=== PATIENT | female | born 1970 | race Caucasian/White ===

== ENCOUNTER 2016-10-26 18:06 | Emergency (ER) | payer MEDICARE, OTHER ==
[~2016-10-26] VITALS: Ht 170.2 cm; Wt 69.0 kg
[~2016-10-26 18:06] MED LIST: CARB100C PO; CEFU250T PO; CIPR-9 PO; FLUT1SPR9 EACH NARE; METR-1 PO; MIRTA15 PO
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
[2016-10-26 18:28] VITALS: PULSE 116; RESP 20
[2016-10-26] MEDS ORDERED: TETANUS/DIPHTHERIA TOXOID ADULT 0.5 ML VIAL IM ONE (18:30)
[2016-10-26] MEDS ORDERED: diphenhydrAMINE HCL 50 MG/ML VIAL IV PUSH ONE (18:45)
[2016-10-26] MEDS ORDERED: LORazepam 2 MG/ML VIAL IV PUSH ONE (18:45)
[2016-10-26 19:00] VITALS: BP 127/63; PULSE 98; RESP 21; O2SAT 97
[2016-10-26] MEDS ORDERED: diphenhydrAMINE HCL 50 MG/ML VIAL IM ONE (19:00)
[2016-10-26] MEDS ORDERED: LORazepam 2 MG/ML VIAL IM ONE (19:00)
[2016-10-26 19:21] LABS: AMPHETAMINE, URINE NEG (NEG); BARBITURATES, URINE NEG (NEG); COCAINE, URINE POS (NEG)
[2016-10-26 19:32] LABS: AUTOMATED NEUTROPHIL # 4.4 TH/MM3 (1.8-7.7); BASOPHIL % 0.5 % (0.0-2.0); EOSINOPHIL # 0.1 TH/MM3 (0-0.4); EOSINOPHIL % 0.8 % (0.0-4.0); HEMATOCRIT 46.4 % (35.0-46.0); HEMO FLAGS DIFF FINAL; LYMPH % 34.4 % (9.0-44.0); MEAN CELL VOLUME 85.7 FL (80.0-100.0); MEAN CORPUSCULAR HEMOGLOBIN 29.2 PG (27.0-34.0); MEAN CORPUSCULAR HGB CONC 34.1 % (32.0-36.0); MONO % 14.3 % (0.0-8.0); PLATELET COUNT 166 TH/MM3 (150-450); RED BLOOD COUNT 5.42 MIL/MM3 (4.00-5.30); RED CELL DISTRIBUTION WIDTH 14.9 % (11.6-17.2); WHITE BLOOD COUNT 8.9 TH/MM3 (4.0-11.0)
[2016-10-26 19:52] LABS: ANION GAP 12 MEQ/L (5-15)
[2016-10-26 19:57] LABS: ALKALINE PHOSPHATASE 146 U/L (45-117); ALT (GPT) 32 U/L (10-53); AST (GOT) 30 U/L (15-37); BICARBONATE 23.5 MEQ/L (21.0-32.0); BLOOD UREA NITROGEN 14 MG/DL (7-18); CHLORIDE 103 MEQ/L (98-107); GLOMERULAR FILTRATION RATE 41 ML/MIN (>89); SODIUM (NA) 138 MEQ/L (136-145); TOTAL BILIRUBIN ADULT 0.4 MG/DL (0.2-1.0)
[2016-10-26 19:58] LABS: ACETAMINOPHEN LESS THAN 2.0 MCG/ML (10.0-30.0); POTASSIUM 3.8 MEQ/L (3.5-5.1)
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
[2016-10-26] MEDS ORDERED: HALOPERIDOL LACTATE 5 MG/ML AMP IM ONE (20:15)
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
[2016-10-27 02:13] VITALS: BP 113/74; PULSE 103; RESP 18; O2SAT 97
[2016-10-27 06:21] VITALS: BP 113/79; PULSE 112; RESP 18; O2SAT 97
[2016-10-27 10:49] VITALS: BP 108/76; PULSE 101; RESP 20; O2SAT 98
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
[2016-10-27 11:41] VITALS: BP 108/76; PULSE 101; RESP 20; O2SAT 98
== END 2016-10-27 12:09 | disposition home or self-care (01) ==
LOC: NEPE 18:06 → NEPJ 10-27 12:09
DX: S61.411A Laceration without foreign body of right hand, initial encounter (principal); S02.2XXA Fracture of nasal bones, initial encounter for closed fracture; F14.129 Cocaine abuse with intoxication, unspecified; F10.129 Alcohol abuse with intoxication, unspecified; E11.9 Type 2 diabetes mellitus without complications; R51 Headache; I10 Essential (primary) hypertension; F19.129 Other psychoactive substance abuse with intoxication, unspecified; Z72.0 Tobacco use; Z23 Encounter for immunization
CPT/HCPCS: 12001; 70450; 70486; 73120; 80053; 80307; 84703; 85025; 90471; 90714; 96372; 99285; J1200; J1630; J2060

== ENCOUNTER 2016-11-23 00:09 | Emergency (ER) | payer MEDICARE, OTHER ==
[~2016-11-23] VITALS: Ht 175.3 cm; Wt 70.0 kg
[2016-11-23] MEDS ORDERED: SODIUM CHLORIDE 0.9% FLUSH 10 ML FLUSH IVF PRN (00:15)
[2016-11-23] MEDS ORDERED: SODIUM CHLOR 0.9% 1000 ML INJ 1,000 ML IV SCH (00:15)
[2016-11-23 00:16] VITALS: O2SAT 98
[2016-11-23 00:17] VITALS: BP 128/74; PULSE 101; RESP 18; TEMP 97.9; O2SAT 98
[2016-11-23 00:45] LABS: AUTOMATED NEUTROPHIL # 2.9 TH/MM3 (1.8-7.7); BASOPHIL % 0.4 % (0.0-2.0); EOSINOPHIL # 0.1 TH/MM3 (0-0.4); EOSINOPHIL % 1.6 % (0.0-4.0); HEMATOCRIT 37.1 % (35.0-46.0); LYMPH % 56.5 % (9.0-44.0); LYMPHOCYTE # 4.9 TH/MM3 (1.0-4.8); MEAN CELL VOLUME 85.8 FL (80.0-100.0); MEAN CORPUSCULAR HEMOGLOBIN 29.2 PG (27.0-34.0); MONO % 7.8 % (0.0-8.0); NEUT % 33.7 % (16.0-70.0); PLATELET COUNT 148 TH/MM3 (150-450); RED BLOOD COUNT 4.33 MIL/MM3 (4.00-5.30); WHITE BLOOD COUNT 8.6 TH/MM3 (4.0-11.0)
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
[2016-11-23 00:48] LABS: HEMO FLAGS AUTO DIFF
[2016-11-23 00:59] LABS: ACETAMINOPHEN LESS THAN 2.0 MCG/ML (10.0-30.0); ALKALINE PHOSPHATASE 87 U/L (45-117); ALT (GPT) 22 U/L (10-53); ANION GAP 10 MEQ/L (5-15); AST (GOT) 19 U/L (15-37); BICARBONATE 22.8 MEQ/L (21.0-32.0); BLOOD UREA NITROGEN 9 MG/DL (7-18); CHLORIDE 113 MEQ/L (98-107); GLOMERULAR FILTRATION RATE 62 ML/MIN (>89); SODIUM (NA) 146 MEQ/L (136-145); TOTAL BILIRUBIN ADULT 0.2 MG/DL (0.2-1.0)
[2016-11-23 01:03] LABS: POTASSIUM 2.8 MEQ/L (3.5-5.1)
[2016-11-23] MEDS ORDERED: POTASSIUM CHLOR 20 MEQ PREMIX 100 ML IV ONE (01:45)
[2016-11-23 02:08] LABS: PLATELET ESTIMATE SMEAR NORMAL (NORMAL); PLATELET MORPHOLOGY NORMAL (NORMAL)
[2016-11-23 03:10] LABS: SCAN/DIFF AUTO DIFF CONFIRMED
[2016-11-23] MEDS ORDERED: POTASSIUM CHLORIDE 20 MEQ CONTROLLED RELEASE TAB PO ONE (03:15)
[2016-11-23 03:30] VITALS: BP 95/55; PULSE 110; RESP 18; O2SAT 100
[2016-11-23 06:35] VITALS: BP 118/67; PULSE 93; RESP 18; O2SAT 96
[2016-11-23 07:05] VITALS: BP 116/58; PULSE 96; RESP 14; O2SAT 97
[2016-11-23 10:30] VITALS: BP 114/62; PULSE 92; RESP 16; O2SAT 96
== END 2016-11-23 12:54 | disposition home or self-care (01) ==
LOC: NEPE 00:09
DX: Z04.8 Encounter for examination and observation for other specified reasons (principal); F10.120 Alcohol abuse with intoxication, uncomplicated; T76.21XA Adult sexual abuse, suspected, initial encounter; R10.2 Pelvic and perineal pain; E11.9 Type 2 diabetes mellitus without complications; I10 Essential (primary) hypertension; Z87.39 Personal history of other diseases of the musculoskeletal system and connective tissue; Z86.69 Personal history of other diseases of the nervous system and sense organs; Z87.01 Personal history of pneumonia (recurrent); Z86.59 Personal history of other mental and behavioral disorders
CPT/HCPCS: 80053; 80185; 80307; 85025; 96360; 96361; 99284; J7030

== ENCOUNTER 2016-12-23 15:33 | Emergency (ER) | payer MEDICARE, OTHER, MEDICAID ==
[~2016-12-23] VITALS: Ht 172.7 cm; Wt 78.0 kg
[2016-12-23 15:35] VITALS: BP 141/91; PULSE 97; RESP 15; TEMP 98.4; O2SAT 99
--- NOTE | 2016-12-23 15:49 | PD ---
HPI . possible bug bite Chief Complaint: Bite or Sting Time Seen by Provider: 15:49 Travel History International Travel<30 days: No Contact w/Intl Traveler<30days: No Traveled to known affect area: No History of Present Illness HPI 46-year-old female with history of polysubstance abuse here with complaints of a possible insect bite to her left antecubital fossa. Patient tells me that she is living in a correction for women and needs to make sure that this is not something that is contagious. She denies any fever or chills. She denies any IV drug use. PFSH Past Medical History Hx Anticoagulant Therapy: No Bipolar Disorder: Yes Anxiety: Yes Depression: Yes Cancer: No Cardiovascular Problems: No Chemotherapy: No Cerebrovascular Accident: No Diabetes: Yes (TYPE 2) Diminished Hearing: No Genitourinary: No Headaches: Yes (Migraines) Hypertension: Yes Musculoskeletal: Yes Psychiatric: Yes (Diagnosed with BiPolar) Reproductive: No Respiratory: No Migraines: Yes Pneumonia: Yes Seizures: Yes ?: Not Menopausal: Yes : 3 Para: 2 Tubal Ligation: Yes Past Surgical History Section: Yes (X 1) Gynecologic Surgery: Yes Hysterectomy: Yes Social History Alcohol Use: No Tobacco Use: No (unknown) Substance Use: No (will not answer question) Allergies-Medications (Allergen,Severity, Reaction): Coded Allergies: Aspirin (Verified Allergy, Severe, Anaphylaxis, 12/23/16) Sulfa (Verified Allergy, Mild, Rash, 12/23/16) Ultram (Verified Allergy, Mild, Rash, 12/23/16) Vioxx (Verified Allergy, Mild, Rash, 12/23/16) *MDRO Multi-Drug Resistant Organism (Verified Adverse Reaction, Unknown, ) MRSA Shoulder wound 04/2016; MRSA (arm-06/22/16 & 07/23/16) Reported Meds & Prescriptions Reported Meds & Active Scripts Active Cipro (Ciprofloxacin HCl) 500 Mg Tab 500 Mg PO BID Flagyl (Metronidazole) 500 Mg Tab 500 Mg PO TID Mirtazapine 15 Mg Tab 15 Mg PO HS 15 Days Carbamazepine 100 Mg Chew 100 Mg PO Q12HR 15 Days Cefuroxime (Cefuroxime Axetil) 250 Mg Tab 250 Mg PO Q12H Stop date 08/17/16 Flonase Allergy Relief Children Nasal [place] (Fluticasone Nasal [place]) 50 Mcg/ Act [place] 2 [place] EACH NARE DAILY 50 mcg/spray Review of Systems General / Constitutional: No: Fever Eyes: No: Visual changes HENT: No: Headaches Cardiovascular: No: Chest Pain or Discomfort Respiratory: No: Shortness of Breath Gastrointestinal: No: Abdominal Pain Genitourinary: No: Dysuria Musculoskeletal: No: Pain Skin: Positive Other (possible insect bite), No Rash Neurologic: No: Weakness Psychiatric: No: Depression Endocrine: No: Polydipsia Hematologic/Lymphatic: No: Easy Bruising Physical Exam Narrative GENERAL: AAO x 3, no acute distress, Well-nourished, well-developed patient. SKIN: Warm and dry. No visible rashes or bruising. Small slightly erythematous papule to the antecubital fossa on the left side. No evidence of infection. No purulence, drainage or warmth HEAD: Normocephalic and atraumatic. EYES: No scleral icterus. No injection or drainage ENT: No nasal drainage noted. Mucous membranes pink. Airway patent. NECK: Supple, trachea midline. No JVD. CARDIOVASCULAR: Regular rate and rhythm without murmurs, gallops, or rubs. RESPIRATORY: Breath sounds equal bilaterally. No accessory muscle use. No rhonchi or rales. GASTROINTESTINAL: Visual inspection normal EXTREMITIES: No cyanosis or edema. BACK: Nontender without obvious deformity. No CVA tenderness. PSYCH: AAO x 3, normal affect. Data Data Last Documented VS Vital Signs Date Time Temp Pulse Resp B/P Pulse Ox O2 Delivery O2 Flow Rate FiO2 12/23/16 15:35 98.4 97 15 141/91 99 MDM Medical Decision Making Medical Screen Exam Complete: Yes Emergency Medical Condition: Yes Medical Record Reviewed: Yes Differential Diagnosis possible insect bite, less likely cellulitis, less likely scabies Narrative Course 46-year-old female with history of polysubstance abuse here with complaints of a possible insect bite to her left antecubital fossa. Patient tells me that she is living in a correction for women and needs to make sure that this is not something that is contagious. She denies any fever or chills. She denies any IV drug use. Patient seen and examined. She has a small solitary papule to her left antecubital fossa. It is not infected. I've explained this to her at length. We discussed the signs of infection when to return to the ED.. Patient verbalized understanding of instructions, questions were answered, and thanked me for their care. I advised them if their condition worsens, please return to the nearest emergency room for further care. Diagnosis Primary Impression: Papule of skin Additional Impression: Insect bite Qualified Code: W57.XXXA - Insect bite, initial encounter Patient Instructions: General Instructions Additional Instructions: You can use [id number] Neosporin to this area. [place] for worsening signs of infection which include fever, increased redness , increased warmth, purulent drainage, increased swelling or streaking. If any of these develop, please go to the nearest emergency room. Disposition: 01 DISCHARGE HOME Condition: Stable Perri Avendaño December 23, 2016 15:49
== END 2016-12-23 16:07 | disposition home or self-care (01) ==
LOC: NEPK 15:33
DX: R23.8 Other skin changes (principal); S50.362A Insect bite (nonvenomous) of left elbow, initial encounter; E11.9 Type 2 diabetes mellitus without complications; I10 Essential (primary) hypertension; W57.XXXA Bitten or stung by nonvenomous insect and other nonvenomous arthropods, initial encounter; Y93.9 Activity, unspecified; Y92.9 Unspecified place or not applicable; Y99.8 Other external cause status
CPT/HCPCS: 99281

== ENCOUNTER 2017-01-05 08:26 | Emergency (ER) | payer MEDICARE, OTHER ==
[~2017-01-05] VITALS: Ht 172.7 cm; Wt 78.0 kg
[2017-01-05 08:30] VITALS: BP 124/88; PULSE 107; RESP 18; TEMP 99.5; O2SAT 96
[2017-01-05] MEDS ORDERED: PROZ20CA11 PO (08:44)
[2017-01-05] MEDS ORDERED: GABA600T PO (08:44)
[2017-01-05] MEDS ORDERED: CLIN1CAP6 PO (08:44)
[2017-01-05] MEDS ORDERED: CLON1 PO (08:44)
[2017-01-05] MEDS ORDERED: SODIUM CHLOR 0.9% 1000 ML INJ 1,000 ML IV ONE (08:45)
[2017-01-05] MEDS ORDERED: KETOROLAC TROMETHAMINE 30 MG/ML (IVP) VIAL IV PUSH ONE (08:45)
[2017-01-05] MEDS ORDERED: CLINDAMYCIN INJ 600 MG in SODIUM CHLORIDE 0.9% INJ 100 ML IV ONE (08:45)
[2017-01-05] MEDS ORDERED: ONDANSETRON HCL 4 MG/2 ML VIAL IV PUSH ONE (08:45)
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
[2017-01-05 09:08] VITALS: BP 112/73; PULSE 91; RESP 18; TEMP 98.2; O2SAT 98
[2017-01-05 09:11] LABS: AUTOMATED NEUTROPHIL # 6.4 TH/MM3 (1.8-7.7); BASOPHIL # 0.1 TH/MM3 (0-0.2); BASOPHIL % 1.1 % (0.0-2.0); EOSINOPHIL # 0.1 TH/MM3 (0-0.4); EOSINOPHIL % 0.7 % (0.0-4.0); HEMATOCRIT 34.4 % (35.0-46.0); HEMO FLAGS DIFF FINAL; LYMPH % 20.3 % (9.0-44.0); MEAN CORPUSCULAR HEMOGLOBIN 29.1 PG (27.0-34.0); MEAN CORPUSCULAR HGB CONC 33.8 % (32.0-36.0); NEUT % 67.9 % (16.0-70.0); PLATELET COUNT 154 TH/MM3 (150-450); RED BLOOD COUNT 3.99 MIL/MM3 (4.00-5.30); RED CELL DISTRIBUTION WIDTH 12.3 % (11.6-17.2); WHITE BLOOD COUNT 9.6 TH/MM3 (4.0-11.0)
[2017-01-05 09:42] VITALS: BP 117/72; PULSE 95; RESP 18; O2SAT 98
[2017-01-05 09:48] LABS: AST (GOT) 26 U/L (15-37); GLOMERULAR FILTRATION RATE 68 ML/MIN (>89)
[2017-01-05 09:50] LABS: TOTAL BILIRUBIN ADULT 0.6 MG/DL (0.2-1.0)
[2017-01-05 09:51] LABS: ALKALINE PHOSPHATASE 98 U/L (45-117)
[2017-01-05 09:55] LABS: ANION GAP 8 MEQ/L (5-15); CHLORIDE 104 MEQ/L (98-107); POTASSIUM 3.3 MEQ/L (3.5-5.1); SODIUM (NA) 137 MEQ/L (136-145)
[2017-01-05 09:57] LABS: ALT (GPT) 25 U/L (10-53); BLOOD UREA NITROGEN 14 MG/DL (7-18)
[2017-01-05] MEDS ORDERED: ZOFR4TAB3 SL (10:00)
[2017-01-05] MEDS ORDERED: POTASSIUM CHLORIDE 20 MEQ CONTROLLED RELEASE TAB PO ONE (10:15)
[2017-01-05 10:22] VITALS: BP 108/68; PULSE 90; RESP 18; O2SAT 95
== END 2017-01-05 11:23 | disposition home or self-care (01) ==
LOC: PHED 08:26
DX: L02.511 Cutaneous abscess of right hand (principal); R11.2 Nausea with vomiting, unspecified; R50.9 Fever, unspecified; F31.9 Bipolar disorder, unspecified; F41.9 Anxiety disorder, unspecified; E11.9 Type 2 diabetes mellitus without complications; I10 Essential (primary) hypertension; B95.62 Methicillin resistant Staphylococcus aureus infection as the cause of diseases classified elsewhere
CPT/HCPCS: 10060; 80053; 83605; 85025; 86403; 87040; 87070; 87186; 96365; 96375; 99284; J1885; J2405; J7030

== ENCOUNTER 2017-01-05 21:50 | Inpatient (IN) | payer MEDICARE, OTHER ==
[~2017-01-05] VITALS: Ht 172.7 cm; Wt 79.0 kg
[~2017-01-05 21:50] MED LIST changes: +CLIN1CAP6 PO; +CLON1 PO; +GABA600T PO; +PROZ20CA11 PO; +ZOFR4TAB3 SL
[2017-01-05 22:05] VITALS: BP 117/69; PULSE 102; RESP 18; TEMP 101.3; O2SAT 98
[2017-01-05] MEDS ORDERED: SODIUM CHLOR 0.9% 1000 ML INJ 1,000 ML IV SCH (22:06)
[2017-01-05] MEDS ORDERED: SODIUM CHLORIDE 0.9% FLUSH 10 ML FLUSH IV FLUSH PRN (22:15)
[2017-01-05] MEDS ORDERED: ACETAMINOPHEN 325 MG TAB PO ONE (22:15)
--- NOTE | 2017-01-05 22:16 | PD ---
HPI Chief Complaint: Fever Time Seen by Provider: 22:05 Travel History International Travel<30 days: No Contact w/Intl Traveler<30days: No Traveled to known affect area: No History of Present Illness HPI 46-year-old female presents the emergency department for evaluation of generalized aches and pains and associated abscess of the right hand and cellulitis of the left thigh. Patient states she went to our sister facility [place] yesterday and had a needle drainage of her right hand which was not working. Patient states that she does have a history of IV drug abuse but gave it up in June 2016 and has not used since then. Patient states she's been running fevers at home and generally been feeling very poorly since she left the hospital. She's been taking antibiotics at home and not improving. Symptoms are gradually worsening, moderate in severity. PFSH Past Medical History Hx Anticoagulant Therapy: No Bipolar Disorder: Yes Anxiety: Yes Depression: Yes Cancer: No Cardiovascular Problems: No Chemotherapy: No Cerebrovascular Accident: No Diabetes: Yes (TYPE 2) Diminished Hearing: No Gastrointestinal Disorders: No Genitourinary: No Headaches: Yes (Migraines) Hypertension: Yes Musculoskeletal: Yes Psychiatric: Yes (Diagnosed with BiPolar) Reproductive: No Respiratory: No Migraines: Yes Pneumonia: Yes Seizures: Yes ?: Not Menopausal: Yes : 3 Para: 2 Tubal Ligation: Yes Past Surgical History Section: Yes (X 1) Gynecologic Surgery: Yes Hysterectomy: Yes Social History Alcohol Use: No Tobacco Use: No (unknown) Substance Use: No (will not answer question) Allergies-Medications (Allergen,Severity, Reaction): Coded Allergies: Aspirin (Verified Allergy, Severe, Anaphylaxis, 01/05/17) Sulfa (Verified Allergy, Mild, Rash, 01/05/17) Ultram (Verified Allergy, Mild, Rash, 01/05/17) Vioxx (Verified Allergy, Mild, Rash, 01/05/17) *MDRO Multi-Drug Resistant Organism (Verified Adverse Reaction, Unknown, ) MRSA Shoulder 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 SKIN: There is a significant cellulitis on the medial aspect of the left proximal thigh, no extension into the pubic area. Has not progressed while in the emergency department. Appears to be uncomplicated cellulitis without any evidence for necrotizing fasciitis. There is also an abscess on the dorsum of the right hand was significant cellulitis to the MCP joints as well as just crossing the wrist joint. No angina. HEAD: Normocephalic/atraumatic. EYES: Pupils equal and round. No scleral icterus. No injection or drainage. ENT: No nasal bleeding or discharge. Mucous membranes pink and moist. NECK: Trachea midline. No JVD. CARDIOVASCULAR: Regular rhythm with tachycardia.. No murmur appreciated. 2+ bilateral equal pulses in all 4 extremities. RESPIRATORY: No accessory muscle use. Clear to auscultation. Breath sounds equal bilaterally. GASTROINTESTINAL: Abdomen soft, non-tender, nondistended. Hepatic and splenic margins not palpable. MUSCULOSKELETAL: No obvious deformities. No clubbing. No cyanosis. No edema. NEUROLOGICAL: Awake and alert. No obvious cranial nerve deficits. Motor grossly within normal limits. Normal speech. PSYCHIATRIC: Appropriate mood and affect; insight and judgment normal. Data Data Last Documented VS Vital Signs Date Time Temp Pulse Resp B/P Pulse Ox O2 Delivery O2 Flow Rate FiO2 01/06/17 02:31 84 15 110/71 98 Room Air 01/06/17 01:58 99.1 Orders Complete Blood Count With Diff (01/05/17 22:06) Comprehensive Metabolic Panel (01/05/17 22:06) Lactic Acid (01/05/17 22:06) Iv Access Insert/Monitor (01/05/17 22:06) Ecg Monitoring (01/05/17 22:06) Oximetry (01/05/17 22:06) Sodium Chlor 0.9% 1000 Ml Inj (Ns 1000 M (01/05/17 22:06) Sodium Chloride 0.9% Flush (Ns Flush) (01/05/17 22:15) Acetaminophen (Tylenol) (01/05/17 22:15) Sodium Chlor 0.9% 1000 Ml Inj (Ns 1000 M (01/06/17 00:15) Blood Culture (01/06/17 00:03) Vancomycin Inj (Vancomycin Inj) (01/06/17 00:15) Ampicillin-Sulbactam Inj (Unasyn Inj) (01/06/17 02:00) Morphine Inj (Morphine Inj) (01/06/17 02:00) Ct Pelvis W Iv Contrast(Rout) (01/06/17 ) Ed Urine Pregnancytest Poc (01/06/17 02:03) Sodium Chlor 0.9% 1000 Ml Inj (Ns 1000 M (01/06/17 02:30) Wound Culture And Gram Stain (01/06/17 02:28) Iohexol 350 Inj (Omnipaque 350 Inj) (01/06/17 02:48) Potassium Chloride (Kcl) (01/06/17 04:15) Admit Order (Ed Use Only) (01/06/17 ) Labs Laboratory Tests Test 01/05/17 22:30 White Blood Count 12.4 TH/MM3 Red Blood Count 4.19 MIL/MM3 Hemoglobin 12.3 GM/DL Hematocrit 35.6 % Mean Corpuscular Volume 84.9 FL Mean Corpuscular Hemoglobin 29.4 PG Mean Corpuscular Hemoglobin 34.6 % Concent Red Cell Distribution Width 13.4 % Platelet Count 143 TH/MM3 Mean Platelet Volume 7.7 FL Neutrophils (%) (Auto) 68.6 % Lymphocytes (%) (Auto) 20.9 % Monocytes (%) (Auto) 10.1 % Eosinophils (%) (Auto) 0.2 % Basophils (%) (Auto) 0.2 % Neutrophils # (Auto) 8.5 TH/MM3 Lymphocytes # (Auto) 2.6 TH/MM3 Monocytes # (Auto) 1.3 TH/MM3 Eosinophils # (Auto) 0.0 TH/MM3 Basophils # (Auto) 0.0 TH/MM3 CBC Comment DIFF FINAL Differential Comment Lactic Acid Level 0.5 mmol/L Sodium Level 137 MEQ/L Potassium Level 3.0 MEQ/L Chloride Level 103 MEQ/L Carbon Dioxide Level 25.8 MEQ/L Anion Gap 8 MEQ/L Blood Urea Nitrogen 14 MG/DL Creatinine 1.12 MG/DL Estimat Glomerular Filtration 53 ML/MIN Rate Random Glucose 100 MG/DL Calcium Level 8.7 MG/DL Total Bilirubin 0.6 MG/DL Aspartate Amino Transf 30 U/L (AST/SGOT) Alanine Aminotransferase 28 U/L (ALT/SGPT) Alkaline Phosphatase 148 U/L Total Protein 7.0 GM/DL Albumin 3.7 GM/DL MDM Medical Decision Making Medical Screen Exam Complete: Yes Emergency Medical Condition: Yes Differential Diagnosis Sepsis, abscess, cellulitis, necrotizing fasciitis highly unlikely. Narrative Course Patient was roomed in emergency department, she is given normal saline and morphine. Lactic acid is negative negating the need for aggressive resuscitation. She did have fever in emerged Department rub blood cell count is increased from 9-12 overnight. She does meet surgical criteria. Her antibiotic coverage was broadened to include vancomycin and Unasyn. CT examination of the pelvis showed no subcutaneous air tracking and adequately excluding necrotizing fasciitis. She did have an incision and drainage of her hand which yielded significant drainage and a culture swab was sent. Discussed with the patient that given her progression I would recommend admission at this time and she is agreeable. Patient was discussed with Dr. Ram who agrees for admission. Diagnosis Primary Impression: Sepsis Qualified Code: A41.9 - Sepsis, due to unspecified organism Additional Impressions: Cellulitis of thigh Abscess of hand History of intravenous drug use in remission Admitting Information Admitting Physician Requests: Admit Condition: Rafiq Toure MD January 05, 2017 22:16
[2017-01-05 22:38] LABS: AUTOMATED NEUTROPHIL # 8.5 TH/MM3 (1.8-7.7); BASOPHIL % 0.2 % (0.0-2.0); EOSINOPHIL % 0.2 % (0.0-4.0); HEMATOCRIT 35.6 % (35.0-46.0); HEMO FLAGS DIFF FINAL; LYMPH % 20.9 % (9.0-44.0); LYMPHOCYTE # 2.6 TH/MM3 (1.0-4.8); MEAN CELL VOLUME 84.9 FL (80.0-100.0); MEAN CORPUSCULAR HEMOGLOBIN 29.4 PG (27.0-34.0); MEAN CORPUSCULAR HGB CONC 34.6 % (32.0-36.0); MONO % 10.1 % (0.0-8.0); NEUT % 68.6 % (16.0-70.0); PLATELET COUNT 143 TH/MM3 (150-450); RED BLOOD COUNT 4.19 MIL/MM3 (4.00-5.30); RED CELL DISTRIBUTION WIDTH 13.4 % (11.6-17.2); WHITE BLOOD COUNT 12.4 TH/MM3 (4.0-11.0)
[2017-01-06] VITALS (9 sets, daily range): BP systolic 107–130; BP diastolic 60–82; PULSE 71–95; RESP 15–20; TEMP 98.1–99.1; O2SAT 95–98
[2017-01-06] MEDS ORDERED: VANCOMYCIN INJ 1,000 MG in SODIUM CHLOR 0.9% 250 ML INJ 250 ML IV ONE (00:15)
[2017-01-06] MEDS ORDERED: SODIUM CHLOR 0.9% 1000 ML INJ 1,000 ML IV ONE ×2 (00:15→02:30)
[2017-01-06 01:04] LABS: ALT (GPT) 28 U/L (10-53); ANION GAP 8 MEQ/L (5-15); AST (GOT) 30 U/L (15-37); BICARBONATE 25.8 MEQ/L (21.0-32.0); BLOOD UREA NITROGEN 14 MG/DL (7-18); CHLORIDE 103 MEQ/L (98-107); GLOMERULAR FILTRATION RATE 53 ML/MIN (>89); SODIUM (NA) 137 MEQ/L (136-145)
[2017-01-06 01:06] LABS: ALKALINE PHOSPHATASE 148 U/L (45-117); TOTAL BILIRUBIN ADULT 0.6 MG/DL (0.2-1.0)
[2017-01-06] MEDS ORDERED: AMPICILLIN-SULBACTAM INJ 3 GM in SODIUM CHLORIDE 0.9% INJ 100 ML IV ONE (02:00)
[2017-01-06] MEDS ORDERED: MORPHINE SULFATE 8 MG/ML INJ IV PUSH ONE (02:00)
[2017-01-06] MEDS ORDERED: IOHEXOL 350 MG/ML 10 ML VIAL (for RAD DIAG) IV ONE (02:48)
--- NOTE | 2017-01-06 03:29 | RADRPT ---
EXAM DATE/TIME: 01/06/2017 02:48 [facility] COMPARISON: No previous studies available for comparison. INDICATIONS : Left groin swelling. Evaluate for fascitis. IV CONTRAST: 95 cc Omnipaque 350 (iohexol) IV ORAL CONTRAST: No oral contrast ingested. RADIATION DOSE: 13.57 CTDIvol (mGy) MEDICAL HISTORY : Hypertension. Diabetes mellitus type 2. Seizures. SURGICAL HISTORY : Hysterectomy. ENCOUNTER: Initial ACUITY: 1 day PAIN SCALE: 8/10 LOCATION: Left pelvis TECHNIQUE: Volumetric scanning of the pelvis was performed. Using automated exposure control and adjustment of t he mA and/or kV according to patient size, radiation dose was kept as low as reasonably achievable to obtain optimal diagnostic quality images. FINDINGS: BOWEL/MESENTERY: The visualized small and large bowel demonstrate no acute abnormality. There is no free fluid. BLADDER: There is no wall thickening or mass. RETROPERITONEUM: There is no aneurysm or lymphadenopathy. REPRODUCTIVE: Within normal limits. INGUINAL: There is no lymphadenopathy or hernia. MUSCULOSKELETAL: There is focal soft tissue swelling and edema in the upper medial left thigh. There are no gas bubble s or drainable fluid collection. CONCLUSION: Focal soft tissue swelling and edema in the left upper thigh with no gas or drainable fluid. Foreign Saab MD on January 06, 2017 at 3:26 Board Certified Radiologist. This report was verified electronically.
[2017-01-06] MEDS ORDERED: POTASSIUM CHLORIDE 20 MEQ CONTROLLED RELEASE TAB PO ONE (04:15)
[2017-01-06] MEDS ORDERED: Vancomycin Consult Pharmacy 1 EA OTHER SCH (04:15)
[2017-01-06] MEDS ORDERED: NALOXONE HCL 0.4 MG/ML AMP IV PRN (04:15)
[2017-01-06] MEDS ORDERED: ACETAMINOPHEN/HYDROcodone 325 MG/5 MG TAB PO PRN (06:15)
--- NOTE | 2017-01-06 06:25 | HHI.HP ---
HPI Service [facility] Primary Care Physician No Primary Care Physician Admission Diagnosis Sepsis, Hand abscess, Thigh cellulitis. Diagnoses: (1) Cellulitis of thigh Chief Complaint: Pain Travel History International Travel<30 Days: No Contact w/Intl Traveler <30 Da: No Traveled to Known Affected Are: No History of Present Illness Written by Lizzette Paulino, acting as scribe for Dr. Chua on 01/06/17 at 06:16. History from patient, ER physician communication, and review of medical records. Patient reports that she came to hospital because she was having severe pain in her left upper inner thigh/groin with redness, swelling and tenderness; reports Fevers, chills, nausea, vomiting x 3 episodes - no hematemesis, diarrhea x 2 days - no black or red stool. Cough at home with some "chunky sputum" yesterday ; no dysuria, no hematuria. Also reports of pain in her right hand with surrounding erythema and swelling. She actually presented to [facility] emergency room previously and had drainage of that left hand. She stated not much was resulted at that time. However tonight, in the emergency room, incision and drainage was done from her left hand infection and as per ER report drained copious amount. Further workup in ER with pelvic CT reveals Focal soft tissue swelling and edema in the left upper thigh with no gas or drainable fluid. Patient reports she has been on Clindamycin since Tuesday She reports she is a diabetic. However has not been on any insulin or oral hypoglycemics for past 8 months. She states this was because her sugars have already improved. Review of Systems Except as stated in HPI: all other systems reviewed are Neg Past Family Social History Past Medical History DM managed by diets Seizures Depression Anxiety . Past Surgical History BTL Hysterectomy . Reported Medications Reported Meds & Active Scripts Active Zofran Odt (Ondansetron Odt) 4 Mg Tab 4 Mg SL Q6HR PRN Carbamazepine 100 Mg Chew 100 Mg PO Q12HR 15 Days Reported Clindamycin (Clindamycin HCl) 300 Mg Cap 300 Mg PO Q6H Gabapentin 600 Mg Tab 600 Mg PO TID Klonopin (Clonazepam) 1 Mg Tab 1 Mg PO BID Prozac (Fluoxetine HCl) 20 Mg Cap 60 Mg PO DAILY . Allergies: Coded Allergies: Aspirin (Verified Allergy, Severe, Anaphylaxis, 01/05/17) Sulfa (Verified Allergy, Mild, Rash, 01/05/17) Ultram (Verified Allergy, Mild, Rash, 01/05/17) Vioxx (Verified Allergy, Mild, Rash, 01/05/17) *MDRO Multi-Drug Resistant Organism (Verified Adverse Reaction, Unknown, ) MRSA Shoulder wound 04/2016; MRSA (arm-06/22/16 & 07/23/16) Active Ordered Medications Current Medications Sodium Chloride (NS 1000 ml Inj) 1,000 ml @ 1,000 mls/hr Q1H IV Last administered on 01/05/17 22:34; Start 01/05/17 at 22:06; Stop 01/05/17 at 23:05 ; Status DC Sodium Chloride (NS Flush) 2 ml UNSCH PRN IV FLUSH FLUSH AFTER USING IV ACCESS ; Start 01/05/17 at 22:15; Stop 01/06/17 at 04:12; Status DC Acetaminophen 650 mg 650 mg ONCE ONCE PO Last administered on 01/05/17 22:34 ; Start 01/05/17 at 22:15; Stop 01/05/17 at 22:16; Status DC Sodium Chloride 1,000 ml @ 999 mls/hr BOLUS ONCE IV Last administered on 01/06 01:20; Start 01/06/17 at 00:15; Stop 01/06/17 at 01:15; Status DC Vancomycin HCl 1000 mg/Sodium Chloride 250 ml @ 250 mls/hr ONCE ONCE IV Last administered on 01/06/17 01:20; Start 01/06/17 at 00:15; Stop 01/06/17 at 01:14 ; Status DC Ampicillin Sodium/ Sulbactam Sodium/ Sodium Chloride (Unasyn Inj/NS Inj) 100 ml @ 200 mls/hr ONCE ONCE IV Last administered on 01/06/17 02:27; Start at 02:00; Stop 01/06/17 at 02:29; Status DC Morphine Sulfate 6 mg 6 mg ONCE ONCE IV PUSH Last administered on 01/06/17 02 :25; Start 01/06/17 at 02:00; Stop 01/06/17 at 02:01; Status DC Sodium Chloride (NS 1000 ml Inj) 1,000 ml @ 999 mls/hr BOLUS ONCE IV Last administered on 01/06/17 02:26; Start 01/06/17 at 02:30; Stop 01/06/17 at 03:30 ; Status DC Iohexol (Omnipaque 350 Inj) 95 ml STK-MED ONCE IV Last administered on 02:48; Start 01/06/17 at 02:48; Stop 01/06/17 at 02:49; Status DC Potassium Chloride (KCl) 40 meq ONCE ONCE PO Last administered on 01/06/17 05 :24; Start 01/06/17 at 04:15; Stop 01/06/17 at 04:16; Status DC Sodium Chloride (NS Flush) 2 ml UNSCH PRN IV FLUSH FLUSH AFTER USING IV ACCESS ; Start 01/06/17 at 04:15 Sodium Chloride (NS Flush) 2 ml BID IV FLUSH ; Start 01/06/17 at 09:00 Naloxone HCl 0.4 mg 0.4 mg UNSCH PRN IV SEE LABEL COMMENTS; Start 01/06/17 at 04:15 Pharmacy Profile Note 0 ml @ 0 mls/hr UNSCH OTHER ; Start 01/06/17 at 04:15 Piperacillin Sod/ Tazobactam Sod (Zosyn 4.5 Gm Premix) 100 ml @ 200 mls/hr Q6H IV ; Start 01/06/17 at 08:00 Acetaminophen/ Hydrocodone Bitart (Rice 5-325 Mg) 1 tab Q6H PRN PO pain >5; Start 01/06/17 at 06:15 . Family History Sister with bone cancer Father from heart disease . Social History Tobacco: smokes 1 pack per week Alcohol: none Illicit Drugs: states she's stopped using drugs July 20, 2016 . Physical Exam Vital Signs Vital Signs Date Time Temp Pulse Resp B/P Pulse Ox O2 Delivery O2 Flow Rate FiO2 01/06/17 05:31 95 16 110/71 96 Room Air 01/06/17 02:31 84 15 110/71 98 Room Air 01/06/17 01:58 99.1 01/05/17 22:15 98 Room Air 01/05/17 22:05 101.3 102 18 117/69 98 Physical Exam GENERAL: Awake alert and oriented. Almost moaning and crying because of pain from her left upper thigh. SKIN: Tactile fever. Does have obvious chills. HEAD: Atraumatic. Normocephalic. No temporal or scalp tenderness. EYES: No scleral icterus. No injection or drainage. ENT: Nose without bleeding, purulent drainage or septal hematoma. Airway patent. NECK: Trachea midline. No JVD. Supple, nontender, no meningeal signs. CARDIOVASCULAR: Regular rate and rhythm without murmurs, gallops, or rubs. RESPIRATORY: Clear to auscultation. Breath sounds equal bilaterally. No wheezes , rales, or rhonchi. GASTROINTESTINAL: Abdomen soft, non-tender, nondistended. No guarding. MUSCULOSKELETAL:Right upper extremity at the dorsum of the hand with already drained wound. The wound was packed. Left upper thigh with surrounding erythema, redness, swelling of the soft tissue significantly. NEUROLOGICAL: Awake and alert.Motor and sensory grossly within normal limits. Normal speech. Laboratory Laboratory Tests Test 01/05/17 22:30 White Blood Count 12.4 Red Blood Count 4.19 Hemoglobin 12.3 Hematocrit 35.6 Mean Corpuscular Volume 84.9 Mean Corpuscular Hemoglobin 29.4 Mean Corpuscular Hemoglobin 34.6 Concent Red Cell Distribution Width 13.4 Platelet Count 143 Mean Platelet Volume 7.7 Neutrophils (%) (Auto) 68.6 Lymphocytes (%) (Auto) 20.9 Monocytes (%) (Auto) 10.1 Eosinophils (%) (Auto) 0.2 Basophils (%) (Auto) 0.2 Neutrophils # (Auto) 8.5 Lymphocytes # (Auto) 2.6 Monocytes # (Auto) 1.3 Eosinophils # (Auto) 0.0 Basophils # (Auto) 0.0 CBC Comment DIFF FINAL Differential Comment Lactic Acid Level 0.5 Sodium Level 137 Potassium Level 3.0 Chloride Level 103 Carbon Dioxide Level 25.8 Anion Gap 8 Blood Urea Nitrogen 14 Creatinine 1.12 Estimat Glomerular Filtration 53 Rate Random Glucose 100 Calcium Level 8.7 Total Bilirubin 0.6 Aspartate Amino Transf 30 (AST/SGOT) Alanine Aminotransferase 28 (ALT/SGPT) Alkaline Phosphatase 148 Total Protein 7.0 Albumin 3.7 Date/Time Procedure Status Source Growth 01/06/17 02:40 Gram Stain Received Wound Hand Pending 01/06/17 02:40 Wound Culture Received Wound Hand Pending 01/06/17 00:15 Aerobic Blood Culture Received Blood Peripheral Pending 01/06/17 00:15 Anaerobic Blood Culture Received Blood Peripheral Pending Result Diagram: 01/05/17 2230 01/05/17 2230 Imaging Last Impressions Pelvis CT 01/06/17 0000 Signed Impressions: Service Date/Time: December 02:48 - CONCLUSION: Focal soft tissue swelling and edema in the left upper thigh with no gas or drainable fluid. Foreign Saab MD . Assessment and Plan Problem List: (1) Cellulitis of thigh ICD Code: L03.119 Status: Acute Assessment and Plan Impression: Cellulitis with failed outpatient therapy Hypokalemia History of MRSA Suspects current IV drug abuse although patient denies it. She stated she has quit since June 2016. Plan: Continue vancomycin per creatinine clearance and levels. Next continue Zosyn 4.5 g IV every 6 hours. We'll follow culture results. Pain control with Toradol 15 mg IV every 6 hours. Replace potassium. Resume rest of the home meds. Urine toxicology DVT prophylaxis with SCD GI prophylaxis with pantoprazole. This note was transcribed by concha [Lizzette Paulino]. I, Dr. Kelsie Chua personally performed the history, physical exam, and medical decision making; and confirmed the accuracy of the information in the transcribed note. Authenticated by Dr. Kelsie Chua on01/06/17 at 06:16. Physician Certification 2 Midnight Certification Type: Admission for Inpatient Services Order for Inpatient Services The services are ordered in accordance with Medicare regulations or non- Medicare payer requirements, as applicable. In the case of services not specified as inpatient-only, they are appropriately provided as inpatient services in accordance with the 2-midnight benchmark. Estimated LOS (days): 2 days is the estimated time the patient will need to remain in the hospital, assuming treatment plan goals are met and no additional complications. Post-Hospital Plan: Lizzette Hoffman January 06, 2017 06:24 Kelsie Chua MD January 06, 2017 08:39
[2017-01-06 07:19] LABS: AMPHETAMINE, URINE NEG (NEG); BARBITURATES, URINE NEG (NEG); COCAINE, URINE POS (NEG)
[2017-01-06] MEDS: PIPERACIL-TAZO 4.5 GM PREMIX 100 ML IV SCH ×3 (07:44→19:34)
[2017-01-06] MEDS: KETOROLAC TROMETHAMINE 30 MG/ML (IVP) VIAL IV PUSH PRN ×2 (07:44→19:38)
[2017-01-06] MEDS: FLUoxetine HCL 20 MG CAP PO SCH (09:42)
[2017-01-06] MEDS: clonazePAM 1 MG TAB PO SCH ×2 (09:42→19:35)
[2017-01-06] MEDS: GABAPENTIN 300 MG CAP PO SCH ×3 (09:42→16:23)
[2017-01-06] MEDS: SODIUM CHLORIDE 0.9% FLUSH 10 ML FLUSH IV FLUSH SCH ×2 (09:42→19:35)
[2017-01-06] MEDS: ACETAMINOPHEN/HYDROcodone 325 MG/7.5 MG TAB PO PRN ×3 (09:43→22:35)
[2017-01-06] MEDS: VANCOMYCIN INJ 1,500 MG in SODIUM CHLORID 0.9% 500 ML INJ 500 ML IV SCH ×2 (09:43→22:33)
--- NOTE | 2017-01-06 10:13 | HHI.PR ---
Addendum to Inpatient Note Additional Information Ms. Castro is a 46 year old female with a history of drug abuse and previous history of IVDU (last use Jun 2016) who presented to the ED due to left upper thigh indurated lesion with associated erythema, pain. She also has right hand swelling. She was discharged from [facility] ED day prior to this admission. At the time of this examination, patient is in a lot of pain, she had fever of 101.3 last night. She has leukocytosis. There was a plan to transfer patient to [facility]. I have talked to the nurse fixer supervisor - this patient should NOT be transferred out of the [facility] at this time. Once ID evaluation is completed, patient's clinical condition is more stable, she can potentially go to [facility] in the next 24 to 48 hours. Urgent intervention maybe needed. Also, despite patient's history of substance abuse, this patient has genuine reasons for pain. Depriving patient's like this from proper amount of pain control is not reasonable. We will continue to provide pain medications and assess daily to reduce or stop pain medications. Amanda Guzman DO January 06, 2017 10:13
[2017-01-06] MEDS: CLINDAMYCIN INJ 600 MG in SODIUM CHLORIDE 0.9% INJ 100 ML IV SCH ×2 (12:12→18:12)
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
[2017-01-07] VITALS: BP 126/78; PULSE 80; RESP 20; TEMP 97.6; O2SAT 97
[2017-01-07] MEDS: PIPERACIL-TAZO 4.5 GM PREMIX 100 ML IV SCH ×4 (01:10→19:49)
[2017-01-07] MEDS: CLINDAMYCIN INJ 600 MG in SODIUM CHLORIDE 0.9% INJ 100 ML IV SCH ×3 (03:09→19:47)
[2017-01-07] MEDS: ACETAMINOPHEN/HYDROcodone 325 MG/7.5 MG TAB PO PRN ×4 (03:14→23:29)
[2017-01-07] MEDS: SODIUM CHLORIDE 0.9% FLUSH 10 ML FLUSH IV FLUSH PRN (05:47)
[2017-01-07] MEDS: KETOROLAC TROMETHAMINE 30 MG/ML (IVP) VIAL IV PUSH PRN (05:47)
[2017-01-07 06:10] LABS: AUTOMATED NEUTROPHIL # 6.1 TH/MM3 (1.8-7.7); BASOPHIL % 0.3 % (0.0-2.0); EOSINOPHIL % 0.4 % (0.0-4.0); HEMATOCRIT 28.9 % (35.0-46.0); HEMO FLAGS DIFF FINAL; LYMPH % 20.7 % (9.0-44.0); LYMPHOCYTE # 1.9 TH/MM3 (1.0-4.8); MEAN CELL VOLUME 86.6 FL (80.0-100.0); MEAN CORPUSCULAR HEMOGLOBIN 28.9 PG (27.0-34.0); MEAN CORPUSCULAR HGB CONC 33.4 % (32.0-36.0); MONO % 11.9 % (0.0-8.0); NEUT % 66.7 % (16.0-70.0); PLATELET COUNT 101 TH/MM3 (150-450); RED BLOOD COUNT 3.34 MIL/MM3 (4.00-5.30); RED CELL DISTRIBUTION WIDTH 13.3 % (11.6-17.2); WHITE BLOOD COUNT 9.1 TH/MM3 (4.0-11.0)
[2017-01-07 06:26] LABS: BICARBONATE 27.9 MEQ/L (21.0-32.0); POTASSIUM 3.1 MEQ/L (3.5-5.1)
[2017-01-07] MEDS: FLUoxetine HCL 20 MG CAP PO SCH (07:35)
[2017-01-07] MEDS: GABAPENTIN 300 MG CAP PO SCH ×3 (07:35→17:30)
[2017-01-07] MEDS: clonazePAM 1 MG TAB PO SCH ×2 (07:35→19:50)
[2017-01-07] MEDS: SODIUM CHLORIDE 0.9% FLUSH 10 ML FLUSH IV FLUSH SCH ×2 (07:38→19:49)
[2017-01-07 08:00] VITALS: BP 108/71; PULSE 76; RESP 16; TEMP 98; O2SAT 95
[2017-01-07] MEDS: VANCOMYCIN INJ 1,500 MG in SODIUM CHLORID 0.9% 500 ML INJ 500 ML IV SCH ×2 (08:34→22:04)
[2017-01-07] MEDS: MORPHINE SULFATE 4 MG/ML INJ IV PUSH PRN ×3 (08:34→19:55)
--- NOTE | 2017-01-07 10:56 | HHI.PR ---
Subjective Remarks Follow up for right hand infection, left groin cellulitis. Patient is ambulating well, tolerating diet. She sweated a lot last night. No documented fever. Left groin induration is somewhat softer now. Right hand swelling is improved. Objective Vitals Vital Signs Date Time Temp Pulse Resp B/P Pulse Ox O2 Delivery O2 Flow Rate FiO2 01/07/17 08:00 98.0 76 16 108/71 95 01/07/17 00:00 97.6 80 20 126/78 97 01/06/17 20:07 95 01/06/17 20:00 98.2 88 20 130/82 98 01/06/17 16:00 99.0 89 18 121/79 95 01/06/17 14:26 98.1 89 20 117/71 98 01/06/17 12:44 98.8 71 20 107/60 97 Room Air 01/06/17 11:00 20 I/O 01/06/17 01/06/17 01/06/17 01/07/17 01/07/17 01/07/17 07:00 15:00 23:00 07:00 15:00 23:00 Intake Total 360 ml 440 ml Output Total 650 ml Balance 360 ml -210 ml Intake Oral 360 ml 440 ml Output Urine Total 650 ml # Bowel Movements 0 Result Diagram: 01/07/17 0501 01/07/17 0501 Imaging Last Impressions Pelvis CT 01/06/17 0000 Signed Impressions: Service Date/Time: December 02:48 - CONCLUSION: Focal soft tissue swelling and edema in the left upper thigh with no gas or drainable fluid. Foreign Saab MD Objective Remarks GENERAL: AOX3, NAD. SKIN: Warm and dry. HEAD: Normocephalic. EYES: No scleral icterus. No injection or drainage. NECK: Supple, trachea midline. No JVD or lymphadenopathy. CARDIOVASCULAR: Regular rate and rhythm without murmurs, gallops, or rubs. RESPIRATORY: Breath sounds equal bilaterally. No accessory muscle use. GASTROINTESTINAL: Abdomen soft, non-tender, nondistended. MUSCULOSKELETAL: No cyanosis, or edema. Right hand swelling improved. Left groin remains erythematous, indurated and tender on palpation. BACK: Nontender without obvious deformity. No CVA tenderness. A/P Problem List: (1) Sepsis ICD Code: A41.9 Status: Acute (2) Cellulitis of thigh ICD Code: L03.119 Status: Acute (3) Abscess of right hand ICD Code: L02.511 Status: Acute Assessment and Plan Ms. Castro is a 46 year old female with a history of substance abuse who presented to the ED on 01/05/2017 due to left groin cellulitis, indurated lesion as well as right hand erythema, swelling. Despite I&D of the right hand and evaluation at the ED day prior to this admission, patient reports no significant clinical improvement which prompted her to come the ED. CT pelvic shows focal soft tissue swelling with no gas or drainable fluid. - Left groin cellulitis - Right hand abscess s/p I&D. - Large area erythema still present, induration is improving. - Continue Vancomycin, Zosyn, Clindamycin all IV. - ID following. - Hand wound is growing MRSA. - Acetaminophen for minor pain. [place] for Pain 5-10, Morphine 4mg IV Q3hrs PRN - Hypokalemia - K+ 3.0 --> 3.1. Will replace with oral KCL. - Mild Acute kidney injury - creatinine improved -- 1.12 --> 0.74. - Anxiety/Depression - Continue Clonazepam, Fluoxetine Full code. Ambulation. Problem Qualifiers (1) Sepsis: Qualified Code: A41.9 - Sepsis, due to unspecified organism Amanda Guzman DO January 07, 2017 10:56
[2017-01-07 12:00] VITALS: BP_SYST 101; BP_SYST 121; BP_DIAS 55; BP_DIAS 82; PULSE 82; PULSE 87; RESP 16; RESP 18; TEMP 98.7; TEMP 99.4; O2SAT 95; O2SAT 97
[2017-01-07] MEDS: NICOTINE 21 MG/24 HR PATCH T-DERMAL SCH (13:48)
--- NOTE | 2017-01-07 15:36 | HHI.IDPN ---
Note Infectious Disease Note Patient complains of severe pain in the groin. Afebrile. No distress. Looks drowsy. PAST MEDICAL HISTORY 1. Diabetes mellitus. 2. Depression, anxiety. 3. Seizure disorder. 4. Hysterectomy. 5. Bilateral tubal ligation. 6. MRSA infection of the skin. 7. MRSA bacteremia per the patient's report two years ago in [place]. ALLERGIES SULFA. ASPIRIN. ULTRAM. VIOXX. MEDICATIONS 1. vancomycin 1.5 grams IV q.12 hours. 2. Clindamycin. 3. Piperacillin/tazobactam. OBJECTIVE: Vital Signs Date Time Temp Pulse Resp B/P Pulse Ox O2 Delivery O2 Flow Rate FiO2 01/07/17 12:00 99.4 87 18 101/55 97 01/07/17 12:00 98.7 82 16 121/82 95 01/07/17 08:00 98.0 76 16 108/71 95 01/07/17 00:00 97.6 80 20 126/78 97 01/06/17 20:07 95 01/06/17 20:00 98.2 88 20 130/82 98 01/06/17 16:00 99.0 89 18 121/79 95 01/06/17 01/06/17 01/07/17 15:00 23:00 07:00 Intake Total 360 ml 440 ml Output Total 650 ml Balance 360 ml -210 ml Intake Oral 360 ml 440 ml Output Urine Total 650 ml # Bowel Movements 0 Laboratory Tests Test 01/05/17 01/07/17 22:30 05:01 White Blood Count 12.4 TH/MM3 9.1 TH/MM3 Red Blood Count 4.19 MIL/MM3 3.34 MIL/MM3 Hemoglobin 12.3 GM/DL 9.7 GM/DL Hematocrit 35.6 % 28.9 % Mean Corpuscular Volume 84.9 FL 86.6 FL Mean Corpuscular Hemoglobin 29.4 PG 28.9 PG Mean Corpuscular Hemoglobin 34.6 % 33.4 % Concent Red Cell Distribution Width 13.4 % 13.3 % Platelet Count 143 TH/MM3 101 TH/MM3 Mean Platelet Volume 7.7 FL 8.1 FL Neutrophils (%) (Auto) 68.6 % 66.7 % Lymphocytes (%) (Auto) 20.9 % 20.7 % Monocytes (%) (Auto) 10.1 % 11.9 % Eosinophils (%) (Auto) 0.2 % 0.4 % Basophils (%) (Auto) 0.2 % 0.3 % Neutrophils # (Auto) 8.5 TH/MM3 6.1 TH/MM3 Lymphocytes # (Auto) 2.6 TH/MM3 1.9 TH/MM3 Monocytes # (Auto) 1.3 TH/MM3 1.1 TH/MM3 Eosinophils # (Auto) 0.0 TH/MM3 0.0 TH/MM3 Basophils # (Auto) 0.0 TH/MM3 0.0 TH/MM3 CBC Comment DIFF FINAL DIFF FINAL Differential Comment Laboratory Tests Test 01/05/17 01/07/17 22:30 05:01 Lactic Acid Level 0.5 mmol/L Sodium Level 137 MEQ/L 142 MEQ/L Potassium Level 3.0 MEQ/L 3.1 MEQ/L Chloride Level 103 MEQ/L 108 MEQ/L Carbon Dioxide Level 25.8 MEQ/L 27.9 MEQ/L Anion Gap 8 MEQ/L 6 MEQ/L Blood Urea Nitrogen 14 MG/DL 6 MG/DL Creatinine 1.12 MG/DL 0.74 MG/DL Estimat Glomerular Filtration 53 ML/MIN 85 ML/MIN Rate Random Glucose 100 MG/DL 136 MG/DL Calcium Level 8.7 MG/DL 8.1 MG/DL Total Bilirubin 0.6 MG/DL Aspartate Amino Transf 30 U/L (AST/SGOT) Alanine Aminotransferase 28 U/L (ALT/SGPT) Alkaline Phosphatase 148 U/L Total Protein 7.0 GM/DL Albumin 3.7 GM/DL Microbiology Date/Time Procedure Status Source Growth 01/06/17 00:10 Aerobic Blood Culture - Preliminary Resulted Blood Peripheral NO GROWTH IN 1 DAY 01/06/17 00:10 Anaerobic Blood Culture - Preliminary Resulted Blood Peripheral NO GROWTH IN 1 DAY 01/06/17 00:15 Aerobic Blood Culture - Preliminary Resulted Blood Peripheral NO GROWTH IN 1 DAY 01/06/17 00:15 Anaerobic Blood Culture - Preliminary Resulted Blood Peripheral NO GROWTH IN 1 DAY 01/06/17 02:40 Gram Stain - Final Resulted Wound Hand 01/06/17 02:40 Wound Culture Resulted Wound Hand Pending PHYSICAL EXAMINATION GENERAL: No acute distress. Appears drowsy. She is awake and alert and oriented. HEENT: Pupils reactive to light. No icterus. No conjunctival erythema. Oropharynx - no visible lesions. The mucosa is moist. NECK: Supple without adenopathy. No jugular venous distension. No adenopathy. LUNGS: Clear breath bilateral. HEART: Regular S1 and S2. No murmurs. No rubs. No gallops. ABDOMEN: Bowel sounds present, soft, nontender. : The left side of the groin adjacent to the vulva has erythema and swelling and there are two superficial ulcerated tiny lesions which have no drainage coming from them. Erythema persist and is more pronounced at that location and swelling still present at the left inner thigh. Tender on palpation. The left posterior buttock has no erythema and no pain on palpation. The left lateral thigh has no erythema or pain on palpation. EXTREMITIES: The right hand dorsal aspect erythema and swelling has markedly decreased. Still slight serous drainage on the dressing. The lower extremities have no clubbing or cyanosis or edema. SKIN: Multiple punctate erythematous dried lesions scattered on various areas of the tibias. No diffuse rash. NEURO: Nonfocal. PSYCHIATRIC: The patient is calm and cooperative. IMPRESSION 1. Sepsis on admission indicated by elevated white blood cell count, fever, acute kidney disease Stage III, potential source for sepsis being skin infection of the groin and right hand. 2. Cellulitis of the right hand/skin abscess of the right hand. 3. Left groin cellulitis. Severe. Looks a little worse. RECOMMENDATIONS 1. Continue vancomycin but monitor the patient's renal function. Pharmacy is dosing the vancomycin. 2. Continue clindamycin. 3. Continue piperacillin/tazobactam. 4. Monitor blood cultures. 5. Monitor wound culture. 6. Antibiotic adjustments based on culture results. Please call ID with culture results on weekend. If she has non MRSA staph she can be switched to Ancef IV. Sebastián Mosley MD January 07, 2017 15:36
[2017-01-07 16:00] VITALS: BP 130/88; PULSE 89; RESP 18; TEMP 100.1; O2SAT 95
[2017-01-07] MEDS: REMOVE OLD PATCH T-DERMAL SCH (19:52)
[2017-01-07 20:00] VITALS: BP 139/97; PULSE 95; RESP 20; TEMP 99.8; O2SAT 96
[2017-01-07 20:07] VITALS: PULSE 119
[2017-01-07] MEDS ORDERED: PHARMACY ORDERED LAB ONE (21:45)
[2017-01-08] VITALS: BP 134/85; PULSE 98; RESP 20; TEMP 98.2; O2SAT 96
[2017-01-08] MEDS: PIPERACIL-TAZO 4.5 GM PREMIX 100 ML IV SCH ×2 (01:46→07:54)
[2017-01-08] MEDS: MORPHINE SULFATE 4 MG/ML INJ IV PUSH PRN ×7 (01:52→21:54)
[2017-01-08] MEDS: SODIUM CHLORIDE 0.9% FLUSH 10 ML FLUSH IV FLUSH PRN ×2 (01:52→03:38)
[2017-01-08] MEDS: CLINDAMYCIN INJ 600 MG in SODIUM CHLORIDE 0.9% INJ 100 ML IV SCH (03:39)
[2017-01-08 04:00] VITALS: BP 110/67; PULSE 74; RESP 20; TEMP 95.5; O2SAT 94
[2017-01-08] MEDS: ACETAMINOPHEN/HYDROcodone 325 MG/7.5 MG TAB PO PRN ×4 (06:29→23:33)
[2017-01-08] MEDS: NICOTINE 21 MG/24 HR PATCH T-DERMAL SCH (07:52)
[2017-01-08] MEDS: clonazePAM 1 MG TAB PO SCH ×2 (07:53→20:26)
[2017-01-08] MEDS: GABAPENTIN 300 MG CAP PO SCH ×3 (07:53→17:41)
[2017-01-08] MEDS: FLUoxetine HCL 20 MG CAP PO SCH (07:53)
[2017-01-08] MEDS: SODIUM CHLORIDE 0.9% FLUSH 10 ML FLUSH IV FLUSH SCH ×2 (07:57→20:26)
[2017-01-08 08:00] VITALS: BP 112/70; PULSE 79; RESP 18; TEMP 98.5; O2SAT 95
[2017-01-08] MEDS ORDERED: REMOVE OLD PATCH T-DERMAL SCH (09:00)
[2017-01-08] MEDS: VANCOMYCIN INJ 1,500 MG in SODIUM CHLORID 0.9% 500 ML INJ 500 ML IV SCH ×2 (10:00→20:27)
[2017-01-08 11:53] VITALS: BP 112/78; PULSE 80; RESP 18; TEMP 97.4; O2SAT 96
[2017-01-08] MEDS: COLLAGENASE OINT 30 GM TUBE TOPICAL SCH (12:00)
--- NOTE | 2017-01-08 12:30 | HHI.IDPN ---
Subjective Subjective Remarks ID COVERAGE Notes reviewed Admitted with hand and groin infection C/S hand with MRSA BC negative Febrile initially, temps better C/O pain in her L inner thigh Antibiotics Vancomycin IV Clindamycin IV Zosyn IV Lines PIV Past Medical History 1. Diabetes mellitus. 2. Depression, anxiety. 3. Seizure disorder. 4. Hysterectomy. 5. Bilateral tubal ligation. 6. MRSA infection of the skin. 7. MRSA bacteremia per the patient's report two years ago in [place]. Allergies: Coded Allergies: Aspirin (Verified Allergy, Severe, Anaphylaxis, 01/05/17) Sulfa (Verified Allergy, Mild, Rash, 01/05/17) Ultram (Verified Allergy, Mild, Rash, 01/05/17) Vioxx (Verified Allergy, Mild, Rash, 01/05/17) *MDRO Multi-Drug Resistant Organism (Verified Adverse Reaction, Unknown, ) MRSA Shoulder wound 04/2016; MRSA (arm-06/22/16 & 07/23/16) Objective . Vital Signs Date Time Temp Pulse Resp B/P Pulse Ox O2 Delivery O2 Flow Rate FiO2 01/08/17 11:53 97.4 80 18 112/78 96 01/08/17 08:00 79 01/08/17 08:00 98.5 79 18 112/70 95 01/08/17 04:00 95.5 74 20 110/67 94 01/08/17 00:00 98.2 98 20 134/85 96 01/07/17 20:07 119 01/07/17 20:00 99.8 95 20 139/97 96 01/07/17 16:00 100.1 89 18 130/88 95 01/07/17 01/07/17 01/08/17 15:00 23:00 07:00 Intake Total 1415 ml 720 ml 1445 ml Output Total 1200 ml 650 ml Balance 1415 ml -480 ml 795 ml Intake Oral 720 ml 240 ml IV Total 1415 ml 1205 ml Output Urine Total 1200 ml 650 ml . Laboratory Tests Test 01/07/17 05:01 White Blood Count 9.1 TH/MM3 Red Blood Count 3.34 MIL/MM3 Hemoglobin 9.7 GM/DL Hematocrit 28.9 % Mean Corpuscular Volume 86.6 FL Mean Corpuscular Hemoglobin 28.9 PG Mean Corpuscular Hemoglobin 33.4 % Concent Red Cell Distribution Width 13.3 % Platelet Count 101 TH/MM3 Mean Platelet Volume 8.1 FL Neutrophils (%) (Auto) 66.7 % Lymphocytes (%) (Auto) 20.7 % Monocytes (%) (Auto) 11.9 % Eosinophils (%) (Auto) 0.4 % Basophils (%) (Auto) 0.3 % Neutrophils # (Auto) 6.1 TH/MM3 Lymphocytes # (Auto) 1.9 TH/MM3 Monocytes # (Auto) 1.1 TH/MM3 Eosinophils # (Auto) 0.0 TH/MM3 Basophils # (Auto) 0.0 TH/MM3 CBC Comment DIFF FINAL Differential Comment Laboratory Tests Test 01/07/17 05:01 Sodium Level 142 MEQ/L Potassium Level 3.1 MEQ/L Chloride Level 108 MEQ/L Carbon Dioxide Level 27.9 MEQ/L Anion Gap 6 MEQ/L Blood Urea Nitrogen 6 MG/DL Creatinine 0.74 MG/DL Estimat Glomerular Filtration 85 ML/MIN Rate Random Glucose 136 MG/DL Calcium Level 8.1 MG/DL Microbiology Date/Time Procedure Status Source Growth 01/06/17 00:10 Aerobic Blood Culture - Preliminary Resulted Blood Peripheral NO GROWTH IN 2 DAYS 01/06/17 00:10 Anaerobic Blood Culture - Preliminary Resulted Blood Peripheral NO GROWTH IN 2 DAYS 01/06/17 00:15 Aerobic Blood Culture - Preliminary Resulted Blood Peripheral NO GROWTH IN 2 DAYS 01/06/17 00:15 Anaerobic Blood Culture - Preliminary Resulted Blood Peripheral NO GROWTH IN 2 DAYS 01/06/17 02:40 Gram Stain - Final Complete Wound Hand 01/06/17 02:40 Wound Culture - Final Complete S. Aureus Mrsa Imaging Last Impressions Pelvis CT 01/06/17 0000 Signed Impressions: Service Date/Time: December 02:48 - CONCLUSION: Focal soft tissue swelling and edema in the left upper thigh with no gas or drainable fluid. Foreign Saab MD Physical Exam GENERAL: Awake and alert, in distress due to pain in her L thigh HEENT: Pupils reactive to light. No icterus. No conjunctival erythema. Oropharynx - no visible lesions. The mucosa is moist. NECK: Supple without adenopathy. No jugular venous distension. No adenopathy. LUNGS: Clear breath bilateral. HEART: Regular S1 and S2. No murmurs. No rubs. No gallops. ABDOMEN: Bowel sounds present, soft, nontender. : Minimal erythema over the mons pubis. EXTREMITIES: The right hand dorsal aspect erythema and swelling has markedly decreased. Still slight serous drainage on the dressing. Has significant erythema and induration over the L medial thigh close to perineum, with some ? beginning fluctuance, very tender, not draining currently SKIN: Multiple punctate erythematous dried lesions scattered on various areas of the tibias. No diffuse rash. NEURO: Nonfocal. PSYCHIATRIC: The patient is tearful due to the pain, but she is cooperative. LINE: PIV with no evidence of infection Assessment & Plan Remarks IMPRESSION Sepsis on admission indicated by elevated white blood cell count, fever, acute kidney disease - source in cellulitis/abscess L thigh/groin, R hand - Hand C/S MRSA Cellulitis of the right hand/skin abscess of the right hand. Left groin cellulitis. Severe. Looks a little worse. RECOMMENDATIONS Continue vancomycin but monitor the patient's renal function. - Pharmacy is dosing the vancomycin. Stop clindamycin. Stop piperacillin/tazobactam. Monitor blood cultures. Monitor temps Monitor progress D/W Maame Patiño MD January 08, 2017 12:30
[2017-01-08 16:00] VITALS: BP 112/75; PULSE 82; RESP 17; TEMP 96.8; O2SAT 95
--- NOTE | 2017-01-08 16:39 | HHI.PR ---
Subjective Remarks Follow up for left groin infection and right hand infection. Patient complains of persistent severe pain. No fever, chills. Objective Vitals Vital Signs Date Time Temp Pulse Resp B/P Pulse Ox O2 Delivery O2 Flow Rate FiO2 01/08/17 16:00 96.8 82 17 112/75 95 01/08/17 11:53 97.4 80 18 112/78 96 01/08/17 08:00 79 01/08/17 08:00 98.5 79 18 112/70 95 01/08/17 04:00 95.5 74 20 110/67 94 01/08/17 00:00 98.2 98 20 134/85 96 01/07/17 20:07 119 01/07/17 20:00 99.8 95 20 139/97 96 I/O 01/07/17 01/07/17 01/07/17 01/08/17 01/08/17 01/08/17 07:00 15:00 23:00 07:00 15:00 23:00 Intake Total 1415 ml 720 ml 1445 ml 1030 ml Output Total 1200 ml 650 ml 1000 ml Balance 1415 ml -480 ml 795 ml 30 ml Intake Oral 720 ml 240 ml 480 ml IV Total 1415 ml 1205 ml 550 ml Output Urine Total 1200 ml 650 ml 1000 ml # Bowel Movements 1 Result Diagram: 01/07/17 0501 01/07/17 0501 Objective Remarks GENERAL: AOX3, NAD. SKIN: Warm and dry. HEAD: Normocephalic. EYES: No scleral icterus. No injection or drainage. NECK: Supple, trachea midline. No JVD or lymphadenopathy. CARDIOVASCULAR: Regular rate and rhythm without murmurs, gallops, or rubs. RESPIRATORY: Breath sounds equal bilaterally. No accessory muscle use. GASTROINTESTINAL: Abdomen soft, non-tender, nondistended. MUSCULOSKELETAL: No cyanosis, or edema. Right hand swelling improved. Left groin remains erythematous, indurated and tender on palpation. BACK: Nontender without obvious deformity. No CVA tenderness. Procedures None. A/P Problem List: (1) Sepsis ICD Code: A41.9 Status: Acute (2) Cellulitis of thigh ICD Code: L03.119 Status: Acute (3) Abscess of right hand ICD Code: L02.511 Status: Acute Assessment and Plan Ms. Schaier is a 46 year old female with a history of substance abuse who presented to the ED on 01/05/2017 due to left groin cellulitis, indurated lesion as well as right hand erythema, swelling. Despite I&D of the right hand and evaluation at the ED day prior to this admission, patient reports no significant clinical improvement which prompted her to come the ED. CT pelvic shows focal soft tissue swelling with no gas or drainable fluid. - Left groin cellulitis - Right hand abscess s/p I&D. - Large area erythema still present, induration is improving. - Received Vancomycin, Zosyn, Clindamycin all IV. - ID following. - Hand wound is growing MRSA. - Given C&S of the wound, MRSA is the primary organism. ID discontinued Zosyn and clindamycin on 01/08/2017 - Continue Vancomycin - pharmacy to dose. - Acetaminophen for minor pain. [place] for Pain 5-10, Morphine 4mg IV Q3hrs PRN - Discussed with RN. We will try to topical barrier cream in the left groin area. Will order santyl. - Hypokalemia - K+ 3.0 --> 3.1. Start KCL 20mEQ BID X 5 days. - Mild Acute kidney injury - creatinine improved -- 1.12 --> 0.74. - Anxiety/Depression - Continue Clonazepam, Fluoxetine Full code. Ambulation. Problem Qualifiers (1) Sepsis: Qualified Code: A41.9 - Sepsis, due to unspecified organism Amanda Guzman DO January 08, 2017 16:39
[2017-01-08 20:00] VITALS: BP 139/89; PULSE 76; RESP 20; TEMP 96.7; O2SAT 100
[2017-01-08] MEDS: REMOVE OLD PATCH T-DERMAL SCH (20:26)
[2017-01-08] MEDS: KETOROLAC TROMETHAMINE 30 MG/ML (IVP) VIAL IV PUSH PRN (23:34)
[2017-01-09] VITALS: BP 130/76; PULSE 78; RESP 20; TEMP 97.2; O2SAT 99
[2017-01-09] MEDS: MORPHINE SULFATE 4 MG/ML INJ IV PUSH PRN ×6 (01:25→21:18)
[2017-01-09] MEDS: ACETAMINOPHEN/HYDROcodone 325 MG/7.5 MG TAB PO PRN ×3 (07:50→20:16)
[2017-01-09] MEDS: NICOTINE 21 MG/24 HR PATCH T-DERMAL SCH (07:51)
[2017-01-09] MEDS: FLUoxetine HCL 20 MG CAP PO SCH (07:51)
[2017-01-09] MEDS: POTASSIUM CHLORIDE 20 MEQ CONTROLLED RELEASE TAB PO SCH ×2 (07:52→20:16)
[2017-01-09] MEDS: clonazePAM 1 MG TAB PO SCH ×2 (07:52→20:16)
[2017-01-09] MEDS: SODIUM CHLORIDE 0.9% FLUSH 10 ML FLUSH IV FLUSH SCH ×2 (07:52→20:16)
[2017-01-09] MEDS: GABAPENTIN 300 MG CAP PO SCH ×3 (07:52→17:55)
[2017-01-09] MEDS: COLLAGENASE OINT 30 GM TUBE TOPICAL SCH (07:54)
[2017-01-09 08:00] VITALS: BP 116/69; PULSE 68; RESP 19; TEMP 97.6; O2SAT 99
[2017-01-09] MEDS: SODIUM CHLORIDE 0.9% FLUSH 10 ML FLUSH IV FLUSH PRN (08:54)
--- NOTE | 2017-01-09 11:25 | HHI.PR ---
Subjective Remarks Follow up for left groin infection and right hand infection. Patient complains of groin pain. No fever, chills. Appears comfortable as I walked in the room. Objective Vitals Vital Signs Date Time Temp Pulse Resp B/P Pulse Ox O2 Delivery O2 Flow Rate FiO2 01/09/17 08:58 18 01/09/17 08:50 18 01/09/17 08:00 97.6 68 19 116/69 99 01/09/17 00:00 97.2 78 20 130/76 99 01/08/17 20:00 96.7 76 20 139/89 100 01/08/17 16:00 96.8 82 17 112/75 95 01/08/17 11:53 97.4 80 18 112/78 96 I/O 01/08/17 01/08/17 01/08/17 01/09/17 01/09/17 01/09/17 07:00 15:00 23:00 07:00 15:00 23:00 Intake Total 1445 ml 1030 ml 720 ml 480 ml Output Total 650 ml 1000 ml 800 ml 500 ml Balance 795 ml 30 ml -80 ml -20 ml Intake Oral 240 ml 480 ml 720 ml 480 ml IV Total 1205 ml 550 ml Output Urine Total 650 ml 1000 ml 800 ml 500 ml # Bowel Movements 1 Result Diagram: 01/07/17 0501 01/07/17 0501 Imaging Last Impressions Pelvis CT 01/06/17 0000 Signed Impressions: Service Date/Time: December 02:48 - CONCLUSION: Focal soft tissue swelling and edema in the left upper thigh with no gas or drainable fluid. Foreign Saab MD Objective Remarks GENERAL: AOX3, NAD. SKIN: Warm and dry. HEAD: Normocephalic. EYES: No scleral icterus. No injection or drainage. NECK: Supple, trachea midline. No JVD or lymphadenopathy. CARDIOVASCULAR: Regular rate and rhythm without murmurs, gallops, or rubs. RESPIRATORY: Breath sounds equal bilaterally. No accessory muscle use. GASTROINTESTINAL: Abdomen soft, non-tender, nondistended. MUSCULOSKELETAL: No cyanosis, or edema. Right hand swelling improved. Left groin remains erythematous, indurated and tender on palpation. BACK: Nontender without obvious deformity. No CVA tenderness. Procedures None. A/P Problem List: (1) Sepsis ICD Code: A41.9 Status: Acute (2) Cellulitis of thigh ICD Code: L03.119 Status: Acute (3) Abscess of right hand ICD Code: L02.511 Status: Acute Assessment and Plan Ms. Castro is a 46 year old female with a history of substance abuse who presented to the ED on 01/05/2017 due to left groin cellulitis, indurated lesion as well as right hand erythema, swelling. Despite I&D of the right hand and evaluation at the ED day prior to this admission, patient reports no significant clinical improvement which prompted her to come the ED. CT pelvic shows focal soft tissue swelling with no gas or drainable fluid. - Left groin cellulitis - Right hand abscess s/p I&D. - Large area erythema still present, induration is improving. - Received Vancomycin, Zosyn, Clindamycin all IV. - ID following. - Hand wound is growing MRSA. - Given C&S of the wound, MRSA is the primary organism. ID discontinued Zosyn and clindamycin on 01/08/2017 - Discussed with ID on 01/09/2017. Will discontinue Vancomycin. Start Linezolid 600mg Q12hrs. CBC in the AM. - Acetaminophen for minor pain. [place] for Pain 5-10, Morphine 4mg IV Q3hrs PRN - Discussed with RN. Will try to provide non-adhesive barrier. - Hypokalemia - K+ 3.0 --> 3.1. Continue KCL 20mEQ BID X total 5 days. - Mild Acute kidney injury - creatinine improved -- 1.12 --> 0.74. - Anxiety/Depression - Continue Clonazepam, Fluoxetine Full code. Ambulation. Problem Qualifiers (1) Sepsis: Qualified Code: A41.9 - Sepsis, due to unspecified organism Amanda Guzman DO January 09, 2017 11:25 am
[2017-01-09] MEDS: LINEZOLID 600 MG TAB PO SCH ×2 (11:30→20:16)
[2017-01-09 12:00] VITALS: BP 113/77; PULSE 78; RESP 18; TEMP 97.8; O2SAT 99
[2017-01-09 16:00] VITALS: BP 113/76; PULSE 64; RESP 17; TEMP 97.1; O2SAT 95
[2017-01-09 20:00] VITALS: BP 123/80; PULSE 68; RESP 20; TEMP 98.4; O2SAT 94
[2017-01-09] MEDS: REMOVE OLD PATCH T-DERMAL SCH (20:17)
[2017-01-10] VITALS: BP 130/78; PULSE 70; RESP 20; TEMP 97.6; O2SAT 95
[2017-01-10] MEDS: MORPHINE SULFATE 4 MG/ML INJ IV PUSH PRN ×6 (00:27→21:35)
[2017-01-10] MEDS: ACETAMINOPHEN/HYDROcodone 325 MG/7.5 MG TAB PO PRN ×3 (05:03→17:21)
[2017-01-10 05:58] LABS: BASOPHIL % 0.8 % (0.0-2.0); EOSINOPHIL # 0.1 TH/MM3 (0-0.4); EOSINOPHIL % 1.6 % (0.0-4.0); HEMATOCRIT 33.2 % (35.0-46.0); HEMO FLAGS DIFF FINAL; LYMPH % 35.6 % (9.0-44.0); LYMPHOCYTE # 2.1 TH/MM3 (1.0-4.8); MEAN CELL VOLUME 84.8 FL (80.0-100.0); MEAN CORPUSCULAR HEMOGLOBIN 28.9 PG (27.0-34.0); MONO % 10.9 % (0.0-8.0); NEUT % 51.1 % (16.0-70.0); PLATELET COUNT 218 TH/MM3 (150-450); RED BLOOD COUNT 3.92 MIL/MM3 (4.00-5.30); WHITE BLOOD COUNT 5.8 TH/MM3 (4.0-11.0)
[2017-01-10] MEDS ORDERED: POTASSIUM CHLORIDE 10 MEQ CONTROLLED RELEASE TAB PO ONE (07:45)
--- NOTE | 2017-01-10 07:48 | HHI.PR ---
Subjective Remarks Says has some pain in her groin. Redness improving. No fever or chills. No n/v/d /c. Objective Vitals Vital Signs Date Time Temp Pulse Resp B/P Pulse Ox O2 Delivery O2 Flow Rate FiO2 01/10/17 00:00 97.6 70 20 130/78 95 01/09/17 20:00 98.4 68 20 123/80 94 01/09/17 18:01 18 01/09/17 16:00 97.1 64 17 113/76 95 01/09/17 14:47 17 01/09/17 12:00 97.8 78 18 113/77 99 01/09/17 08:00 97.6 68 19 116/69 99 I/O 01/09/17 01/09/17 01/09/17 01/10/17 01/10/17 01/10/17 07:00 15:00 23:00 07:00 15:00 23:00 Intake Total 480 ml 1200 ml 440 ml 220 ml Output Total 500 ml 900 ml 600 ml 600 ml Balance -20 ml 300 ml -160 ml -380 ml Intake Oral 480 ml 1200 ml 440 ml 220 ml Output Urine Total 500 ml 900 ml 600 ml 600 ml # Bowel Movements 1 0 0 Result Diagram: 01/10/17 0502 01/07/17 0501 Imaging Last Impressions Pelvis CT 01/06/17 0000 Signed Impressions: Service Date/Time: December 02:48 - CONCLUSION: Focal soft tissue swelling and edema in the left upper thigh with no gas or drainable fluid. Foreign Saab MD Objective Remarks GENERAL: 46 yo F, alert and oriented, well nourished, well developed patient, appears in NAD. SKIN: Warm and dry. HEAD: Normocephalic. EYES: No scleral icterus. No injection or drainage. NECK: Supple, trachea midline. No JVD or lymphadenopathy. CARDIOVASCULAR: Regular rate and rhythm without murmurs, gallops, or rubs. RESPIRATORY: Breath sounds equal bilaterally. No accessory muscle use. GASTROINTESTINAL: Abdomen soft, non-tender, nondistended. MUSCULOSKELETAL: No cyanosis, or edema. Right hand swelling improved. Left groin remains erythematous, indurated and tender on palpation. BACK: Nontender without obvious deformity. No CVA tenderness. Procedures None. A/P Problem List: (1) Sepsis ICD Code: A41.9 Status: Acute (2) Cellulitis of thigh ICD Code: L03.119 Status: Acute (3) Abscess of right hand ICD Code: L02.511 Status: Acute Assessment and Plan Ms. Castro is a 46 year old female with a history of substance abuse who presented to the ED on 01/05/2017 due to left groin cellulitis, indurated lesion as well as right hand erythema, swelling. Despite I&D of the right hand and evaluation at the ED day prior to this admission, patient reports no significant clinical improvement which prompted her to come the ED. CT pelvic shows focal soft tissue swelling with no gas or drainable fluid. - Left groin cellulitis - Right hand abscess s/p I&D. - Large area erythema still present, induration is improving. - Received Vancomycin, Zosyn, Clindamycin all IV. - ID following. - Hand wound is growing MRSA. - Given C&S of the wound, MRSA is the primary organism. ID discontinued Zosyn and clindamycin on 01/08/2017 - Discussed with ID on 01/09/2017. Will discontinue Vancomycin. Currently on Linezolid 600mg Q12hrs. Monitor CBC. Hold prozac while on zyvoxx. - Acetaminophen for minor pain. [place] for Pain 5-10, Morphine 4mg IV Q3hrs PRN - Provide non-adhesive barrier. - Hypokalemia - K+ 3.0 --> 3.1. Continue KCL 20mEQ BID X total 5 days. - Mild Acute kidney injury - creatinine improved -- 1.12 --> 0.74. - Anxiety/Depression - Continue Clonazepam, Fluoxetine Hold Full code. Ambulation. DC plan: pending improvement and clearance by consultants. Problem Qualifiers (1) Sepsis: Qualified Code: A41.9 - Sepsis, due to unspecified organism Nancy Wilson MD January 10, 2017 07:48
[2017-01-10 08:00] VITALS: BP 119/83; PULSE 60; RESP 20; TEMP 96.8; O2SAT 97
[2017-01-10] MEDS: POTASSIUM CHLORIDE 20 MEQ CONTROLLED RELEASE TAB PO SCH ×2 (08:47→20:20)
[2017-01-10] MEDS: GABAPENTIN 300 MG CAP PO SCH ×3 (08:48→17:21)
[2017-01-10] MEDS: clonazePAM 1 MG TAB PO SCH ×2 (08:48→20:20)
[2017-01-10] MEDS: FLUoxetine HCL 20 MG CAP PO SCH (08:48)
[2017-01-10] MEDS: SODIUM CHLORIDE 0.9% FLUSH 10 ML FLUSH IV FLUSH SCH ×2 (08:48→20:20)
[2017-01-10] MEDS: NICOTINE 21 MG/24 HR PATCH T-DERMAL SCH (08:49)
[2017-01-10] MEDS: COLLAGENASE OINT 30 GM TUBE TOPICAL SCH (08:51)
--- NOTE | 2017-01-10 10:51 | HHI.IDPN ---
Note Infectious Disease Note Notes reviewed. Patient complains of very severe pain in the groin. Complains that pain is worse when skin rubs together. Afebrile. No distress. Seen and examined with RN. Blanc. hand wound culture has MRSA. PAST MEDICAL HISTORY 1. Diabetes mellitus. 2. Depression, anxiety. 3. Seizure disorder. 4. Hysterectomy. 5. Bilateral tubal ligation. 6. MRSA infection of the skin. 7. MRSA bacteremia per the patient's report two years ago in [place]. ALLERGIES SULFA. ASPIRIN. ULTRAM. VIOXX. ANTIBIOTICS. Zyvox PO OBJECTIVE: Vital Signs Date Time Temp Pulse Resp B/P Pulse Ox O2 Delivery O2 Flow Rate FiO2 01/10/17 08:00 96.8 60 20 119/83 97 01/10/17 00:00 97.6 70 20 130/78 95 01/09/17 20:00 98.4 68 20 123/80 94 01/09/17 18:01 18 01/09/17 16:00 97.1 64 17 113/76 95 01/09/17 14:47 17 01/09/17 12:00 97.8 78 18 113/77 99 01/09/17 01/09/17 01/10/17 15:00 23:00 07:00 Intake Total 1200 ml 440 ml 220 ml Output Total 900 ml 600 ml 600 ml Balance 300 ml -160 ml -380 ml Intake Oral 1200 ml 440 ml 220 ml Output Urine Total 900 ml 600 ml 600 ml # Bowel Movements 1 0 0 Laboratory Tests Test 01/10/17 05:02 White Blood Count 5.8 TH/MM3 Red Blood Count 3.92 MIL/MM3 Hemoglobin 11.3 GM/DL Hematocrit 33.2 % Mean Corpuscular Volume 84.8 FL Mean Corpuscular Hemoglobin 28.9 PG Mean Corpuscular Hemoglobin 34.0 % Concent Red Cell Distribution Width 13.0 % Platelet Count 218 TH/MM3 Mean Platelet Volume 7.4 FL Neutrophils (%) (Auto) 51.1 % Lymphocytes (%) (Auto) 35.6 % Monocytes (%) (Auto) 10.9 % Eosinophils (%) (Auto) 1.6 % Basophils (%) (Auto) 0.8 % Neutrophils # (Auto) 3.0 TH/MM3 Lymphocytes # (Auto) 2.1 TH/MM3 Monocytes # (Auto) 0.6 TH/MM3 Eosinophils # (Auto) 0.1 TH/MM3 Basophils # (Auto) 0.0 TH/MM3 CBC Comment DIFF FINAL Differential Comment PHYSICAL EXAMINATION GENERAL: No acute distress. Appears drowsy. HEENT: No icterus. No conjunctival erythema. LUNGS: Clear. HEART: Regular S1 and S2. No murmurs. No rubs. No gallops. : The left side of the groin adjacent to the vulva has erythema and swelling but less induration. Raw appearing skin surface at area adjacent to the vulva. Left inner thigh swelling is decreased. Tender on palpation. The left posterior buttock has no erythema. EXTREMITIES: The right hand dorsal aspect erythema and swelling almost resolved. The lower extremities have no clubbing or cyanosis or edema. SKIN: Multiple punctate erythematous dried lesions scattered on various areas of the tibias. No diffuse rash. PSYCHIATRIC: Calm. IMPRESSION 1. Sepsis on admission indicated by elevated white blood cell count, fever, acute kidney disease Stage III, potential source for sepsis being skin infection of the groin and right hand. 2. Cellulitis of the right hand/skin abscess of the right hand. 3. Left groin cellulitis. Severe. Looks a little improved. RECOMMENDATIONS 1. Continue Zyvox. 2. Bactroban ointment to groin wound. 3. Monitor platelet count and clinically. Sebastián Mosley MD January 10, 2017 10:51
[2017-01-10] MEDS: MUPIROCIN 2% OINT 22 GM TUBE TOPICAL SCH ×2 (11:17→20:21)
[2017-01-10] MEDS: LINEZOLID 600 MG TAB PO SCH ×2 (11:18→20:21)
[2017-01-10 12:00] VITALS: BP 127/90; PULSE 60; RESP 18; TEMP 96.8; O2SAT 99
[2017-01-10 16:00] VITALS: BP 108/70; PULSE 62; RESP 17; TEMP 97.4; O2SAT 97
[2017-01-10 20:00] VITALS: BP 128/76; PULSE 72; RESP 18; TEMP 98; O2SAT 96
[2017-01-10] MEDS: REMOVE OLD PATCH T-DERMAL SCH (20:21)
[2017-01-11] VITALS: BP 132/84; PULSE 80; RESP 20; TEMP 97.2; O2SAT 98
[2017-01-11] MEDS: ACETAMINOPHEN/HYDROcodone 325 MG/7.5 MG TAB PO PRN ×4 (00:39→21:10)
[2017-01-11 06:55] LABS: AUTOMATED NEUTROPHIL # 2.3 TH/MM3 (1.8-7.7); BASOPHIL % 0.8 % (0.0-2.0); EOSINOPHIL # 0.1 TH/MM3 (0-0.4); EOSINOPHIL % 1.5 % (0.0-4.0); HEMATOCRIT 36.1 % (35.0-46.0); HEMO FLAGS DIFF FINAL; LYMPH % 49.2 % (9.0-44.0); LYMPHOCYTE # 2.8 TH/MM3 (1.0-4.8); MEAN CORPUSCULAR HEMOGLOBIN 28.8 PG (27.0-34.0); MEAN CORPUSCULAR HGB CONC 33.5 % (32.0-36.0); MONO % 8.6 % (0.0-8.0); NEUT % 39.9 % (16.0-70.0); PLATELET COUNT 240 TH/MM3 (150-450); RED BLOOD COUNT 4.19 MIL/MM3 (4.00-5.30); RED CELL DISTRIBUTION WIDTH 13.4 % (11.6-17.2); WHITE BLOOD COUNT 5.7 TH/MM3 (4.0-11.0)
[2017-01-11 07:23] LABS: BICARBONATE 32.9 MEQ/L (21.0-32.0); POTASSIUM 4.3 MEQ/L (3.5-5.1)
[2017-01-11 08:00] VITALS: BP 92/55; PULSE 47; RESP 19; TEMP 95.5; O2SAT 95
--- NOTE | 2017-01-11 08:05 | HHI.PR ---
Subjective Remarks Complaints of sore throat. No feevrs . C/o chills overnight. No n/v/d/c. Redness in the groin improved some, induration the same. Says she has pain, however fairly controlled by meds. Objective Vitals Vital Signs Date Time Temp Pulse Resp B/P Pulse Ox O2 Delivery O2 Flow Rate FiO2 01/11/17 00:00 97.2 80 20 132/84 98 01/10/17 20:00 98.0 72 18 128/76 96 01/10/17 16:00 97.4 62 17 108/70 97 01/10/17 12:00 96.8 60 18 127/90 99 I/O 01/10/17 01/10/17 01/10/17 01/11/17 01/11/17 01/11/17 07:00 15:00 23:00 07:00 15:00 23:00 Intake Total 220 ml 700 ml 480 ml 480 ml Output Total 600 ml 700 ml 600 ml Balance -380 ml 700 ml -220 ml -120 ml Intake Oral 220 ml 700 ml 480 ml 480 ml Output Urine Total 600 ml 700 ml 600 ml # Voids 5 # Bowel Movements 0 1 0 0 Result Diagram: 01/11/17 0610 01/11/17 0610 Imaging Last Impressions Pelvis CT 01/06/17 0000 Signed Impressions: Service Date/Time: December 02:48 - CONCLUSION: Focal soft tissue swelling and edema in the left upper thigh with no gas or drainable fluid. Foreign Saab MD Objective Remarks GENERAL: 46 yo F, alert and oriented, well nourished, well developed patient, appears in NAD. SKIN: Warm and dry. HEAD: Normocephalic. EYES: No scleral icterus. No injection or drainage. NECK: Supple, trachea midline. No JVD or lymphadenopathy. CARDIOVASCULAR: Regular rate and rhythm without murmurs, gallops, or rubs. RESPIRATORY: Breath sounds equal bilaterally. No accessory muscle use. GASTROINTESTINAL: Abdomen soft, non-tender, nondistended. MUSCULOSKELETAL: No cyanosis, or edema. Right hand swelling improved. Left groin remains erythematous, indurated and tender on palpation. BACK: Nontender without obvious deformity. No CVA tenderness. Procedures None. A/P Problem List: (1) Sepsis ICD Code: A41.9 Status: Acute (2) Cellulitis of thigh ICD Code: L03.119 Status: Acute (3) Abscess of right hand ICD Code: L02.511 Status: Acute Assessment and Plan Ms. Castro is a 46 year old female with a history of substance abuse who presented to the ED on 01/05/2017 due to left groin cellulitis, indurated lesion as well as right hand erythema, swelling. Despite I&D of the right hand and evaluation at the ED day prior to this admission, patient reports no significant clinical improvement which prompted her to come the ED. CT pelvic shows focal soft tissue swelling with no gas or drainable fluid. - Left groin cellulitis - Right hand abscess s/p I&D. - Large area erythema still present, induration is improving. - Received Vancomycin, Zosyn, Clindamycin all IV. - ID following. - Hand wound is growing MRSA. - Given C&S of the wound, MRSA is the primary organism. ID discontinued Zosyn and clindamycin on 01/08/2017 - Discussed with ID on 01/09/2017. Will discontinue Vancomycin. Currently on Linezolid 600mg Q12hrs. Monitor CBC. Hold prozac while on zyvoxx. - Acetaminophen for minor pain. [place] for Pain 5-10, Morphine 4mg IV Q3hrs PRN - Provide non-adhesive barrier. - Sore throat . Magic wash. - Hypokalemia - K+ 3.0 --> 3.1. Continue KCL 20mEQ BID X total 5 days. - Mild Acute kidney injury - creatinine improved -- 1.12 --> 0.74. - Anxiety/Depression - Continue Clonazepam, Fluoxetine Hold Full code. Ambulation. DC plan: pending improvement and clearance by consultants. On linezolid PO at this time, monitor cbc Problem Qualifiers (1) Sepsis: Qualified Code: A41.9 - Sepsis, due to unspecified organism Nancy Wilson MD January 11, 2017 08:04
[2017-01-11] MEDS: GABAPENTIN 300 MG CAP PO SCH ×3 (08:24→17:27)
[2017-01-11] MEDS: NICOTINE 21 MG/24 HR PATCH T-DERMAL SCH (08:24)
[2017-01-11] MEDS: clonazePAM 1 MG TAB PO SCH ×2 (08:24→21:09)
[2017-01-11] MEDS: POTASSIUM CHLORIDE 20 MEQ CONTROLLED RELEASE TAB PO SCH ×2 (08:25→21:09)
[2017-01-11] MEDS: MUPIROCIN 2% OINT 22 GM TUBE TOPICAL SCH ×2 (08:25→21:00)
[2017-01-11] MEDS: SODIUM CHLORIDE 0.9% FLUSH 10 ML FLUSH IV FLUSH SCH ×2 (08:26→21:09)
[2017-01-11] MEDS: LINEZOLID 600 MG TAB PO SCH ×2 (10:26→23:01)
[2017-01-11] MEDS: MORPHINE SULFATE 4 MG/ML INJ IV PUSH PRN ×5 (10:26→23:02)
[2017-01-11] MEDS: NYSTAT/DIPHENHY/LIDO MOUTHWASH (Adult) 120ML SWISH-SWAL SCH ×4 (10:26→21:00)
[2017-01-11 12:00] VITALS: BP 107/61; PULSE 58; RESP 17; TEMP 97; O2SAT 95
[2017-01-11 16:00] VITALS: BP 110/61; PULSE 63; RESP 19; TEMP 96.7; O2SAT 95
--- NOTE | 2017-01-11 17:18 | HHI.IDPN ---
Note Infectious Disease Note Patient complains of very severe pain in the groin. Difficulty sitting on commode. More pain at the left vulva and swelling at the mons pubis. Pain is worse when skin rubs together. Afebrile. No distress. R. hand wound culture has MRSA. PAST MEDICAL HISTORY 1. Diabetes mellitus. 2. Depression, anxiety. 3. Seizure disorder. 4. Hysterectomy. 5. Bilateral tubal ligation. 6. MRSA infection of the skin. 7. MRSA bacteremia per the patient's report two years ago in [place]. ALLERGIES SULFA. ASPIRIN. ULTRAM. VIOXX. ANTIBIOTICS. Zyvox PO OBJECTIVE: Vital Signs Date Time Temp Pulse Resp B/P Pulse Ox O2 Delivery O2 Flow Rate FiO2 01/11/17 16:00 96.7 63 19 110/61 95 01/11/17 15:18 17 01/11/17 13:23 18 01/11/17 12:00 97.0 58 17 107/61 95 01/11/17 08:00 95.5 47 19 92/55 95 01/11/17 00:00 97.2 80 20 132/84 98 01/10/17 20:00 98.0 72 18 128/76 96 01/10/17 01/10/17 01/11/17 14:59 22:59 06:59 Intake Total 700 ml 480 ml 480 ml Output Total 700 ml 600 ml Balance 700 ml -220 ml -120 ml Intake Oral 700 ml 480 ml 480 ml Output Urine Total 700 ml 600 ml # Voids 5 # Bowel Movements 1 0 0 Laboratory Tests Test 01/10/17 01/11/17 05:02 06:10 White Blood Count 5.8 TH/MM3 5.7 TH/MM3 Red Blood Count 3.92 MIL/MM3 4.19 MIL/MM3 Hemoglobin 11.3 GM/DL 12.1 GM/DL Hematocrit 33.2 % 36.1 % Mean Corpuscular Volume 84.8 FL 86.0 FL Mean Corpuscular Hemoglobin 28.9 PG 28.8 PG Mean Corpuscular Hemoglobin 34.0 % 33.5 % Concent Red Cell Distribution Width 13.0 % 13.4 % Platelet Count 218 TH/MM3 240 TH/MM3 Mean Platelet Volume 7.4 FL 7.0 FL Neutrophils (%) (Auto) 51.1 % 39.9 % Lymphocytes (%) (Auto) 35.6 % 49.2 % Monocytes (%) (Auto) 10.9 % 8.6 % Eosinophils (%) (Auto) 1.6 % 1.5 % Basophils (%) (Auto) 0.8 % 0.8 % Neutrophils # (Auto) 3.0 TH/MM3 2.3 TH/MM3 Lymphocytes # (Auto) 2.1 TH/MM3 2.8 TH/MM3 Monocytes # (Auto) 0.6 TH/MM3 0.5 TH/MM3 Eosinophils # (Auto) 0.1 TH/MM3 0.1 TH/MM3 Basophils # (Auto) 0.0 TH/MM3 0.0 TH/MM3 CBC Comment DIFF FINAL DIFF FINAL Differential Comment Laboratory Tests Test 01/11/17 06:10 Sodium Level 142 MEQ/L Potassium Level 4.3 MEQ/L Chloride Level 102 MEQ/L Carbon Dioxide Level 32.9 MEQ/L Anion Gap 7 MEQ/L Blood Urea Nitrogen 10 MG/DL Creatinine 0.91 MG/DL Estimat Glomerular Filtration 67 ML/MIN Rate Random Glucose 91 MG/DL Calcium Level 9.0 MG/DL PHYSICAL EXAMINATION GENERAL: No acute distress. HEENT: No icterus. No conjunctival erythema. LUNGS: Clear BS. HEART: Regular S1 and S2. No murmurs. No rubs. No gallops. : The left side of the groin adjacent to the vulva has erythema and swelling but less induration. Raw appearing skin surface at area adjacent to the vulva. The left vulva appears more swollen. New area of induration at the mons pubis. Still very tender on palpation. EXTREMITIES: The right hand dorsal aspect erythema and swelling almost resolved. The lower extremities have no clubbing or cyanosis or edema. SKIN: Multiple punctate erythematous dried lesions scattered on various areas of the tibias. No diffuse rash. PSYCHIATRIC: Calm and cooperative. IMPRESSION 1. Sepsis on admission indicated by elevated white blood cell count, fever, acute kidney disease Stage III, potential source for sepsis being skin infection of the groin and right hand. 2. Cellulitis of the right hand/skin abscess of the right hand. Improved. 3. Left groin cellulitis. Severe. slow to improve. RECOMMENDATIONS 1. Continue Zyvox. Monitor platelet count 2. Bactroban ointment to groin wound. 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 ? abscess at the mons. ? need for I&D. 4. Monitor clinically. Dontfraid,Sebastián F MD January 11, 2017 17:18
[2017-01-11 20:00] VITALS: BP 129/76; PULSE 59; RESP 20; TEMP 96; O2SAT 98
[2017-01-11] MEDS: REMOVE OLD PATCH T-DERMAL SCH (21:00)
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
[2017-01-12] VITALS: BP 124/68; PULSE 60; RESP 20; TEMP 96.4; O2SAT 98
[2017-01-12] MEDS: MORPHINE SULFATE 4 MG/ML INJ IV PUSH PRN ×6 (02:05→20:29)
[2017-01-12] MEDS: clonazePAM 1 MG TAB PO SCH ×2 (07:10→20:15)
[2017-01-12] MEDS: POTASSIUM CHLORIDE 20 MEQ CONTROLLED RELEASE TAB PO SCH ×2 (07:10→20:14)
[2017-01-12] MEDS: ACETAMINOPHEN/HYDROcodone 325 MG/7.5 MG TAB PO PRN ×3 (07:10→19:15)
[2017-01-12] MEDS: GABAPENTIN 300 MG CAP PO SCH ×3 (07:11→17:37)
[2017-01-12] MEDS: NICOTINE 21 MG/24 HR PATCH T-DERMAL SCH (07:13)
[2017-01-12] MEDS: MUPIROCIN 2% OINT 22 GM TUBE TOPICAL SCH ×2 (07:13→20:18)
[2017-01-12] MEDS: SODIUM CHLORIDE 0.9% FLUSH 10 ML FLUSH IV FLUSH SCH ×2 (07:15→20:15)
[2017-01-12 08:00] VITALS: BP 89/57; PULSE 60; RESP 16; TEMP 95.4; O2SAT 94
--- NOTE | 2017-01-12 08:19 | HHI.PR ---
Subjective Remarks In the bed, says she has pain in her groin, fairly controlled by meds. No fever or chills. No n/v/d/c.Erythema erythema improving, however more swelling on left labia noted, per rope cutter recommends gen surg for I&D. Objective Vitals Vital Signs Date Time Temp Pulse Resp B/P Pulse Ox O2 Delivery O2 Flow Rate FiO2 01/12/17 02:10 18 01/12/17 00:00 96.4 60 20 124/68 98 01/11/17 22:10 18 01/11/17 20:00 96.0 59 20 129/76 98 01/11/17 16:00 96.7 63 19 110/61 95 01/11/17 12:00 97.0 58 17 107/61 95 I/O 01/11/17 01/11/17 01/11/17 01/12/17 01/12/17 01/12/17 07:00 15:00 23:00 07:00 15:00 23:00 Intake Total 480 ml 700 ml 720 ml 720 ml Output Total 600 ml Balance -120 ml 700 ml 720 ml 720 ml Intake Oral 480 ml 700 ml 720 ml 720 ml Output Urine Total 600 ml # Voids 5 2 3 # Bowel Movements 0 1 Result Diagram: 01/11/17 0610 01/11/17 0610 Imaging Last Impressions Pelvis CT 01/06/17 0000 Signed Impressions: Service Date/Time: December 02:48 - CONCLUSION: Focal soft tissue swelling and edema in the left upper thigh with no gas or drainable fluid. Foreign Saab MD Objective Remarks GENERAL: 46 yo F, alert and oriented, well nourished, well developed patient, appears in NAD. SKIN: Warm and dry. HEAD: Normocephalic. EYES: No scleral icterus. No injection or drainage. NECK: Supple, trachea midline. No JVD or lymphadenopathy. CARDIOVASCULAR: Regular rate and rhythm without murmurs, gallops, or rubs. RESPIRATORY: Breath sounds equal bilaterally. No accessory muscle use. GASTROINTESTINAL: Abdomen soft, non-tender, nondistended. MUSCULOSKELETAL: No cyanosis, or edema. Right hand swelling improved. Left groin erythematous, indurated and tender on palpation, extending to left buttock and left major labia. BACK: Nontender without obvious deformity. No CVA tenderness. Procedures None. A/P Problem List: (1) Sepsis ICD Code: A41.9 Status: Acute (2) Cellulitis of thigh ICD Code: L03.119 Status: Acute (3) Abscess of right hand ICD Code: L02.511 Status: Acute Assessment and Plan Ms. Castro is a 46 year old female with a history of substance abuse who presented to the ED on 01/05/2017 due to left groin cellulitis, indurated lesion as well as right hand erythema, swelling. Despite I&D of the right hand and evaluation at the ED day prior to this admission, patient reports no significant clinical improvement which prompted her to come the ED. CT pelvic shows focal soft tissue swelling with no gas or drainable fluid. - Left groin cellulitis extending to the left major labia and buttocks. - Right hand abscess s/p I&D. - Large area erythema still present, induration is improving. - Received Vancomycin, Zosyn, Clindamycin all IV. - ID following. - Hand wound is growing MRSA. - Given C&S of the wound, MRSA is the primary organism. ID discontinued Zosyn and clindamycin on 01/08/2017 - Discussed with ID on 01/09/2017. Will discontinue Vancomycin. Currently on Linezolid 600mg Q12hrs. Monitor CBC. Hold prozac while on zyvoxx. - Acetaminophen for minor pain. [place] for Pain 5-10, Morphine 4mg IV Q3hrs PRN - Provide non-adhesive barrier. -consult rope cutter, recommends gen/surg for eval. . Consult gen surg for evaluation. - Sore throat . Magic wash. Resolved. - Hypokalemia - K+ 3.0 --> 3.1. Continue KCL 20mEQ BID X total 5 days. - Mild Acute kidney injury - creatinine improved -- 1.12 --> 0.74. - Anxiety/Depression - Continue Clonazepam, Fluoxetine Hold Full code. Ambulation. DC plan: pending improvement and clearance by consultants. On linezolid PO at this time, monitor cbc. Consult rope cutter recommends gen surg eval. Gen surg to evaluate Problem Qualifiers (1) Sepsis: Qualified Code: A41.9 - Sepsis, due to unspecified organism Nancy Wilson MD January 12, 2017 08:19
[2017-01-12] MEDS: NYSTAT/DIPHENHY/LIDO MOUTHWASH (Adult) 120ML SWISH-SWAL SCH ×4 (09:00→20:27)
[2017-01-12] MEDS: LINEZOLID 600 MG TAB PO SCH (10:54)
[2017-01-12 12:00] VITALS: BP 97/51; PULSE 62; RESP 16; TEMP 96.3; O2SAT 95
--- NOTE | 2017-01-12 13:36 | HHI.IDPN ---
Note Infectious Disease Note Patient continues to complain of very severe pain in the groin. Pain at the left vulva and swelling at the mons pubis. Pain is worse when skin rubs together. Afebrile. No distress. GAS ENGINEER consult noted. R. hand wound culture has MRSA. PAST MEDICAL HISTORY 1. Diabetes mellitus. 2. Depression, anxiety. 3. Seizure disorder. 4. Hysterectomy. 5. Bilateral tubal ligation. 6. MRSA infection of the skin. 7. MRSA bacteremia per the patient's report two years ago in [place]. ALLERGIES SULFA. ASPIRIN. ULTRAM. VIOXX. ANTIBIOTICS. Zyvox PO OBJECTIVE: Vital Signs Date Time Temp Pulse Resp B/P Pulse Ox O2 Delivery O2 Flow Rate FiO2 01/12/17 13:27 17 01/12/17 12:00 96.3 62 16 97/51 95 01/12/17 11:35 18 01/12/17 08:00 95.4 60 16 89/57 94 01/12/17 00:00 96.4 60 20 124/68 98 01/11/17 20:00 96.0 59 20 129/76 98 01/11/17 16:00 96.7 63 19 110/61 95 01/11/17 01/11/17 01/12/17 15:00 23:00 07:00 Intake Total 700 ml 720 ml 720 ml Balance 700 ml 720 ml 720 ml Intake Oral 700 ml 720 ml 720 ml # Voids 5 2 3 # Bowel Movements 1 Laboratory Tests Test 01/11/17 06:10 White Blood Count 5.7 TH/MM3 Red Blood Count 4.19 MIL/MM3 Hemoglobin 12.1 GM/DL Hematocrit 36.1 % Mean Corpuscular Volume 86.0 FL Mean Corpuscular Hemoglobin 28.8 PG Mean Corpuscular Hemoglobin 33.5 % Concent Red Cell Distribution Width 13.4 % Platelet Count 240 TH/MM3 Mean Platelet Volume 7.0 FL Neutrophils (%) (Auto) 39.9 % Lymphocytes (%) (Auto) 49.2 % Monocytes (%) (Auto) 8.6 % Eosinophils (%) (Auto) 1.5 % Basophils (%) (Auto) 0.8 % Neutrophils # (Auto) 2.3 TH/MM3 Lymphocytes # (Auto) 2.8 TH/MM3 Monocytes # (Auto) 0.5 TH/MM3 Eosinophils # (Auto) 0.1 TH/MM3 Basophils # (Auto) 0.0 TH/MM3 CBC Comment DIFF FINAL Differential Comment Laboratory Tests Test 01/11/17 06:10 Sodium Level 142 MEQ/L Potassium Level 4.3 MEQ/L Chloride Level 102 MEQ/L Carbon Dioxide Level 32.9 MEQ/L Anion Gap 7 MEQ/L Blood Urea Nitrogen 10 MG/DL Creatinine 0.91 MG/DL Estimat Glomerular Filtration 67 ML/MIN Rate Random Glucose 91 MG/DL Calcium Level 9.0 MG/DL IMAGING: Pelvis CT 01/06/17 0000 Signed Impressions: Service Date/Time: December 02:48 - CONCLUSION: Focal soft tissue swelling and edema in the left upper thigh with no gas or drainable fluid. Foreign Saab MD PHYSICAL EXAMINATION GENERAL: No acute distress. HEENT: No icterus. No conjunctival erythema. LUNGS: Clear BS. HEART: Regular S1 and S2. No murmurs. No rubs. No gallops. : The left side of the groin adjacent to the vulva has erythema and swelling. Left vulva appears more swollen. New area of induration at the mons pubis. Exquisitely tender on palpation. EXTREMITIES: The right hand dorsal aspect erythema and swelling almost resolved. The lower extremities have no clubbing or cyanosis or edema. SKIN: Multiple punctate erythematous dried lesions scattered on various areas of the tibias. No diffuse rash. PSYCHIATRIC: Calm and cooperative. IMPRESSION 1. Sepsis on admission indicated by elevated white blood cell count, fever, acute kidney disease Stage III, potential source for sepsis being skin infection of the groin and right hand. 2. Cellulitis of the right hand/skin abscess of the right hand. Improved. 3. Left groin cellulitis. Severe. slow to improve. Does not appear to be responding to Zyvox. Probable abscess needing drainage. general surgery consulted. RECOMMENDATIONS 1. Stop Zyvox. Lack of response. 2. Start Daptomycin IV. Patient failed to respond to vancomycin 3. Surgery to decide on drainage. 4. Monitor clinical status. Sebastián Mosley MD January 12, 2017 13:36
[2017-01-12] MEDS: DAPTOmycin INJ 500 MG in SODIUM CHLORIDE 0.9% INJ 100 ML IV SCH (14:35)
--- NOTE | 2017-01-12 15:34 | PD.CAR.PN ---
CVT Progress Note Subjective/Hospital Course: Patient with cellulitis of the left thigh is likely MRSA Right now cellulitis and phlegmon is starting to call last and patient does have a fluctuant area in the middle of it Will take to the operating room tomorrow for I&D of a left thigh abscess Full consult dictated Thanks J Objective: Vital Signs Date Time Temp Pulse Resp B/P Pulse Ox O2 Delivery O2 Flow Rate FiO2 01/12/17 14:40 18 01/12/17 13:27 17 01/12/17 12:00 96.3 62 16 97/51 95 01/12/17 08:00 95.4 60 16 89/57 94 01/12/17 00:00 96.4 60 20 124/68 98 01/11/17 20:00 96.0 59 20 129/76 98 01/11/17 16:00 96.7 63 19 110/61 95 Result Diagram: 01/11/17 0610 01/11/17 0610 Rhoda John MD January 12, 2017 3:34 pm
[2017-01-12 16:00] VITALS: BP 100/56; PULSE 67; RESP 16; TEMP 97.3; O2SAT 95
--- NOTE | 2017-01-12 16:23 | MB ---
cc: RHODA SON MD DATE OF CONSULTATION 01/12/[address] Son. REASON FOR CONSULTATION Left thigh cellulitis and abscess. HISTORY OF THE PRESENT ILLNESS This 46-year-old female presented to the emergency room with a pain in her left upper thigh, left groin. There is a cellulitis swelling and tenderness. The patient has fever, chills, nausea, vomiting and diarrhea. The patient also has some erythema of the right hand on arrival. The patient apparently had drainage of the left hip. The patient was worked up, was admitted, placed on antibiotics. Cultures are consistent with MRSA in the wound of the hand and now the question arises what to do with a cellulitis of the left thigh. PAST MEDICAL HISTORY Is that of: 1. Diabetes mellitus. 2. Seizures. 3. Anxiety and depression. 4. Bipolar disorder. PAST SURGICAL HISTORY Is that of: 1. Hysterectomy. 2. Some sort of a neck surgery. 3. Back surgery. 4. Drainage of the hand. 5. Bilateral tubal ligation. SOCIAL HISTORY The patient smoked a pack a day and does not drink. She was positive for cocaine when she came in. PHYSICAL EXAMINATION GENERAL: Reveals 46-year-old female in no acute distress. HEENT: Normocephalic. No trauma to the head. Pupils equally reactive. Extraocular muscles intact. NECK: Supple. Bilateral carotid pulses. No bruits. Chest: Clear. Bilateral breath sounds. HEART: Regular rhythm. ABDOMEN: Soft. Active bowel sounds. EXTREMITIES: Good proximal distal pulses. No signs of vascular deficit. Left thigh indeed has a cellulitic area encompassing the medial aspect of the thigh going all the way to the labial crease and left labia is also slightly swollen. There is some redness and some beginning of the fluctuation in the middle of this cellulitic area. IMPRESSION AND RECOMMENDATIONS I asked the patient when this started. She answered the day after she shaved herself and she had a problem with that before, so there is no question in my mind the patient basically is shaving herself and has MRSA on the skin and has an infection. The cellulitis initially starts with diffuse disease and then it will tightened down with antibiotics and sometimes become fluctuant and need drainage. Right now this is starting to get fluctuant in the middle, and there is no question the patient will need the drainage. The patient will be scheduled for tomorrow for the OR for I&D of the left thigh abscess. Thank you much for the referral. Rhoda NULL /3:13 PM /3:51 PM
[2017-01-12 20:00] VITALS: BP 101/60; PULSE 70; RESP 16; TEMP 97.2; O2SAT 98
[2017-01-12] MEDS: REMOVE OLD PATCH T-DERMAL SCH (20:17)
[2017-01-13] VITALS: BP 107/64; PULSE 64; RESP 18; TEMP 97.9; O2SAT 96
[2017-01-13] MEDS: MORPHINE SULFATE 4 MG/ML INJ IV PUSH PRN ×6 (00:58→23:38)
[2017-01-13] MEDS ORDERED: LACTATED RINGER'S 1000 ML IV PRN (01:00)
[2017-01-13] MEDS ORDERED: SODIUM CHLORID 0.9% 500 ML IV PRN (01:00)
[2017-01-13] MEDS ORDERED: INSULIN HUMAN REGULAR 1,000 UNITS/10 ML VIAL SQ PRN (01:00)
[2017-01-13] MEDS ORDERED: METOPROLOL TARTRATE 25 MG TAB PO PRN (01:00)
[2017-01-13] MEDS ORDERED: CHLORHEXIDINE GLUCONATE 2 % 1 PACK (2 CLOTHS) TOPICAL PRN (01:00)
[2017-01-13] MEDS ORDERED: POVIDONE IODINE 5% (ANTISEPSIS KIT) 4 APPLICATIONS EACH NARE PRN (01:00)
[2017-01-13] MEDS: ACETAMINOPHEN/HYDROcodone 325 MG/7.5 MG TAB PO PRN ×3 (05:23→18:31)
[2017-01-13 08:00] VITALS: BP 119/67; PULSE 58; RESP 16; TEMP 98.8; O2SAT 91
--- NOTE | 2017-01-13 08:28 | HHI.PR ---
Subjective Remarks This is a pleasant 46 year old female with a history of substance abuse who presented to the ED on 01/05/2017 due to left groin cellulitis, indurated lesion as well as right hand erythema, swelling. Despite I&D of the right hand and evaluation at the ED day prior to this admission, patient reports no significant clinical improvement which prompted her to come the ED. CT pelvic shows focal soft tissue swelling with no gas or drainable fluid. as per Interventionist for I and D by General Surgery, seen in her bedroom status post I and D, has Left thigh dressed, complaint of pain continue Pain medicines, seen in the presence of Relative and Female Nurse Miss Herbert at all times in the room while I was here. Objective Vital Signs Date Time Temp Pulse Resp B/P Pulse Ox O2 Delivery O2 Flow Rate FiO2 01/13/17 08:00 98.8 58 16 119/67 91 01/13/17 00:00 97.9 64 18 107/64 96 01/12/17 20:00 97.2 70 16 101/60 98 01/12/17 17:40 18 01/12/17 16:00 97.3 67 16 100/56 95 01/12/17 13:27 17 01/12/17 12:00 96.3 62 16 97/51 95 I/O 01/12/17 01/12/17 01/12/17 01/13/17 01/13/17 01/13/17 07:00 15:00 23:00 07:00 15:00 23:00 Intake Total 720 ml 360 ml Balance 720 ml 360 ml Intake Oral 720 ml 360 ml # Voids 3 2 2 # Bowel Movements 0 0 Result Diagram: 01/11/17 0610 01/11/17 0610 Imaging Last Impressions Pelvis CT 01/06/17 0000 Signed Impressions: Service Date/Time: December 02:48 - CONCLUSION: Focal soft tissue swelling and edema in the left upper thigh with no gas or drainable fluid. Foreign Saab MD Procedures Left Thigh I and D. Other Results Laboratory Tests Test 01/11/17 06:10 White Blood Count 5.7 TH/MM3 Red Blood Count 4.19 MIL/MM3 Hemoglobin 12.1 GM/DL Hematocrit 36.1 % Mean Corpuscular Volume 86.0 FL Mean Corpuscular Hemoglobin 28.8 PG Mean Corpuscular Hemoglobin 33.5 % Concent Red Cell Distribution Width 13.4 % Platelet Count 240 TH/MM3 Mean Platelet Volume 7.0 FL Neutrophils (%) (Auto) 39.9 % Lymphocytes (%) (Auto) 49.2 % Monocytes (%) (Auto) 8.6 % Eosinophils (%) (Auto) 1.5 % Basophils (%) (Auto) 0.8 % Neutrophils # (Auto) 2.3 TH/MM3 Lymphocytes # (Auto) 2.8 TH/MM3 Monocytes # (Auto) 0.5 TH/MM3 Eosinophils # (Auto) 0.1 TH/MM3 Basophils # (Auto) 0.0 TH/MM3 CBC Comment DIFF FINAL Differential Comment Sodium Level 142 MEQ/L Potassium Level 4.3 MEQ/L Chloride Level 102 MEQ/L Carbon Dioxide Level 32.9 MEQ/L Anion Gap 7 MEQ/L Blood Urea Nitrogen 10 MG/DL Creatinine 0.91 MG/DL Estimat Glomerular Filtration 67 ML/MIN Rate Random Glucose 91 MG/DL Calcium Level 9.0 MG/DL Objective Remarks GENERAL: Well developed patient, appears in NAD. SKIN: Warm and dry. HEAD: Normocephalic. EYES: No scleral icterus. No injection or drainage. NECK: Supple, trachea midline. No JVD or lymphadenopathy. CARDIOVASCULAR: Regular rate and rhythm without murmurs, gallops, or rubs. RESPIRATORY: Breath sounds equal bilaterally. No accessory muscle use. GASTROINTESTINAL: Abdomen soft, non-tender, nondistended. MUSCULOSKELETAL: No cyanosis, or edema. Right hand swelling improved. Left thigh dressed. BACK: Nontender without obvious deformity. No CVA tenderness. Medications and IVs Current Medications Medications (Trade) Dose Ordered Sig/Selina Route Start Time Stop Time Status Last Admin (NS Flush) 2 ml UNSCH PRN IV FLUSH 01/06/17 04:15 01/09/17 08:54 (NS Flush) 2 ml BID IV FLUSH 01/06/17 09:00 01/12/17 20:15 (Narcan Inj) 0.4 mg UNSCH PRN IV 01/06/17 04:15 (TEGretol CHEW) 100 mg Q12HR PO 01/06/17 09:00 01/12/17 20:14 (KlonoPIN) 1 mg BID PO 01/06/17 09:00 01/12/17 20:15 (PROzac) 60 mg DAILY PO 01/06/17 09:00 Hold 01/10/17 08:48 (Neurontin) 600 mg TID PO 01/06/17 09:00 01/12/17 17:37 ([place] 7.5-325 Mg) 1 tab Q6H PRN PO 01/06/17 09:15 01/13/17 05:23 (Tylenol) 500 mg Q4H PRN PO 01/06/17 09:15 (Morphine Inj) 4 mg Q3H PRN IV PUSH 01/06/17 09:15 01/13/17 00:58 (Habitrol 21 Mg Patch.24 Hr) 1 patch DAILY T-DERMAL 01/07/17 13:15 01/12/17 07:13 Miscellaneous Information 1 HS T-DERMAL 01/07/17 21:00 01/12/17 20:17 (KCl) 20 meq Q12HR PO 01/09/17 09:00 01/14/17 08:59 01/12/17 20:14 (Bactroban 2% Oint) 1 applic Q12HR TOPICAL 01/10/17 11:00 01/12/17 20:18 Multi-Ingredient Mouthwash/Gargle 5 ml 5 ml QID SWISH-SWAL 01/11/17 09:00 01/12/17 20:27 Daptomycin 500 mg/ Sodium Chloride 100 ml @ 200 mls/hr Q24H IV 01/12/17 14:00 01/12/17 14:35 Lactated Ringer's 1,000 ml @ 30 mls/hr Q24H PRN IV 01/13/17 01:00 01/16/17 00:59 (NS 500 ml Inj) 500 ml @ 30 mls/hr [id number] PRN IV 01/13/17 01:00 01/16/17 00:59 A/P Assessment and Plan - Left thigh phlegmon and abscess 7 cm diameter status post I and D. - Right hand abscess s/p I&D. - Large area erythema still present, induration is improving. - Received Vancomycin, Zosyn, Clindamycin all IV. - ID following. - Hand wound is growing MRSA. - Given C&S of the wound, MRSA is the primary organism. ID discontinued Zosyn and clindamycin on 01/08/2017 - Discontinued Vancomycin and Linezolid actually on Daptomycin. - Hypokalemia - K+ 3.0 --> 3.1. Continue KCL 20mEQ BID X total 5 days. - Mild Acute kidney injury - Improved. - Anxiety/Depression - Continue Clonazepam, Fluoxetine Hold Full code. Ambulation. Discharge Planning Once cleared by specialists. Jacek Arroyo MD January 13, 2017 08:28 this time, monitor cbc. Consult rv servicer recommends gen surg eval. Gen surg to evaluate Jacek Arroyo MD January 13, 2017 08:28
[2017-01-13] MEDS: clonazePAM 1 MG TAB PO SCH ×3 (08:58→20:07)
[2017-01-13] MEDS: SODIUM CHLORIDE 0.9% FLUSH 10 ML FLUSH IV FLUSH SCH ×2 (08:58→20:08)
[2017-01-13] MEDS: POTASSIUM CHLORIDE 20 MEQ CONTROLLED RELEASE TAB PO SCH ×3 (08:58→20:07)
[2017-01-13] MEDS: NYSTAT/DIPHENHY/LIDO MOUTHWASH (Adult) 120ML SWISH-SWAL SCH ×4 (08:59→20:08)
[2017-01-13] MEDS: MUPIROCIN 2% OINT 22 GM TUBE TOPICAL SCH ×2 (08:59→20:09)
[2017-01-13] MEDS: GABAPENTIN 300 MG CAP PO SCH ×4 (08:59→16:53)
[2017-01-13] MEDS ORDERED: MIDAZOLAM HCL 2 MG/2 ML VIAL ONE ×2 (09:00→10:18)
[2017-01-13] MEDS: NICOTINE 21 MG/24 HR PATCH T-DERMAL SCH (10:29)
[2017-01-13] MEDS ORDERED: DO NOT ADM ANY ANTICOAGULANT DRUGS PRN (11:15)
[2017-01-13 12:00] VITALS: BP 108/67; PULSE 59; RESP 16; TEMP 97.7; O2SAT 95
[2017-01-13] MEDS ORDERED: ONDANSETRON HCL 4 MG/2 ML VIAL IV PUSH ONE (12:00)
[2017-01-13] MEDS ORDERED: PROPOFOL 200 MG/20 ML AMP IV ONE (12:00)
--- NOTE | 2017-01-13 13:44 | PD.CAR.PN ---
CVT Progress Note Subjective/Hospital Course: Patient with cellulitis of the left thigh is likely MRSA Right now cellulitis and phlegmon is starting to call last and patient does have a fluctuant area in the middle of it Will take to the operating room tomorrow for I&D of a left thigh abscess Full consult dictated Thanks Floresita 01/13/17 Patient underwent today successful drainage of left thigh abscess with about 20 cc of purulent material obtained and cultured Wound is packed I'll remove the packing tomorrow and after that patient can be discharged from my point Objective: Vital Signs Date Time Temp Pulse Resp B/P Pulse Ox O2 Delivery O2 Flow Rate FiO2 01/13/17 12:00 97.7 59 16 108/67 95 01/13/17 10:12 97.9 64 16 108/69 96 Nasal Cannula 2 01/13/17 10:00 62 22 92/52 95 Nasal Cannula 2 01/13/17 09:56 97.9 62 22 93/53 95 Nasal Cannula 2 01/13/17 08:00 98.8 58 16 119/67 91 01/13/17 00:00 97.9 64 18 107/64 96 01/12/17 20:00 97.2 70 16 101/60 98 01/12/17 17:40 18 01/12/17 16:00 97.3 67 16 100/56 95 Result Diagram: 01/11/17 0610 01/11/17 0610 Rhoda John MD January 13, 2017 13:43
[2017-01-13] MEDS: DAPTOmycin INJ 500 MG in SODIUM CHLORIDE 0.9% INJ 100 ML IV SCH (15:35)
[2017-01-13 16:00] VITALS: BP 102/65; PULSE 82; RESP 16; TEMP 96.8; O2SAT 95
[2017-01-13 20:00] VITALS: BP 104/70; PULSE 86; RESP 16; TEMP 97.1; O2SAT 97
[2017-01-13] MEDS: REMOVE OLD PATCH T-DERMAL SCH (20:08)
--- NOTE | 2017-01-13 22:51 | MP ---
cc: VISHAL SON MD DATE OF SURGERY 01/13/17 PREOPERATIVE DIAGNOSIS Cellulitis phlegmon and abscess of the left thigh measuring about 7 cm in diameter. POSTOPERATIVE DIAGNOSIS Cellulitis phlegmon and abscess of the left thigh measuring about 7 cm in diameter. PROCEDURE I&D of left thigh abscess. SURGEON Rosio Son MD ANESTHESIA General. ESTIMATED BLOOD LOSS 10 mL. PROCEDURE IN DETAIL The patient prepped and draped usual fashion. Incision made in the left thigh abscess. about 20 mL of purulent material drained which is cultured. Material is sort of waterish, not very thick. With finger exploration, the are broken up and then cavity is irrigated with copious amounts of saline and packed with Iodoform packing. Dressing applied. The patient tolerated the procedure well. Vishal PANG/ /2:36 PM /10:35 PM
[2017-01-14] VITALS: BP 113/63; PULSE 101; RESP 16; TEMP 97; O2SAT 97
[2017-01-14] MEDS: ACETAMINOPHEN/HYDROcodone 325 MG/7.5 MG TAB PO PRN ×3 (01:47→21:06)
[2017-01-14] MEDS: MORPHINE SULFATE 4 MG/ML INJ IV PUSH PRN ×6 (04:14→22:26)
[2017-01-14 08:00] VITALS: BP 120/60; PULSE 113; RESP 16; TEMP 96.1; O2SAT 97
[2017-01-14] MEDS: FLUoxetine HCL 20 MG CAP PO SCH (08:19)
[2017-01-14] MEDS: GABAPENTIN 300 MG CAP PO SCH ×3 (08:19→18:20)
[2017-01-14] MEDS: NYSTAT/DIPHENHY/LIDO MOUTHWASH (Adult) 120ML SWISH-SWAL SCH ×4 (08:19→21:11)
[2017-01-14] MEDS: clonazePAM 1 MG TAB PO SCH ×2 (08:20→21:06)
[2017-01-14] MEDS: NICOTINE 21 MG/24 HR PATCH T-DERMAL SCH (08:22)
--- NOTE | 2017-01-14 08:28 | HHI.PR ---
Subjective Remarks This is a pleasant 46 year old female with a history of substance abuse who presented to the ED on 01/05/2017 due to left groin cellulitis, indurated lesion as well as right hand erythema, swelling. Despite I&D of the right hand and evaluation at the ED day prior to this admission, patient reports no significant clinical improvement which prompted her to come the ED. CT pelvic shows focal soft tissue swelling with no gas or drainable fluid. as per Life Insurance Sales Agent for I and D by General Surgery, seen in her bedroom status post I and D 01/13/1701/14: Seen in her bedroom in the presence of nurse Miss Herbert no new issues, she will have Wound care later today by General Surgeon, continue Daptomycin, wound culture positive for MRSA, No nausea, vomit or diarrhea. Objective Vital Signs Date Time Temp Pulse Resp B/P Pulse Ox O2 Delivery O2 Flow Rate FiO2 01/14/17 00:00 97.0 101 16 113/63 97 01/13/17 20:00 97.1 86 16 104/70 97 01/13/17 16:00 96.8 82 16 102/65 95 01/13/17 12:00 97.7 59 16 108/67 95 01/13/17 10:12 97.9 64 16 108/69 96 Nasal Cannula 2 01/13/17 10:00 62 22 92/52 95 Nasal Cannula 2 01/13/17 09:56 97.9 62 22 93/53 95 Nasal Cannula 2 I/O 01/13/17 01/13/17 01/13/17 01/14/17 01/14/17 01/14/17 07:00 15:00 23:00 07:00 15:00 23:00 Intake Total 740 ml 680 ml 620 ml Output Total 500 ml Balance 240 ml 680 ml 620 ml Intake Oral 240 ml 680 ml 620 ml Other 500 ml Output Urine Total 500 ml # Voids 2 3 3 # Bowel Movements 0 1 1 0 Result Diagram: 01/11/17 0610 01/11/17 0610 Imaging Last Impressions Pelvis CT 01/06/17 0000 Signed Impressions: Service Date/Time: December 02:48 - CONCLUSION: Focal soft tissue swelling and edema in the left upper thigh with no gas or drainable fluid. Foreign Saab MD Procedures Left Thigh I and D. Other Results Laboratory Tests Test 01/11/17 06:10 White Blood Count 5.7 TH/MM3 Red Blood Count 4.19 MIL/MM3 Hemoglobin 12.1 GM/DL Hematocrit 36.1 % Mean Corpuscular Volume 86.0 FL Mean Corpuscular Hemoglobin 28.8 PG Mean Corpuscular Hemoglobin 33.5 % Concent Red Cell Distribution Width 13.4 % Platelet Count 240 TH/MM3 Mean Platelet Volume 7.0 FL Neutrophils (%) (Auto) 39.9 % Lymphocytes (%) (Auto) 49.2 % Monocytes (%) (Auto) 8.6 % Eosinophils (%) (Auto) 1.5 % Basophils (%) (Auto) 0.8 % Neutrophils # (Auto) 2.3 TH/MM3 Lymphocytes # (Auto) 2.8 TH/MM3 Monocytes # (Auto) 0.5 TH/MM3 Eosinophils # (Auto) 0.1 TH/MM3 Basophils # (Auto) 0.0 TH/MM3 CBC Comment DIFF FINAL Differential Comment Sodium Level 142 MEQ/L Potassium Level 4.3 MEQ/L Chloride Level 102 MEQ/L Carbon Dioxide Level 32.9 MEQ/L Anion Gap 7 MEQ/L Blood Urea Nitrogen 10 MG/DL Creatinine 0.91 MG/DL Estimat Glomerular Filtration 67 ML/MIN Rate Random Glucose 91 MG/DL Calcium Level 9.0 MG/DL Objective Remarks GENERAL: Well developed patient, appears in NAD. SKIN: Warm and dry. HEAD: Normocephalic. EYES: No scleral icterus. No injection or drainage. NECK: Supple, trachea midline. No JVD or lymphadenopathy. CARDIOVASCULAR: Regular rate and rhythm without murmurs, gallops, or rubs. RESPIRATORY: Breath sounds equal bilaterally. No accessory muscle use. GASTROINTESTINAL: Abdomen soft, non-tender, nondistended. MUSCULOSKELETAL: No cyanosis, or edema. Right hand swelling improved. Left thigh dressed. BACK: Nontender without obvious deformity. No CVA tenderness. Medications and IVs Current Medications Medications (Trade) Dose Ordered Sig/Selina Route Start Time Stop Time Status Last Admin (NS Flush) 2 ml UNSCH PRN IV FLUSH 01/06/17 04:15 01/09/17 08:54 (NS Flush) 2 ml BID IV FLUSH 01/06/17 09:00 01/13/17 20:08 (Narcan Inj) 0.4 mg UNSCH PRN IV 01/06/17 04:15 (TEGretol CHEW) 100 mg Q12HR PO 01/06/17 09:00 01/13/17 20:08 (KlonoPIN) 1 mg BID PO 01/06/17 09:00 01/13/17 20:07 (PROzac) 60 mg DAILY PO 01/06/17 09:00 01/10/17 08:48 (Neurontin) 600 mg TID PO 01/06/17 09:00 01/13/17 16:53 ([place] 7.5-325 Mg) 1 tab Q6H PRN PO 01/06/17 09:15 01/14/17 01:47 (Tylenol) 500 mg Q4H PRN PO 01/06/17 09:15 (Morphine Inj) 4 mg Q3H PRN IV PUSH 01/06/17 09:15 01/14/17 04:14 (Habitrol 21 Mg Patch.24 Hr) 1 patch DAILY T-DERMAL 01/07/17 13:15 01/13/17 10:29 Miscellaneous Information 1 HS T-DERMAL 01/07/17 21:00 01/13/17 20:08 (KCl) 20 meq Q12HR PO 01/09/17 09:00 01/14/17 08:59 01/13/17 20:07 (Bactroban 2% Oint) 1 applic Q12HR TOPICAL 01/10/17 11:00 01/13/17 20:09 Multi-Ingredient Mouthwash/Gargle 5 ml 5 ml QID SWISH-SWAL 01/11/17 09:00 01/13/17 20:08 Daptomycin 500 mg/ Sodium Chloride 100 ml @ 200 mls/hr Q24H IV 01/12/17 14:00 01/13/17 15:35 Lactated Ringer's 1,000 ml @ 30 mls/hr Q24H PRN IV 01/13/17 01:00 01/16/17 00:59 (NS 500 ml Inj) 500 ml @ 30 mls/hr [id number] PRN IV 01/13/17 01:00 01/16/17 00:59 Miscellaneous Information ALL NURSING DEPARTME... UNSCH PRN .XX 01/13/17 11:15 01/14/17 11:14 A/P Assessment and Plan - Left thigh phlegmon and abscess 7 cm diameter status post I and D. - Right hand abscess s/p I&D. - Large area erythema still present, induration is improving. - Received Vancomycin, Zosyn, Clindamycin all IV. - ID following. - Hand wound is growing MRSA. - Given C&S of the wound, MRSA is the primary organism. ID discontinued Zosyn and clindamycin on 01/08/2017 - Discontinued Vancomycin and Linezolid actually on Daptomycin. - Mild Acute kidney injury - Improved. - Anxiety/Depression - Continue Clonazepam, Fluoxetine -Substance abuse, positive for Cocaine. strongly recommended to stop abusing Narcotics. Hold Full code. Ambulation. Encourage ambulation. Discharge Planning Once cleared by specialists. Jacek Arroyo MD January 14, 2017 08:28
[2017-01-14] MEDS: SODIUM CHLORIDE 0.9% FLUSH 10 ML FLUSH IV FLUSH SCH ×2 (09:34→21:08)
[2017-01-14] MEDS: MUPIROCIN 2% OINT 22 GM TUBE TOPICAL SCH ×2 (09:34→21:11)
[2017-01-14 12:00] VITALS: BP 113/69; PULSE 80; RESP 16; TEMP 97.9; O2SAT 99
[2017-01-14] MEDS: DAPTOmycin INJ 500 MG in SODIUM CHLORIDE 0.9% INJ 100 ML IV SCH (13:42)
--- NOTE | 2017-01-14 14:09 | PD.CAR.PN ---
CVT Progress Note Subjective/Hospital Course: Patient with cellulitis of the left thigh is likely MRSA Right now cellulitis and phlegmon is starting to call last and patient does have a fluctuant area in the middle of it Will take to the operating room tomorrow for I&D of a left thigh abscess Full consult dictated Thanks Floresita 01/13/17 Patient underwent today successful drainage of left thigh abscess with about 20 cc of purulent material obtained and cultured Wound is packed I'll remove the packing tomorrow and after that patient can be discharged from my point 01/14/17 Patient doing very well Remove packing today irrigated with saline daily dress dry Nothing to add to care. The small drainage incision will heal up on its own Objective: Vital Signs Date Time Temp Pulse Resp B/P Pulse Ox O2 Delivery O2 Flow Rate FiO2 01/14/17 12:00 97.9 80 16 113/69 99 01/14/17 08:00 96.1 113 16 120/60 97 01/14/17 00:00 97.0 101 16 113/63 97 01/13/17 20:00 97.1 86 16 104/70 97 01/13/17 16:00 96.8 82 16 102/65 95 Result Diagram: 01/11/17 0610 01/11/17 0610 Rhoda John MD January 14, 2017 14:09
--- NOTE | 2017-01-14 14:14 | HHI.IDPN ---
Note Infectious Disease Note Patient is post left thigh debridement. Complains of very severe pain in the groin. Complains that pain is worse when skin rubs together. Afebrile. Wound dressing in place has bloody drainage. RN notes that patient has been touching the area with her ungloved hands and had urine spill unto wound. PAST MEDICAL HISTORY 1. Diabetes mellitus. 2. Depression, anxiety. 3. Seizure disorder. 4. Hysterectomy. 5. Bilateral tubal ligation. 6. MRSA infection of the skin. 7. MRSA bacteremia per the patient's report two years ago in [place]. ALLERGIES SULFA. ASPIRIN. ULTRAM. VIOXX. ANTIBIOTICS. Daptomycin day2 Current Medications Medications (Trade) Dose Ordered Sig/Selina Route PRN Reason Start Time Stop Time Status Last Admin Dose Admin Sodium Chloride (NS Flush) 2 ml UNSCH PRN IV FLUSH FLUSH AFTER USING IV ACCESS 01/06/17 04:15 01/09/17 08:54 Sodium Chloride (NS Flush) 2 ml BID IV FLUSH 01/06/17 09:00 01/14/17 09:34 Naloxone HCl (Narcan Inj) 0.4 mg UNSCH PRN IV SEE LABEL COMMENTS 01/06/17 04:15 Carbamazepine (TEGretol CHEW) 100 mg Q12HR PO 01/06/17 09:00 01/14/17 08:20 Clonazepam (KlonoPIN) 1 mg BID PO 01/06/17 09:00 01/14/17 08:20 Fluoxetine HCl (PROzac) 60 mg DAILY PO 01/06/17 09:00 01/14/17 08:19 Gabapentin (Neurontin) 600 mg TID PO 01/06/17 09:00 01/14/17 13:42 Acetaminophen/ Hydrocodone Bitart ([place] 7.5-325 Mg) 1 tab Q6H PRN PO PAIN 5-10 IF TAKING P.O. 01/06/17 09:15 01/14/17 13:42 Acetaminophen (Tylenol) 500 mg Q4H PRN PO HEADACHE, FEVER, PAIN 1-4 01/06/17 09:15 Morphine Sulfate (Morphine Inj) 4 mg Q3H PRN IV PUSH BREAKTHROUGH PAIN 01/06/17 09:15 01/14/17 11:52 Nicotine (Habitrol 21 Mg Patch.24 Hr) 1 patch DAILY T-DERMAL 01/07/17 13:15 01/14/17 08:22 Miscellaneous Information 1 HS T-DERMAL 01/07/17 21:00 01/13/17 20:08 Mupirocin (Bactroban 2% Oint) 1 applic Q12HR TOPICAL 01/10/17 11:00 01/14/17 09:34 Multi-Ingredient Mouthwash/Gargle 5 ml 5 ml QID SWISH-SWAL 01/11/17 09:00 01/14/17 13:43 Daptomycin 500 mg/ Sodium Chloride 100 ml @ 200 mls/hr Q24H IV 01/12/17 14:00 01/14/17 13:42 Lactated Ringer's 1,000 ml @ 30 mls/hr Q24H PRN IV SEE LABEL COMMENTS 01/13/17 01:00 01/16/17 00:59 Sodium Chloride (NS 500 ml Inj) 500 ml @ 30 mls/hr [id number] PRN IV SEE LABEL COMMENTS 01/13/17 01:00 01/16/17 00:59 OBJECTIVE: Vital Signs Date Time Temp Pulse Resp B/P Pulse Ox O2 Delivery O2 Flow Rate FiO2 01/14/17 12:00 97.9 80 16 113/69 99 01/14/17 08:00 96.1 113 16 120/60 97 01/14/17 00:00 97.0 101 16 113/63 97 01/13/17 20:00 97.1 86 16 104/70 97 01/13/17 16:00 96.8 82 16 102/65 95 01/13/17 01/13/17 01/14/17 15:00 23:00 07:00 Intake Total 740 ml 680 ml 620 ml Output Total 500 ml Balance 240 ml 680 ml 620 ml Intake Oral 240 ml 680 ml 620 ml Other 500 ml Output Urine Total 500 ml # Voids 3 3 # Bowel Movements 1 1 0 Microbiology Date/Time Procedure Status Source Growth 01/13/17 09:46 Gram Stain - Final Resulted Abscess Thigh 01/13/17 09:46 Wound Culture - Preliminary Resulted Abscess Thigh NO GROWTH IN 24 HOURS. IMAGING: Pelvis CT 01/06/17 0000 Signed Impressions: Service Date/Time: December 02:48 - CONCLUSION: Focal soft tissue swelling and edema in the left upper thigh with no gas or drainable fluid. Foreign Saab MD PHYSICAL EXAMINATION GENERAL: No acute distress. Appears drowsy. HEENT: No icterus. No conjunctival erythema. LUNGS: Clear. HEART: Regular S1 and S2. No murmurs. No rubs. No gallops. : The left side of the groin adjacent to the vulva has erythema and swelling but less induration. Left inner thigh swelling is decreased. Wound post has bloody drainage. (+) erythema. EXTREMITIES: The right hand dorsal aspect erythema and swelling almost resolved. The lower extremities have no clubbing or cyanosis or edema. SKIN: Multiple punctate erythematous dried lesions scattered on various areas of the tibias. No diffuse rash. PSYCHIATRIC: Calm. IMPRESSION 1. Sepsis on admission indicated by elevated white blood cell count, fever, acute kidney disease Stage III, potential source for sepsis being skin infection of the groin and right hand. 2. Cellulitis of the right hand/skin abscess of the right hand. 3. Left groin cellulitis. Slow to improve. Now that the area has been excised, should she more rapid improvement. RECOMMENDATIONS 1. Continue Daptomycin. 2. Monitor clinical improvement. 3. If improving may be able to switch to PO antibiotic. Doxycycline. Follow cultures 72 hours. Sebastián Mosley MD January 14, 2017 14:14
[2017-01-14 16:00] VITALS: BP 135/81; PULSE 128; RESP 18; TEMP 97.6; O2SAT 98
[2017-01-14 20:00] VITALS: BP 127/89; PULSE 112; RESP 20; TEMP 98.6; O2SAT 95
[2017-01-14] MEDS: REMOVE OLD PATCH T-DERMAL SCH (21:00)
[2017-01-15] VITALS: BP 131/71; PULSE 99; RESP 20; TEMP 98.2; O2SAT 97
[2017-01-15] MEDS: MORPHINE SULFATE 4 MG/ML INJ IV PUSH PRN ×7 (01:38→22:22)
[2017-01-15] MEDS: ACETAMINOPHEN/HYDROcodone 325 MG/7.5 MG TAB PO PRN ×4 (03:39→23:45)
[2017-01-15 08:00] VITALS: BP 95/61; PULSE 72; RESP 17; TEMP 97.9; O2SAT 96
[2017-01-15] MEDS: FLUoxetine HCL 20 MG CAP PO SCH (08:49)
[2017-01-15] MEDS: GABAPENTIN 300 MG CAP PO SCH ×3 (08:49→17:40)
[2017-01-15] MEDS: clonazePAM 1 MG TAB PO SCH ×2 (08:49→22:15)
--- NOTE | 2017-01-15 08:49 | HHI.PR ---
Subjective Remarks This is a pleasant 46 year old female with a history of substance abuse who presented to the ED on 01/05/2017 due to left groin cellulitis, indurated lesion as well as right hand erythema, swelling. Despite I&D of the right hand and evaluation at the ED day prior to this admission, patient reports no significant clinical improvement which prompted her to come the ED. CT pelvic shows focal soft tissue swelling with no gas or drainable fluid. as per English Composition Teacher for I and D by General Surgery, seen in her bedroom status post I and D 01/13/1701/14: Seen in her bedroom in the presence of nurse Miss Herbert no new issues, she will have Wound care later today by General Surgeon, continue Daptomycin, wound culture positive for MRSA. 01/15: Patient stable in her bedroom, sleeping, encourage activity, had her last BM yesterday, no nausea, vomit or diarrhea, okay to discharge as per loan operations specialist, awaiting final by ID specialist, probably will go on by mouth antibiotics, recommended to follow cultures for 72 hours yesterday. Objective Vital Signs Date Time Temp Pulse Resp B/P Pulse Ox O2 Delivery O2 Flow Rate FiO2 01/15/17 08:00 97.9 72 17 95/61 96 01/15/17 00:00 98.2 99 20 131/71 97 01/14/17 20:00 98.6 112 20 127/89 95 01/14/17 16:00 97.6 128 18 135/81 98 01/14/17 12:00 97.9 80 16 113/69 99 I/O 01/14/17 01/14/17 01/14/17 01/15/17 01/15/17 01/15/17 07:00 15:00 23:00 07:00 15:00 23:00 Intake Total 620 ml 340 ml 720 ml 240 ml Balance 620 ml 340 ml 720 ml 240 ml Intake Oral 620 ml 340 ml 720 ml 240 ml # Voids 3 3 1 2 # Bowel Movements 0 1 1 Result Diagram: 01/11/17 0610 01/11/17 0610 Imaging Last Impressions Pelvis CT 01/06/17 0000 Signed Impressions: Service Date/Time: December 02:48 - CONCLUSION: Focal soft tissue swelling and edema in the left upper thigh with no gas or drainable fluid. Foreign Saab MD Procedures Left Thigh I and D. Other Results Laboratory Tests Test 01/11/17 06:10 White Blood Count 5.7 TH/MM3 Red Blood Count 4.19 MIL/MM3 Hemoglobin 12.1 GM/DL Hematocrit 36.1 % Mean Corpuscular Volume 86.0 FL Mean Corpuscular Hemoglobin 28.8 PG Mean Corpuscular Hemoglobin 33.5 % Concent Red Cell Distribution Width 13.4 % Platelet Count 240 TH/MM3 Mean Platelet Volume 7.0 FL Neutrophils (%) (Auto) 39.9 % Lymphocytes (%) (Auto) 49.2 % Monocytes (%) (Auto) 8.6 % Eosinophils (%) (Auto) 1.5 % Basophils (%) (Auto) 0.8 % Neutrophils # (Auto) 2.3 TH/MM3 Lymphocytes # (Auto) 2.8 TH/MM3 Monocytes # (Auto) 0.5 TH/MM3 Eosinophils # (Auto) 0.1 TH/MM3 Basophils # (Auto) 0.0 TH/MM3 CBC Comment DIFF FINAL Differential Comment Sodium Level 142 MEQ/L Potassium Level 4.3 MEQ/L Chloride Level 102 MEQ/L Carbon Dioxide Level 32.9 MEQ/L Anion Gap 7 MEQ/L Blood Urea Nitrogen 10 MG/DL Creatinine 0.91 MG/DL Estimat Glomerular Filtration 67 ML/MIN Rate Random Glucose 91 MG/DL Calcium Level 9.0 MG/DL Objective Remarks GENERAL: Well developed patient, appears in NAD. SKIN: Warm and dry. HEAD: Normocephalic. EYES: No scleral icterus. No injection or drainage. NECK: Supple, trachea midline. No JVD or lymphadenopathy. CARDIOVASCULAR: Regular rate and rhythm without murmurs, gallops, or rubs. RESPIRATORY: Breath sounds equal bilaterally. No accessory muscle use. GASTROINTESTINAL: Abdomen soft, non-tender, nondistended. MUSCULOSKELETAL: No cyanosis, or edema. Right hand swelling improved. Left thigh dressed. BACK: Nontender without obvious deformity. No CVA tenderness. Medications and IVs Current Medications Medications (Trade) Dose Ordered Sig/Selina Route Start Time Stop Time Status Last Admin (NS Flush) 2 ml UNSCH PRN IV FLUSH 01/06/17 04:15 01/09/17 08:54 (NS Flush) 2 ml BID IV FLUSH 01/06/17 09:00 01/14/17 21:08 (Narcan Inj) 0.4 mg UNSCH PRN IV 01/06/17 04:15 (TEGretol CHEW) 100 mg Q12HR PO 01/06/17 09:00 01/14/17 21:06 (KlonoPIN) 1 mg BID PO 01/06/17 09:00 01/14/17 21:06 (PROzac) 60 mg DAILY PO 01/06/17 09:00 01/14/17 08:19 (Neurontin) 600 mg TID PO 01/06/17 09:00 01/14/17 18:20 ([place] 7.5-325 Mg) 1 tab Q6H PRN PO 01/06/17 09:15 01/15/17 03:39 (Tylenol) 500 mg Q4H PRN PO 01/06/17 09:15 (Morphine Inj) 4 mg Q3H PRN IV PUSH 01/06/17 09:15 01/15/17 01:38 (Habitrol 21 Mg Patch.24 Hr) 1 patch DAILY T-DERMAL 01/07/17 13:15 01/14/17 08:22 Miscellaneous Information 1 HS T-DERMAL 01/07/17 21:00 01/14/17 21:00 (Bactroban 2% Oint) 1 applic Q12HR TOPICAL 01/10/17 11:00 01/14/17 21:11 Multi-Ingredient Mouthwash/Gargle 5 ml 5 ml QID SWISH-SWAL 01/11/17 09:00 01/14/17 21:11 Daptomycin 500 mg/ Sodium Chloride 100 ml @ 200 mls/hr Q24H IV 01/12/17 14:00 01/14/17 13:42 Lactated Ringer's 1,000 ml @ 30 mls/hr Q24H PRN IV 01/13/17 01:00 01/16/17 00:59 (NS 500 ml Inj) 500 ml @ 30 mls/hr [id number] PRN IV 01/13/17 01:00 01/16/17 00:59 A/P Assessment and Plan - Left thigh phlegmon and abscess 7 cm diameter status post I and D. - Right hand abscess s/p I&D. - Large area erythema still present, induration is improving. - Received Vancomycin, Zosyn, Clindamycin all IV. - ID following. Hand wound growing MRSA, Discontinued Zosyn and Clindamycin and Vancomycin 01/08/17 started on Daptomycin. may go on by mouth antibiotics to follow culture for 72 hours recommended yesterday by ID specialist. okay to discharge from loan operations specialist. - Anxiety/Depression - Continue Clonazepam, Fluoxetine -Substance abuse, positive for Cocaine. strongly recommended to stop abusing Narcotics. Full code. Ambulation. Discharge Planning Expected Tuesday. 01/17/17 Jacek Arroyo MD January 15, 2017 08:49 Jacek Arroyo MD January 15, 2017 08:49
[2017-01-15] MEDS: SODIUM CHLORIDE 0.9% FLUSH 10 ML FLUSH IV FLUSH SCH ×2 (08:50→21:00)
[2017-01-15] MEDS: NYSTAT/DIPHENHY/LIDO MOUTHWASH (Adult) 120ML SWISH-SWAL SCH ×4 (08:50→22:15)
[2017-01-15] MEDS: NICOTINE 21 MG/24 HR PATCH T-DERMAL SCH (08:50)
[2017-01-15] MEDS: MUPIROCIN 2% OINT 22 GM TUBE TOPICAL SCH ×2 (08:53→21:00)
--- NOTE | 2017-01-15 11:27 | PD.CAR.PN ---
CVT Progress Note Subjective/Hospital Course: Patient with cellulitis of the left thigh is likely MRSA Right now cellulitis and phlegmon is starting to call last and patient does have a fluctuant area in the middle of it Will take to the operating room tomorrow for I&D of a left thigh abscess Full consult dictated Thanks Floresita 01/13/17 Patient underwent today successful drainage of left thigh abscess with about 20 cc of purulent material obtained and cultured Wound is packed I'll remove the packing tomorrow and after that patient can be discharged from my point 01/14/17 Patient doing very well Remove packing today irrigated with saline daily dress dry Nothing to add to care. The small drainage incision will heal up on its own 01/15/17 Minimal drainage from the I&D site Cellulitis slowly resolving Nothing to add to care May wash and shower get wet Will sign off Objective: Vital Signs Date Time Temp Pulse Resp B/P Pulse Ox O2 Delivery O2 Flow Rate FiO2 01/15/17 08:00 97.9 72 17 95/61 96 01/15/17 00:00 98.2 99 20 131/71 97 01/14/17 20:00 98.6 112 20 127/89 95 01/14/17 16:00 97.6 128 18 135/81 98 01/14/17 12:00 97.9 80 16 113/69 99 Result Diagram: 01/11/17 0610 01/11/17 0610 Rhoda John MD January 15, 2017 11:27
[2017-01-15 12:00] VITALS: BP 102/65; PULSE 86; RESP 17; TEMP 98.4; O2SAT 98
[2017-01-15] MEDS: DAPTOmycin INJ 500 MG in SODIUM CHLORIDE 0.9% INJ 100 ML IV SCH (14:08)
[2017-01-15 16:00] VITALS: BP 101/63; PULSE 77; RESP 17; TEMP 96.9; O2SAT 97
[2017-01-15 20:00] VITALS: BP 117/73; PULSE 80; RESP 18; TEMP 96.9; O2SAT 98
[2017-01-15] MEDS: REMOVE OLD PATCH T-DERMAL SCH (21:00)
[2017-01-16 00:27] VITALS: BP 124/81; PULSE 80; RESP 18; TEMP 96.7; O2SAT 98
[2017-01-16] MEDS: MORPHINE SULFATE 4 MG/ML INJ IV PUSH PRN ×6 (01:38→21:15)
[2017-01-16 02:28] LABS: AMPHETAMINE, URINE NEG (NEG); BARBITURATES, URINE NEG (NEG); COCAINE, URINE NEG (NEG)
[2017-01-16] MEDS: clonazePAM 1 MG TAB PO SCH ×2 (07:50→20:02)
[2017-01-16] MEDS: GABAPENTIN 300 MG CAP PO SCH ×3 (07:51→16:27)
[2017-01-16] MEDS: FLUoxetine HCL 20 MG CAP PO SCH (07:51)
[2017-01-16] MEDS: NICOTINE 21 MG/24 HR PATCH T-DERMAL SCH (07:51)
[2017-01-16] MEDS: SODIUM CHLORIDE 0.9% FLUSH 10 ML FLUSH IV FLUSH SCH ×2 (07:52→20:15)
[2017-01-16] MEDS: ACETAMINOPHEN/HYDROcodone 325 MG/7.5 MG TAB PO PRN ×3 (07:52→20:03)
[2017-01-16] MEDS: NYSTAT/DIPHENHY/LIDO MOUTHWASH (Adult) 120ML SWISH-SWAL SCH ×4 (07:52→20:15)
[2017-01-16] MEDS: MUPIROCIN 2% OINT 22 GM TUBE TOPICAL SCH ×2 (07:53→20:15)
[2017-01-16 08:00] VITALS: BP 120/76; PULSE 64; RESP 17; TEMP 98.4; O2SAT 98
--- NOTE | 2017-01-16 10:07 | HHI.PR ---
Subjective Remarks This is a pleasant 46 year old female with a history of substance abuse who presented to the ED on 01/05/2017 due to left groin cellulitis, indurated lesion as well as right hand erythema, swelling. Despite I&D of the right hand and evaluation at the ED day prior to this admission, patient reports no significant clinical improvement which prompted her to come the ED. CT pelvic shows focal soft tissue swelling with no gas or drainable fluid. as per Heavy Truck Mechanic for I and D by General Surgery, seen in her bedroom status post I and D 01/13/1701/14: Seen in her bedroom in the presence of nurse Miss Herbert no new issues, she will have Wound care later today by General Surgeon, continue Daptomycin, wound culture positive for MRSA. 01/15: Patient stable in her bedroom, sleeping, encourage activity, had her last BM yesterday, okay to discharge as per carburetor specialist, as per ID specialist recommended to follow cultures for 72 hours yesterday. 01/16: Stable in her bedroom asking for pain medicine, she has a small surgical wound one inch draining minimal purulent tissue, and serum, awaiting for final recommendations by ID specialist assume by tomorrow will have the final reading on Wound culture to discharge her home on by mouth antibiotics. no nausea, vomit or diarrhea. Objective Vital Signs Date Time Temp Pulse Resp B/P Pulse Ox O2 Delivery O2 Flow Rate FiO2 01/16/17 08:00 98.4 64 17 120/76 98 01/16/17 00:27 96.7 80 18 124/81 98 01/15/17 20:00 96.9 80 18 117/73 98 01/15/17 16:00 96.9 77 17 101/63 97 01/15/17 12:00 98.4 86 17 102/65 98 I/O 01/15/17 01/15/17 01/15/17 01/16/17 01/16/17 01/16/17 07:00 15:00 23:00 07:00 15:00 23:00 Intake Total 240 ml 480 ml 480 ml 560 ml Output Total 600 ml 800 ml Balance 240 ml 480 ml -120 ml -240 ml Intake Oral 240 ml 480 ml 480 ml 560 ml IV Total 0 ml Output Urine Total 600 ml 800 ml # Voids 2 1 # Bowel Movements 1 Imaging Last Impressions Pelvis CT 01/06/17 0000 Signed Impressions: Service Date/Time: December 02:48 - CONCLUSION: Focal soft tissue swelling and edema in the left upper thigh with no gas or drainable fluid. Foreign Saab MD Procedures Left Thigh I and D. Other Results Laboratory Tests Test 01/16/17 01:45 Urine Opiates Screen POS Urine Barbiturates Screen NEG Urine Amphetamines Screen NEG Urine Benzodiazepines Screen NEG Urine Cocaine Screen NEG Urine Cannabinoids Screen NEG Objective Remarks GENERAL: Well developed patient, appears in NAD. SKIN: Warm and dry. HEAD: Normocephalic. EYES: No scleral icterus. No injection or drainage. NECK: Supple, trachea midline. No JVD or lymphadenopathy. CARDIOVASCULAR: Regular rate and rhythm without murmurs, gallops, or rubs. RESPIRATORY: Breath sounds equal bilaterally. No accessory muscle use. GASTROINTESTINAL: Abdomen soft, non-tender, nondistended. MUSCULOSKELETAL: No cyanosis, or edema. Right hand swelling improved. Left thigh dressed. BACK: Nontender without obvious deformity. No CVA tenderness. Medications and IVs Current Medications Medications (Trade) Dose Ordered Sig/Selina Route Start Time Stop Time Status Last Admin (NS Flush) 2 ml UNSCH PRN IV FLUSH 01/06/17 04:15 01/09/17 08:54 (NS Flush) 2 ml BID IV FLUSH 01/06/17 09:00 01/16/17 07:52 (Narcan Inj) 0.4 mg UNSCH PRN IV 01/06/17 04:15 (TEGretol CHEW) 100 mg Q12HR PO 01/06/17 09:00 01/16/17 07:51 (KlonoPIN) 1 mg BID PO 01/06/17 09:00 01/16/17 07:50 (PROzac) 60 mg DAILY PO 01/06/17 09:00 01/16/17 07:51 (Neurontin) 600 mg TID PO 01/06/17 09:00 01/16/17 07:51 ([place] 7.5-325 Mg) 1 tab Q6H PRN PO 01/06/17 09:15 01/16/17 07:52 (Tylenol) 500 mg Q4H PRN PO 01/06/17 09:15 (Morphine Inj) 4 mg Q3H PRN IV PUSH 01/06/17 09:15 01/16/17 04:34 (Habitrol 21 Mg Patch.24 Hr) 1 patch DAILY T-DERMAL 01/07/17 13:15 01/16/17 07:51 Miscellaneous Information 1 HS T-DERMAL 01/07/17 21:00 01/15/17 21:00 (Bactroban 2% Oint) 1 applic Q12HR TOPICAL 01/10/17 11:00 01/16/17 07:53 Multi-Ingredient Mouthwash/Gargle 5 ml 5 ml QID SWISH-SWAL 01/11/17 09:00 01/16/17 07:52 (Cubicin Inj/NS Inj) 100 ml @ 200 mls/hr Q24H IV 01/12/17 14:00 01/15/17 14:08 A/P Assessment and Plan - Left thigh phlegmon and abscess 7 cm diameter status post I and D. - Right hand abscess s/p I&D. - Large area erythema still present, induration is improving. - Received Vancomycin, Zosyn, Clindamycin all IV. - ID following. Hand wound growing MRSA, Discontinued Zosyn and Clindamycin and Vancomycin 01/08/17 started on Daptomycin. may go on by mouth antibiotics to follow culture for 72 hours recommended today second day 48 hours, will complete by tomorrow. as per Surgical team okay to discharge. - Anxiety/Depression - Continue Clonazepam, Fluoxetine -Substance abuse, positive for Cocaine. strongly recommended to stop abusing Narcotics. Full code. Ambulation. Discharge Planning Expected Tuesday. 01/17/17 Jacek Arroyo MD January 16, 2017 10:07
[2017-01-16 12:00] VITALS: BP 123/70; PULSE 68; RESP 17; TEMP 97.8; O2SAT 99
[2017-01-16] MEDS: DAPTOmycin INJ 500 MG in SODIUM CHLORIDE 0.9% INJ 100 ML IV SCH (12:55)
[2017-01-16 16:00] VITALS: BP 128/80; PULSE 72; RESP 18; TEMP 97.9; O2SAT 99
[2017-01-16 20:00] VITALS: BP 150/91; PULSE 87; RESP 18; TEMP 96.9; O2SAT 98
[2017-01-16] MEDS: REMOVE OLD PATCH T-DERMAL SCH (21:00)
[2017-01-17] VITALS: BP 147/95; PULSE 93; RESP 18; TEMP 98.4; O2SAT 99
[2017-01-17] MEDS: MORPHINE SULFATE 4 MG/ML INJ IV PUSH PRN ×3 (00:22→07:19)
[2017-01-17] MEDS: ACETAMINOPHEN/HYDROcodone 325 MG/7.5 MG TAB PO PRN ×5 (02:46→22:10)
[2017-01-17 08:00] VITALS: BP 153/97; PULSE 85; RESP 18; TEMP 97.9; O2SAT 98
--- NOTE | 2017-01-17 08:26 | HHI.PR ---
Subjective Remarks This is a pleasant 46 year old female with a history of substance abuse who presented to the ED on 01/05/2017 due to left groin cellulitis, indurated lesion as well as right hand erythema, swelling. Despite I&D of the right hand and evaluation at the ED day prior to this admission, patient reports no significant clinical improvement which prompted her to come the ED. CT pelvic shows focal soft tissue swelling with no gas or drainable fluid. as per Director Marketing Communications for I and D by General Surgery, seen in her bedroom status post I and D 01/13/1701/14: Seen in her bedroom in the presence of nurse Miss Herbert no new issues, she will have Wound care later today by General Surgeon, continue Daptomycin, wound culture positive for MRSA. 01/15: Patient stable in her bedroom, sleeping, encourage activity, had her last BM yesterday, okay to discharge as per operations specialist, as per ID specialist recommended to follow cultures for 72 hours yesterday. 01/16: Stable in her bedroom asking for pain medicine, she has a small surgical wound one inch draining minimal purulent tissue, and serum, awaiting for final recommendations by ID specialist assume by tomorrow will have the final reading on Wound culture to discharge her home on by mouth antibiotics. no nausea, vomit or diarrhea. 01/17: Seen in her room in the presence of her Relative and at all times present female nurse Romario Stanley, no nausea, vomit or diarrhea, she asked the nurse to leave the room but was notified that I have to be with a nurse at all times while examining or explaining plan of care to the patient. complaint of oral pain. no lesions found she already has Magic Mouth Wash Objective Vital Signs Date Time Temp Pulse Resp B/P Pulse Ox O2 Delivery O2 Flow Rate FiO2 01/17/17 04:27 18 01/17/17 03:50 18 01/17/17 00:00 98.4 93 18 147/95 99 01/16/17 20:00 96.9 87 18 150/91 98 01/16/17 16:00 97.9 72 18 128/80 99 01/16/17 12:00 97.8 68 17 123/70 99 I/O 01/16/17 01/16/17 01/16/17 01/17/17 01/17/17 01/17/17 07:00 15:00 23:00 07:00 15:00 23:00 Intake Total 560 ml 820 ml 480 ml 480 ml Output Total 800 ml 400 ml Balance -240 ml 420 ml 480 ml 480 ml Intake Oral 560 ml 720 ml 480 ml 480 ml IV Total 100 ml 0 ml 0 ml Output Urine Total 800 ml 400 ml # Voids 3 3 # Bowel Movements 0 1 Imaging Last Impressions Pelvis CT 01/06/17 0000 Signed Impressions: Service Date/Time: December 02:48 - CONCLUSION: Focal soft tissue swelling and edema in the left upper thigh with no gas or drainable fluid. Foreign Saab MD Procedures Left Thigh I and D. Other Results Laboratory Tests Test 01/16/17 01:45 Urine Opiates Screen POS Urine Barbiturates Screen NEG Urine Amphetamines Screen NEG Urine Benzodiazepines Screen NEG Urine Cocaine Screen NEG Urine Cannabinoids Screen NEG Objective Remarks GENERAL: Well developed patient, appears in NAD. SKIN: Warm and dry. HEAD: Normocephalic. EYES: No scleral icterus. No injection or drainage. NECK: Supple, trachea midline. No JVD or lymphadenopathy. CARDIOVASCULAR: Regular rate and rhythm without murmurs, gallops, or rubs. RESPIRATORY: Breath sounds equal bilaterally. No accessory muscle use. GASTROINTESTINAL: Abdomen soft, non-tender, nondistended. MUSCULOSKELETAL: No cyanosis, or edema. Left internal area of the thigh dressed. BACK: Nontender without obvious deformity. No CVA tenderness. Medications and IVs Current Medications Medications (Trade) Dose Ordered Sig/Selina Route Start Time Stop Time Status Last Admin (NS Flush) 2 ml UNSCH PRN IV FLUSH 01/06/17 04:15 01/09/17 08:54 (NS Flush) 2 ml BID IV FLUSH 01/06/17 09:00 01/16/17 20:15 (Narcan Inj) 0.4 mg UNSCH PRN IV 01/06/17 04:15 (TEGretol CHEW) 100 mg Q12HR PO 01/06/17 09:00 01/16/17 20:02 (KlonoPIN) 1 mg BID PO 01/06/17 09:00 01/16/17 20:02 (PROzac) 60 mg DAILY PO 01/06/17 09:00 01/16/17 07:51 (Neurontin) 600 mg TID PO 01/06/17 09:00 01/16/17 16:27 ([place] 7.5-325 Mg) 1 tab Q6H PRN PO 01/06/17 09:15 01/17/17 02:46 (Tylenol) 500 mg Q4H PRN PO 01/06/17 09:15 (Morphine Inj) 4 mg Q3H PRN IV PUSH 01/06/17 09:15 01/17/17 07:19 (Habitrol 21 Mg Patch.24 Hr) 1 patch DAILY T-DERMAL 01/07/17 13:15 01/16/17 07:51 Miscellaneous Information 1 HS T-DERMAL 01/07/17 21:00 01/16/17 21:00 (Bactroban 2% Oint) 1 applic Q12HR TOPICAL 01/10/17 11:00 01/16/17 20:15 Multi-Ingredient Mouthwash/Gargle 5 ml 5 ml QID SWISH-SWAL 01/11/17 09:00 01/16/17 12:54 (Cubicin Inj/NS Inj) 100 ml @ 200 mls/hr Q24H IV 01/12/17 14:00 01/16/17 12:55 A/P Assessment and Plan - Left thigh phlegmon and abscess 7 cm diameter status post I and D. - Right hand abscess s/p I&D. Improved. - ID following. Hand wound growing MRSA, Discontinued Zosyn and Clindamycin and Vancomycin 01/08/17 started on Daptomycin. may go on by mouth antibiotics to follow culture for 72 hours recommended by ID to discharge after 78 hours of following Cultures as per patient either way she has no where to go today but yes tomorrow. will switch pain medicine to by mouth and awaiting final by ID specialist for discharge. - Anxiety/Depression - Continue Clonazepam, Fluoxetine -Substance abuse, positive for Cocaine. strongly recommended to stop abusing Narcotics. Full code. Ambulation. Discharge Planning Expected for tomorrow 01/18/17 Jacek Arroyo MD January 17, 2017 08:26
[2017-01-17] MEDS: FLUoxetine HCL 20 MG CAP PO SCH (08:41)
[2017-01-17] MEDS: clonazePAM 1 MG TAB PO SCH (08:41)
[2017-01-17] MEDS: GABAPENTIN 300 MG CAP PO SCH ×3 (08:42→18:07)
[2017-01-17] MEDS: MUPIROCIN 2% OINT 22 GM TUBE TOPICAL SCH ×2 (08:42→21:00)
[2017-01-17] MEDS: NICOTINE 21 MG/24 HR PATCH T-DERMAL SCH (08:42)
[2017-01-17] MEDS: SODIUM CHLORIDE 0.9% FLUSH 10 ML FLUSH IV FLUSH SCH ×2 (08:45→21:00)
[2017-01-17] MEDS: NYSTAT/DIPHENHY/LIDO MOUTHWASH (Adult) 120ML SWISH-SWAL SCH ×4 (09:22→21:01)
[2017-01-17 12:00] VITALS: BP 116/69; PULSE 89; RESP 18; TEMP 98.8; O2SAT 97
--- NOTE | 2017-01-17 12:18 | HHI.IDPN ---
Note Infectious Disease Note Patient is still Complaining of pain in the left groin. wanting pain medication. Afebrile. little serous drainage at left thigh incision. Examined with nurse. PAST MEDICAL HISTORY 1. Diabetes mellitus. 2. Depression, anxiety. 3. Seizure disorder. 4. Hysterectomy. 5. Bilateral tubal ligation. 6. MRSA infection of the skin. 7. MRSA bacteremia per the patient's report two years ago in [place]. ALLERGIES SULFA. ASPIRIN. ULTRAM. VIOXX. ANTIBIOTICS. Daptomycin day4 OBJECTIVE: Vital Signs Date Time Temp Pulse Resp B/P Pulse Ox O2 Delivery O2 Flow Rate FiO2 01/17/17 12:00 98.8 89 18 116/69 97 01/17/17 08:00 97.9 85 18 153/97 98 01/17/17 04:27 18 01/17/17 03:50 18 01/17/17 00:00 98.4 93 18 147/95 99 01/16/17 20:00 96.9 87 18 150/91 98 01/16/17 16:00 97.9 72 18 128/80 99 01/16/17 01/16/17 01/17/17 15:00 23:00 07:00 Intake Total 820 ml 480 ml 480 ml Output Total 400 ml Balance 420 ml 480 ml 480 ml Intake Oral 720 ml 480 ml 480 ml IV Total 100 ml 0 ml 0 ml Output Urine Total 400 ml # Voids 3 3 # Bowel Movements 0 1 IMAGING: Pelvis CT 01/06/17 0000 Signed Impressions: Service Date/Time: December 02:48 - CONCLUSION: Focal soft tissue swelling and edema in the left upper thigh with no gas or drainable fluid. Foreign Saab MD PHYSICAL EXAMINATION GENERAL: No acute distress. Appears drowsy. HEENT: No icterus. No conjunctival erythema. LUNGS: Clear. HEART: Regular S1 and S2. No murmurs. No rubs. No gallops. : The left side of the groin adjacent to the vulva erythema and swelling has resolved. Left inner thigh swelling is resolved. Incision is clean and has little serous drainage on the dressing. EXTREMITIES: The right hand dorsal aspect erythema and swelling completely resolved. SKIN: Multiple punctate erythematous dried lesions scattered on various areas of the tibias. No diffuse rash. PSYCHIATRIC: Calm. Tearful. IMPRESSION 1. Sepsis on admission indicated by elevated white blood cell count, fever, acute kidney disease Stage III, potential source for sepsis being skin infection of the groin and right hand. 2. Cellulitis of the right hand/skin abscess of the right hand. Resolved. 3. Left groin cellulitis. Improved. RECOMMENDATIONS 1. Stop Daptomycin. 2. Change to Doxycycline. 3. Can discharge on PO Doxycycline x 10 days. I will sign off now. Sebastián Mosley MD January 17, 2017 12:18
[2017-01-17] MEDS: DOXYCYCLINE HYCLATE 100 MG TAB PO SCH ×2 (14:08→21:00)
[2017-01-17] MEDS ORDERED: DOXY100T PO (14:43)
[2017-01-17] MEDS ORDERED: HYDR-3580 PO (14:43)
[2017-01-17 16:00] VITALS: BP 145/78; PULSE 84; RESP 17; TEMP 97; O2SAT 97
[2017-01-17 20:00] VITALS: BP 113/74; PULSE 88; RESP 22; TEMP 96.9; O2SAT 96
[2017-01-17] MEDS: REMOVE OLD PATCH T-DERMAL SCH (21:00)
[2017-01-17] MEDS: clonazePAM 1 MG TAB PO PRN (21:05)
[2017-01-17] MEDS: ACETAMINOPHEN 500 MG CPLT PO PRN (21:05)
[2017-01-17] MEDS ORDERED: TEMAZEPAM 7.5 MG CAP PO ONE (22:45)
[2017-01-18] VITALS: BP 118/74; PULSE 82; RESP 22; TEMP 96.8; O2SAT 99
[2017-01-18 08:00] VITALS: BP 95/59; PULSE 62; RESP 16; TEMP 95.4; O2SAT 100
[2017-01-18] MEDS: GABAPENTIN 300 MG CAP PO SCH ×3 (09:21→18:00)
[2017-01-18] MEDS: NICOTINE 21 MG/24 HR PATCH T-DERMAL SCH (09:21)
[2017-01-18] MEDS: DOXYCYCLINE HYCLATE 100 MG TAB PO SCH ×2 (09:21→22:09)
[2017-01-18] MEDS: SODIUM CHLORIDE 0.9% FLUSH 10 ML FLUSH IV FLUSH SCH ×2 (09:22→22:10)
[2017-01-18] MEDS: NYSTAT/DIPHENHY/LIDO MOUTHWASH (Adult) 120ML SWISH-SWAL SCH ×4 (09:22→22:10)
[2017-01-18] MEDS: FLUoxetine HCL 20 MG CAP PO SCH (09:22)
[2017-01-18] MEDS: MUPIROCIN 2% OINT 22 GM TUBE TOPICAL SCH ×2 (09:23→21:00)
[2017-01-18] MEDS: ACETAMINOPHEN/HYDROcodone 325 MG/7.5 MG TAB PO PRN ×3 (09:24→18:33)
[2017-01-18] MEDS: clonazePAM 1 MG TAB PO PRN ×2 (10:32→22:08)
[2017-01-18 12:00] VITALS: BP 108/69; PULSE 96; RESP 16; TEMP 95.7; O2SAT 97
[2017-01-18 16:00] VITALS: BP 116/78; PULSE 85; RESP 17; TEMP 96.9; O2SAT 96
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
--- NOTE | 2017-01-18 17:14 | HHI.DS ---
Discharge Summary Admission Date January 06, 2017 at 04:07 Discharge Date: January 19, 2017 Admitting Diagnosis Sepsis, Hand abscess, Thigh cellulitis. (1) Sepsis ICD Code: A41.9 Diagnosis: Principal (2) Cellulitis of thigh ICD Code: L03.119 Diagnosis: Principal (3) Abscess of right hand ICD Code: L02.511 Diagnosis: Principal Procedures None. Brief History - From Admission History from patient, ER physician communication, and review of medical records. Patient reports that she came to hospital because she was having severe pain in her left upper inner thigh/groin with redness, swelling and tenderness; reports Fevers, chills, nausea, vomiting x 3 episodes - no hematemesis, diarrhea x 2 days - no black or red stool. Cough at home with some "chunky sputum" yesterday ; no dysuria, no hematuria. Also reports of pain in her right hand with surrounding erythema and swelling. She actually presented to [facility] emergency room previously and had drainage of that left hand. She stated not much was resulted at that time. However tonight, in the emergency room, incision and drainage was done from her left hand infection and as per ER report drained copious amount. Further workup in ER with pelvic CT reveals Focal soft tissue swelling and edema in the left upper thigh with no gas or drainable fluid. Patient reports she has been on Clindamycin since Tuesday She reports she is a diabetic. However has not been on any insulin or oral hypoglycemics for past 8 months. She states this was because her sugars have already improved. Significant Findings Laboratory Tests Test 01/16/17 01:45 Urine Opiates Screen POS (NEG) Imaging Last Impressions Pelvis CT 01/06/17 0000 Signed Impressions: Service Date/Time: December 02:48 - CONCLUSION: Focal soft tissue swelling and edema in the left upper thigh with no gas or drainable fluid. Foreign Saab MD PE at Discharge GENERAL: Well developed patient, appears in NAD. SKIN: Warm and dry. HEAD: Normocephalic. EYES: No scleral icterus. No injection or drainage. NECK: Supple, trachea midline. No JVD or lymphadenopathy. CARDIOVASCULAR: Regular rate and rhythm without murmurs, gallops, or rubs. RESPIRATORY: Breath sounds equal bilaterally. No accessory muscle use. GASTROINTESTINAL: Abdomen soft, non-tender, nondistended. MUSCULOSKELETAL: No cyanosis, or edema. Left wound of the thigh dressed, c/d/ i. BACK: Nontender without obvious deformity. No CVA tenderness. Pt update on day of discharge In bed, doesn't appear in distress. No fever or chills. Wound is healing well. No chest pain or sob. Hospital Course - Left thigh phlegmon and abscess 7 cm diameter status post I and D. - Right hand abscess s/p I&D. Improved. - ID following. Hand wound growing MRSA, Discontinued Zosyn and Clindamycin and Vancomycin 01/08/17 started on Daptomycin. may go on by mouth antibiotics to follow culture for 72 hours recommended by ID to discharge after 78 hours of following Cultures as per patient either way she has no where to go today but yes tomorrow. will switch pain medicine to by mouth and awaiting final by ID specialist for discharge. - Anxiety/Depression - Continue Clonazepam, Fluoxetine -Substance abuse, positive for Cocaine. strongly recommended to stop abusing Narcotics. Full code. Ambulation. Discharge Planning Plan to DC today 01/18/17, however the patient appealed for DC Per ID specialist Dr Richy Mosley : the patient can be discharged on Doxycycline 100 mg BID for 10 days, and follow with PCP, nurse explained to the patient how to continue taking care of her small surgical wound 1 inch of longitude. Pt Condition on Discharge: Stable Discharge Disposition: Discharge Home Discharge Time: > 30 minutes Discharge Instructions DIET: Follow Instructions for: As Tolerated, No Restrictions Activities you can perform: Regular-No Restrictions Follow up Referrals: PCP Follow-up - 2-[address] HILTON COKER New Medications: Doxycycline Hyclate (Doxycycline Hyclate) 100 Mg Cap 100 MG PO BID Infection #17 Ref 0 CAP Hydrocodone-Acetaminophen (Hydrocodone-Acetaminophen) 7.5-325 mg Tab 2 TAB PO Q6H PRN PAIN 5-10 IF TAKING P.O. #15 TAB Continued Medications: Carbamazepine (Carbamazepine) 100 Mg Chew 100 MG PO Q12HR Health Days 15 Ref 1 EA Clonazepam (Klonopin) 1 Mg Tab 1 MG PO BID #60 Ref 0 TAB Fluoxetine (Prozac) 20 Mg Cap 60 MG PO DAILY #30 Ref 0 CAP Gabapentin (Gabapentin) 600 Mg Tab 600 MG PO TID #90 Ref 0 TAB Discontinued Medications: Clindamycin (Clindamycin) 300 Mg Cap 300 MG PO Q6H Infection Ref 0 CAP Ondansetron Odt (Zofran Odt) 4 Mg Tab 4 MG SL Q6HR PRN Nausea/Vomiting #7 Ref 0 TAB Nancy Wilson MD January 18, 2017 17:14
[2017-01-18 20:00] VITALS: BP 106/61; PULSE 94; RESP 20; TEMP 97.3; O2SAT 98
[2017-01-18] MEDS: REMOVE OLD PATCH T-DERMAL SCH (21:00)
[2017-01-19] VITALS: BP 119/75; PULSE 74; RESP 20; TEMP 97.4; O2SAT 95
[2017-01-19] MEDS: ACETAMINOPHEN/HYDROcodone 325 MG/7.5 MG TAB PO PRN ×4 (00:36→21:45)
[2017-01-19 08:00] VITALS: BP 94/57; PULSE 58; RESP 16; TEMP 97.7; O2SAT 97
[2017-01-19] MEDS: DOXYCYCLINE HYCLATE 100 MG TAB PO SCH ×2 (08:57→21:44)
[2017-01-19] MEDS: SODIUM CHLORIDE 0.9% FLUSH 10 ML FLUSH IV FLUSH SCH ×2 (08:58→21:43)
[2017-01-19] MEDS: GABAPENTIN 300 MG CAP PO SCH ×3 (08:58→18:00)
[2017-01-19] MEDS: FLUoxetine HCL 20 MG CAP PO SCH (08:58)
[2017-01-19] MEDS: NICOTINE 21 MG/24 HR PATCH T-DERMAL SCH (08:59)
[2017-01-19] MEDS: NYSTAT/DIPHENHY/LIDO MOUTHWASH (Adult) 120ML SWISH-SWAL SCH ×4 (08:59→21:48)
[2017-01-19] MEDS: MUPIROCIN 2% OINT 22 GM TUBE TOPICAL SCH ×2 (09:00→21:51)
[2017-01-19] MEDS: clonazePAM 1 MG TAB PO PRN ×2 (09:09→21:44)
--- NOTE | 2017-01-19 11:27 | HHI.PR ---
Subjective Remarks When I entered the rom the patient was sleeping soundly. Patient waking up sys she has pain all over. No n/v/d/c. Denies any sob. Appealed for DC again today. Objective Vitals Vital Signs Date Time Temp Pulse Resp B/P Pulse Ox O2 Delivery O2 Flow Rate FiO2 01/19/17 08:00 97.7 58 16 94/57 97 01/19/17 02:08 16 01/19/17 00:00 97.4 74 20 119/75 95 01/18/17 20:00 97.3 94 20 106/61 98 01/18/17 16:00 96.9 85 17 116/78 96 01/18/17 12:00 95.7 96 16 108/69 97 I/O 01/18/17 01/18/17 01/18/17 01/19/17 01/19/17 01/19/17 07:00 15:00 23:00 07:00 15:00 23:00 Intake Total 480 ml 240 ml 360 ml 360 ml Balance 480 ml 240 ml 360 ml 360 ml Intake Oral 480 ml 240 ml 360 ml 360 ml IV Total 0 ml 0 ml 0 ml # Voids 4 0 0 # Bowel Movements 1 0 0 Imaging Last Impressions Pelvis CT 01/06/17 0000 Signed Impressions: Service Date/Time: December 02:48 - CONCLUSION: Focal soft tissue swelling and edema in the left upper thigh with no gas or drainable fluid. Foreign Saab MD Objective Remarks GENERAL: Well developed patient, appears in NAD. SKIN: Warm and dry. HEAD: Normocephalic. EYES: No scleral icterus. No injection or drainage. NECK: Supple, trachea midline. No JVD or lymphadenopathy. CARDIOVASCULAR: Regular rate and rhythm without murmurs, gallops, or rubs. RESPIRATORY: Breath sounds equal bilaterally. No accessory muscle use. GASTROINTESTINAL: Abdomen soft, non-tender, nondistended. MUSCULOSKELETAL: No cyanosis, or edema. Left internal area of the thigh dressed. BACK: Nontender without obvious deformity. No CVA tenderness. Procedures None. A/P Problem List: (1) Sepsis ICD Code: A41.9 Status: Acute (2) Cellulitis of thigh ICD Code: L03.119 Status: Acute (3) Abscess of right hand ICD Code: L02.511 Status: Acute Assessment and Plan - Left thigh phlegmon and abscess 7 cm diameter status post I and D. - Right hand abscess s/p I&D. Improved. - ID following. Hand wound growing MRSA, Discontinued Zosyn and Clindamycin and Vancomycin 01/08/17 started on Daptomycin. may go on by mouth antibiotics to follow culture for 72 hours recommended by ID to discharge after 78 hours of following Cultures as per patient either way she has no where to go today but yes tomorrow. will switch pain medicine to by mouth and awaiting final by ID specialist for discharge. - Anxiety/Depression - Continue Clonazepam, Fluoxetine -Substance abuse, positive for Cocaine. strongly recommended to stop abusing Narcotics. Full code. Ambulation. Discharge Planning Plan to DC today 01/18/17, however the patient appealed for DC. Patient is treated for MRSA with antibiotic and [facility] Per ID specialist Dr Richy Mosley : the patient can be discharged on Doxycycline 100 mg BID (10 days total) and follow with PCP, nurse explained to the patient how to continue taking care of her small surgical wound 1 inch of longitude. Problem Qualifiers (1) Sepsis: Qualified Code: A41.9 - Sepsis, due to unspecified organism Nancy Wilson MD January 19, 2017 11:27
[2017-01-19] MEDS ORDERED: HYDR-3580 PO (11:28)
[2017-01-19] MEDS ORDERED: DOXY100C PO (11:39)
[2017-01-19 12:00] VITALS: BP 87/51; PULSE 62; RESP 16; TEMP 97.8; O2SAT 97
[2017-01-19] MEDS: ACETAMINOPHEN 500 MG CPLT PO PRN (13:32)
[2017-01-19 20:00] VITALS: BP 110/75; PULSE 72; RESP 18; TEMP 97.9; O2SAT 99
[2017-01-19] MEDS: REMOVE OLD PATCH T-DERMAL SCH (21:00)
[2017-01-20] VITALS: BP 119/75; PULSE 69; RESP 18; TEMP 96.9; O2SAT 99
[2017-01-20] MEDS: ACETAMINOPHEN/HYDROcodone 325 MG/7.5 MG TAB PO PRN ×2 (03:57→09:58)
[2017-01-20 08:00] VITALS: BP 99/60; PULSE 70; RESP 18; TEMP 97; O2SAT 96
[2017-01-20] MEDS: NYSTAT/DIPHENHY/LIDO MOUTHWASH (Adult) 120ML SWISH-SWAL SCH (09:00)
[2017-01-20] MEDS: GABAPENTIN 300 MG CAP PO SCH (09:57)
[2017-01-20] MEDS: DOXYCYCLINE HYCLATE 100 MG TAB PO SCH (09:57)
[2017-01-20] MEDS: NICOTINE 21 MG/24 HR PATCH T-DERMAL SCH (09:57)
[2017-01-20] MEDS: SODIUM CHLORIDE 0.9% FLUSH 10 ML FLUSH IV FLUSH SCH (09:57)
[2017-01-20] MEDS: FLUoxetine HCL 20 MG CAP PO SCH (09:57)
[2017-01-20] MEDS: MUPIROCIN 2% OINT 22 GM TUBE TOPICAL SCH (09:58)
[2017-01-20] MEDS: clonazePAM 1 MG TAB PO PRN (10:05)
== END 2017-01-20 11:56 | disposition home or self-care (01) | DRG 854 ==
LOC: NEPC 21:50 → NEDA 01-06 04:07 → NEDH 01-06 10:33 → N07A 01-06 14:09
PROVIDERS: ADMIT Hospitalist; ATTEND Hospitalist
PROC: 0H9FXZZ Drainage of Right Hand Skin, External Approach (ICD-10-PCS; 2017-01-05)
PROC: 0J9M0ZZ Drainage of Left Upper Leg Subcutaneous Tissue and Fascia, Open Approach (ICD-10-PCS; principal; 2017-01-13 09:22)
DX: A41.02 Sepsis due to Methicillin resistant Staphylococcus aureus (principal); N17.9 Acute kidney failure, unspecified; L02.416 Cutaneous abscess of left lower limb; E11.9 Type 2 diabetes mellitus without complications; I10 Essential (primary) hypertension; L03.314 Cellulitis of groin; L02.511 Cutaneous abscess of right hand; L03.116 Cellulitis of left lower limb; L03.113 Cellulitis of right upper limb; E87.6 Hypokalemia; G40.909 Epilepsy, unspecified, not intractable, without status epilepticus; J02.9 Acute pharyngitis, unspecified; F14.10 Cocaine abuse, uncomplicated; F17.210 Nicotine dependence, cigarettes, uncomplicated; F31.9 Bipolar disorder, unspecified; F41.9 Anxiety disorder, unspecified; R11.2 Nausea with vomiting, unspecified; Z80.0 Family history of malignant neoplasm of digestive organs; Z83.3 Family history of diabetes mellitus; Z86.14 Personal history of Methicillin resistant Staphylococcus aureus infection; Z88.2 Allergy status to sulfonamides; Z88.5 Allergy status to narcotic agent; Z88.6 Allergy status to analgesic agent; Z91.410 Personal history of adult physical and sexual abuse
CPT/HCPCS: 10060; 72193; 76937; 80048; 80053; 80202; 80307; 83605; 84703; 85025; 86403; 87040; 87070; 87186; 87205; 96361; 96365; 96367; 96375; J0295; J0878; J1885; J2250; J2270; J2405; J2543; J3010; J3370; J7030; J7040; J7050; Q9967

== ENCOUNTER 2017-01-28 09:38 | Emergency (ER) | payer OTHER ==
[~2017-01-28] VITALS: Ht 172.7 cm; Wt 80.0 kg
[~2017-01-28 09:38] MED LIST changes: -CEFU250T PO; -CIPR-9 PO; -CLIN1CAP6 PO; +DOXY100C PO; -FLUT1SPR9 EACH NARE; +HYDR-3580 PO; -METR-1 PO; -MIRTA15 PO; -ZOFR4TAB3 SL
[2017-01-28 09:39] VITALS: BP 119/77; PULSE 78; RESP 20; TEMP 97.5; O2SAT 98
--- NOTE | 2017-01-28 10:16 | PD ---
HPI Chief Complaint: Medical Clearance Time Seen by Provider: 10:14 Travel History International Travel<30 days: No Contact w/Intl Traveler<30days: No Traveled to known affect area: No History of Present Illness HPI 46-year-old female presents to emergency department requesting a work release note to return back to work tomorrow. She is patient of Dr. Ree alvarado and they have not returned calls and has not been able to be seen to get work release. She was discharged from the hospital on the first for chest pain and incision and drainage of an abscess, per the patient. Her work is requiring a work note to return back to work. She has no emergent medical complaints at this time. PFSH Past Medical History Hx Anticoagulant Therapy: No Bipolar Disorder: Yes Anxiety: Yes Depression: Yes Cancer: No Cardiovascular Problems: Yes Chemotherapy: No Cerebrovascular Accident: No Diabetes: Yes Diminished Hearing: No Endocrine: Yes Gastrointestinal Disorders: No Genitourinary: No Headaches: Yes (Migraines) Hypertension: Yes Immune Disorder: No Musculoskeletal: Yes Neurologic: Yes Psychiatric: Yes Reproductive: No Respiratory: Yes (PNEUMONIA) Migraines: Yes Pneumonia: Yes Seizures: Yes Menopausal: Yes : 3 Para: 2 Tubal Ligation: Yes Past Surgical History Section: Yes (X 1) Gynecologic Surgery: Yes (HYSTERECTOMY, TUBAL LIGATION) Hysterectomy: Yes Social History Alcohol Use: No Tobacco Use: Yes Substance Use: Yes Allergies-Medications (Allergen,Severity, Reaction): Coded Allergies: Aspirin (Verified Allergy, Severe, Anaphylaxis, 01/28/17) Sulfa (Verified Allergy, Mild, Rash, 01/28/17) Ultram (Verified Allergy, Mild, Rash, 01/28/17) Vioxx (Verified Allergy, Mild, Rash, 01/28/17) *MDRO Multi-Drug Resistant Organism (Verified Adverse Reaction, Unknown, ) MRSA Shoulder wound 04/2016; MRSA (arm-06/22/16 & 07/23/16) MRSA (hand)-01/05/17 Reported Meds & Prescriptions Reported Meds & Active Scripts Active Doxycycline Hyclate 100 Mg Cap 100 Mg PO BID Hydrocodone-Acetaminophen 7.5-325 mg Tab 2 Tab PO Q6H PRN Carbamazepine 100 Mg Chew 100 Mg PO Q12HR 15 Days Reported Gabapentin 600 Mg Tab 600 Mg PO TID Klonopin (Clonazepam) 1 Mg Tab 1 Mg PO BID Prozac (Fluoxetine HCl) 20 Mg Cap 60 Mg PO DAILY Review of Systems Except as stated in HPI: all other systems reviewed are Neg Physical Exam Narrative GENERAL: Well-nourished, well-developed female patient, in no acute distress; afebrile, nontoxic-appearing SKIN: Warm and dry. HEAD: Atraumatic. Normocephalic. EYES: Pupils equal and round. No scleral icterus. No injection or drainage. ENT: Mucosa pink and moist. Airway patent. NECK: Trachea midline. CARDIOVASCULAR: Regular rate. RESPIRATORY: No accessory muscle use. GASTROINTESTINAL: Rounded. MUSCULOSKELETAL: No obvious deformities. No clubbing. No cyanosis. No edema. NEUROLOGICAL: Awake and alert. Oriented 3. No obvious cranial nerve deficits. Motor grossly within normal limits. Normal speech. PSYCHIATRIC: Appropriate mood and affect; insight and judgment normal. Data Data Last Documented VS Vital Signs Date Time Temp Pulse Resp B/P Pulse Ox O2 Delivery O2 Flow Rate FiO2 01/28/17 09:39 97.5 78 20 119/77 98 Room Air MDM Medical Decision Making Medical Screen Exam Complete: Yes Emergency Medical Condition: Yes Medical Record Reviewed: Yes Differential Diagnosis Medical clearance, malingering, normal examination Narrative Course 46-year-old female requesting work release note. No emergent medical complaints at this time. Work release provided. Patient verbalizes understanding and agreement with treatment plan. Patient is medically cleared and stable for discharge. Discussed reasons to return to the emergency department. Instructed patient to follow up with primary care provider. Patient agrees with treatment plan. The patients vital signs are stable and the patient is stable for outpatient follow-up and treatment. Patient discharged home, stable and in no acute distress. Diagnosis Primary Impression: Normal physical exam Referrals: [facility] Primary Care Physician Patient Instructions: General Instructions Departure Forms: Tests/Procedures, Work Release Enter return to work date: Jan 29, 2017 Additional Instructions: Follow-up with primary care provider Return to the emergency department immediately for worsening of symptoms Med/Other Pt SpecificInfo: No Change to Meds, No Meds Exist/No RX given Disposition: 01 DISCHARGE HOME Condition: Stable Shelly Real Jan 28, 2017 10:16
== END 2017-01-28 10:56 | disposition home or self-care (01) ==
LOC: NEPK 09:38
DX: Z03.89 Encounter for observation for other suspected diseases and conditions ruled out (principal)
CPT/HCPCS: 99281

== ENCOUNTER 2017-03-30 03:19 | Inpatient (IN) | payer OTHER, MEDICARE ==
[2017-03-30] VITALS (10 sets, daily range): BP systolic 86–140; BP diastolic 54–84; PULSE 65–130; RESP 14–18; TEMP 98.1–100.7; O2SAT 96–100
[~2017-03-30] VITALS: Ht 172.7 cm; Wt 77.9 kg
--- NOTE | 2017-03-30 03:37 | PD ---
HPI Chief Complaint: Pain: Acute or Chronic Time Seen by Provider: 03:32 Travel History International Travel<30 days: No Contact w/Intl Traveler<30days: No Traveled to known affect area: No History of Present Illness HPI 47-year-old female with history of polysubstance abuse, brought in by ambulance after being picked up at [facility] complaining of bilateral arm pain. The patient reports that she has been partying for the last several days since her birthday on [birth year], using crack and cocaine. Patient admits to smoking crack and injecting cocaine into her arms. She has had abscesses and cellulitis to her forearms in the past, and is concerned that she may have an infection on her arms. She tells me that she has had a hard time recently with several deaths in her family and that she has been depressed. She denies suicidal ideation. No fevers. No chest pain or dyspnea. PFSH Past Medical History Hx Anticoagulant Therapy: No Bipolar Disorder: Yes Anxiety: Yes Depression: Yes Cancer: No Cardiovascular Problems: Yes Chemotherapy: No Cerebrovascular Accident: No Diabetes: Yes Patient Takes Glucophage: No Diminished Hearing: No Endocrine: Yes Gastrointestinal Disorders: No Genitourinary: No Headaches: Yes (Migraines) Hypertension: Yes Immune Disorder: No Implanted Vascular Access Dvce: No Musculoskeletal: Yes Neurologic: Yes Psychiatric: Yes Reproductive: No Respiratory: Yes (PNEUMONIA) Migraines: Yes Pneumonia: Yes Seizures: Yes ?: Not LMP: 20 YEARS AGO Menopausal: Yes : 3 Para: 2 Tubal Ligation: Yes Past Surgical History Section: Yes (X 1) Gynecologic Surgery: Yes (HYSTERECTOMY, TUBAL LIGATION) Hysterectomy: Yes Other Surgery: Yes Social History Alcohol Use: No Tobacco Use: Yes (PACK A DAY ) Substance Use: Yes Allergies-Medications (Allergen,Severity, Reaction): Coded Allergies: Aspirin (Verified Allergy, Severe, Anaphylaxis, 03/30/17) Sulfa (Verified Allergy, Mild, Rash, 03/30/17) Ultram (Verified Allergy, Mild, Rash, 03/30/17) Vioxx (Verified Allergy, Mild, Rash, 03/30/17) *MDRO Multi-Drug Resistant Organism (Verified Adverse Reaction, Unknown, ) MRSA Shoulder wound 04/2016; MRSA (arm-06/22/16 & 07/23/16) MRSA (hand)-01/05/17 Reported Meds & Prescriptions Reported Meds & Active Scripts Active Reported Gabapentin 600 Mg Tab 600 Mg PO TID Klonopin (Clonazepam) 1 Mg Tab 1 Mg PO BID Prozac (Fluoxetine HCl) 20 Mg Cap 60 Mg PO DAILY Review of Systems Except as stated in HPI: all other systems reviewed are Neg Physical Exam Narrative GENERAL: Well-developed, well-nourished, awake, alert, disheveled, no apparent distress. SKIN: Focused skin assessment warm/dry. Bilateral forearms with track saxena with few areas of induration and overlying erythema, no fluctuance. There are no splinter hemorrhages, Janeway lesions, or Osler nodes. HEAD: Atraumatic. Normocephalic. EYES: Pupils equal and round. No scleral icterus. No injection or drainage. ENT: No nasal bleeding or discharge. Mucous membranes pink and moist. NECK: Trachea midline. No JVD. CARDIOVASCULAR: Regular rate and rhythm. No murmur appreciated. RESPIRATORY: No accessory muscle use. Clear to auscultation. Breath sounds equal bilaterally. GASTROINTESTINAL: Abdomen soft, non-tender, nondistended. MUSCULOSKELETAL: No obvious deformities. No clubbing. No cyanosis. No edema. Skin exam as above. All compartments in bilateral upper and lower extremities are supple. NEUROLOGICAL: Awake and alert. No obvious cranial nerve deficits. Motor grossly within normal limits. Normal speech. PSYCHIATRIC: Appropriate mood and affect; insight and judgment normal. Data Data Last Documented VS Vital Signs Date Time Temp Pulse Resp B/P Pulse Ox O2 Delivery O2 Flow Rate FiO2 03/30/17 03:20 130 16 140/84 96 Orders Complete Blood Count With Diff (03/30/17 03:33) Comprehensive Metabolic Panel (03/30/17 03:33) Iv Access Insert/Monitor (03/30/17 03:33) Ecg Monitoring (03/30/17 03:33) Oximetry (03/30/17 03:33) Sodium Chloride 0.9% Flush (Ns Flush) (03/30/17 03:45) Electrocardiogram (03/30/17 03:33) Creatine Kinase (Cpk) (03/30/17 03:33) Sodium Chlor 0.9% 1000 Ml Inj (Ns 1000 M (03/30/17 03:45) Sodium Chlor 0.9% 1000 Ml Inj (Ns 1000 M (03/30/17 03:45) Lorazepam Inj (Ativan Inj) (03/30/17 03:45) Drug Screen, Random Urine (03/30/17 03:37) Blood Culture (03/30/17 03:38) Ckmb (Isoenzyme) Profile (03/30/17 03:46) Troponin I (03/30/17 03:46) Potassium Chloride (Kcl) (03/30/17 04:30) Alcohol (Ethanol) (03/30/17 03:35) Sodium Chlor 0.9% 1000 Ml Inj (Ns 1000 M (03/30/17 05:00) Ketorolac Inj (Toradol Inj) (03/30/17 05:00) Ondansetron Inj (Zofran Inj) (03/30/17 05:00) Metoclopramide Inj (Reglan Inj) (03/30/17 05:00) Vancomycin Inj (Vancomycin Inj) (03/30/17 05:15) Labs Laboratory Tests Test 03/30/17 03:35 White Blood Count 12.3 TH/MM3 Red Blood Count 4.24 MIL/MM3 Hemoglobin 12.3 GM/DL Hematocrit 36.1 % Mean Corpuscular Volume 85.1 FL Mean Corpuscular Hemoglobin 29.0 PG Mean Corpuscular Hemoglobin 34.0 % Concent Red Cell Distribution Width 14.7 % Platelet Count 156 TH/MM3 Mean Platelet Volume 8.2 FL Neutrophils (%) (Auto) 92.7 % Lymphocytes (%) (Auto) 5.2 % Monocytes (%) (Auto) 1.8 % Eosinophils (%) (Auto) 0.2 % Basophils (%) (Auto) 0.1 % Neutrophils # (Auto) 11.4 TH/MM3 Lymphocytes # (Auto) 0.6 TH/MM3 Monocytes # (Auto) 0.2 TH/MM3 Eosinophils # (Auto) 0.0 TH/MM3 Basophils # (Auto) 0.0 TH/MM3 CBC Comment DIFF FINAL Differential Comment Sodium Level 139 MEQ/L Potassium Level 2.7 MEQ/L Chloride Level 105 MEQ/L Carbon Dioxide Level 21.4 MEQ/L Anion Gap 13 MEQ/L Blood Urea Nitrogen 16 MG/DL Creatinine 1.44 MG/DL Estimat Glomerular Filtration 39 ML/MIN Rate Random Glucose 161 MG/DL Calcium Level 9.1 MG/DL Total Bilirubin 0.4 MG/DL Aspartate Amino Transf 13 U/L (AST/SGOT) Alanine Aminotransferase 17 U/L (ALT/SGPT) Alkaline Phosphatase 103 U/L Total Creatine Kinase 34 U/L Troponin I LESS THAN 0.02 NG/ML Total Protein 7.5 GM/DL Albumin 3.6 GM/DL Ethyl Alcohol Level LESS THAN 3 MG/DL MDM Medical Decision Making Medical Screen Exam Complete: Yes Emergency Medical Condition: Yes Differential Diagnosis Sympathomimetic toxicity, polysubstance abuse, hyperthermia, rhabdomyolysis, cellulitis, abscess, bacteremia, endocarditis, Narrative Course Initial vital signs show heart rate 130, blood pressure 140/84, pulse ox 96% on room air, oral temp of 100.7F. CBC shows WBC 12.3 with 93% neutrophils. CMP is remarkable for potassium 2.7 which was replaced orally, creatinine 1.44, GFR 39, otherwise unremarkable. Cardiac enzymes are negative. Alcohol level is negative. Patient was given 2 L normal saline IV, IV Ativan for suspected sympathomimetic toxicity/cocaine toxicity. On reassessment her heart rate has improved, however distal 110 bpm. Patient has track saxena to bilateral upper extremities as well as areas of cellulitis and induration to her upper extremity. None of these areas appear to be abscesses that required drainage. All compartments in bilateral upper extremity is are supple. Patient was given a dose of IV vancomycin. Although there is no audible heart murmur on exam, there are no splinter hemorrhages/Osler nodes/genitalia lesions on exam, the patient may be bacteremic with endocarditis causing her fever, tachycardia, leukocytosis/ sepsis. For this the patient will be admitted for further evaluation. Case discussed with hospitalist Dr. Chua who will admit the patient to her service. Diagnosis Primary Impression: SIRS (systemic inflammatory response syndrome) Additional Impressions: Cellulitis Qualified Code: L03.119 - Cellulitis of upper extremity, unspecified laterality Hypokalemia Polysubstance abuse Admitting Information Admitting Physician Requests: Admit Wero Cano MD Mar 30, 2017 03:37
[2017-03-30] MEDS ORDERED: SODIUM CHLOR 0.9% 1000 ML INJ 1,000 ML IV ONE ×3 (03:45→05:00)
[2017-03-30] MEDS ORDERED: LORazepam 2 MG/ML VIAL IV PUSH ONE (03:45)
[2017-03-30] MEDS ORDERED: SODIUM CHLORIDE 0.9% FLUSH 10 ML FLUSH IV FLUSH PRN ×2 (03:45→05:30)
[2017-03-30 04:12] LABS: AUTOMATED NEUTROPHIL # 11.4 TH/MM3 (1.8-7.7); BASOPHIL % 0.1 % (0.0-2.0); EOSINOPHIL % 0.2 % (0.0-4.0); HEMATOCRIT 36.1 % (35.0-46.0); HEMO FLAGS DIFF FINAL; LYMPH % 5.2 % (9.0-44.0); LYMPHOCYTE # 0.6 TH/MM3 (1.0-4.8); MEAN CELL VOLUME 85.1 FL (80.0-100.0); MONO % 1.8 % (0.0-8.0); NEUT % 92.7 % (16.0-70.0); PLATELET COUNT 156 TH/MM3 (150-450); RED BLOOD COUNT 4.24 MIL/MM3 (4.00-5.30); RED CELL DISTRIBUTION WIDTH 14.7 % (11.6-17.2); WHITE BLOOD COUNT 12.3 TH/MM3 (4.0-11.0)
[2017-03-30 04:16] LABS: ALKALINE PHOSPHATASE 103 U/L (45-117); ALT (GPT) 17 U/L (10-53); ANION GAP 13 MEQ/L (5-15); AST (GOT) 13 U/L (15-37); BICARBONATE 21.4 MEQ/L (21.0-32.0); BLOOD UREA NITROGEN 16 MG/DL (7-18); CHLORIDE 105 MEQ/L (98-107); GLOMERULAR FILTRATION RATE 39 ML/MIN (>89); SODIUM (NA) 139 MEQ/L (136-145); TOTAL BILIRUBIN ADULT 0.4 MG/DL (0.2-1.0)
[2017-03-30 04:17] LABS: CREATINE KINASE 36 U/L (26-192)
[2017-03-30 04:24] LABS: POTASSIUM 2.7 MEQ/L (3.5-5.1)
[2017-03-30] MEDS ORDERED: POTASSIUM CHLORIDE 20 MEQ CONTROLLED RELEASE TAB PO ONE (04:30)
[2017-03-30 04:55] LABS: CREATINE KINASE 34 U/L (26-192)
[2017-03-30] MEDS ORDERED: KETOROLAC TROMETHAMINE 30 MG/ML (IVP) VIAL IV PUSH ONE (05:00)
[2017-03-30] MEDS ORDERED: METOCLOPRAMIDE HCL 10 MG/2 ML VIAL IV PUSH ONE (05:00)
[2017-03-30] MEDS ORDERED: ONDANSETRON HCL 4 MG/2 ML VIAL IV PUSH ONE (05:00)
[2017-03-30] MEDS ORDERED: VANCOMYCIN INJ 1,000 MG in SODIUM CHLOR 0.9% 250 ML INJ 250 ML IV ONE (05:15)
[2017-03-30] MEDS ORDERED: Vancomycin Consult Pharmacy 1 EA OTHER SCH (05:30)
[2017-03-30] MEDS ORDERED: NALOXONE HCL 0.4 MG/ML AMP IV PRN (05:30)
[2017-03-30] MEDS: PIPERACIL-TAZO 4.5 GM PREMIX 100 ML IV SCH ×2 (06:38→14:02)
[2017-03-30] MEDS: POTASSIUM CHLOR 20 MEQ PREMIX 100 ML IV SCH ×2 (07:00→08:56)
[2017-03-30] MEDS ORDERED: SODIUM CHLOR 0.9% 1000 ML INJ 1,000 ML IV SCH (07:45)
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
--- NOTE | 2017-03-30 08:14 | EKG ---
Date Performed: 03/30/2017 Time Performed: 06:31:33 PTAGE: 47 years EKG: Sinus rhythm NONSPECIFIC T-WAVE ABNORMALITY BORDERLINE ECG NO PREVIOUS TRACING DOCTOR: Yuriy Dawson Interpretating Date/Time 03/30/2017 08:12:52
[2017-03-30] MEDS: SODIUM CHLORIDE 0.9% FLUSH 10 ML FLUSH IV FLUSH SCH ×2 (08:56→20:57)
[2017-03-30] MEDS: NS + KCL 20 MEQ INJ 1,000 ML IV SCH ×2 (08:56→23:49)
--- NOTE | 2017-03-30 09:53 | RADRPT ---
EXAM DATE/TIME: 03/30/2017 09:02 [facility] COMPARISON: No previous studies available for comparison. INDICATIONS : Left arm abscess. Door fell on left arm four days ago. MEDICAL HISTORY : Migraines. HTN. Pneumonia. Diabetes. Bipolar disorder. Depression. Anxiety. Substance use. MRSA. SURGICAL HISTORY : Hysterectomy. Tubal ligation. section. Left ankle. Right knee. Neck and back. ENCOUNTER: Initial ACUITY: 4-6 days PAIN SCORE: 9/10 LOCATION: Left arm. AREA EVALUATED: Upper and lower left arm. FINDINGS: There is heterogeneous swelling in the left upper arm which is presumably combination of hematoma and edema. A slightly greater than 1 cm discrete hypoechoic focus may be some internal liquefaction or p ossibly a lymph node. There is nothing drainable identified. CONCLUSION: Heterogeneous swelling and probable hematoma. Nothing to drain Derek Rice MD on March 30, 2017 at 9:49 Board Certified Radiologist. This report was verified electronically.
[2017-03-30 14:11] LABS: AMPHETAMINE, URINE POS (NEG); BARBITURATES, URINE NEG (NEG); COCAINE, URINE POS (NEG)
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
[2017-03-30] MEDS ORDERED: oxyCODONE/ACETAMINOPHEN 5 MG/325 MG TAB PO PRN (16:30)
[2017-03-30] MEDS ORDERED: POTASSIUM CHLOR 10 MEQ PREMIX 100 ML IV ONE (18:15)
[2017-03-30] MEDS: FLUoxetine HCL 20 MG CAP PO SCH (18:29)
[2017-03-30] MEDS: POTASSIUM CHLORIDE 20 MEQ CONTROLLED RELEASE TAB PO SCH (22:26)
[2017-03-30] MEDS: CIPROFLOXACIN 750 MG TAB PO SCH (22:26)
[2017-03-30] MEDS: KETOROLAC TROMETHAMINE 10 MG TAB PO PRN (22:26)
[2017-03-30] MEDS: clonazePAM 0.5 MG TAB PO PRN (23:01)
[2017-03-31 00:13] VITALS: BP 120/67; PULSE 68; RESP 16; TEMP 97.4; O2SAT 98
[2017-03-31 00:53] VITALS: PULSE 69
[2017-03-31] MEDS ORDERED: VANCOMYCIN INJ 1,250 MG in SODIUM CHLOR 0.9% 250 ML INJ 250 ML IV SCH (05:00)
[2017-03-31] MEDS: KETOROLAC TROMETHAMINE 10 MG TAB PO PRN ×3 (06:27→18:09)
[2017-03-31 07:35] VITALS: PULSE 62
--- NOTE | 2017-03-31 09:09 | HHI.PR ---
Subjective Remarks patient complains of pain no chest pain or shortness of breath Objective Vitals Vital Signs Date Time Temp Pulse Resp B/P Pulse Ox O2 Delivery O2 Flow Rate FiO2 03/31/17 07:35 62 03/31/17 00:53 69 03/31/17 00:13 97.4 68 16 120/67 98 03/30/17 20:00 98.1 79 18 119/64 99 03/30/17 17:45 98.1 65 17 97/55 99 03/30/17 14:22 76 16 114/75 100 Room Air 03/30/17 11:49 66 16 94/56 100 Room Air 03/30/17 10:02 70 16 94/59 97 Room Air I/O 03/30/17 03/30/17 03/30/17 03/31/17 03/31/17 03/31/17 07:00 15:00 23:00 07:00 15:00 23:00 Intake Total 1105 ml Balance 1105 ml Intake IV Total 1105 ml # Voids 1 # Bowel Movements 0 Result Diagram: 03/30/17 0335 03/30/17 0335 Imaging Last Impressions Upper Extremity Ultrasound 03/30/17817 Signed Impressions: Service Date/Time: Thursday, March 30, 2017 09:02 - CONCLUSION: Heterogeneous swelling and probable hematoma. Nothing to drain Derek Rice MD Objective Remarks awake and alert, no acute distress anicteric no nuchal rigidity lungs clear regular rhythm no axillary lymphadenopathy abdomen soft, nontender extremities- Left biceps, wrist and thumb erythema,- almost resolved, better range of motion, good peripheral pulses Left AC area induration slightly tender, no overlying erythema LE no edema A/P Assessment and Plan 47-year-old female presenting with erythema cellulitis possible abscess of the left arm/wrist Sepsis secondary to recurrent cellulitis left upper extremity- left lateral wrist cellulitis Left AC area hematoma- IS negative for abscess continue on IV Vancomycin and Ciprofloxacin appreciate ID consult- if blood cultures negative for 48 hours - Discharge on Cipro and Doxycycline -by history per patient- in the past patient had 2 separate courses of Bactrim for 10 days- with clinical improvement but recurred Toradol prn for pain Severe hypokalemia. Replace with IV and by mouth potassium recheck pending today History of depression Continue on Klonopin and Prozac Chronic pain continue on Neurontin 600 mg 3 times a day Substance abuse. cocaine +. counselled Encourage patient to up and ambulate. d/w results of Ultrasound and blood works Akosua Pinto MD Mar 31, 2017 09:09
[2017-03-31] MEDS: NS + KCL 20 MEQ INJ 1,000 ML IV SCH ×2 (09:31→17:53)
[2017-03-31] MEDS: FLUoxetine HCL 20 MG CAP PO SCH (09:32)
[2017-03-31] MEDS: CIPROFLOXACIN 750 MG TAB PO SCH ×2 (09:33→22:31)
[2017-03-31] MEDS: POTASSIUM CHLORIDE 20 MEQ CONTROLLED RELEASE TAB PO SCH ×2 (09:33→22:31)
[2017-03-31] MEDS: SODIUM CHLORIDE 0.9% FLUSH 10 ML FLUSH IV FLUSH SCH ×2 (09:33→22:31)
[2017-03-31] MEDS: clonazePAM 0.5 MG TAB PO PRN ×2 (10:38→17:50)
[2017-03-31] MEDS: GABAPENTIN 300 MG CAP PO SCH ×2 (12:31→17:51)
[2017-03-31 12:45] VITALS: BP_SYST 144; BP_SYST 168; BP_DIAS 75; BP_DIAS 77; PULSE 103; PULSE 80; RESP 18; RESP 20; TEMP 97.9; TEMP 98.2; O2SAT 95; O2SAT 99
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
[2017-03-31 13:20] LABS: AUTOMATED NEUTROPHIL # 4.5 TH/MM3 (1.8-7.7); BASOPHIL % 0.6 % (0.0-2.0); EOSINOPHIL # 0.1 TH/MM3 (0-0.4); EOSINOPHIL % 1.6 % (0.0-4.0); HEMATOCRIT 32.2 % (35.0-46.0); HEMO FLAGS DIFF FINAL; LYMPH % 26.5 % (9.0-44.0); LYMPHOCYTE # 1.9 TH/MM3 (1.0-4.8); MEAN CELL VOLUME 84.8 FL (80.0-100.0); MEAN CORPUSCULAR HEMOGLOBIN 29.4 PG (27.0-34.0); MEAN CORPUSCULAR HGB CONC 34.7 % (32.0-36.0); MONO % 8.8 % (0.0-8.0); NEUT % 62.5 % (16.0-70.0); PLATELET COUNT 123 TH/MM3 (150-450); RED CELL DISTRIBUTION WIDTH 14.9 % (11.6-17.2); WHITE BLOOD COUNT 7.2 TH/MM3 (4.0-11.0)
[2017-03-31 13:35] LABS: BICARBONATE 21.4 MEQ/L (21.0-32.0); POTASSIUM 4.5 MEQ/L (3.5-5.1)
--- NOTE | 2017-03-31 14:17 | RADRPT ---
EXAM DATE/TIME: 03/31/2017 13:38 [facility] COMPARISON: No previous studies available for comparison. INDICATIONS : Left arm swelling. MEDICAL HISTORY : Migraines. Hypertension. Pneumonia. Bipolar. Depression. Substance abuse. SURGICAL HISTORY : Hysterectomy. Tubal ligation. Left ankle surgery. Right knee surgery. Neck and back surgery. ENCOUNTER: Initial ACUITY: 1 day PAIN SCORE: 8/10 LOCATION: Left arm. FINDINGS: There is spontaneous flow documented in the brachial, basilic, axillary, and subclavian veins. The ce phalic vein is nonvisualized. The vessels are compressible and augmentation response is documented. No filling defects are seen. The flow is phasic with respiration. Direction of flow in the jugular vein is caudal. Focused ultrasound over the palpable area in the antecubital fossa demonstrates a sma ll hypoechoic area measuring 9 mm. Etiology unknown. CONCLUSION: 1. No evidence of DVT. 2. Palpable area demonstrates a 9 mm hypoechoic density of unknown etiology. Ashwin Conner MD on March 31, 2017 at 14:14 Board Certified Radiologist. This report was verified electronically.
[2017-03-31] MEDS: VANCOMYCIN 1,000 MG/NS 250 ML IV SCH ×2 (18:02)
[2017-03-31 21:00] VITALS: BP 116/71; PULSE 65; RESP 16; TEMP 97.4; O2SAT 98
[2017-04-01] VITALS (8 sets, daily range): BP systolic 93–146; BP diastolic 52–82; PULSE 50–70; RESP 16–18; TEMP 97.1–98.2; O2SAT 95–97
[2017-04-01] MEDS: NS + KCL 20 MEQ INJ 1,000 ML IV SCH ×3 (00:30→16:30)
[2017-04-01] MEDS: KETOROLAC TROMETHAMINE 60 MG/2 ML (IM) VIAL IM PRN ×2 (01:53→22:12)
[2017-04-01] MEDS: VANCOMYCIN 1,000 MG/NS 250 ML IV SCH ×4 (04:39→18:13)
--- NOTE | 2017-04-01 08:50 | HHI.PR ---
Subjective Remarks T down- no fever but states chilly sensation no diarrhea complains of pain left AC area Objective Vitals Vital Signs Date Time Temp Pulse Resp B/P Pulse Ox O2 Delivery O2 Flow Rate FiO2 04/01/17 04:29 97.8 68 16 93/52 97 04/01/17 01:42 53 04/01/17 01:35 97.4 54 16 146/74 97 03/31/17 21:00 97.4 65 16 116/71 98 03/31/17 12:45 97.9 103 20 168/77 95 I/O 03/31/17 03/31/17 03/31/17 04/01/17 04/01/17 04/01/17 07:00 15:00 23:00 07:00 15:00 23:00 Intake Total 1105 ml 683 ml 633 ml Balance 1105 ml 683 ml 633 ml Intake IV Total 1105 ml 683 ml 633 ml # Voids 1 # Bowel Movements 0 Result Diagram: 03/31/17 1238 03/31/17 1238 Imaging Last Impressions Upper Extremity Ultrasound 03/31/17 0000 Signed Impressions: Service Date/Time: March 13:38 - CONCLUSION: 1. No evidence of DVT. 2. Palpable area demonstrates a 9 mm hypoechoic density of unknown etiology. Ashwin Conner MD Objective Remarks awake and alert, no acute distress anicteric no nuchal rigidity lungs clear no axillary lymphadenopathy extremities- Left biceps, wrist and thumb erythema,- improved better range of motion, good peripheral pulses Left AC area still with slight induration slightly tender, no erythema, good pulses, good ROM LE no edema A/P Assessment and Plan 47-year-old female presenting with erythema cellulitis possible abscess of the left arm/wrist MRSA Sepsis secondary to recurrent cellulitis left upper extremity- left lateral wrist cellulitis Left AC area hematoma- IS negative for abscess continue on IV Vancomycin and po Ciprofloxacin appreciate ID consult- repeat blood cultures Toradol prn for pain Severe hypokalemia. Replace with IV and by mouth potassium recheck pending today History of depression Continue on Klonopin and Prozac Chronic pain continue on Neurontin 600 mg 3 times a day Substance abuse. cocaine +. counselled Encourage patient to up and ambulate.- " I am" 03/31- d/w results of Ultrasound and blood works Aksoua Pinto MD Apr 01, 2017 08:50 Akosua Pinto MD Apr 01, 2017 08:50
[2017-04-01] MEDS: CIPROFLOXACIN 750 MG TAB PO SCH (08:54)
[2017-04-01] MEDS: POTASSIUM CHLORIDE 20 MEQ CONTROLLED RELEASE TAB PO SCH ×2 (08:54→21:02)
[2017-04-01] MEDS: GABAPENTIN 300 MG CAP PO SCH ×3 (08:55→18:12)
[2017-04-01] MEDS: SODIUM CHLORIDE 0.9% FLUSH 10 ML FLUSH IV FLUSH SCH ×2 (08:56→21:03)
[2017-04-01] MEDS: FLUoxetine HCL 20 MG CAP PO SCH (08:56)
[2017-04-01] MEDS: clonazePAM 0.5 MG TAB PO PRN ×2 (08:57→21:02)
[2017-04-01] MEDS: KETOROLAC TROMETHAMINE 10 MG TAB PO PRN ×2 (09:05→15:48)
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
[2017-04-01 22:29] LABS: BLOOD, URINE NEG (NEG); COMMENT (UR) CULT NOT INDICATED; CULTURE IF INDICATED CULT NOT INDICATED; GLUCOSE,URINE NEG (NEG); KETONE, URINE NEG (NEG); NITRITE,URINE NEG (NEG); PH, URINE 5.5 (5.0-8.5); SQUAMOUS EPITHELIAL CELL URINE 8 /hpf (0-5); URINE COLOR LIGHT-YELLOW (YELLW/STRAW)
[2017-04-02] VITALS (7 sets, daily range): BP systolic 104–138; BP diastolic 61–84; PULSE 63–92; RESP 17–18; TEMP 97.2–98.5; O2SAT 95–100
[2017-04-02] MEDS: NS + KCL 20 MEQ INJ 1,000 ML IV SCH ×3 (00:30→17:37)
[2017-04-02] MEDS ORDERED: PHARMACY ORDERED LAB ONE (04:45)
[2017-04-02] MEDS: VANCOMYCIN 1,000 MG/NS 250 ML IV SCH ×4 (04:55→17:35)
[2017-04-02] MEDS: KETOROLAC TROMETHAMINE 60 MG/2 ML (IM) VIAL IM PRN ×3 (06:40→18:30)
[2017-04-02] MEDS: FLUoxetine HCL 20 MG CAP PO SCH (08:51)
[2017-04-02] MEDS: SODIUM CHLORIDE 0.9% FLUSH 10 ML FLUSH IV FLUSH SCH ×2 (08:52→21:40)
[2017-04-02] MEDS: POTASSIUM CHLORIDE 20 MEQ CONTROLLED RELEASE TAB PO SCH ×2 (08:52→20:42)
[2017-04-02] MEDS: GABAPENTIN 300 MG CAP PO SCH ×3 (08:52→17:35)
[2017-04-02] MEDS: clonazePAM 0.5 MG TAB PO PRN ×2 (08:53→21:40)
--- NOTE | 2017-04-02 11:20 | HHI.PR ---
Subjective Remarks afebrile, no chills with pain complains- left AC to brachial aspect of upper arm, no overlying erythema, tender to touch casually noted her to be flexing her arms and placed her elbows/arm on the table and hand to her chin with no difficulty but when examined tends- will wince Objective Vitals Vital Signs Date Time Temp Pulse Resp B/P Pulse Ox O2 Delivery O2 Flow Rate FiO2 04/02/17 10:08 65 04/02/17 04:00 97.2 63 18 121/61 95 04/02/17 00:00 98.5 81 18 130/84 98 04/01/17 23:41 50 04/01/17 20:00 97.1 70 18 122/69 97 04/01/17 16:00 97.5 60 18 133/75 95 04/01/17 12:00 98.2 65 18 122/82 96 I/O 04/01/17 04/01/17 04/01/17 04/02/17 04/02/17 04/02/17 07:00 15:00 23:00 07:00 15:00 23:00 Intake Total 633 ml 960 ml 1500 ml Balance 633 ml 960 ml 1500 ml Intake Oral 960 ml IV Total 633 ml 1500 ml # Voids 5 # Bowel Movements 4 Result Diagram: 03/31/17 1238 04/02/17 0737 Imaging Last Impressions Upper Extremity Ultrasound 03/31/17 0000 Signed Impressions: Service Date/Time: March 13:38 - CONCLUSION: 1. No evidence of DVT. 2. Palpable area demonstrates a 9 mm hypoechoic density of unknown etiology. 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 warm compress to area Severe hypokalemia.-corrected po KCL bid BELKIS resolved with IVF. History of depression Continue on Klonopin and Prozac Chronic pain continue on Neurontin 600 mg 3 times a day. Toradol prn for pain Substance abuse. cocaine +. counselled. No narcotics Encourage patient to up and ambulate.- " I am"- compliant Akosua Pinto MD Apr 02, 2017 11:20
[2017-04-02] MEDS: REMOVE OLD PATCH T-DERMAL SCH (16:45)
[2017-04-02] MEDS: NICOTINE 7 MG/24 HR PATCH T-DERMAL SCH (17:35)
[2017-04-03] MEDS: KETOROLAC TROMETHAMINE 10 MG TAB PO PRN ×4 (02:12→23:27)
[2017-04-03] MEDS: VANCOMYCIN 1,000 MG/NS 250 ML IV SCH ×4 (05:34→18:05)
[2017-04-03 06:00] VITALS: BP 120/70; PULSE 70; RESP 17; TEMP 98; O2SAT 98
[2017-04-03] MEDS: NS + KCL 20 MEQ INJ 1,000 ML IV SCH (06:22)
[2017-04-03 08:00] VITALS: BP 113/64; PULSE 70; RESP 17; TEMP 97.6; O2SAT 97
[2017-04-03] MEDS: FLUoxetine HCL 20 MG CAP PO SCH (08:40)
[2017-04-03] MEDS: GABAPENTIN 300 MG CAP PO SCH ×3 (08:41→18:05)
[2017-04-03] MEDS: REMOVE OLD PATCH T-DERMAL SCH (08:41)
[2017-04-03] MEDS: POTASSIUM CHLORIDE 20 MEQ CONTROLLED RELEASE TAB PO SCH (08:41)
[2017-04-03] MEDS: NICOTINE 7 MG/24 HR PATCH T-DERMAL SCH (08:41)
[2017-04-03] MEDS: SODIUM CHLORIDE 0.9% FLUSH 10 ML FLUSH IV FLUSH SCH ×2 (08:42→21:00)
--- NOTE | 2017-04-03 10:48 | ECHRPT ---
Indication: Endocarditis CONCLUSIONS The aortic valve is not well visualized. There is trace tricuspid valve regurgitation. The estimated pulmonary arterial pressure is 30 mmHg. The pulmonary valve is not well visualized. There is no pericardial effusion. BP: 168 / 77 HR: 103 Rhythm: Sinus MEASUREMENTS (Male / Female) Normal Values Technical Quality:Fair 2D ECHO LV Diastolic Diameter PLAX 4.9 cm 4.2 - 5.9 / 3.9 - 5.3 cm LV Systolic Diameter PLAX 3.6 cm IVS Diastolic Thickness 1.0 cm 0.6 - 1.0 / 0.6 - 0.9 cm LVPW Diastolic Thickness 1.0 cm 0.6 - 1.0 / 0.6 - 0.9 cm LV Relative Wall Thickness 0.4 LVOT Diameter 2.0 cm M-MODE Aortic Root Diameter MM 3.6 cm LA Systolic Diameter MM 2.7 cm LA Ao Ratio MM 0.8 AV Cusp Separation MM 2.2 cm DOPPLER AV Peak Velocity 121.0 cm/s AV Peak Gradient 5.9 mmHg LVOT Peak Velocity 68.1 cm/s LVOT Peak Gradient 1.9 mmHg AV Area Cont Eq pk 1.8 cm MR Peak Velocity 221.0 cm/s MR Peak Gradient 19.5 mmHg Mitral E Point Velocity 118.0 cm/s Mitral A Point Velocity 69.1 cm/s Mitral E to A Ratio 1.7 LV E' Lateral Velocity 9.8 cm/s Mitral E to LV E' Lateral Ratio 12.0 LV E' Septal Velocity 9.0 cm/s Mitral E to LV E' Septal Ratio 13.1 TR Peak Velocity 250.0 cm/s TR Peak Gradient 25.0 mmHg PV Peak Velocity 93.7 cm/s PV Peak Gradient 3.5 mmHg FINDINGS LEFT VENTRICLE Normal left ventricular size and wall thickness. The left ventricular systolic function is normal wi th an estimated ejection fraction in the range of 60-65%. Left ventricular diastolic function parameters a re normal. RIGHT VENTRICLE Normal right ventricular size and systolic function. LEFT ATRIUM The left atrial size is normal. RIGHT ATRIUM The right atrial size is normal. ATRIAL SEPTUM Normal atrial septal thickness without atrial level shunting by limited color doppler interrogation. AORTA The aortic root and proximal ascending aorta are normal in size on limited imaging. MITRAL VALVE Structurally normal mitral valve. No mitral valve stenosis or regurgitation. AORTIC VALVE The aortic valve is not well visualized. [place] aortic valve. No aortic valve stenosis or regurgitation. TRICUSPID VALVE There is trace tricuspid valve regurgitation. The estimated pulmonary arterial pressure is 30 mmHg. PULMONARY VALVE The pulmonary valve is not well visualized. VESSELS The inferior vena cava is normal in size. PERICARDIUM There is no pericardial effusion. Thor Manrique MD (Electronically Signed) Final Date:03 April 2017 10:47
--- NOTE | 2017-04-03 10:50 | HHI.PR ---
Subjective Remarks very comfortable po 100% states having loose stools- I aske her- - she is lactose intolerant and per nurse ordering for ice cream every hour complains of pain left AC and left wrist with "can't move" observation- moving her arm freely around/bending elbows with no discomfort Objective Vitals Vital Signs Date Time Temp Pulse Resp B/P Pulse Ox O2 Delivery O2 Flow Rate FiO2 04/03/17 08:00 97.6 70 17 113/64 97 04/03/17 06:00 98.0 70 17 120/70 98 04/02/17 20:00 97.4 75 17 138/83 99 04/02/17 19:00 73 04/02/17 16:00 97.9 68 17 112/64 95 04/02/17 12:00 97.9 67 17 118/70 97 I/O 04/02/17 04/02/17 04/02/17 04/03/17 04/03/17 04/03/17 06:59 14:59 22:59 06:59 14:59 22:59 Intake Total 1500 ml 1440 ml 1000 ml 2726 ml Balance 1500 ml 1440 ml 1000 ml 2726 ml Intake Oral 1440 ml 1000 ml 2100 ml IV Total 1500 ml 626 ml # Voids 6 3 5 # Bowel Movements 3 1 0 Result Diagram: 03/31/17 1238 04/02/17 0737 Imaging Last Impressions Upper Extremity Ultrasound 03/31/17 0000 Signed Impressions: Service Date/Time: March 13:38 - CONCLUSION: 1. No evidence of DVT. 2. Palpable area demonstrates a 9 mm hypoechoic density of unknown etiology. Ashwin Conner MD Objective Remarks awake and alert, no acute distress anicteric no nuchal rigidity lungs clear no axillary lymphadenopathy extremities- Left biceps, wrist and thumb erythema,- improved better range of motion, good peripheral pulses Left AC area still with induration/ a separate area circumscribed induration - tender, no erythema, good pulses, good ROM left wrist- collection- softer LE no edema A/P Assessment and Plan 47-year-old female presenting with erythema cellulitis possible abscess of the left arm/wrist MRSA Sepsis secondary to recurrent cellulitis left upper extremity- left lateral wrist fluid collection- possible abscess Left AC area hematoma- US negative for abscess continue on IV Vancomycin alone appreciate ID consult- repeat blood cultures- so far repeat negative Toradol prn for pain. warm compress to area consider Hand surgery consult for I and D of left wrist- possible abscess Echo unremarkable Severe hypokalemia.-corrected po KCL daily BELKIS- resolved. 100% po History of depression Continue on Klonopin and Prozac Chronic pain continue on Neurontin 600 mg 3 times a day. Toradol prn for pain Substance abuse. cocaine +. counselled. d/w her again - no narcotics reaquested for Ensure Encourage patient to up and ambulate.- " I am"- compliant Akosua Pinto MD Apr 03, 2017 10:49
[2017-04-03] MEDS: clonazePAM 0.5 MG TAB PO PRN ×2 (11:34→23:25)
[2017-04-03 12:00] VITALS: BP 112/58; PULSE 72; RESP 17; TEMP 97.5; O2SAT 96
[2017-04-03 16:00] VITALS: BP 105/64; PULSE 62; RESP 17; TEMP 98.1; O2SAT 97
[2017-04-04] VITALS (7 sets, daily range): BP systolic 101–125; BP diastolic 64–75; PULSE 55–85; RESP 16–18; TEMP 97.7–98.8; O2SAT 95–99
[2017-04-04] MEDS: KETOROLAC TROMETHAMINE 10 MG TAB PO PRN ×2 (06:29→16:54)
[2017-04-04] MEDS: VANCOMYCIN 1,000 MG/NS 250 ML IV SCH ×2 (06:29)
--- NOTE | 2017-04-04 08:26 | HHI.PR ---
Subjective Remarks no fever or chills persistent pain on Left AC area and medial aspect of arms just below AC left wrist no pain- area of fluctuance much smaller, no erythema no diarrhea Objective Vitals Vital Signs Date Time Temp Pulse Resp B/P Pulse Ox O2 Delivery O2 Flow Rate FiO2 04/04/17 02:30 73 04/04/17 01:00 98.0 66 16 118/65 97 04/03/17 16:00 98.1 62 17 105/64 97 04/03/17 12:00 97.5 72 17 112/58 96 I/O 04/03/17 04/03/17 04/03/17 04/04/17 04/04/17 04/04/17 07:00 15:00 23:00 07:00 15:00 23:00 Intake Total 2726 ml 1680 ml 1000 ml 750 ml Balance 2726 ml 1680 ml 1000 ml 750 ml Intake Oral 2100 ml 1680 ml 1000 ml 500 ml IV Total 626 ml 250 ml # Voids 5 11 3 2 # Bowel Movements 0 4 0 0 Result Diagram: 03/31/17 1238 04/02/17 0737 Imaging Last Impressions Upper Extremity Ultrasound 03/31/17 0000 Signed Impressions: Service Date/Time: March 13:38 - CONCLUSION: 1. No evidence of DVT. 2. Palpable area demonstrates a 9 mm hypoechoic density of unknown etiology. Ashwin Conner MD Objective Remarks awake and alert, no acute distress anicteric no nuchal rigidity lungs clear no axillary lymphadenopathy extremities- left wrist- area of fluctuance, smaller, no erythema- improved better range of motion, good peripheral pulses Left AC area still with induration-a separate area- of induration/mass - tender to touch LE no edema A/P Assessment and Plan 47-year-old female presenting with erythema cellulitis possible abscess of the left arm/wrist MRSA Sepsis secondary to recurrent cellulitis left upper extremity- with possible hematoma left lateral wrist fluid collection- possible abscess- improved clinically US negative for abscess continue on IV Vancomycin appreciate ID consult- repeat blood cultures- so far repeat negative Toradol prn for pain. warm compress to area- reordered Echo unremarkable- possible DELORES Severe hypokalemia.-corrected po KCL daily BELKIS- resolved. 100% po History of depression Continue on Klonopin and Prozac Chronic pain continue on Neurontin 600 mg 3 times a day. Toradol prn for pain Substance abuse. cocaine +. counselled. d/w her again - no narcotics Ensure tid with meals Up and ambulating Akosua Pinto MD Apr 04, 2017 08:25
[2017-04-04] MEDS: REMOVE OLD PATCH T-DERMAL SCH (09:00)
[2017-04-04] MEDS: FLUoxetine HCL 20 MG CAP PO SCH (09:27)
[2017-04-04] MEDS: GABAPENTIN 300 MG CAP PO SCH ×3 (09:28→16:55)
[2017-04-04] MEDS: POTASSIUM CHLORIDE 20 MEQ CONTROLLED RELEASE TAB PO SCH (09:28)
[2017-04-04] MEDS: NICOTINE 7 MG/24 HR PATCH T-DERMAL SCH (09:29)
[2017-04-04] MEDS: SODIUM CHLORIDE 0.9% FLUSH 10 ML FLUSH IV FLUSH SCH ×2 (09:31→21:00)
[2017-04-04] MEDS: clonazePAM 0.5 MG TAB PO PRN (11:32)
[2017-04-05] VITALS (7 sets, daily range): BP systolic 96–102; BP diastolic 51–60; PULSE 68–77; RESP 16–18; TEMP 97–98.9; O2SAT 95–97
[2017-04-05] MEDS: clonazePAM 0.5 MG TAB PO PRN ×2 (02:26→17:38)
--- NOTE | 2017-04-05 08:11 | HHI.PR ---
Subjective Remarks requesting for double portions + BM- formed per patient complains of pain left arm Objective Vitals Vital Signs Date Time Temp Pulse Resp B/P Pulse Ox O2 Delivery O2 Flow Rate FiO2 04/05/17 04:20 97.0 75 18 102/60 96 04/05/17 02:52 70 04/04/17 20:00 97.7 73 16 125/75 99 04/04/17 16:00 98.3 76 18 111/74 98 04/04/17 12:30 62 04/04/17 12:00 98.8 85 18 101/64 95 I/O 04/04/17 04/04/17 04/04/17 04/05/17 04/05/17 04/05/17 07:00 15:00 23:00 07:00 15:00 23:00 Intake Total 750 ml 720 ml 2500 ml 3000 ml Balance 750 ml 720 ml 2500 ml 3000 ml Intake Oral 500 ml 720 ml 2500 ml 3000 ml IV Total 250 ml # Voids 2 4 2 5 # Bowel Movements 0 0 4 Result Diagram: 04/04/17 0917 Imaging Last Impressions Upper Extremity Ultrasound 03/31/17 0000 Signed Impressions: Service Date/Time: March 13:38 - CONCLUSION: 1. No evidence of DVT. 2. Palpable area demonstrates a 9 mm hypoechoic density of unknown etiology. Ashwin Conner MD Objective Remarks awake and alert, no acute distress anicteric no nuchal rigidity lungs clear no axillary lymphadenopathy extremities- Left biceps,erythema improved, better range of motion, good peripheral pulses Left AC area still with induration/ a separate area circumscribed induration - tender, no erythema, good pulses, good ROM left wrist- anterior aspect- with quarter size fluctuance-soft, no erythema lateral aspect of wrist/bony prominence- softer, no erythema some bluish discoloration to above areas LE no edema A/P Assessment and Plan 47-year-old female presenting with erythema cellulitis possible abscess of the left arm/wrist MRSA Sepsis secondary to recurrent cellulitis left upper extremity- with possible hematoma- now patient states a door fell on her arm left lateral wrist fluid collection- possible abscess vs hematoma- with persistent induration ff clinically- if persists- get repeat imaging study. initial US negative for abscess- suggestive of possible hematoma continue on IV Vancomycin appreciate ID consult- repeat blood cultures from 03/31 and 04/02 -negative so far Toradol prn for pain. warm compress to area- reordered and reinforced with staff nurse Echo unremarkable- possible DELORES Severe hypokalemia.-corrected po KCL daily. BMP today BELKIS- resolved. 100% po- creatinine slightly up 14n on Vancomycin recheck this am. and restart IVF if trends up History of depression Continue on Klonopin and Prozac Chronic pain continue on Neurontin 600 mg 3 times a day. Tyelonol prn for pain Substance abuse. cocaine +. counselled. d/w her again - no narcotics Ensure tid with meals- double portions Up and ambulating Akosua Pinto MD Apr 05, 2017 08:11
[2017-04-05] MEDS: REMOVE OLD PATCH T-DERMAL SCH (09:00)
[2017-04-05] MEDS: FLUoxetine HCL 20 MG CAP PO SCH (09:07)
[2017-04-05] MEDS: POTASSIUM CHLORIDE 20 MEQ CONTROLLED RELEASE TAB PO SCH (09:07)
[2017-04-05] MEDS: SODIUM CHLORIDE 0.9% FLUSH 10 ML FLUSH IV FLUSH SCH ×2 (09:08→22:46)
[2017-04-05] MEDS: NICOTINE 7 MG/24 HR PATCH T-DERMAL SCH (09:08)
[2017-04-05] MEDS: GABAPENTIN 300 MG CAP PO SCH ×3 (09:08→17:36)
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
[2017-04-05] MEDS: VANCOMYCIN 1,000 MG/NS 250 ML IV SCH ×2 (12:33)
[2017-04-05] MEDS ORDERED: GADODIAMIDE PF 287 MG/ML 5 ML VIAL (for RAD MRI) IV ONE (20:00)
--- NOTE | 2017-04-05 20:35 | RADRPT ---
EXAM DATE/TIME: 04/05/2017 19:44 [facility] COMPARISON: US ARM LEFT VENOUS DOPPLER, March 31, 2017, 13:38. INDICATIONS : Pain. CONTRAST: 15 cc Omniscan (gadodiamide) IV MEDICAL HISTORY : Hypertension. SURGICAL HISTORY : section. Tonsillectomy. Ankle, wrist, knee, neck, back. ENCOUNTER: Subsequent ACUITY: 1 week PAIN SCORE: 8/10 LOCATION: Left arm TECHNIQUE: Multiplanar multisequence MRI examination of the humerus was performed with and without contrast. FINDINGS: At the level of the elbow and proximal forearm is in a rim-enhancing intramuscular fluid collection i n the anterior common flexor muscle belly, primarily involves pronator teres. The collection measures approximately 10 x 19 mm in greatest transaxial dimension and 32 mm and proximal to distal length. T he borders of the antecubital fossa and the distal biceps tendon. There is mild edema and reactive ap pearing enhancement/induration around the neurovascular bundle in the lower portions of the antecubit al fossa. No soft tissue abnormality seen above the elbow. The humerus is normal. CONCLUSION: Rim-enhancing fluid collection typical of intramuscular abscess anteromedially of the upper forearm, mostly involving the proximal pronator teres muscle belly. There is some induration without abscess i n the adjacent antecubital fossa and along the medial margin of the distal biceps tendon. Derek Sweeney MD on April 05, 2017 at 20:29 Board Certified Radiologist. This report was verified electronically.
[2017-04-05 23:26] LABS: BICARBONATE 32.4 MEQ/L (21.0-32.0); POTASSIUM 4.9 MEQ/L (3.5-5.1)
[2017-04-06] VITALS: BP 112/74; PULSE 82; RESP 16; TEMP 98.4; O2SAT 97
[2017-04-06] MEDS: VANCOMYCIN 1,000 MG/NS 250 ML IV SCH ×4 (00:26→11:28)
[2017-04-06] MEDS: ACETAMINOPHEN 325 MG TAB PO PRN ×2 (00:39→07:02)
[2017-04-06 04:30] VITALS: BP 103/69; PULSE 69; RESP 16; TEMP 98; O2SAT 97
[2017-04-06] MEDS: clonazePAM 0.5 MG TAB PO PRN (07:02)
[2017-04-06 08:16] VITALS: BP 96/58; PULSE 63; RESP 18; TEMP 97.4; O2SAT 97
--- NOTE | 2017-04-06 08:35 | HHI.PR ---
Subjective Remarks complains of pain no diarrhea or constipation, nausea or vomiting Objective Vitals Vital Signs Date Time Temp Pulse Resp B/P Pulse Ox O2 Delivery O2 Flow Rate FiO2 04/06/17 08:16 97.4 63 18 96/58 97 04/06/17 04:30 98.0 69 16 103/69 97 04/06/17 00:00 98.4 82 16 112/74 97 04/05/17 20:00 98.6 77 16 96/51 97 04/05/17 15:57 98.9 75 18 98/51 95 04/05/17 12:34 97.9 74 18 101/58 97 04/05/17 10:26 72 I/O 04/05/17 04/05/17 04/05/17 04/06/17 04/06/17 04/06/17 07:00 15:00 23:00 07:00 15:00 23:00 Intake Total 3000 ml 360 ml 250 ml 480 ml Balance 3000 ml 360 ml 250 ml 480 ml Intake Oral 3000 ml 360 ml 480 ml IV Total 250 ml # Voids 5 3 6 # Bowel Movements 4 1 1 Result Diagram: 04/05/17 1045 Imaging Last Impressions Upper Extremity MRI 04/05/17 0000 Signed Impressions: Service Date/Time: Wednesday, April 05, 2017 19:44 - CONCLUSION: Rim- enhancing fluid collection typical of intramuscular abscess anteromedially of the upper forearm, mostly involving the proximal pronator teres muscle belly. There is some induration without abscess in the adjacent antecubital fossa and along the medial margin of the distal biceps tendon. Derek Sweeney MD Upper Extremity Ultrasound 03/31/17 0000 Signed Impressions: Service Date/Time: March 13:38 - CONCLUSION: 1. No evidence of DVT. 2. Palpable area demonstrates a 9 mm hypoechoic density of unknown etiology. Ashwin Conner MD Objective Remarks awake and alert, no acute distress anicteric lungs clear no axillary lymphadenopathy extremities- Left biceps,erythema improved, Left AC area still with induration/ a separate area circumscribed mass- softer on exam today - tender, no erythema, good pulses, tender left wrist- -just above the ulnar prominence - with quarter size fluctuance- soft, no erythema, smaller in size lateral aspect just above of wrist bony prominence- softer, no erythema LE no edema A/P Assessment and Plan 47-year-old female presenting with erythema cellulitis possible abscess of the left arm/wrist MRSA Sepsis secondary cellulitis/abscess- left forearm/AC area and area just above ulnar prominence- - + 03/30 blood cultures- MRSA repeat MRI 04/05- shows abscess now involving muscle ID ff. repeat blood cultures from 03/31 and 04/02 -negative so far. d/w ID - may need - I and D. if agrees - surgical consult Tylenol prn for pain . warm compress to areas- reordered and reinforced with staff nurse. Echo unremarkable- possible DELORES Severe hypokalemia.-corrected po KCL daily. BMP today BELKIS-recurred. on admission 100% po- creatinine tended up again ff renal functions- on Vancomycin restart IVF - NS 100 cc/hr. FF BMP Chronic pain continue on Neurontin 600 mg 3 times a day. Tyelonol prn for pain. drug seeking behavior- cocaine + d/w staff- patient is independently moving and appears comfortable when distracted - Substance abuse. cocaine +. counselled. d/w her again - no narcotics very motivated with lifestyle changes History of depression Continue on Klonopin and Prozac Ensure tid with meals- double portions- good po Up and ambulating Akosua Pinto MD Apr 06, 2017 08:35
[2017-04-06] MEDS ORDERED: SODIUM CHLOR 0.9% 1000 ML INJ 1,000 ML IV SCH (09:00)
[2017-04-06 09:15] LABS: ALT (GPT) 21 U/L (10-53)
[2017-04-06 09:18] LABS: ALKALINE PHOSPHATASE 95 U/L (45-117); ANION GAP 6 MEQ/L (5-15); AST (GOT) 23 U/L (15-37); BICARBONATE 28.4 MEQ/L (21.0-32.0); BLOOD UREA NITROGEN 17 MG/DL (7-18); CHLORIDE 99 MEQ/L (98-107); GLOMERULAR FILTRATION RATE 42 ML/MIN (>89); POTASSIUM 4.7 MEQ/L (3.5-5.1); SODIUM (NA) 133 MEQ/L (136-145); TOTAL BILIRUBIN ADULT 0.4 MG/DL (0.2-1.0)
[2017-04-06] MEDS: POTASSIUM CHLORIDE 20 MEQ CONTROLLED RELEASE TAB PO SCH (10:17)
[2017-04-06] MEDS: FLUoxetine HCL 20 MG CAP PO SCH (10:17)
[2017-04-06] MEDS: GABAPENTIN 300 MG CAP PO SCH ×2 (10:17→13:30)
[2017-04-06] MEDS: NICOTINE 7 MG/24 HR PATCH T-DERMAL SCH (10:18)
[2017-04-06] MEDS: SODIUM CHLORIDE 0.9% FLUSH 10 ML FLUSH IV FLUSH SCH (10:18)
[2017-04-06] MEDS: REMOVE OLD PATCH T-DERMAL SCH (10:18)
[2017-04-06 11:22] LABS: BLOOD, URINE NEG (NEG); GLUCOSE,URINE NEG (NEG); KETONE, URINE NEG (NEG); NITRITE,URINE NEG (NEG); PH, URINE 6.5 (5.0-8.5); SQUAMOUS EPITHELIAL CELL URINE 1 /hpf (0-5); URINE COLOR YELLOW (YELLW/STRAW)
[2017-04-06 12:14] VITALS: BP 110/58; PULSE 71; RESP 18; TEMP 97.2; O2SAT 98
[2017-04-06 12:40] VITALS: PULSE 74
--- NOTE | 2017-04-06 14:02 | PD.AMA ---
Against Medical Advice Note Discharge Disposition: Against Medical Advice Pt Condition on Discharge: Fair AMA Statement Informed by staff nurse that patient left AMA Patient Audrey Castro has decided to leave the hospital against medical advice. This patient has the capacity to refuse care and understands the risks of leaving, including permanent disability and/or , and has had an opportunity to ask questions about her condition. The patient has been informed that she may return for care at any time, and follow up has been arranged/advised. Akosua Pinto MD Apr 06, 2017 14:02
[2017-04-07] MEDS ORDERED: PHARMACY ORDERED LAB ONE (11:45)
== END 2017-04-06 14:00 | disposition left against medical advice (07) | DRG 872 ==
LOC: NEPC 03:19 → NEDA 05:37 → N05A 16:18
PROVIDERS: ADMIT Internal Medicine; ATTEND Internal Medicine
DX: A41.02 Sepsis due to Methicillin resistant Staphylococcus aureus (principal); N17.9 Acute kidney failure, unspecified; F32.9 Major depressive disorder, single episode, unspecified; L03.113 Cellulitis of right upper limb; E11.9 Type 2 diabetes mellitus without complications; F11.10 Opioid abuse, uncomplicated; L03.114 Cellulitis of left upper limb; F14.10 Cocaine abuse, uncomplicated; F17.210 Nicotine dependence, cigarettes, uncomplicated; E87.6 Hypokalemia; F41.9 Anxiety disorder, unspecified; G89.29 Other chronic pain; S50.12XA Contusion of left forearm, initial encounter; X58.XXXA Exposure to other specified factors, initial encounter
CPT/HCPCS: 73220; 76882; 76937; 80048; 80053; 80202; 80307; 81001; 82550; 82565; 84484; 85025; 86403; 87040; 87186; 87205; 93005; 93306; 93971; 96361; 96374; 96375; A9579; J1885; J2060; J2405; J2543; J2765; J3370; J3480; J7030; J7050

== ENCOUNTER 2017-05-14 11:59 | Inpatient (IN) | payer OTHER, MEDICARE ==
[~2017-05-14] VITALS: Ht 172.7 cm; Wt 68.6 kg
[~2017-05-14 11:59] MED LIST changes: -CARB100C PO; -DOXY100C PO; -HYDR-3580 PO
[2017-05-14 12:01] VITALS: BP 127/68; PULSE 62; RESP 20; TEMP 98.3; O2SAT 96
--- NOTE | 2017-05-14 12:10 | PD ---
Physical Exam Date Seen by Provider: May 14, 2017 Time Seen by Provider: 12:06 Narrative 47-year-old female presents the emergency department, dropped off by her sister, with reports of suicidal ideation. Patient recently split up with her about a week ago, and has not had any of her psychotropic meds for approximately that time period. Patient states the last 3 days is gotten progressively more depressed and sad. Patient reports a plan to use a knife to harm herself. She denies any medical problems currently other than recent diagnosis of bronchitis for which she is taking doxycycline. She denies . Patient denies alcohol or drug use. Psychiatric labs ordered. Vital signs are stable. Patient is awaiting bed placement. Data Data Last Documented VS Vital Signs Date Time Temp Pulse Resp B/P (MAP) Pulse Ox O2 Delivery O2 Flow Rate FiO2 05/14/17 12:01 98.3 62 20 127/68 (87) 96 Room Air Orders Orders Complete Blood Count With Diff (05/14/17 12:10) Comprehensive Metabolic Panel (05/14/17 12:10) Ed Urine Pregnancytest Poc (05/14/17 12:10) Psych Screen (05/14/17 12:10) Drug Screen, Random Urine (05/14/17 12:10) Alcohol (Ethanol) (05/14/17 12:10) MDM Medical Record Reviewed: Yes Supervised Visit with LITA: Yes Condition: Stable Wm Johnson May 14, 2017 12:10
--- NOTE | 2017-05-14 12:18 | PD ---
HPI Chief Complaint: Psychiatric Symptoms Time Seen by Provider: 12:17 Travel History International Travel<30 days: No Contact w/Intl Traveler<30days: No Traveled to known affect area: No History of Present Illness HPI 47 YO F with PMH of depression, bipolar presents to the ED for voluntary psychiatric evaluation. The patient states that she just split up with her this week and has been getting increasingly sad and depressed. She states that she is going to "cut herself". She states that she is out of her psychiatric medications for approximately 3 days. Currently being treated for bronchitis. She has no other medical complaints. She is unsure what medications that she takes. She endorses previous history of psychiatric hospitalization as well as multiple suicide attempts. She denies illicit drug or alcohol use. She denies risk of , endorses partial hysterectomy. PFSH Past Medical History Hx Anticoagulant Therapy: No Bipolar Disorder: Yes Anxiety: Yes Depression: Yes Cancer: No Cardiovascular Problems: Yes Chemotherapy: No Cerebrovascular Accident: No Diabetes: Yes Diminished Hearing: No Endocrine: Yes Gastrointestinal Disorders: No Genitourinary: No Headaches: Yes (Migraines) Hypertension: Yes Immune Disorder: No Implanted Vascular Access Dvce: No Musculoskeletal: Yes Neurologic: Yes Psychiatric: Yes Reproductive: No Respiratory: Yes (PNEUMONIA) Migraines: Yes Pneumonia: Yes Seizures: Yes Menopausal: Yes : 3 Para: 2 Tubal Ligation: Yes Past Surgical History Section: Yes (X 1) Gynecologic Surgery: Yes (HYSTERECTOMY, TUBAL LIGATION) Hysterectomy: Yes Other Surgery: Yes Social History Alcohol Use: No Tobacco Use: Yes (PACK A DAY ) Substance Use: Yes Allergies-Medications (Allergen,Severity, Reaction): Coded Allergies: aspirin (Unverified Allergy, Severe, Anaphylaxis, 05/14/17) Sulfa (Sulfonamide Antibiotics) (Unverified Allergy, Mild, Rash, 05/14/17) rofecoxib (Unverified Allergy, Mild, Rash, 05/14/17) tramadol (Unverified Allergy, Mild, Rash, 05/14/17) *MDRO Multi-Drug Resistant Organism (Verified Adverse Reaction, Unknown, ) MRSA (blood)-03/30/17 MRSA Shoulder wound 04/2016; MRSA (arm-06/22/16 & 07/23/16) MRSA (hand)-01/05/17 Reported Meds & Prescriptions Reported Meds & Active Scripts Active Reported Gabapentin 600 Mg Tab 600 Mg PO TID Klonopin (Clonazepam) 1 Mg Tab 1 Mg PO BID Prozac (Fluoxetine HCl) 20 Mg Cap 60 Mg PO DAILY Review of Systems Except as stated in HPI: all other systems reviewed are Neg Physical Exam Narrative GENERAL: Well-nourished, well-developed white female in no acute distress. PSYCHIATRIC: No delusional thought processes. No hallucinations. SKIN: Focused skin assessment warm/dry. 1 cm superficial wound on the left forearm, no signs of infection. HEAD: Normocephalic. EYES: No scleral icterus. No injection or drainage. NECK: Supple, trachea midline. No JVD or lymphadenopathy. CARDIOVASCULAR: Regular rate and rhythm without murmurs, gallops, or rubs. RESPIRATORY: Breath sounds clear and equal bilaterally. No accessory muscle use. GASTROINTESTINAL: Abdomen soft, non-tender, nondistended. Active bowel sounds. MUSCULOSKELETAL: No cyanosis, or edema. Patient moves easily from standing to sitting. She ambulates normally. BACK: Nontender without obvious deformity. No CVA tenderness. Data Data Last Documented VS Vital Signs Date Time Temp Pulse Resp B/P (MAP) Pulse Ox O2 Delivery O2 Flow Rate FiO2 05/14/17 12:01 98.3 62 20 127/68 (87) 96 Room Air Orders Orders Complete Blood Count With Diff (05/14/17 12:10) Comprehensive Metabolic Panel (05/14/17 12:10) Ed Urine Pregnancytest Poc (05/14/17 12:10) Psych Screen (05/14/17 12:10) Drug Screen, Random Urine (05/14/17 12:10) Alcohol (Ethanol) (05/14/17 12:10) Potassium Chloride (Kcl) (05/14/17 14:00) Labs Laboratory Tests Test 05/14/17 12:45 White Blood Count 5.5 TH/MM3 Red Blood Count 4.21 MIL/MM3 Hemoglobin 11.6 GM/DL Hematocrit 35.5 % Mean Corpuscular Volume 84.4 FL Mean Corpuscular Hemoglobin 27.6 PG Mean Corpuscular Hemoglobin Concent 32.7 % Red Cell Distribution Width 14.0 % Platelet Count 169 TH/MM3 Mean Platelet Volume 8.6 FL Neutrophils (%) (Auto) 40.5 % Lymphocytes (%) (Auto) 46.6 % Monocytes (%) (Auto) 10.6 % Eosinophils (%) (Auto) 1.2 % Basophils (%) (Auto) 1.1 % Neutrophils # (Auto) 2.2 TH/MM3 Lymphocytes # (Auto) 2.6 TH/MM3 Monocytes # (Auto) 0.6 TH/MM3 Eosinophils # (Auto) 0.1 TH/MM3 Basophils # (Auto) 0.1 TH/MM3 CBC Comment DIFF FINAL Differential Comment Blood Urea Nitrogen 14 MG/DL Creatinine 0.85 MG/DL Random Glucose 82 MG/DL Total Protein 7.0 GM/DL Albumin 3.4 GM/DL Calcium Level 9.3 MG/DL Alkaline Phosphatase 104 U/L Aspartate Amino Transf (AST/SGOT) 26 U/L Alanine Aminotransferase (ALT/SGPT) 23 U/L Total Bilirubin 0.4 MG/DL Sodium Level 140 MEQ/L Potassium Level 3.4 MEQ/L Chloride Level 107 MEQ/L Carbon Dioxide Level 27.8 MEQ/L Anion Gap 5 MEQ/L Estimat Glomerular Filtration Rate 72 ML/MIN Urine Opiates Screen NEG Urine Barbiturates Screen NEG Urine Amphetamines Screen NEG Urine Benzodiazepines Screen NEG Urine Cocaine Screen POS Urine Cannabinoids Screen NEG Ethyl Alcohol Level LESS THAN 3 MG/DL MDM Medical Decision Making Medical Screen Exam Complete: Yes Emergency Medical Condition: Yes Differential Diagnosis Adjustment disorder versus anxiety versus bipolar versus depression versus dementia versus electrolyte disorder versus malingering versus mood disorder versus ODD versus psychosis versus PTSD versus schizophrenia versus schizoaffective disorder versus substance-induced mood disorder versus other Narrative Course 47 YO F with PMH of depression, bipolar presents to the ED for voluntary psychiatric evaluation. The patient states that she just split up with her this week and has been getting increasingly sad and depressed. She states that she is going to "cut herself". She states that she is out of her psychiatric medications for approximately 3 days. Currently being treated for bronchitis. She has no other medical complaints. She endorses previous history of psychiatric hospitalization as well as multiple suicide attempts. She denies illicit drug or alcohol use. Vitals reviewed. Physical exam is reassuring. CBC is unremarkable. CMP with potassium of 3.4. Tox screen positive for cocaine. Patient was administered 40 mEq of potassium by mouth. She is medically cleared for psychiatric evaluation. Diagnosis Primary Impression: Hypokalemia Additional Impression: Suicidal ideation Condition: Stable Tatum Tran May 14, 2017 12:18
[2017-05-14 13:17] LABS: AUTOMATED NEUTROPHIL # 2.2 TH/MM3 (1.8-7.7); BASOPHIL # 0.1 TH/MM3 (0-0.2); BASOPHIL % 1.1 % (0.0-2.0); EOSINOPHIL # 0.1 TH/MM3 (0-0.4); EOSINOPHIL % 1.2 % (0.0-4.0); HEMATOCRIT 35.5 % (35.0-46.0); HEMO FLAGS DIFF FINAL; LYMPH % 46.6 % (9.0-44.0); LYMPHOCYTE # 2.6 TH/MM3 (1.0-4.8); MEAN CELL VOLUME 84.4 FL (80.0-100.0); MEAN CORPUSCULAR HEMOGLOBIN 27.6 PG (27.0-34.0); MEAN CORPUSCULAR HGB CONC 32.7 % (32.0-36.0); MONO % 10.6 % (0.0-8.0); NEUT % 40.5 % (16.0-70.0); PLATELET COUNT 169 TH/MM3 (150-450); RED BLOOD COUNT 4.21 MIL/MM3 (4.00-5.30); WHITE BLOOD COUNT 5.5 TH/MM3 (4.0-11.0)
[2017-05-14 13:33] LABS: ANION GAP 5 MEQ/L (5-15); AST (GOT) 26 U/L (15-37); BICARBONATE 27.8 MEQ/L (21.0-32.0); BLOOD UREA NITROGEN 14 MG/DL (7-18); CHLORIDE 107 MEQ/L (98-107); GLOMERULAR FILTRATION RATE 72 ML/MIN (>89); POTASSIUM 3.4 MEQ/L (3.5-5.1); SODIUM (NA) 140 MEQ/L (136-145)
[2017-05-14 13:35] LABS: ALT (GPT) 23 U/L (10-53)
[2017-05-14 13:36] LABS: ALKALINE PHOSPHATASE 104 U/L (45-117); TOTAL BILIRUBIN ADULT 0.4 MG/DL (0.2-1.0)
[2017-05-14 13:56] LABS: ALCOHOL LESS THAN 3 MG/DL (0-5)
[2017-05-14] MEDS ORDERED: POTASSIUM CHLORIDE 20 MEQ CONTROLLED RELEASE TAB PO ONE (14:00)
[2017-05-14 16:00] VITALS: BP 115/69; PULSE 57; RESP 18; TEMP 98.2; O2SAT 98
[2017-05-14] MEDS ORDERED: DOXY100C PO (16:15)
[2017-05-14 22:06] VITALS: BP_SYST 128; BP_SYST 96; BP_DIAS 58; BP_DIAS 69; PULSE 55; PULSE 60; RESP 18
[2017-05-15 06:30] VITALS: BP 117/69; PULSE 58; RESP 17
[2017-05-15 10:47] VITALS: BP 118/62; PULSE 51; RESP 18
[2017-05-15 17:25] VITALS: BP 106/62; PULSE 51; RESP 18
--- NOTE | 2017-05-15 20:00 | PD ---
History of Present Illness Chief Complaint: Psychiatric Symptoms Time Seen by Provider: 19:30 Travel History International Travel<30 Days: No Contact w/Intl Traveler<30days: No Known affected area: No Legal Status Legal Status: Voluntary History of Present Illness: 47-year-old female that recently broke up with her and is now depressed and suicidal. Patient has been off her medications, which include Prozac, Dilantin, BuSpar and Klonopin. She wants to wait and see if she can be admitted to the psychiatric service, even though she understands there is a backup. She feels if she were released at this time she would harm herself. She is requesting to go back on her Dilantin and she was given a loading dose of 300 mg at bedtime. PFSH Past Medical History Hx Anticoagulant Therapy: No Bipolar Disorder: Yes Anxiety: Yes Depression: Yes Cancer: No Cardiovascular Problems: Yes Chemotherapy: No Cerebrovascular Accident: No Diabetes: Yes Patient Takes Glucophage: No Diminished Hearing: No Endocrine: Yes Gastrointestinal Disorders: No Genitourinary: No Headaches: Yes (Migraines) Hypertension: Yes Immune Disorder: No Implanted Vascular Access Dvce: No Musculoskeletal: Yes Neurologic: Yes Psychiatric: Yes Reproductive: No Respiratory: Yes (PNEUMONIA) Migraines: Yes Pneumonia: Yes Seizures: Yes ?: Not Menopausal: Yes : 3 Para: 2 Tubal Ligation: Yes Past Surgical History Section: Yes (X 1) Gynecologic Surgery: Yes (HYSTERECTOMY, TUBAL LIGATION) Hysterectomy: Yes Other Surgery: Yes Psychiatric History Psychiatric History Hx Psychiatric Treatment: Patient reports being at [facility] August 02 for 7 days for detox. Patient also states she was hospitalized at [facility] 3 previous times. [facility] [place] Jul 2016. Currently not in psychiatric tretament History of Inpatient Treatment: Yes Social History Hx Alcohol Use: No Hx Tobacco Use: Yes (PACK A DAY ) Hx Substance Use: Yes Substance Use Type: Alcohol, Marijuana, Benzos (Valium,Xanax), Cocaine Hx of Substance Use Treatment: Yes Allergies-Medications (Allergen,Severity, Reaction): Coded Allergies: aspirin (Unverified Allergy, Severe, Anaphylaxis, 05/14/17) Sulfa (Sulfonamide Antibiotics) (Unverified Allergy, Mild, Rash, 05/14/17) rofecoxib (Unverified Allergy, Mild, Rash, 05/14/17) tramadol (Unverified Allergy, Mild, Rash, 05/14/17) *MDRO Multi-Drug Resistant Organism (Verified Adverse Reaction, Unknown, ) MRSA (blood)-03/30/17 MRSA Shoulder wound 04/2016; MRSA (arm-06/22/16 & 07/23/16) MRSA (hand)-01/05/17 Reported Meds & Prescriptions Reported Meds & Active Scripts Active Reported Doxycycline Hyclate 100 Mg Cap 100 Mg PO BID MDM Medical Decision Making Medical Record Reviewed: Yes Assessment/Plan Patient interviewed at bedside, medical record reviewed and case discussed with nurse. Patient felt to be ongoing danger to herself and for this reason will be admitted to the psychiatric unit for evaluation and treatment. Orders Orders Diet Regular Basic (05/15/17 Breakfast) Diet Regular Basic (05/15/17 Lunch) Diet Regular Basic (05/15/17 Dinner) Phenytoin (Dilantin) (05/15/17 21:00) Results Vital Signs Date Time Temp Pulse Resp B/P (MAP) Pulse Ox O2 Delivery O2 Flow Rate FiO2 05/15/17 17:25 51 18 106/62 (77) 05/15/17 10:47 51 18 118/62 (80) 05/15/17 06:30 58 17 117/69 (85) 05/14/17 22:06 55 18 96/58 (71) Diagnosis Primary Impression: Adjustment disorder with depressed mood Prescriptions Quetiapine (Quetiapine) 25 Mg Tab 50 MG PO HS for health for 30 Days, #30 TAB Prov: Jonathan Nelson MD 05/19/17 Buspirone (Buspirone) 10 Mg Tab 20 MG PO TID for health, #90 TAB Prov: Jonathan Nelson MD 05/19/17 Phenytoin Extended (Dilantin) 100 Mg Cap 100 MG PO TID for health, #60 CAP Prov: Jonathan Nelson MD 05/19/17 Fluoxetine (Fluoxetine) 20 Mg Capsule 20 MG PO DAILY for health, #30 CAP 0 Refills Prov: Jonathan Nelson MD 05/19/17 Condition: Stable Caleb Momin MD May 15, 2017 20:00
[2017-05-15] MEDS ORDERED: PHENYTOIN SODIUM 100 MG CAP PO SCH (21:00)
[2017-05-15 23:23] VITALS: BP 109/71; PULSE 51; RESP 18
[2017-05-16 06:13] VITALS: BP 106/61; PULSE 56; RESP 18
[2017-05-16 11:05] VITALS: BP 120/67; PULSE 58; RESP 16; O2SAT 100
[2017-05-16 15:14] VITALS: BP 130/82; PULSE 60; RESP 16; O2SAT 100
[2017-05-16] MEDS: PHENYTOIN SODIUM 100 MG CAP PO SCH (18:06)
[2017-05-16 18:33] VITALS: BP 88/53; PULSE 61; RESP 16; O2SAT 100
[2017-05-16] MEDS ORDERED: ACETAMINOPHEN 325 MG TAB PO PRN (19:30)
[2017-05-16] MEDS ORDERED: MAGNESIUM HYDROXIDE SUSP 30 ML CUP PO PRN (19:30)
[2017-05-16] MEDS ORDERED: ALUMINUM/MAGNESIUM/SIMETH 30 ML CUP PO PRN (19:30)
[2017-05-16 20:02] VITALS: BP 116/73; PULSE 66; RESP 16; TEMP 97.7; O2SAT 100
[2017-05-16] MEDS: busPIRone HCL 5 MG TAB PO SCH (20:46)
[2017-05-16] MEDS: REMOVE OLD NICOTINE PATCH T-DERMAL SCH (20:46)
[2017-05-17 06:21] VITALS: BP 107/60; PULSE 47; RESP 18; TEMP 97.7; O2SAT 96
[2017-05-17 08:44] LABS: HDL CHOLESTEROL 35.6 MG/DL (40.0-60.0); LDL CHOLESTEROL 112 MG/DL (0-99)
[2017-05-17] MEDS: PHENYTOIN SODIUM 100 MG CAP PO SCH ×3 (09:48→18:28)
[2017-05-17] MEDS: REMOVE OLD NICOTINE PATCH T-DERMAL SCH (09:48)
[2017-05-17] MEDS: NICOTINE 21 MG/24 HR PATCH T-DERMAL SCH (09:48)
[2017-05-17 11:16] LABS: HEMOGLOBIN A1b 1.6 %; HEMOGLOBIN Ao 85.3 %; HEMOGLOBIN P3 3.7 %
[2017-05-17] MEDS: busPIRone HCL 5 MG TAB PO SCH (12:19)
[2017-05-17] MEDS: FLUoxetine HCL 20 MG CAP PO SCH (12:20)
--- NOTE | 2017-05-17 12:58 | EKG ---
Date Performed: 05/17/2017 Time Performed: 10:32:13 PTAGE: 47 years EKG: SINUS BRADYCARDIA BORDERLINE ECG PREVIOUS TRACING : 03/30/2017 06.31 Slight nonspecific T-wave abnormality, but no change from t he prior tracing. DOCTOR: Alexander Tripathi Interpretating Date/Time 05/17/2017 13:51:00
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
[2017-05-17] MEDS ORDERED: hydrOXYzine HCL 50 MG TAB PO PRN (14:00)
[2017-05-17 17:11] VITALS: BP 117/56; PULSE 50; RESP 16; TEMP 98.2; O2SAT 99
[2017-05-17] MEDS: busPIRone HCL 10 MG TAB PO SCH (18:28)
[2017-05-18 06:10] VITALS: BP 126/75; PULSE 60; RESP 16; TEMP 97.6; O2SAT 98
[2017-05-18] MEDS: FLUoxetine HCL 20 MG CAP PO SCH (09:05)
[2017-05-18] MEDS: PHENYTOIN SODIUM 100 MG CAP PO SCH ×3 (09:06→18:36)
[2017-05-18] MEDS: busPIRone HCL 10 MG TAB PO SCH ×3 (09:06→18:37)
[2017-05-18] MEDS: NICOTINE 21 MG/24 HR PATCH T-DERMAL SCH (09:07)
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
[2017-05-18 18:00] VITALS: BP 108/59; PULSE 63; RESP 18; TEMP 98.1
[2017-05-18] MEDS: REMOVE OLD NICOTINE PATCH T-DERMAL SCH (20:32)
[2017-05-18] MEDS: QUEtiapine FUMARATE 25 MG TAB PO SCH (20:32)
[2017-05-19] MEDS: FLUoxetine HCL 20 MG CAP PO SCH (09:00)
[2017-05-19] MEDS: PHENYTOIN SODIUM 100 MG CAP PO SCH ×3 (09:00→18:08)
[2017-05-19] MEDS: NICOTINE 21 MG/24 HR PATCH T-DERMAL SCH (09:04)
[2017-05-19] MEDS: busPIRone HCL 10 MG TAB PO SCH ×3 (09:26→18:08)
[2017-05-19] MEDS ORDERED: FLUO20CA12 PO (15:38)
[2017-05-19] MEDS ORDERED: BUSP10TA PO (15:38)
[2017-05-19] MEDS ORDERED: QUET1TAB7 PO (15:38)
[2017-05-19] MEDS ORDERED: DILA100C PO (15:38)
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
[2017-05-19] MEDS: REMOVE OLD NICOTINE PATCH T-DERMAL SCH (21:00)
[2017-05-19] MEDS: QUEtiapine FUMARATE 25 MG TAB PO SCH (21:00)
[2017-05-20 06:07] VITALS: BP 104/64; PULSE 70; RESP 16; TEMP 97; O2SAT 98
[2017-05-20] MEDS: PHENYTOIN SODIUM 100 MG CAP PO SCH (08:20)
[2017-05-20] MEDS: NICOTINE 21 MG/24 HR PATCH T-DERMAL SCH (08:21)
[2017-05-20] MEDS: FLUoxetine HCL 20 MG CAP PO SCH (08:21)
[2017-05-20] MEDS: busPIRone HCL 10 MG TAB PO SCH (08:21)
--- NOTE | 2017-05-20 11:33 | HHI.PYPN ---
Subjective Remarks Patient was seen today for psychiatric reevaluation, patient is ready to be discharged, she denies depressive symptoms, she denies anxiety, she denies anhedonia, hopelessness, helplessness, she denies suicidal and homicidal ideation, she denies visual and auditory hallucinations. Patient is oriented 3 , attention deficit, no gross cognitive impairment present. Patient says that she is committed to continue her psychiatric care as an outpatient. She is compliant with medications, no significant side effects. Review of Systems Other No somatic complaints Objective Alert: Yes [place]: Person, Place, Date, Situation Mood: Calm Affect: Appropriate Memory Intact: Immediate, Recent, Remote Hallucinations: Other (no hallucinations) Delusions: No Delusion Type: Other (no elicited) Suicidal: Ideation (no SI) Homicidal: Ideation (no HI) Insight/Judgment Improved Vitals/IOs Vital Signs Date Time Temp Pulse Resp B/P (MAP) Pulse Ox O2 Delivery O2 Flow Rate FiO2 05/20/17 06:07 97.0 70 16 104/64 (77) 98 05/16/17 18:33 Room Air Assessment & Plan Problem List: (1) Bipolar disorder, now depressed ICD Codes: F31.30 - Bipolar disorder, current episode depressed, mild or moderate severity, unspecified Status: Acute Assessment & Plan Estimated LOS: days Justification for Cont. Inpt. Patient does not need to continue psychiatric hospitalization. Patient will be discharged. She will continue psychiatric care as an outpatient. Prescriptions will be provided. Patient was extensively educated about the importance of avoiding illicit drugs. Jonathan Nelson MD May 20, 2017 11:33
== END 2017-05-20 09:34 | disposition home or self-care (01) | DRG 885 ==
LOC: NEPC 11:59 → NEDA 05-16 16:58 → H260 05-16 18:29
PROVIDERS: ADMIT Psychiatry & Neurology Psychiatry; ATTEND Psychiatry & Neurology Psychiatry
DX: F31.30 Bipolar disorder, current episode depressed, mild or moderate severity, unspecified (principal); R45.851 Suicidal ideations; E11.9 Type 2 diabetes mellitus without complications; F60.3 Borderline personality disorder; F43.10 Post-traumatic stress disorder, unspecified; Z62.810 Personal history of physical and sexual abuse in childhood; F17.210 Nicotine dependence, cigarettes, uncomplicated; E87.6 Hypokalemia; F43.21 Adjustment disorder with depressed mood; F19.90 Other psychoactive substance use, unspecified, uncomplicated; I10 Essential (primary) hypertension; J40 Bronchitis, not specified as acute or chronic; Z81.8 Family history of other mental and behavioral disorders; Z91.5 Personal history of self-harm
CPT/HCPCS: 80053; 80061; 80307; 83036; 84703; 85025; 93005

== ENCOUNTER 2017-11-27 20:45 | Emergency (ER) | payer MEDICARE, OTHER ==
[~2017-11-27] VITALS: Ht 172.7 cm; Wt 77.0 kg
[~2017-11-27 20:45] MED LIST changes: +BUSP10TA PO; -CLON1 PO; +DILA100C PO; +DOXY100C PO; +FLUO20CA12 PO; -GABA600T PO; -PROZ20CA11 PO; +QUET1TAB7 PO
[2017-11-27 21:02] VITALS: BP 128/64; PULSE 85; RESP 18; TEMP 98.5; O2SAT 99
[2017-11-27] MEDS ORDERED: DOXY100C PO (21:56)
[2017-11-27] MEDS ORDERED: CLEO300C2 PO (21:56)
[2017-11-27] MEDS ORDERED: DOXYCYCLINE HYCLATE 100 MG CAP PO ONE (22:00)
[2017-11-27] MEDS ORDERED: CLINDAMYCIN 150 MG CAP PO ONE (22:00)
--- NOTE | 2017-11-27 22:03 | PD ---
HPI Chief Complaint: Skin Problem Time Seen by Provider: 21:24 Travel History International Travel<30 days: No Contact w/Intl Traveler<30days: No Traveled to known affect area: No History of Present Illness HPI 47-year-old white female presents emergency department with complaints of a abscess to her left forearm from IV drug abuse. She states this is been present now for the past week. She went to [facility] 2 days ago but she refused to have an incision and drainage performed that she left without getting treatment. She states that it opened and started draining yesterday. It has become increasingly red, swollen and painful. She denies any fever chills. She does report a red streak in her arm. Up-to-date with immunizations. PFSH Past Medical History Hx Anticoagulant Therapy: No Bipolar Disorder: Yes Anxiety: Yes Depression: Yes Cancer: No Cardiovascular Problems: Yes Chemotherapy: No Cerebrovascular Accident: No Diabetes: Yes Patient Takes Glucophage: No Diminished Hearing: No Endocrine: Yes Gastrointestinal Disorders: No Genitourinary: No Headaches: Yes (Migraines) Hypertension: Yes Immune Disorder: No Implanted Vascular Access Dvce: No Musculoskeletal: Yes Neurologic: Yes Psychiatric: Yes Reproductive: No Respiratory: Yes (PNEUMONIA) Immunizations Current: Yes Migraines: Yes Pneumonia: Yes Seizures: Yes ?: Not Menopausal: Yes : 3 Para: 2 Tubal Ligation: Yes Past Surgical History Section: Yes (X 1) Gynecologic Surgery: Yes (HYSTERECTOMY, TUBAL LIGATION) Hysterectomy: Yes Other Surgery: Yes Social History Alcohol Use: No Tobacco Use: Yes (<PACK A DAY ) Substance Use: Yes (IV DRUG USE) Allergies-Medications (Allergen,Severity, Reaction): Coded Allergies: aspirin (Unverified Allergy, Severe, Anaphylaxis, 11/27/17) Sulfa (Sulfonamide Antibiotics) (Unverified Allergy, Mild, Rash, 11/27/17) rofecoxib (Unverified Allergy, Mild, Rash, 11/27/17) tramadol (Unverified Allergy, Mild, Rash, 11/27/17) *MDRO Multi-Drug Resistant Organism (Verified Adverse Reaction, Unknown, ) MRSA (blood)-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 MRSA Shoulder wound 04/2016; MRSA (arm-06/22/16 & 07/23/16) MRSA (hand)-01/05/17 Reported Meds & Prescriptions Reported Meds & Active Scripts Active Cleocin (Clindamycin HCl) 300 Mg Cap 300 Mg PO Q6H 7 Days Doxycycline Hyclate 100 Mg Cap 100 Mg PO BID Quetiapine (Quetiapine Fumarate) 25 Mg Tab 50 Mg PO HS 30 Days Buspirone (Buspirone HCl) 10 Mg Tab 20 Mg PO TID Dilantin (Phenytoin Extended) 100 Mg Cap 100 Mg PO TID Fluoxetine (Fluoxetine HCl) 20 Mg Capsule 20 Mg PO DAILY Reported Doxycycline Hyclate 100 Mg Cap 100 Mg PO BID Review of Systems Except as stated in HPI: all other systems reviewed are Neg Physical Exam Narrative GENERAL: This is a well-nourished, well-developed patient, in no apparent distress. SKIN: Patient has a large fluctuant abscess to the left mid volar forearm. There is surrounding erythema, tenderness and mild warmth. This measures approximately 4 x 6 cm. I do not see any obvious lymphangitic streaking. HEAD: Atraumatic. Normocephalic. EYES: PERRL, EOMI, no discharge or injection. No scleral icterus. EARS: Clear NOSE: Nasal turbinates appear normal. THROAT: Mucosa pink and moist. Airway patent. NECK: Trachea midline. supple, moves head freely. LUNGS: Clear to auscultation. CV: Regular in rhythm. ABDOMEN: Soft nontender. EXT: No clubbing cyanosis. There is a abscess to the left mid volar forearm with mild edema. Data Data Last Documented VS Vital Signs Date Time Temp Pulse Resp B/P (MAP) Pulse Ox O2 Delivery O2 Flow Rate FiO2 11/27/17 21:02 98.5 85 18 128/64 (85) 99 Orders Orders Doxycycline (Vibramycin) (11/27/17 22:00) Clindamycin (Cleocin) (11/27/17 22:00) Ed Discharge Order (11/27/17 21:54) MDM Medical Decision Making Medical Screen Exam Complete: Yes Emergency Medical Condition: Yes Medical Record Reviewed: Yes Differential Diagnosis MDM: High Differential diagnoses: Abscess, folliculitis, cellulitis, lymphangitis, abrasion, contact dermatitis Narrative Course An incision and drainage has been performed. Patient is given doxycycline 100 mg and clindamycin 300 mg p.o. This is left forearm abscess, IV drug abuse Procedures Procedure Narrative I&D abscess: After the risks and benefits were discussed the following procedure was performed. The skin is prepped and draped in the usual sterile fashion using Betadine. The abscess is anesthetized with 1% lidocaine. After adequate anesthesia, an 11 blade scalpel is used to make a 1.5 centimeter central incision. Perulant material is expressed. Quarter-inch Brook drain placed within the wound. A clean dressing is applied. The patient tolerated the procedure well. There was no complications. Follow-up instructions were given to the patient. Diagnosis Primary Impression: Abscess of left forearm Additional Impression: IV drug abuse Patient Instructions: General Instructions Departure Forms: Tests/Procedures, Work Release Special Instructions: No work 1-2 days. Additional Instructions: Rest. Elevation. keep clean and dry. Keep your dressing on and in place for next 2 days. Then removed the dressing and perform local wound care with soap, water, Neosporin. The packing will fall out with them dressing change. Doxycycline and clindamycin. Follow-up with a primary care doctor in 3-5 days Return to the ER for any problems. Med/Other Pt SpecificInfo: Prescription(s) given, Wound Care Scripts Clindamycin (Cleocin) 300 Mg Cap 300 MG PO Q6H for Infection for 7 Days, #28 CAP 0 Refills Prov: Brandon Smith MD 11/27/17 Doxycycline Hyclate (Doxycycline Hyclate) 100 Mg Cap 100 MG PO BID for Infection, #20 CAP 0 Refills Prov: Brandon Smith MD 11/27/17 Disposition: 01 DISCHARGE HOME Condition: Stable [place] Nov 27, 2017 22:03
== END 2017-11-27 22:34 | disposition home or self-care (01) ==
LOC: NEPD 20:45
DX: L02.414 Cutaneous abscess of left upper limb (principal); F19.10 Other psychoactive substance abuse, uncomplicated; F17.200 Nicotine dependence, unspecified, uncomplicated; F31.9 Bipolar disorder, unspecified
CPT/HCPCS: 10061

== ENCOUNTER 2018-06-28 00:29 | Inpatient (IN) ==
[2018-06-28] MEDS ORDERED: Sod Chloride 0.9% Inj 1,000 ML IV.SIG ONE (01:17)
[2018-06-28 01:37] LABS: Baso % (Auto) 0.4 % (0.0-2.0); Eos % (Auto) 0.5 % (0.0-4.0); Hematocrit 32.1 % (35.0-46.0); Hemoglobin 11.1 gm/dL (11.6-15.3); Lymph # (Auto) 2.1 th/mm3 (1.0-4.8); Lymph % (Auto) 22.7 % (9.0-44.0); Mean Corpuscular HGB Conc 34.7 % (32.0-36.0); Mean Corpuscular Hemoglobin 28.1 pg (27.0-34.0); Mean Corpuscular Volume 81.1 fL (80.0-100.0); Mean Platelet Volume 7.3 fL (7.0-11.0); Mono # (Auto) 1.1 th/mm3 (0.0-0.9); Mono % (Auto) 12.2 % (0.0-8.0); Neut # (Auto) 5.9 th/mm3 (1.8-7.7); Neut % (Auto) 64.2 % (16.0-70.0); Platelet Count 168 th/mm3 (150-450); Red Blood Count 3.96 mil/mm3 (4.00-5.30); Red Cell Distribution Width 14.8 % (11.6-17.2); White Blood Count 9.2 th/mm3 (4.0-11.0)
[2018-06-28 01:51] LABS: Anion Gap 8 meq/L (5-15); Aspartate Aminotransferase 11 U/L (15-37); Blood Urea Nitrogen 10 mg/dL (7-18); Calcium 8.8 mg/dL (8.5-10.1); Carbon Dioxide 28.1 meq/L (21.0-32.0); Chloride 103 meq/L (98-107); Glucose,Random 166 mg/dL (74-106); Lipase 42 U/L (73-393); Magnesium 1.6 mg/dL (1.5-2.5); Potassium 3.4 meq/L (3.5-5.1); Sodium 139 meq/L (136-145)
--- NOTE | 2018-06-28 01:55 | XR ---
EXAM DATE: 06/28/2018 1:37 AM EST AGE/SEX: 48 years / Female INDICATIONS: Fever. Patient states she was diagnosed with a spinal infection at [facility] May 15, 2018. Pain in right arm and Lumbar spine. CLINICAL DATA: This is the patient's initial encounter. Patient reports that signs and symptoms have been present for 1 day and indicates a pain score of Nonresponsive. MEDICAL/SURGICAL HISTORY: Hypertension. . Tonsillectomy. Ankle, wrist, knee, neck, back. COMPARISON: [facility] [place], CHEST SINGLE AP, 05/02/2016. . FINDINGS: A single AP view of the chest demonstrates the lungs to be symmetrically aerated without evidence of mass, infiltrate or effusion. The cardiomediastinal contours are unremarkable. Osseous structures a re intact. CONCLUSION: Negative examination. Electronically signed by: Derek Rice MD 06/28/2018 1:54 AM EST
[2018-06-28 01:56] LABS: Alanine Aminotransferase 10 U/L (10-53); Alkaline Phosphatase 99 U/L (45-117); Glomerular Filtration Rate Greater Than 89 mL/min (>89); Total Protein 7.8 g/dL (6.4-8.2)
[2018-06-28 01:57] LABS: INR 1.1 Ratio; Prothrombin Time 10.7 sec (9.8-11.6)
[2018-06-28 02:10] LABS: Creatine Kinase 25 U/L (26-192)
--- NOTE | 2018-06-28 02:31 | ED ---
HPI General Chief complaint: Skin/Abscess/Foreign Body Stated complaint: PT states back infection Time Seen by Provider: 06/28/18 01:01 Source: patient History of Present Illness HPI narrative: The patient is a 48 year old female who presents to the [facility] emergency department with a history of reportedly being admitted to the hospital on May [address] [facility] for an infection in her back. She reports that she ended up being transferred to [facility] to be evaluated by a neurosurgeon. She reports that on May 18 she underwent surgery. Since surgery she reports having numbness to the left foot with a left foot drop which she was in PT and OT 4. She denies having any new numbness or tingling to her extremities, or weakness of her extremities. She does report having back pain. She reports that since the surgery she has been in the hospital on IV antibiotic. The patient reports that her PICC line infiltrated on Tuesday of this past week and was not removed until Tuesday. She reports that she had a significant amount of pain and swelling to the area associated with redness. She did talk to her soft crab shedder and her soft crab shedder recommended that she go to the [facility]. Under his advice, she left that facility AGAINST MEDICAL ADVICE. She reports that she did go home and smoked some cocaine, however she denies using any IV drugs. She reports that she has not used any IV drugs since May 30, 2017. The patient reports that she has had problems with multiple skin infections and abscesses in the past, however she denies having any history of MRSA, endocarditis, hepatitis, or HIV. The patient reports that she has not had any recent fevers. She reports that she did have nausea and vomiting after smoking cocaine earlier this evening. She denies having any diarrhea. On review of systems otherwise, she denies having any cough, congestion, neck pain, chest pain, shortness of breath, abdominal pain, diarrhea, or urinary symptoms. Related Data Home Medications Medication Instructions Recorded Confirmed clonazepam [Klonopin] 1 mg PO TID 06/28/18 06/28/18 fluoxetine [Prozac] 60 mg PO DAILY 06/28/18 06/28/18 Allergies Allergy/AdvReac Type Severity Reaction Status Date / Time aspirin Allergy Severe Anaphylaxis Unverified 11/27/17 21:04 rofecoxib Allergy Mild Rash Unverified 04/08/18 21:04 Sulfa (Sulfonamide Allergy Mild Rash Unverified 11/27/17 21:04 Antibiotics) tramadol Allergy Mild Rash Unverified 11/27/17 21:04 *MDRO Multi-Drug Resistant AdvReac Unknown Uncoded 11/27/17 21:04 Organism Review of Systems ROS: all other systems reviewed are negative [facility] Medical History Medical History Cocaine use (Acute) Patient denies medical problems (Acute) Spinal abscess (Acute) Surgical History Surgical History History of back surgery (Acute) Family History Family History Father Heart disease Mother Healthy adult Social History Social History Substance History: Active Abuse Second Hand Smoke Exposure: Yes Smoking Status: Current every day smoker Tobacco Type: Cigarettes Packs Per Day: 0.5 Cigarettes Per Day: 10.0 How Often Do You Have a Drink Containing Alcohol: Never Recent Travel in [facility] within the Last 8 Weeks: No Recent Out of Country Travel within the Last 8 Weeks: No Immunization History Tetanus Immunization: <5 Years Exam Const General: cooperative, no acute distress and well developed Nutritional Appearance: well nourished Orientation: alert, awake and oriented x3 HENMT Head: normocephalic and atraumatic Nose: no nasal discharge and no epistaxis Mouth: moist mucous membranes Throat: posterior oropharynx normal and uvula midline Eyes Sclera: normal sclerae Pupils: PERRL Neck Neck: no meningeal signs, trachea midline and no JVD Resp Effort & Inspection: no use of accessory muscles Auscultation: clear to auscultation bilaterally Cardio Rate: tachycardic (Sinus tachycardia in the 1 teens, no pulse deficits to the extremities on simultaneous auscultation and palpation of her radial artery) Rhythm: regular rhythm Heart Sounds: no gallops, no murmurs and no rubs GI Inspection: non-distended Palpation: soft, no hepatosplenomegaly, no guarding, not rigid and nontender Auscultation: normal bowel sounds Back/Spine/Pelvis Back: no CVA tenderness Cervical Spine: No cervical spinal tenderness Thoracic/Lumbar Spine: No thoracic spinal tenderness and No lumbar spinal tenderness Skin General: dry skin (warm) Neuro General: alert, awake, oriented x3 and CN's II-XI intact bilaterally Speech: speech normal Motor: strength 5/5 throughout and no movement abnormalities noted Sensory Exam: no sensory deficits noted and other Extrem General: normal to inspection, no clubbing, no cyanosis and no edema Psych Mood: congruent mood Affect: normal affect Judgment: judgment good Course Consultations Consultation #1: The patient's case including history, pertinent physical examination findings, and laboratory studies were discussed with Dr. Sherman, the neurosugeon. It was agreed that the patient would be admitted to the hospitalist service. Consultation #2: The patient's case including history, pertinent physical examination findings, and laboratory studies were discussed with Dr. Estes. It was agreed that the patient would be admitted to the hospitalist service. Initial Documented Vital Signs Temperature 99.1 F 06/28/18 00:34 Pulse Rate 129 H 06/28/18 00:34 Respiratory Rate 16 06/28/18 00:34 Blood Pressure 134/85 06/28/18 00:34 Pulse Oximetry 98 06/28/18 00:34 Last Documented Vital Signs Temperature 99.1 F 06/28/18 00:34 Pulse Rate 129 H 06/28/18 00:34 Respiratory Rate 16 06/28/18 00:34 Blood Pressure 134/85 06/28/18 00:34 Pulse Oximetry 98 06/28/18 00:34 Medical Decision Making MDM Narrative Medical decision making narrative: During the course of the patient's emergency department visit, the patient's history, examination, and differential diagnosis were reviewed with the patient. The patient was placed on a taper/finisher with oximetry and frequent blood pressure monitoring. The patient had IV access obtained and blood work sent for analysis. A diagnostic evaluation was started regarding the patient's right arm swelling and pain. Records from [facility] will be obtained. The patient was initially provided normal saline 1 L IV fluid bolus, Zosyn 3.375 g IV, vancomycin 1 g IV. The patient's diagnostic studies are remarkable for a white count of 9.2, hemoglobin 11.1, platelets 168 with monocytes 12.2, PT PTT within normal limits , chemistry will for glucose of 166, lactic acid is within normal limits at 0.6 , AST 11, CPK 25, troponin I less than 0.02. Lipase is 42. Sedimentation rate is elevated at 58. Chest x-ray showed no acute abnormality. Right upper extremity ultrasound reveals evidence of a DVT. The patient was started on heparin as a bolus and a drip. CT scan of the lumbar spine revealed discitis and osteomyelitis of the lumbosacral junction. The patient's records from [facility] were obtained. The patient had discitis and osteomyelitis at the lumbosacral junction previously. A call was placed out to the neurosurgeon on-call regarding this patient's case. I did speak to Dr. Sherman regarding this. He recommended that an MRI of the lumbar spine with and without contrast be done later this morning. He requested that the patient be made n.p.o. He requested that the patient have an infectious disease consultation. He will see the patient in consultation. The patient's results were discussed with the patient, including the plan of care. I explained that further testing and/ or monitoring is indicated based on the patient's history, examination, and/ or laboratory findings. Therefore, I recommended admission for additional evaluation. The patient expressed understanding and was agreeable with this plan. The patient was admitted to the hospital in guarded condition and sent to a bed under the care of the [facility] service. Medical Screen Exam Complete: Yes Emergency Medical Condition: Yes Differential Diagnosis Differential Diagnosis: Osteomyelitis, versus discitis, versus right upper extremity DVT, versus cellulitis Medical Records Medical records reviewed: Yes I reviewed the patient's medical records. Lab Data Lab results reviewed: Yes I reviewed the patient's lab results. Result diagrams: 06/28/18 01:25 06/28/18 01:25 Lab Results 06/28/18 06/28/18 06/28/18 Range/Units 01:25 01:25 01:25 WBC 9.2 (4.0-11.0) th/mm3 RBC 3.96 L (4.00-5.30) mil/mm3 Hgb 11.1 L (11.6-15.3) gm/dL Hct 32.1 L (35.0-46.0) % MCV 81.1 (80.0-100.0) fL MCH 28.1 (27.0-34.0) pg MCHC 34.7 (32.0-36.0) % RDW 14.8 (11.6-17.2) % Plt Count 168 (150-450) th/mm3 MPV 7.3 (7.0-11.0) fL Neut % (Auto) 64.2 (16.0-70.0) % Lymph % (Auto) 22.7 (9.0-44.0) % [place] % (Auto) 12.2 H (0.0-8.0) % Eos % (Auto) 0.5 (0.0-4.0) % Baso % (Auto) 0.4 (0.0-2.0) % Neut # (Auto) 5.9 (1.8-7.7) th/mm3 Lymph # (Auto) 2.1 (1.0-4.8) th/mm3 [place] # (Auto) 1.1 H (0.0-0.9) th/mm3 Eos # (Auto) 0.0 (0.0-0.4) th/mm3 Baso # (Auto) 0.0 (0.0-0.2) th/mm3 WBC Differential . Differential Comment Auto diff final ESR (0-20) mm/hr PT 10.7 (9.8-11.6) sec INR 1.1 Ratio APTT 28.0 (23.4-31.7) sec Sodium 139 (136-145) meq/L Potassium 3.4 L (3.5-5.1) meq/L Chloride 103 (98-107) meq/L Carbon Dioxide 28.1 (21.0-32.0) meq/L Anion Gap 8 (5-15) meq/L BUN 10 (7-18) mg/dL Creatinine 0.70 (0.50-1.00) mg/dL Estimated GFR Greater than 89 (>89) mL/min Random Glucose 166 H (74-106) mg/dL Lactic Acid (0.4-2.0) mmol/L Calcium 8.8 (8.5-10.1) mg/dL Magnesium 1.6 (1.5-2.5) mg/dL Total Bilirubin 0.4 (0.2-1.0) mg/dL AST 11 L (15-37) U/L ALT 10 (10-53) U/L Alkaline Phosphatase 99 (45-117) U/L Total Creatine Kinase 25 L (26-192) U/L Troponin I Less than 0.02 L (0.02-0.05) ng/mL Total Protein 7.8 (6.4-8.2) g/dL Albumin 3.0 L (3.4-5.0) g/dL Lipase 42 L (73-393) U/L 06/28/18 06/28/18 Range/Units 01:25 01:25 WBC (4.0-11.0) th/mm3 RBC (4.00-5.30) mil/mm3 Hgb (11.6-15.3) gm/dL Hct (35.0-46.0) % MCV (80.0-100.0) fL MCH (27.0-34.0) pg MCHC (32.0-36.0) % RDW (11.6-17.2) % Plt Count (150-450) th/mm3 MPV (7.0-11.0) fL Neut % (Auto) (16.0-70.0) % Lymph % (Auto) (9.0-44.0) % [place] % (Auto) (0.0-8.0) % Eos % (Auto) (0.0-4.0) % Baso % (Auto) (0.0-2.0) % Neut # (Auto) (1.8-7.7) th/mm3 Lymph # (Auto) (1.0-4.8) th/mm3 [place] # (Auto) (0.0-0.9) th/mm3 Eos # (Auto) (0.0-0.4) th/mm3 Baso # (Auto) (0.0-0.2) th/mm3 WBC Differential Differential Comment ESR 58 H (0-20) mm/hr PT (9.8-11.6) sec INR Ratio APTT (23.4-31.7) sec Sodium (136-145) meq/L Potassium (3.5-5.1) meq/L Chloride (98-107) meq/L Carbon Dioxide (21.0-32.0) meq/L Anion Gap (5-15) meq/L BUN (7-18) mg/dL Creatinine (0.50-1.00) mg/dL Estimated GFR (>89) mL/min Random Glucose (74-106) mg/dL Lactic Acid 0.6 (0.4-2.0) mmol/L Calcium (8.5-10.1) mg/dL Magnesium (1.5-2.5) mg/dL Total Bilirubin (0.2-1.0) mg/dL AST (15-37) U/L ALT (10-53) U/L Alkaline Phosphatase (45-117) U/L Total Creatine Kinase (26-192) U/L Troponin I (0.02-0.05) ng/mL Total Protein (6.4-8.2) g/dL Albumin (3.4-5.0) g/dL Lipase (73-393) U/L Imaging Data Radiologist's impression: Chest X-Ray 06/28/18 01:17 CONCLUSION: Negative examination. Venous Doppler Study 06/28/18 02:04 CONCLUSION: Superficial and deep venous thrombosis involving the right arm Lumbar Spine CT 06/28/18 02:31 CONCLUSION: Discitis and osteomyelitis at the lumbosacral junction. ECG Data Attestation: I personally reviewed and interpreted this ECG as follows: Interpretation: The patient had an EKG done on arrival. The patient's EKG shows a sinus tachycardia with a short IL interval, heart rate of 120, QRS duration 90 ms, QTC 410 ms. Moderate T wave abnormalities are noted, flipped T' s in V1, V2, V3. Discharge Plan Physicians Team ED Provider: Linda Tripathi Primary Care Provider: Primary Care Brianda Moctezuma Attending Provider: Fabien King Other Providers: Maame Whitten ; Luis Sherman Rxs /Orders / Referrals /Forms Prescriptions: No Action clonazepam [Klonopin] 1 mg Tablet 1 mg PO TID RF: 0 fluoxetine [Prozac] 20 mg Capsule 60 mg PO DAILY RF: 0 Status ED Status: Admitted Patient
[2018-06-28] MEDS ORDERED: Vancomycin Inj 1,000 MG in Sodium Chlor 0.9% Inj 250 ML IV.SIG ONE (02:32)
[2018-06-28] MEDS ORDERED: Piperacil/Tazo 3.375 GM Premix 50 ML IV.SIG ONE (02:32)
--- NOTE | 2018-06-28 04:26 | US ---
EXAM DATE: 06/28/2018 4:04 AM EST AGE/SEX: 48 years / Female INDICATIONS: Right arm pain and redness after PICC line infiltration. CLINICAL DATA: This is the patient's initial encounter. Patient reports that signs and symptoms have been present for 1 day and indicates a pain score of 7/10. MEDICAL/SURGICAL HISTORY: Hypertension. Migraines. Pneumonia. Bipolar. Substance abuse. Spi nal abscess. Hysterectomy. Tubal ligation. Back surgery. Right knee surgery. Left ankle surgery. Neck surgery. COMPARISON: No prior exams available for comparison. FINDINGS: The basilic vein is thrombosed. The brachial vein is paired and there is occlusive thrombu s present in portions of one of the 2 channels. The axillary vein subclavian vein and jugular vein ar e patent. Other: None. CONCLUSION: Superficial and deep venous thrombosis involving the right arm Electronically signed by: Derek Rice MD 06/28/2018 4:25 AM EST
[2018-06-28] MEDS ORDERED: Heparin 10,000 UNITS/10 ML Vial (for IV use) IV.PUSH STA (04:33)
--- NOTE | 2018-06-28 04:33 | CT ---
EXAM DATE: 06/28/2018 3:38 AM EST AGE/SEX: 48 years / Female INDICATIONS: Lower back pain, evaluate for osteomyelitis. CLINICAL DATA: This is the patient's initial encounter. Patient reports that signs and symptoms have been present for 1 week and indicates a pain score of 10/10. MEDICAL/SURGICAL HISTORY: . Drug abuse. None. RADIATION DOSE: 31.24 CTDI (mGy) COMPARISON: No prior exams available for comparison. TECHNIQUE: Contiguous axial images were acquired with a multirow detector CT scanner without contras t. Multiplanar reconstructions in the sagittal and coronal plane were also performed. Using automate d exposure control and adjustment of the mA and/or kV according to patient size, radiation dose was k ept as low as reasonably achievable to obtain optimal diagnostic quality images. DICOM format image data is available electronically for review and comparison. FINDINGS: Lumbar spine alignment is satisfactory. There is permeative destructive change involving the endplate s at the lumbosacral junction and there is prominent paraspinal soft tissue density surrounding the d isc space. The appearance is consistent with discitis and osteomyelitis. Abnormal appearance of the p osterior facets may be arthritic or may relate to septic arthritis involving these joints. The disc spaces are otherwise unremarkable. No other areas of suspicious bony deformity. CONCLUSION: Discitis and osteomyelitis at the lumbosacral junction. Electronically signed by: Derek Rice MD 06/28/2018 4:32 AM EST
[2018-06-28] MEDS ORDERED: Vancomycin Consult Pharmacy OTHER PRN (04:48)
[2018-06-28] MEDS ORDERED: Bisacodyl 10 MG Supp RECTAL PRN (04:50)
[2018-06-28] MEDS: Heparin Drip 25,000 UNIT/250 ML BAG IV.CONT PRN (05:01)
[2018-06-28] MEDS ORDERED: Sodium Chloride 0.9% 2 ML Flush PRN IV.FLUSH (05:01)
[2018-06-28] MEDS ORDERED: Potassium Chlor 20 mEq Premix 20 MEQ/100 ML PIGGYBACK IV.SIG ONE (05:34)
--- NOTE | 2018-06-28 05:49 | P.HPIM ---
History of Present Illness Primary Care Physician: No Primary Care Physician History of Present Illness: 48-year-old female with a history of IV drug abuse, multiple abscesses, as well as progression of a lumbar spine abscess/phlegmon compressing left S1 nerve root initially seen at [facility] in early May, having undergone CT- guided drainage (we do not have culture results), subsequently transferred to [facility] on 06/01 where she was reportedly seen by neurosurgery and treated with IV antibiotics. Patient experienced swelling of right upper extremity at site of PICC line, and PICC line was removed 2 days ago. [facility], went home, smoked some crack cocaine and has presented to [facility]. She reports continued severe pain in the low back, as well as right arm. She reports chronic left lower extremity weakness over the past month secondary to spinal abscess/phlegmonshe says this is not worsened recently. She reports continued fevers. Denies any chest pain, shortness of breath. Denies nausea or vomiting. Denies dysuria.. Inpatient Certification: I certify that the inpatient services were ordered in accordance with Medicare regulations governing the order. This includes certification that hospital inpatient services are reasonable and necessary and in the case of services not specified as inpatient-only under 42 CFR 419.22(n), that they are appropriately provided as inpatient services in accordance to with the 2-midnight benchmark under 43 CFR 412.3(e) Review of Systems All other systems reviewed negative except as stated in [facility] History History Provided By: Patient - Medical History Medical History: Medical History (Last Updated 06/28/18 @ 02:30 by Linda Tripathi MD) Cocaine use Patient denies medical problems Spinal abscess - Surgical History Surgical History: Surgical History (Last Reviewed 06/28/18 @ 02:29 by Linda Tripathi MD) History of back surgery - Family History Family History: Family History (Last Updated 06/28/18 @ 05:46 by Richard Estes MD) Father Heart disease Mother Healthy adult - Social History I have reviewed the patient's Social History: Yes - Tobacco History Second Hand Smoke Exposure: Yes Tobacco Use In Past 30 Days: Yes Smoking Status: Current every day smoker Tobacco Type: Cigarettes Packs Per Day: 0.5 Cigarettes Per Day: 10.0 - Alcohol History How Often Do You Have a Drink Containing Alcohol: Never - Substance Use History Substance History: Active Abuse - Travel History Recent Travel in the [place] Within the Last 8 Weeks: No Recent Travel Out of the Country Within the Last 8 Weeks: No - Immunization History Tetanus Immunization: <5 Years Medications and Allergies Active Medications: Active Medications Al Hydroxide/Mg Hydroxide (Milk Of Magnesia Liq) 30 ml PO Q12H PRN PRN Reason: Mild Constipation Bisacodyl (Dulcolax Supp) 10 mg RECTAL DAILY PRN PRN Reason: SEVERE CONSITIPATION Heparin Sodium/Dextrose (Heparin/D5w 25,000 U/250 Ml) 25,000 unit in 250 mls @ 0 mls/hr IV.CONT TITRATE PRN; Protocol PRN Reason: Per Protocol Last Admin: 06/28/18 05:01 Dose: 1,100 units/hr, 11 mls/hr Piperacillin/Tazobactam/Dextrose (Zosyn 4.5 Gm Premix) 4.5 gm in 100 mls @ 200 mls/hr IV.SIG Q6H SELINA Sodium Chloride (Ns Inj) 1,000 mls @ 100 mls/hr IV.CONT .Q10H SELINA Lactulose (Lactulose Liq) 30 ml PO DAILY PRN PRN Reason: SEVERE CONSITIPATION Pharmacy Profile Note (Vancomycin Consult Pharmacy) 1 each OTHER UNSCH PRN PRN Reason: Pharmacy to dose Sennosides (Senokot) 17.2 mg PO Q12H PRN PRN Reason: Moderate Constipation Sodium Chloride (Ns Flush) 2 ml IV.FLUSH BID SELINA Sodium Chloride (Ns Flush) 2 ml IV.FLUSH PRN PRN PRN Reason: FLUSH AFTER USING IV ACCESS Allergies Allergy/AdvReac Type Severity Reaction Status Date / Time aspirin Allergy Severe Anaphylaxis Unverified 11/27/17 21:04 rofecoxib Allergy Mild Rash Unverified 11/27/17 21:04 Sulfa (Sulfonamide Allergy Mild Rash Unverified 11/27/17 21:04 Antibiotics) tramadol Allergy Mild Rash Unverified 11/27/17 21:04 *MDRO Multi-Drug Resistant AdvReac Unknown Uncoded 11/27/17 21:04 Organism Home Medications Medication Instructions Recorded Confirmed Type clonazepam [Klonopin] 1 mg PO TID 06/28/18 06/28/18 History fluoxetine [Prozac] 60 mg PO DAILY 06/28/18 06/28/18 History Exam Vital signs: Vital Signs 06/28/18 00:34 Temperature 99.1 F Pulse Rate 129 H Respiratory Rate 16 Blood Pressure 134/85 Pulse Oximetry 98 Intake & Output 06/27/18 06/27/18 06/28/18 06:59 18:59 06:59 Intake Total 1000 / 1000 Balance 1000 / 1000 Weight 63.503 kg Intake: IV 1000 / 1000 NS Inj 1,000 ML @ Wide Open IV. 1000 / 1000 SIG BOLUS ONE Rx#:[id number] Narrative: GENERAL: Patient lying in bed. Appears comfortable. Alert and oriented x3. SKIN: Warm and dry. HEAD: Atraumatic. Normocephalic. EYES: Pupils equal and round. No scleral icterus. No injection or drainage. ENT: No nasal bleeding or discharge. Mucous membranes pink and moist. NECK: Trachea midline. No JVD. CARDIOVASCULAR: Regular rate and rhythm. RESPIRATORY: No accessory muscle use. Clear to auscultation. Breath sounds equal bilaterally. GASTROINTESTINAL: Abdomen soft, non-tender, nondistended. Hepatic and splenic margins not palpable. MUSCULOSKELETAL: Extremities without clubbing, cyanosis, or edema. No obvious deformities. Erythema, swelling with no broken skin of the left medial arm from mid forearm to mid upper arm. Posterior back with no scars noted. Low back tattoo however. NEUROLOGICAL: Awake and alert. No obvious cranial nerve deficits. Motor grossly within normal limits. Patient is protecting right arm for movement, and movement is limited by pain. Patient has 4 out of 5 left lower extremity strength, 5 out of 5 right lower extremity strength. PSYCHIATRIC: Appropriate mood and affect; insight and judgment normal. Results - Labs CBC & Chem 7: 06/28/18 01:25 06/28/18 01:25 Labs: Short CBC 06/28/18 Range/Units 01:25 WBC 9.2 (4.0-11.0) th/mm3 Hgb 11.1 L (11.6-15.3) gm/dL Hct 32.1 L (35.0-46.0) % Plt Count 168 (150-450) th/mm3 BMP 06/28/18 01:25 Sodium 139 Potassium 3.4 L Chloride 103 Carbon Dioxide 28.1 BUN 10 Creatinine 0.70 Calcium 8.8 Cardiac Enzymes 06/28/18 Range/Units 01:25 Total Creatine Kinase 25 L (26-192) U/L Troponin I Less than 0.02 L (0.02-0.05) ng/mL Liver Function 06/28/18 Range/Units 01:25 Total Bilirubin 0.4 (0.2-1.0) mg/dL AST 11 L (15-37) U/L ALT 10 (10-53) U/L Alkaline Phosphatase 99 (45-117) U/L Albumin 3.0 L (3.4-5.0) g/dL - Imaging Impressions Chest X-Ray 06/28/18 01:17 CONCLUSION: Negative examination. Venous Doppler Study 06/28/18 02:04 CONCLUSION: Superficial and deep venous thrombosis involving the right arm Lumbar Spine CT 06/28/18 02:31 CONCLUSION: Discitis and osteomyelitis at the lumbosacral junction. Caprini VTE Risk Assessment Caprini VTE Risk Assessment: Moderate/High Risk (score >= 2) Caprini Risk Assessment Model: Point Value = 1 Point Value = 2 Point Value = 3 Point Value = 5 Age 41-60 Minor surgery BMI > 25 kg/m2 Swollen legs Varicose veins or History of unexplained or recurrent spontaneous Oral contraceptives or hormone replacement Sepsis (< 1 month) Serious lung disease, including pneumonia (< 1 month) Abnormal pulmonary function Acute myocardial infarction Congestive heart failure (< 1 month) History of inflammatory bowel disease Medical patient at bed rest Age 61-74 Arthroscopic surgery Major open surgery (> 45 min) Laparoscopic surgery (> 45 min) Malignancy Confined to bed (> 72 hours) Immobilizing plaster cast Central venous access Age >= 75 History of VTE Family history of VTE Factor V Leiden Prothrombin [id number] Lupus anticoagulant Anticardiolipin antibodies Elevated serum homocysteine Heparin-induced thrombocytopenia Other congenital or acquired thrombophilia Stroke (< 1 month) Elective arthroplasty Hip, pelvis, or leg fracture Acute spinal cord injury (< 1 month) Prophylaxis Regimen: Total Risk Factor Score Risk Level Prophylaxis Regimen 0-1 Low Early ambulation 2 Moderate Order ONE of the following: *Sequential Compression Device (SCD) *Heparin 5000 units SQ BID 3-4 Higher Order ONE of the following medications: *Heparin 5000 units SQ TID *Enoxaparin/Lovenox 40 mg SQ daily (WT < 150 kg, CrCl > 30 mL/min) *Enoxaparin/Lovenox 30 mg SQ daily (WT < 150 kg, CrCl > 10-29 mL/min) *Enoxaparin/Lovenox 30 mg SQ BID (WT < 150 kg, CrCl > 30 mL/min) AND/OR *Sequential Compression Device (SCD) 5 or more Highest Order ONE of the following medications: *Heparin 5000 units SQ TID (Preferred with Epidurals) *Enoxaparin/Lovenox 40 mg SQ daily (WT < 150 kg, CrCl > 30 mL/min) *Enoxaparin/Lovenox 30 mg SQ daily (WT < 150 kg, CrCl > 10-29 mL/min) *Enoxaparin/Lovenox 30 mg SQ BID (WT < 150 kg, CrCl > 30 mL/min) AND *Sequential Compression Device (SCD) Assessment and Plan - Plan //Acute lumbosacral discitis/osteomyelitis -Suspected secondary to IV drug use. as seen on CT lumbar spine. -Status post workup and treatment at [facility]. Requesting further records and imaging -Left lower extremity weakness which patient says is unchanged since last month. -ESR elevated in the 50s. Blood cultures ordered in the ER. -Broad-spectrum antibiotics. The ER has discussed with neurosurgery who wants patient n.p.o. MRI ordered. ID consulted. //Right upper extremity DVT. As seen on ultrasound. Likely secondary to recent PICC line which was removed 2 days prior to admission at [facility]. Patient denies any chest pain. Tachycardia on admission has resolved , now in the 80s. Will start on heparin drip. //Tachycardia on admission. Has improved. Currently 88. Likely secondary to crack cocaine use /Left lower extremity weakness. This is old since last month as per patient. Will order PT evaluation. //Cocaine abuse. Patient needs to be counseled on cessation. //Hypokalemia. 3.4. Mild replace and monitor. Discussed Condition With: Patient, nurse, ED physician.
[2018-06-28] MEDS: Sod Chloride 0.9% Inj 1,000 ML IV.CONT SCH ×2 (08:19→20:07)
[2018-06-28] MEDS ORDERED: Piperacil/Tazo 4.5 GM Premix 4.5 GM/100 ML BAG IV.SIG SCH (09:00)
--- NOTE | 2018-06-28 10:18 | P.CONNS ---
History of Present Illness Service: Medicine Primary Care Provider: No Primary Care Physician Chief Complaint: Osteodiscitis History of Present Illness: 48yoF who has been admitted and treated at [facility] for presumed osteo/discitis at L5/S1 s/p CT guided biopsy and treatment with IV antibiotics. Discharged herself two days ago, smoked cocaine at home, and returned with a DVT in her arm. By report, Neurosurgery was following outside and we are consulted for comanagement here. She has by report a left foot drop which is stable and longstanding. CT Lumbar performed today, but MRI Lumbar refused by patient due to back pain. [facility] - History History Provided By: Patient - Medical History Medical History: Medical History (Last Reviewed 06/28/18 @ 09:01 by Colt Lucas) Cocaine use Patient denies medical problems Spinal abscess - Surgical History Surgical History: Surgical History (Last Reviewed 06/28/18 @ 09:01 by Colt Lucas) History of back surgery - Family History Family History: Family History (Last Updated 06/28/18 @ 05:46 by Richard Estes MD) Father Heart disease Mother Healthy adult - Tobacco History Second Hand Smoke Exposure: Yes Tobacco Use In Past 30 Days: Yes Smoking Status: Current every day smoker Tobacco Type: Cigarettes Packs Per Day: 0.5 Cigarettes Per Day: 10.0 - Alcohol History How Often Do You Have a Drink Containing Alcohol: Never - Substance Use History Substance History: Active Abuse - Travel History Recent Travel in the [place] Within the Last 8 Weeks: No Recent Travel Out of the Country Within the Last 8 Weeks: No - Immunization History Tetanus Immunization: <5 Years Medications and Allergies Active Medications: Active Medications Al Hydroxide/Mg Hydroxide (Milk Of Jer Liluisa) 30 ml PO Q12H PRN PRN Reason: Mild Constipation Bisacodyl (Dulcolax Supp) 10 mg RECTAL DAILY PRN PRN Reason: SEVERE CONSITIPATION Heparin Sodium/Dextrose (Heparin/D5w 25,000 U/250 Ml) 25,000 unit in 250 mls @ 0 mls/hr IV.CONT TITRATE PRN; Protocol PRN Reason: Per Protocol Last Admin: 06/28/18 05:01 Dose: 1,100 units/hr, 11 mls/hr Piperacillin/Tazobactam/Dextrose (Zosyn 4.5 Gm Premix) 4.5 gm in 100 mls @ 200 mls/hr IV.SIG Q6H SELINA Sodium Chloride (Ns Inj) 1,000 mls @ 100 mls/hr IV.CONT .Q10H SELINA Last Admin: 06/28/18 08:19 Dose: 100 mls/hr Vancomycin HCl 1,250 mg/ (Sodium Chloride) 262.5 mls @ 250 mls/hr IV.SIG Q12H SELINA Lactulose (Lactulose Liq) 30 ml PO DAILY PRN PRN Reason: SEVERE CONSITIPATION Miscellaneous Information ([facility] Ordered Lab Info) 0 each OTHER ONCE ONE Stop: 06/30/18 04:46 Pharmacy Profile Note (Vancomycin Consult Pharmacy) 1 each OTHER UNSCH PRN PRN Reason: Pharmacy to dose Sennosides (Senokot) 17.2 mg PO Q12H PRN PRN Reason: Moderate Constipation Sodium Chloride (Ns Flush) 2 ml IV.FLUSH BID SELINA Sodium Chloride (Ns Flush) 2 ml IV.FLUSH PRN PRN PRN Reason: FLUSH AFTER USING IV ACCESS Allergies Allergy/AdvReac Type Severity Reaction Status Date / Time aspirin Allergy Severe Anaphylaxis Verified 06/28/18 07:43 rofecoxib Allergy Mild Rash Verified 06/28/18 07:43 Sulfa (Sulfonamide Allergy Mild Rash Verified 06/28/18 07:43 Antibiotics) tramadol Allergy Mild Rash Verified 06/28/18 07:43 mrsa AdvReac Irritation Uncoded 06/28/18 07:44 Home Medications Medication Instructions Recorded Confirmed Type clonazepam [Klonopin] 1 mg PO TID 06/28/18 06/28/18 History fluoxetine [Prozac] 60 mg PO DAILY 06/28/18 06/28/18 History Exam Vital signs: Vital Signs 06/28/18 00:34 06/28/18 10:04 Temperature 99.1 F 98.8 F Pulse Rate 129 H 116 H Respiratory Rate 16 20 Blood Pressure 134/85 130/74 Pulse Oximetry 98 Intake & Output 06/27/18 06/28/18 06/28/18 18:59 06:59 18:59 Intake Total 1050 / 1050 250 / 250 Balance 1050 / 1050 250 / 250 Weight 63.503 kg Intake: IV 1050 / 1050 250 / 250 Zosyn 3.375 GM Premix 50 ML @ 50 / 50 100 mls/hr IV.SIG ONCE ONE Rx#: [id number] NS Inj 1,000 ML @ Wide Open IV. 1000 / 1000 SIG BOLUS ONE Rx#:[id number] Narrative: A&O x3 CN II-XII intact Motor 5/5 UE LE: right 5/5; left df 3/5, pf 3/5, EHL 4/5; knee extension 5; hip extension/ flexion 5/5 sensation patchy decreased left sole of foot but she states this is baseline she is not very cooperative with exam Results - Laboratory Findings CBC and BMP: 06/28/18 01:25 06/28/18 01:25 Abnormal lab findings: Abnormal Labs 06/28/18 06/28/18 06/28/18 01:25 01:25 01:25 RBC 3.96 L Hgb 11.1 L Hct 32.1 L Harding % (Auto) 12.2 H [place] # (Auto) 1.1 H ESR 58 H Potassium 3.4 L Random Glucose 166 H AST 11 L Total Creatine Kinase 25 L Troponin I Less than 0.02 L Albumin 3.0 L Lipase 42 L Assessment and Plan - Plan 48yoF with history of IVDA and osteomyelitis/discitis at L5/S1, treated at [facility] x >1-2 months, self-discharged and readmitted here with DVT in the arm. Plan: MRI L-spine with contrast when available Her neurologic deficits seem stable compared to her history and by her report ( left foot drop) Agree with Admission to Medicine, Consult with ID, blood cultures, ESR/CRP, follow outside cultures vs. repeat needle biopsy. Anticoagulation for DVT. She may eat as it appears she refused the MRI this morning. Will review when becomes available.
[2018-06-28 11:31] LABS: Activated Partial Thrombo Time 28.8 sec (23.4-31.7); INR 1.1 Ratio; Prothrombin Time 10.7 sec (9.8-11.6)
--- NOTE | 2018-06-28 11:50 | P.PNIM ---
Subjective Interval history: in no acute distress. complaining of pain to the right arm and the back. no fever. d/w the RN. Physical Exam Vital signs: Vital Signs 06/28/18 00:34 06/28/18 10:04 Temperature 99.1 F 98.8 F Pulse Rate 129 H 116 H Respiratory Rate 16 20 Blood Pressure 134/85 130/74 Pulse Oximetry 98 Intake & Output 06/27/18 06/28/18 06/28/18 18:59 06:59 18:59 Intake Total 1050 / 1050 250 / 250 Balance 1050 / 1050 250 / 250 Weight 63.503 kg Intake: IV 1050 / 1050 250 / 250 Zosyn 3.375 GM Premix 50 ML @ 50 / 50 100 mls/hr IV.SIG ONCE ONE Rx#: [id number] NS Inj 1,000 ML @ Wide Open IV. 1000 / 1000 SIG BOLUS ONE Rx#:[id number] - Constitutional no acute distress - Routine Respiratory Exam Present: CTA bilaterally - Routine Cardiovascular Exam Present: RRR - Routine Abdominal Exam Present: soft - Routine Extremities Exam Comments: swelling/ erythema of the right arm. - Routine Neurological Exam Present: alert, oriented X3 Results - Labs CBC & Chem 7: 06/28/18 01:25 06/28/18 01:25 Laboratory Results - last 24 hr 06/28/18 06/28/18 06/28/18 01:25 01:25 01:25 WBC 9.2 RBC 3.96 L Hgb 11.1 L Hct 32.1 L MCV 81.1 MCH 28.1 MCHC 34.7 RDW 14.8 Plt Count 168 MPV 7.3 Neut % (Auto) 64.2 Lymph % (Auto) 22.7 [place] % (Auto) 12.2 H Eos % (Auto) 0.5 Baso % (Auto) 0.4 Neut # (Auto) 5.9 Lymph # (Auto) 2.1 [place] # (Auto) 1.1 H Eos # (Auto) 0.0 Baso # (Auto) 0.0 WBC Differential . Differential Comment Auto diff final ESR PT 10.7 INR 1.1 APTT 28.0 Sodium 139 Potassium 3.4 L Chloride 103 Carbon Dioxide 28.1 Anion Gap 8 BUN 10 Creatinine 0.70 Estimated GFR Greater than 89 Random Glucose 166 H Lactic Acid Calcium 8.8 Magnesium 1.6 Total Bilirubin 0.4 AST 11 L ALT 10 Alkaline Phosphatase 99 Total Creatine Kinase 25 L Troponin I Less than 0.02 L Total Protein 7.8 Albumin 3.0 L Lipase 42 L 06/28/18 06/28/18 06/28/18 01:25 01:25 10:35 WBC RBC Hgb Hct MCV MCH MCHC RDW Plt Count MPV Neut % (Auto) Lymph % (Auto) [place] % (Auto) Eos % (Auto) Baso % (Auto) Neut # (Auto) Lymph # (Auto) [place] # (Auto) Eos # (Auto) Baso # (Auto) WBC Differential Differential Comment ESR 58 H PT 10.7 INR 1.1 APTT 28.8 Sodium Potassium Chloride Carbon Dioxide Anion Gap BUN Creatinine Estimated GFR Random Glucose Lactic Acid 0.6 Calcium Magnesium Total Bilirubin AST ALT Alkaline Phosphatase Total Creatine Kinase Troponin I Total Protein Albumin Lipase - Imaging Impressions Chest X-Ray 06/28/18 01:17 CONCLUSION: Negative examination. Venous Doppler Study 06/28/18 02:04 CONCLUSION: Superficial and deep venous thrombosis involving the right arm Lumbar Spine CT 06/28/18 02:31 CONCLUSION: Discitis and osteomyelitis at the lumbosacral junction. Assessment and Plan - Plan Acute lumbosacral discitis/osteomyelitis -Suspected secondary to IV drug use. as seen on CT lumbar spine. -Status post workup and treatment at [facility]. Requesting further records and imaging -Left lower extremity weakness which patient says is unchanged since last month. -ESR elevated in the 50s. Blood cultures ordered in the ER. -Broad-spectrum antibiotics. -neurosurgery consult appreciated; MRI lumbar spine pending. Right upper extremity DVT. As seen on ultrasound. Likely secondary to recent PICC line which was removed 2 days prior to admission at [facility]. Patient denies any chest pain. Tachycardia on admission has resolved, now in the 80s. - continue with Heparin drip for now. Tachycardia on admission. Has improved. Currently 88. Likely secondary to crack cocaine use Hypokalemia. replaced.
[2018-06-28] MEDS: Sodium Chloride 0.9% 2 ML Flush BID IV.FLUSH SCH ×2 (12:09→22:03)
[2018-06-28 12:12] LABS: Bilirubin,Urine Negative (Negative); Clarity,Urine Clear (Clear); Color,Urine Yellow (Yellw/Straw); Glucose,Urine (UA) Negative (Negative); Leukocyte Esterase,Urine Negative (Negative); Nitrite,Urine Negative (Negative); Specific Gravity,Urine 1.019 (1.002-1.035); Squamous Epithelial Cell,Urine 1 /hpf (0-5)
[2018-06-28 12:15] LABS: Amphetamine Screen,Urine Neg (Neg); Barbiturate Screen,Urine Neg (Neg); Cannabinoid Screen,Urine Neg (Neg); Cocaine Screen,Urine Pos (Neg)
[2018-06-28 12:19] LABS: Opiate Screen,Urine Pos (Neg)
--- NOTE | 2018-06-28 13:08 | P.CONID ---
History of Present Illness Service: Infectious disease Consult date: 06/28/18 Requesting Physician: Linda Tripathi Reason for Consult: Evaluate patient with discitis, osteomyelitis lumbosacral junction Primary Care Provider: No Primary Care Physician Chief Complaint: Osteodiscitis History of Present Illness: Patient seen and examined. Records reviewed. I was able to get some information from Dr. Rodriguez (ID) who saw her at [facility]. Patient is a 48-year-old female, with history of IV drug use, presented initially to [facility] back in April. At that time she was found to have infection in her lumbar spine, and she had aspiration of the fluid in her back and reportedly grew Serratia. She was on Rocephin and Cipro, and repeat scans during that hospitalization showed progression of her infection, so she was transferred to [facility] for neurosurgical evaluation. Patient had repeat sampling of the fluid in her back and I do not have the results of those tests. She apparently had a midline put in her right upper extremity, and plans were being discussed regarding discharge for her to go to a half-way. Patient stated that since the midline was placed she has had problem with swelling pain and some redness in her right upper arm. The line was eventually removed on June 25, and patient signed out AGAINST MEDICAL ADVICE. She went home, and apparently smoked some crack cocaine, and presented back here at [facility] for further evaluation and treatment. Patient was found to have a superficial and deep vein thrombosis in her right upper extremity. She has not had any fevers here. Her WBC is normal. Repeat blood cultures here are pending so far. Patient had lumbar CT which did show evidence of discitis and osteomyelitis of the lumbosacral junction. Neurosurgery was consulted, and an MRI was ordered, but the patient refused to have the MRI because of the back pain. Her urine drug screen is positive for opiates and cocaine. Infectious disease consultation has been requested to assist with evaluation and treatment. Review of Systems Constitutional: Reports fever(s), Reports night sweats, Denies chills Eyes: Denies discharge, Denies dry eyes Ears, Nose, Mouth, and Throat: Denies difficulty swallowing, Denies dizziness, Denies ear pain, Denies facial pain, Denies nasal discharge, Denies sore throat Cardiovascular: Denies chest pain, Denies lightheadedness, Denies shortness of breath Respiratory: Denies chest congestion, Denies cough, Denies shortness of breath Gastrointestinal: Denies abdominal pain, Denies loose stools, Denies nausea, Denies pain with swallowing, Denies vomiting Genitourinary: Denies difficulty urinating, Denies painful urination Musculoskeletal: Reports back pain, Denies joint pain, Denies joint swelling Skin/Breast: Denies rash, Denies sores, Denies wounds Neurologic: Denies headache(s) PMFSH - History History Provided By: Patient - Medical History Medical History: Medical History (Last Reviewed 06/28/18 @ 13:04 by Maame Whitten MD) Cocaine use Patient denies medical problems Spinal abscess - Surgical History Surgical History: Surgical History (Last Reviewed 06/28/18 @ 13:04 by Maame Whitten MD) History of back surgery - Family History Family History: Family History (Last Updated 06/28/18 @ 05:46 by Richard Estes MD) Father Heart disease Mother Healthy adult - Tobacco History Second Hand Smoke Exposure: Yes Tobacco Use In Past 30 Days: Yes Smoking Status: Current every day smoker Tobacco Type: Cigarettes Packs Per Day: 0.5 Cigarettes Per Day: 10.0 - Alcohol History How Often Do You Have a Drink Containing Alcohol: Never - Substance Use History Substance History: Active Abuse - Travel History Recent Travel in the [place] Within the Last 8 Weeks: No Recent Travel Out of the Country Within the Last 8 Weeks: No - Immunization History Tetanus Immunization: <5 Years Medications and Allergies Active Medications: Active Medications Hydrocodone Bitart/Acetaminophen ([place] 5/325) 1 tab PO Q4H PRN PRN Reason: pain 3-7 Hydrocodone Bitart/Acetaminophen ([place] 5/325) 2 tab PO Q4H PRN PRN Reason: pain 8-10 Last Admin: 06/28/18 12:17 Dose: 2 tab Al Hydroxide/Mg Hydroxide (Milk Of Magnesia Liq) 30 ml PO Q12H PRN PRN Reason: Mild Constipation Bisacodyl (Dulcolax Supp) 10 mg RECTAL DAILY PRN PRN Reason: SEVERE CONSITIPATION Heparin Sodium/Dextrose (Heparin/D5w 25,000 U/250 Ml) 25,000 unit in 250 mls @ 0 mls/hr IV.CONT TITRATE PRN; Protocol PRN Reason: Per Protocol Last Admin: 06/28/18 05:01 Dose: 1,100 units/hr, 11 mls/hr Sodium Chloride (Ns Inj) 1,000 mls @ 100 mls/hr IV.CONT .Q10H SELINA Last Admin: 06/28/18 08:19 Dose: 100 mls/hr Vancomycin HCl 1,250 mg/ (Sodium Chloride) 262.5 mls @ 250 mls/hr IV.SIG Q12H SELINA Ceftriaxone Sodium 2,000 mg/ (Sodium Chloride) 100 mls @ 200 mls/hr IV.SIG Q24H SELINA Lactulose (Lactulose Liq) 30 ml PO DAILY PRN PRN Reason: SEVERE CONSITIPATION Miscellaneous Information ([facility] Ordered Lab Info) 0 each OTHER ONCE ONE Stop: 06/30/18 04:46 Pharmacy Profile Note (Vancomycin Consult Pharmacy) 1 each OTHER UNSCH PRN PRN Reason: Pharmacy to dose Sennosides (Senokot) 17.2 mg PO Q12H PRN PRN Reason: Moderate Constipation Sodium Chloride (Ns Flush) 2 ml IV.FLUSH BID [facility] Last Admin: 06/28/18 12:09 Dose: 2 ml Sodium Chloride (Ns Flush) 2 ml IV.FLUSH PRN PRN PRN Reason: FLUSH AFTER USING IV ACCESS Allergies Allergy/AdvReac Type Severity Reaction Status Date / Time aspirin Allergy Severe Anaphylaxis Verified 06/28/18 07:43 rofecoxib Allergy Mild Rash Verified 06/28/18 07:43 Sulfa (Sulfonamide Allergy Mild Rash Verified 06/28/18 07:43 Antibiotics) tramadol Allergy Mild Rash Verified 06/28/18 07:43 mrsa AdvReac Irritation Uncoded 06/28/18 07:44 Home Medications Medication Instructions Recorded Confirmed Type clonazepam [Klonopin] 1 mg PO TID 06/28/18 06/28/18 History fluoxetine [Prozac] 60 mg PO DAILY 06/28/18 06/28/18 History Exam Vital signs: Vital Signs 06/28/18 00:34 06/28/18 10:04 Temperature 99.1 F 98.8 F Pulse Rate 129 H 116 H Respiratory Rate 16 20 Blood Pressure 134/85 130/74 Pulse Oximetry 98 Intake & Output 06/27/18 06/28/18 06/28/18 18:59 06:59 18:59 Intake Total 1050 / 1050 450 / 450 Balance 1050 / 1050 450 / 450 Weight 63.503 kg Intake: IV 1050 / 1050 450 / 450 Zosyn 3.375 GM Premix 50 ML @ 50 / 50 100 mls/hr IV.SIG ONCE ONE Rx#: [id number] Zosyn 4.5 GM Premix 4.5 gm In 100 / 100 100 ml @ 200 mls/hr IV.SIG Q6H SELINA Rx#:[id number] NS Inj 1,000 ML @ Wide Open IV. 1000 / 1000 SIG BOLUS ONE Rx#:[id number] Narrative: Physical patient GENERAL: Patient is a well-nourished, well-developed female, awake and alert , not in respiratory distress. She does not look toxic appearing. SKIN: Cool and dry. No generalized rash, no ecchymoses and no evidence of embolic lesions. Has track saxena in both UE. HEAD: Atraumatic. Normocephalic. No temporal wasting, or tenderness. EYES: [place] conjunctiva. No petechia or hemorrhage. Pupils equal, round and reactive to light. Extraocular movements full and intact. No scleral icterus. No injection or drainage. EARS, NOSE AND THROAT: Nose without bleeding or purulent nasal discharge. No sinus tenderness. Mucous membranes pink and moist. No oral lesions noted. No exudate. No oral thrush. NECK: Trachea midline. Supple and not tender, no meningeal signs CARDIOVASCULAR: Regular rate and rhythm. No murmurs, rubs or gallops heard RESPIRATORY: Clear to auscultation. Breath sounds equal bilaterally. No rales , wheezing or rhonchi ABDOMEN: Soft, non-tender, nondistended. Bowel sounds present and normoactive. No guarding. No rebound. No organomegaly. Has scar from abdominoplasty EXTREMITIES: No clubbing, cyanosis, or edema. No joint effusion, has good ROM. No calf tenderness. Well perfused and warm. BACK: No swelling or redness noted NEUROLOGICAL: Awake and alert. Cranial nerves grossly intact. Motor grossly within normal limits. PSYCHIATRIC: Normal affect, calm and cooperative. LINE: No evidence of infection Results - Labs CBC & Chem 7: 06/28/18 01:25 06/28/18 01:25 Labs: Laboratory Results - last 24 hr 06/28/18 06/28/18 06/28/18 01:25 01:25 01:25 WBC 9.2 RBC 3.96 L Hgb 11.1 L Hct 32.1 L MCV 81.1 MCH 28.1 MCHC 34.7 RDW 14.8 Plt Count 168 MPV 7.3 Neut % (Auto) 64.2 Lymph % (Auto) 22.7 [place] % (Auto) 12.2 H Eos % (Auto) 0.5 Baso % (Auto) 0.4 Neut # (Auto) 5.9 Lymph # (Auto) 2.1 [place] # (Auto) 1.1 H Eos # (Auto) 0.0 Baso # (Auto) 0.0 WBC Differential . Differential Comment Auto diff final ESR PT 10.7 INR 1.1 APTT 28.0 Sodium 139 Potassium 3.4 L Chloride 103 Carbon Dioxide 28.1 Anion Gap 8 BUN 10 Creatinine 0.70 Estimated GFR Greater than 89 Random Glucose 166 H Lactic Acid Calcium 8.8 Magnesium 1.6 Total Bilirubin 0.4 AST 11 L ALT 10 Alkaline Phosphatase 99 Total Creatine Kinase 25 L Troponin I Less than 0.02 L Total Protein 7.8 Albumin 3.0 L Lipase 42 L Urine Color Urine Clarity Urine pH Ur Specific [place] Urine Protein Urine Glucose (UA) Urine Ketones Urine Occult Blood Urine Nitrate Urine Bilirubin Urine Urobilinogen Ur Leukocyte Esterase Urine RBC Urine WBC Ur Squamous Epith Cells Ur Microscopic Review Urine Opiates Screen Ur Barbiturates Screen Ur Amphetamines Screen U Benzodiazepines Scrn Urine Cocaine Screen U Cannabinoids Screen 06/28/18 06/28/18 06/28/18 01:25 01:25 10:35 WBC RBC Hgb Hct MCV MCH MCHC RDW Plt Count MPV Neut % (Auto) Lymph % (Auto) [place] % (Auto) Eos % (Auto) Baso % (Auto) Neut # (Auto) Lymph # (Auto) [place] # (Auto) Eos # (Auto) Baso # (Auto) WBC Differential Differential Comment ESR 58 H PT 10.7 INR 1.1 APTT 28.8 Sodium Potassium Chloride Carbon Dioxide Anion Gap BUN Creatinine Estimated GFR Random Glucose Lactic Acid 0.6 Calcium Magnesium Total Bilirubin AST ALT Alkaline Phosphatase Total Creatine Kinase Troponin I Total Protein Albumin Lipase Urine Color Urine Clarity Urine pH Ur Specific [place] Urine Protein Urine Glucose (UA) Urine Ketones Urine Occult Blood Urine Nitrate Urine Bilirubin Urine Urobilinogen Ur Leukocyte Esterase Urine RBC Urine WBC Ur Squamous Epith Cells Ur Microscopic Review Urine Opiates Screen Ur Barbiturates Screen Ur Amphetamines Screen U Benzodiazepines Scrn Urine Cocaine Screen U Cannabinoids Screen 06/28/18 06/28/18 10:45 10:45 WBC RBC Hgb Hct MCV MCH MCHC RDW Plt Count MPV Neut % (Auto) Lymph % (Auto) [place] % (Auto) Eos % (Auto) Baso % (Auto) Neut # (Auto) Lymph # (Auto) [place] # (Auto) Eos # (Auto) Baso # (Auto) WBC Differential Differential Comment ESR PT INR APTT Sodium Potassium Chloride Carbon Dioxide Anion Gap BUN Creatinine Estimated GFR Random Glucose Lactic Acid Calcium Magnesium Total Bilirubin AST ALT Alkaline Phosphatase Total Creatine Kinase Troponin I Total Protein Albumin Lipase Urine Color Yellow Urine Clarity Clear Urine pH 6.0 Ur Specific [place] 1.019 Urine Protein Negative Urine Glucose (UA) Negative Urine Ketones Negative Urine Occult Blood Negative Urine Nitrate Negative Urine Bilirubin Negative Urine Urobilinogen Less than 2 Ur Leukocyte Esterase Negative Urine RBC 2 Urine WBC 1 Ur Squamous Epith Cells 1 Ur Microscopic Review Not Reportable Urine Opiates Screen Pos H Ur Barbiturates Screen Neg Ur Amphetamines Screen Neg U Benzodiazepines Scrn Neg Urine Cocaine Screen Pos H U Cannabinoids Screen Neg - Imaging Impressions Chest X-Ray 06/28/18 01:17 CONCLUSION: Negative examination. Venous Doppler Study 06/28/18 02:04 CONCLUSION: Superficial and deep venous thrombosis involving the right arm Lumbar Spine CT 06/28/18 02:31 CONCLUSION: Discitis and osteomyelitis at the lumbosacral junction. Assessment and Plan - Plan Impression Discitis/Osteomyelitis lumbosacral junction Suspicious for endocarditis Active IVDU Recommendation IV Rocephin Continue vanco for now Get results of all cultures from the other hospital Get echo report Follow cultures Monitor progress I will follow along with you Thank you for this consultation
--- NOTE | 2018-06-28 14:03 | MR ---
EXAM DATE: 06/28/2018 1:55 PM EST AGE/SEX: 48 years / Female INDICATIONS: Abscess. CLINICAL DATA: This is the patient's subsequent encounter. Patient reports that signs and symptoms h ave been present for 1 month and indicates a pain score of 6/10. MEDICAL/SURGICAL HISTORY: . MRSA. . Back [place]. [place] [facility] [place]/28/2018. . TECHNIQUE: Multiplanar, multisequence MRI examination of the lumbar spine was performed without and with 7 ml Gadavist (gadobutrol) contrast as a single exam dose. FINDINGS: Examination confirms findings on CT examination. There is disc space narrowing with diffuse disc krystina a and diffusely abnormal enhancement involving nearly the entire L5 and S1 vertebral bodies. There is associated mild prevertebral phlegmon and mild anterior epidural enhancement without definitive epid ural abscess. There is mild right and [id number] left degenerative facet disease at L5 with ass ociated effacement of the left lateral recess. This abuts and displaces the descending S1 nerve root without definite impingement. There is also mild diffuse disc bulge at L4-5 without significant centr al canal or neural foraminal stenosis. Conus terminates at L1-2 and there is no significant cord sign al abnormality or abnormal enhancement. Remainder of examination is unremarkable. CONCLUSION: 1. MRI exam confirms L5-S1 discitis and osteomyelitis with mild associated prevertebral phlegmon and anterior epidural enhancement without definite epidural abscess at this time. Electronically signed by: Luis Daniel Rasmussen MD 06/28/2018 2:01 PM EST
[2018-06-28] MEDS ORDERED: Gadobutrol PF 7.5 MMOL/7.5 ML Vial (for RAD) IV.SIG ONE ×2 (14:15→15:54)
[2018-06-28] MEDS ORDERED: Vancomycin Inj 1,000 MG in Sodium Chlor 0.9% Inj 250 ML IV.SIG SCH (17:00)
--- NOTE | 2018-06-28 19:07 | ECG ---
Date Performed: 06/28/2018 Time Performed: 00:51:56 PTAGE: 48 years EKG: SINUS TACHYCARDIA WITH SHORT DC INTERVAL POSSIBLE RIGHT VENTRICULAR CONDUCTION DELAY MODERA TE T-WAVE ABNORMALITY, CONSIDER ANTERIOR ISCHEMIA ABNORMAL ECG DOCTOR: Alin Hays Interpretating Date/Time 06/28/2018 19:06:30
[2018-06-28] MEDS: Vancomycin Inj 1,250 MG in Sodium Chlor 0.9% Inj 250 ML IV.SIG SCH (20:41)
[2018-06-29] MEDS: Sod Chloride 0.9% Inj 1,000 ML IV.CONT SCH ×3 (01:46→20:00)
[2018-06-29] MEDS: Heparin Drip 25,000 UNIT/250 ML BAG IV.CONT PRN (02:36)
[2018-06-29] MEDS ORDERED: Methocarbamol 500 MG Tablet PO ONE (04:42)
[2018-06-29] MEDS: Vancomycin Inj 1,250 MG in Sodium Chlor 0.9% Inj 250 ML IV.SIG SCH ×2 (04:55→18:18)
--- NOTE | 2018-06-29 14:01 | P.PN ---
Subjective Interval history: Patient is seen lying in bed. She is complaining of continued pain and of lack of sleep. She is upset that she needs IV draw from the legs and feet but agrees to it as she has no other good veins. No chest pain or shortness of breath. No fever or chills. No nausea vomiting or diarrhea. Physical Exam Vital signs: Vital Signs 06/28/18 20:00 06/28/18 22:40 06/29/18 00:00 Temperature 98.4 F Pulse Rate 68 66 Respiratory Rate 17 16 17 Blood Pressure 101/64 103/63 Pulse Oximetry 98 99 06/29/18 02:05 06/29/18 04:00 06/29/18 08:15 Temperature 97.7 F 97.6 F Pulse Rate 65 50 L Respiratory Rate 16 17 16 Blood Pressure 95/52 L 109/68 Pulse Oximetry 98 99 06/29/18 11:22 Temperature 98.1 F Pulse Rate 64 Respiratory Rate 18 Blood Pressure 108/74 Pulse Oximetry 100 Intake & Output 06/28/18 06/29/18 06/29/18 18:59 06:59 18:59 Intake Total 550 / 550 2255.0 / 2255.0 Balance 550 / 550 2255.0 / 2255.0 Intake: IV 550 / 550 1775.0 / 1775.0 Heparin/D5W 25,000 U/250 mL 25, 250 / 250 000 unit In 250 ml @ Per Protocol IV.CONT TITRATE PRN Rx #:[id number] NS Inj 1,000 ML @ 100 mls/hr IV 1000 / 1000 .CONT .Q10H SELINA Rx#:[id number] Zosyn 4.5 GM Premix 4.5 gm In 100 / 100 100 ml @ 200 mls/hr IV.SIG Q6H SELINA Rx#:[id number] Vancomycin Inj 1,250 MG In NS 525.0 / 525.0 Inj 250 ML @ 250 mls/hr IV.SIG Q12H SELINA Rx#:[id number] Rocephin Inj 2,000 MG In NS Inj 100 / 100 100 ML @ 200 mls/hr IV.SIG Q24H SELINA Rx#:[id number] Oral 480 / 480 Other: # Voids 2 Narrative: GENERAL: Well-nourished, well-developed adult female in no obvious distress. SKIN: Warm and dry. Multiple track saxena HEAD: Atraumatic. Normocephalic. CARDIOVASCULAR: Regular rate and rhythm. RESPIRATORY: No accessory muscle use. Clear to auscultation. Breath sounds equal bilaterally. GASTROINTESTINAL: Abdomen soft, non-tender, non-distended. Positive bowel sounds. MUSCULOSKELETAL: Right upper arm erythemic and tender along medial aspect. all other extremities without clubbing, cyanosis, or edema. No obvious deformities. NEUROLOGICAL: Awake and alert. No obvious cranial nerve deficits. Motor grossly within normal limits. Normal speech. PSYCHIATRIC: Anxious Results - Labs CBC & Chem 7: 06/28/18 01:25 06/28/18 01:25 Laboratory Results - last 24 hr 06/28/18 06/28/18 21:50 21:50 APTT 30.8 C-Reactive Protein 6.82 H Microbiology 06/28/18 01:20 Blood - Peripheral Aerobic Blood Culture - Preliminary No growth in 1 day 06/28/18 01:20 Blood - Peripheral Anaerobic Blood Culture - Preliminary No growth in 1 day 06/28/18 01:25 Blood - Peripheral Aerobic Blood Culture - Preliminary No growth in 1 day 06/28/18 01:25 Blood - Peripheral Anaerobic Blood Culture - Preliminary No growth in 1 day - Imaging Impressions Lumbar Spine MRI 06/28/18 00:00 CONCLUSION: 1. MRI exam confirms L5-S1 discitis and osteomyelitis with mild associated prevertebral phlegmon and anterior epidural enhancement without definite epidural abscess at this time. Assessment and Plan - Assessment (1) Discitis Code(s): M46.40 - Discitis, unspecified, site unspecified Status: Acute (2) Osteomyelitis Code(s): M86.9 - Osteomyelitis, unspecified Status: Acute (3) Arm DVT (deep venous thromboembolism), acute Code(s): I82.629 - Acute embolism and thrombosis of deep veins of unspecified upper extremity Status: Acute - Plan 48-year-old female with history of IV drug abuse; frequent abscess and progression of osteo/discitis at L5/S1 s/p CT guided biopsy initially identified in early May which was being treated with IV antibiotics. Patient reports experiencing swelling at the PICC line site which was removed after which she left AMA. Subsequently presented at [facility] with complaint of spinal and arm pain. Found to have DVT in arm in the ED. Acute lumbosacral discitis/osteomyelitis -Suspected secondary to IV drug use. Drug screen positive for cocaine and opiates. -Status post workup and treatment at [facility]. Requesting further records and imaging -Left lower extremity weakness which patient says is unchanged since last month. -ID consulted for assistance in managing antibiotic therapy -neurosurgery consult appreciated Suspicion of endocarditis -Echo ordered Right upper extremity DVT. As seen on ultrasound. -Likely secondary to recent PICC line which was removed 2 days prior to admission at [facility]. - -continue with Heparin drip for now. Tachycardia on admission. -Resolved; likely secondary to crack cocaine use Hypokalemia -replaced; monitor. DVT prophylaxis: On heparin drip Discharge planning: Likely home
[2018-06-29] MEDS: Sodium Chloride 0.9% 2 ML Flush BID IV.FLUSH SCH ×2 (18:16→21:11)
[2018-06-29 21:41] LABS: Baso % (Auto) 0.4 % (0.0-2.0); Eos % (Auto) 0.8 % (0.0-4.0); Hematocrit 29.9 % (35.0-46.0); Hemoglobin 10.1 gm/dL (11.6-15.3); Lymph # (Auto) 2.2 th/mm3 (1.0-4.8); Lymph % (Auto) 36.7 % (9.0-44.0); Mean Corpuscular HGB Conc 33.9 % (32.0-36.0); Mean Corpuscular Hemoglobin 27.7 pg (27.0-34.0); Mean Corpuscular Volume 81.7 fL (80.0-100.0); Mean Platelet Volume 7.2 fL (7.0-11.0); Mono # (Auto) 0.6 th/mm3 (0.0-0.9); Mono % (Auto) 10.8 % (0.0-8.0); Neut # (Auto) 3.1 th/mm3 (1.8-7.7); Neut % (Auto) 51.3 % (16.0-70.0); Platelet Count 142 th/mm3 (150-450); Red Blood Count 3.66 mil/mm3 (4.00-5.30); Red Cell Distribution Width 15.1 % (11.6-17.2)
[2018-06-29 21:54] LABS: Albumin 2.6 g/dL (3.4-5.0); Anion Gap 6 meq/L (5-15); Aspartate Aminotransferase 6 U/L (15-37); Blood Urea Nitrogen 12 mg/dL (7-18); Calcium 8.3 mg/dL (8.5-10.1); Carbon Dioxide 29.6 meq/L (21.0-32.0); Chloride 109 meq/L (98-107); Glomerular Filtration Rate Greater Than 89 mL/min (>89); Glucose,Random 94 mg/dL (74-106); Potassium 3.5 meq/L (3.5-5.1); Sodium 145 meq/L (136-145)
[2018-06-29 21:55] LABS: Alanine Aminotransferase 9 U/L (10-53)
[2018-06-29 21:58] LABS: Alkaline Phosphatase 85 U/L (45-117); Total Protein 6.9 g/dL (6.4-8.2)
[2018-06-30] MEDS: Heparin Drip 25,000 UNIT/250 ML BAG IV.CONT PRN ×2 (02:31→20:52)
[2018-06-30] MEDS ORDERED: Pharmacy Ordered Lab Info OTHER ONE (04:45)
[2018-06-30] MEDS: Sod Chloride 0.9% Inj 1,000 ML IV.CONT SCH ×2 (06:15→16:22)
[2018-06-30 06:41] LABS: Glomerular Filtration Rate Greater Than 89 mL/min (>89)
[2018-06-30 06:43] LABS: Vancomycin,Trough 12.1 mcg/mL (5.0-10.0)
[2018-06-30] MEDS: Vancomycin Inj 1,250 MG in Sodium Chlor 0.9% Inj 250 ML IV.SIG SCH (07:30)
[2018-06-30] MEDS: Sodium Chloride 0.9% 2 ML Flush BID IV.FLUSH SCH ×2 (09:22→22:42)
--- NOTE | 2018-06-30 15:05 | P.PN ---
Subjective Interval history: Patient is seen lying in bed. She immediately asked for additional pain medication. Becomes angry and upset when I refuse and try to explain to her history makes her contraindicated for IV pain medications. After my refusal, she will no longer talk to me and stares the wall. Nursing reports no adverse events. They do also report drug-seeking behavior. Physical Exam Vital signs: Vital Signs 06/29/18 16:54 06/29/18 19:34 06/29/18 20:00 Temperature 98.4 F 98.4 F Pulse Rate 72 62 Respiratory Rate 18 16 16 Blood Pressure 111/72 108/64 Pulse Oximetry 99 98 06/30/18 00:00 06/30/18 04:00 06/30/18 08:00 Temperature 98.5 F 98.4 F 97.5 F L Pulse Rate 67 63 60 Respiratory Rate 16 14 20 Blood Pressure 106/64 110/69 110/71 Pulse Oximetry 97 97 99 06/30/18 11:19 06/30/18 14:19 Temperature 97.5 F L 98 F Pulse Rate 50 L 59 L Respiratory Rate 20 16 Blood Pressure 124/71 120/73 Pulse Oximetry 99 99 Intake & Output 06/29/18 06/30/18 06/30/18 18:59 06:59 18:59 Intake Total 700 / 700 1512.5 / 1512.5 362.5 / 362.5 Balance 700 / 700 1512.5 / 1512.5 362.5 / 362.5 Weight 71.4 kg Intake: IV 1512.5 / 1512.5 362.5 / 362.5 Heparin/D5W 25,000 U/250 mL 25, 250 / 250 000 unit In 250 ml @ Per Protocol IV.CONT TITRATE PRN Rx #:[id number] NS Inj 1,000 ML @ 100 mls/hr IV 900 / 900 .CONT .Q10H [facility] Rx#:[id number] Vancomycin Inj 1,250 MG In NS 262.5 / 262.5 262.5 / 262.5 Inj 250 ML @ 250 mls/hr IV.SIG Q12H [facility] Rx#:[id number] Rocephin Inj 2,000 MG In NS Inj 100 / 100 100 / 100 100 ML @ 200 mls/hr IV.SIG Q24H [facility] Rx#:[id number] Oral 700 / 700 Narrative: GENERAL: Well-nourished, well-developed adult female in no obvious distress. SKIN: Warm and dry. Multiple track saxena HEAD: Atraumatic. Normocephalic. CARDIOVASCULAR: Regular rate and rhythm. RESPIRATORY: No accessory muscle use. Clear to auscultation. Breath sounds equal bilaterally. GASTROINTESTINAL: Abdomen soft, non-tender, non-distended. Positive bowel sounds. MUSCULOSKELETAL: Right upper arm erythemic and tender along medial aspect. all other extremities without clubbing, cyanosis, or edema. No obvious deformities. NEUROLOGICAL: Awake and alert. No obvious cranial nerve deficits. Motor grossly within normal limits. Normal speech. PSYCHIATRIC: Anxious Results - Labs CBC & Chem 7: 06/29/18 21:00 06/30/18 05:55 Laboratory Results - last 24 hr 06/29/18 06/29/18 06/29/18 21:00 21:00 21:00 WBC 6.0 RBC 3.66 L Hgb 10.1 L Hct 29.9 L MCV 81.7 MCH 27.7 MCHC 33.9 RDW 15.1 Plt Count 142 L MPV 7.2 Neut % (Auto) 51.3 Lymph % (Auto) 36.7 [place] % (Auto) 10.8 H Eos % (Auto) 0.8 Baso % (Auto) 0.4 Neut # (Auto) 3.1 Lymph # (Auto) 2.2 [place] # (Auto) 0.6 Eos # (Auto) 0.0 Baso # (Auto) 0.0 WBC Differential . Differential Comment Auto diff final APTT 27.2 Sodium 145 Potassium 3.5 Chloride 109 H Carbon Dioxide 29.6 Anion Gap 6 BUN 12 Creatinine 0.64 Estimated GFR Greater than 89 Random Glucose 94 Calcium 8.3 L Total Bilirubin 0.1 L AST 6 L ALT 9 L Alkaline Phosphatase 85 Total Protein 6.9 D Albumin 2.6 L Vancomycin Trough 06/30/18 06/30/18 05:55 08:50 WBC RBC Hgb Hct MCV MCH MCHC RDW Plt Count MPV Neut % (Auto) Lymph % (Auto) [place] % (Auto) Eos % (Auto) Baso % (Auto) Neut # (Auto) Lymph # (Auto) [place] # (Auto) Eos # (Auto) Baso # (Auto) WBC Differential Differential Comment APTT 26.9 Sodium Potassium Chloride Carbon Dioxide Anion Gap BUN Creatinine 0.60 Estimated GFR Greater than 89 Random Glucose Calcium Total Bilirubin AST ALT Alkaline Phosphatase Total Protein Albumin Vancomycin Trough 12.1 H Microbiology 06/28/18 01:20 Blood - Peripheral Aerobic Blood Culture - Preliminary No growth in 2 days 06/28/18 01:20 Blood - Peripheral Anaerobic Blood Culture - Preliminary No growth in 2 days 06/28/18 01:25 Blood - Peripheral Aerobic Blood Culture - Preliminary No growth in 2 days 06/28/18 01:25 Blood - Peripheral Anaerobic Blood Culture - Preliminary No growth in 2 days Assessment and Plan - Assessment (1) Discitis Code(s): M46.40 - Discitis, unspecified, site unspecified Status: Acute (2) Osteomyelitis Code(s): M86.9 - Osteomyelitis, unspecified Status: Acute (3) Arm DVT (deep venous thromboembolism), acute Code(s): I82.629 - Acute embolism and thrombosis of deep veins of unspecified upper extremity Status: Acute - Plan 48-year-old female with history of IV drug abuse; frequent abscess and progression of osteo/discitis at L5/S1 s/p CT guided biopsy initially identified in early May which was being treated with IV antibiotics. Patient reports experiencing swelling at the PICC line site which was removed after which she left AMA. Subsequently presented at [facility] ED with complaint of spinal and arm pain. Found to have DVT in arm in the ED. Acute lumbosacral discitis/osteomyelitis -Suspected secondary to IV drug use. Drug screen positive for cocaine and opiates. Avoid IV pain medication; keep all narcotics to minimum and wean as soon as possible. -Status post workup and treatment at [facility]. Requesting further records and imaging -Left lower extremity weakness which patient says is unchanged since last month. -ID consulted for assistance in managing antibiotic therapy -neurosurgery consult appreciated Suspicion of endocarditis -Echo ordered Right upper extremity DVT. As seen on ultrasound. -Likely secondary to recent PICC line which was removed 2 days prior to admission at [facility]. - -continue with Heparin drip for now. Tachycardia on admission. -Resolved; likely secondary to crack cocaine use Hypokalemia -replaced; monitor. DVT prophylaxis: On heparin drip Discharge planning: Likely home
--- NOTE | 2018-06-30 15:31 | P.PNID ---
Subjective Remarks: Patient is a 48-year-old female, with history of IV drug use, presented initially to [facility] back in April. At that time she was found to have infection in her lumbar spine, and she had aspiration of the fluid in her back and reportedly grew Serratia. She was on Rocephin and Cipro, and repeat scans during that hospitalization showed progression of her infection, so she was transferred to [facility] for neurosurgical evaluation. Patient had repeat sampling of the fluid in her back and I do not have the results of those tests. She apparently had a midline put in her right upper extremity, and plans were being discussed regarding discharge for her to go to a half-way. Patient stated that since the midline was placed she has had problem with swelling pain and some redness in her right upper arm. The line was eventually removed on June 25, and patient signed out AGAINST MEDICAL ADVICE. She went home, and apparently smoked some crack cocaine, and presented back here at [facility] for further evaluation and treatment. Patient was found to have a superficial and deep vein thrombosis in her right upper extremity. She has not had any fevers here. Her WBC is normal. Repeat blood cultures here are pending so far. Patient had lumbar CT which did show evidence of discitis and osteomyelitis of the lumbosacral junction. Neurosurgery was consulted, and an MRI was ordered, but the patient refused to have the MRI because of the back pain. Her urine drug screen is positive for opiates and cocaine. Infectious disease consultation has been requested to assist with evaluation and treatment. Antibiotics: Vancomycin Rocephin Lines: PIV Past Medical History: reviewed Allergies/Adverse Reactions: Allergies aspirin Allergy (Severe, Verified 06/28/18 07:43) Anaphylaxis rofecoxib Allergy (Mild, Verified 06/28/18 07:43) Rash Sulfa (Sulfonamide Antibiotics) Allergy (Mild, Verified 06/28/18 07:43) Rash tramadol Allergy (Mild, Verified 06/28/18 07:43) Rash mrsa Adverse Reaction (Uncoded 06/28/18 07:44) Irritation Objective Vital Signs 06/29/18 16:54 06/29/18 19:34 06/29/18 20:00 Temperature 98.4 F 98.4 F Pulse Rate 72 62 Respiratory Rate 16 16 Blood Pressure 111/72 108/64 Pulse Oximetry 99 98 06/30/18 00:00 06/30/18 04:00 06/30/18 08:00 Temperature 98.5 F 98.4 F 97.5 F L Pulse Rate 67 63 60 Respiratory Rate 16 14 20 Blood Pressure 106/64 110/69 110/71 Pulse Oximetry 97 97 99 06/30/18 11:19 06/30/18 14:19 Temperature 97.5 F L 98 F Pulse Rate 50 L 59 L Respiratory Rate 20 16 Blood Pressure 124/71 120/73 Pulse Oximetry 99 99 Intake & Output 06/29/18 06/30/18 06/30/18 18:59 06:59 18:59 Intake Total 700 / 700 1512.5 / 1512.5 362.5 / 362.5 Balance 700 / 700 1512.5 / 1512.5 362.5 / 362.5 Weight 71.4 kg Intake: IV 1512.5 / 1512.5 362.5 / 362.5 Heparin/D5W 25,000 U/250 mL 25, 250 / 250 000 unit In 250 ml @ Per Protocol IV.CONT TITRATE PRN Rx #:[id number] NS Inj 1,000 ML @ 100 mls/hr IV 900 / 900 .CONT .Q10H [facility] Rx#:[id number] Vancomycin Inj 1,250 MG In NS 262.5 / 262.5 262.5 / 262.5 Inj 250 ML @ 250 mls/hr IV.SIG Q12H [facility] Rx#:[id number] Rocephin Inj 2,000 MG In NS Inj 100 / 100 100 / 100 100 ML @ 200 mls/hr IV.SIG Q24H [facility] Rx#:[id number] Oral 700 / 700 06/28/18 01:20 Blood - Peripheral Aerobic Blood Culture - Preliminary No growth in 2 days 06/28/18 01:20 Blood - Peripheral Anaerobic Blood Culture - Preliminary No growth in 2 days 06/28/18 01:25 Blood - Peripheral Aerobic Blood Culture - Preliminary No growth in 2 days 06/28/18 01:25 Blood - Peripheral Anaerobic Blood Culture - Preliminary No growth in 2 days Lab - Hematology Results 06/29/18 21:00 WBC 6.0 RBC 3.66 L Hgb 10.1 L Hct 29.9 L MCV 81.7 MCH 27.7 MCHC 33.9 RDW 15.1 Plt Count 142 L MPV 7.2 Neut % (Auto) 51.3 Lymph % (Auto) 36.7 [place] % (Auto) 10.8 H Eos % (Auto) 0.8 Baso % (Auto) 0.4 Neut # (Auto) 3.1 Lymph # (Auto) 2.2 [place] # (Auto) 0.6 Eos # (Auto) 0.0 Baso # (Auto) 0.0 WBC Differential . Differential Comment Auto diff final Lab - Chemistry Results 06/28/18 06/29/18 06/30/18 21:50 21:00 05:55 Sodium 145 Potassium 3.5 Chloride 109 H Carbon Dioxide 29.6 Anion Gap 6 BUN 12 Creatinine 0.64 0.60 Estimated GFR Greater than 89 Greater than 89 Random Glucose 94 Calcium 8.3 L Total Bilirubin 0.1 L AST 6 L ALT 9 L Alkaline Phosphatase 85 C-Reactive Protein 6.82 H Total Protein 6.9 D Albumin 2.6 L Imaging: ITS Impressions Lumbar Spine MRI 06/28/18 00:00 CONCLUSION: 1. MRI exam confirms L5-S1 discitis and osteomyelitis with mild associated prevertebral phlegmon and anterior epidural enhancement without definite epidural abscess at this time. Chest X-Ray 06/28/18 01:17 CONCLUSION: Negative examination. Venous Doppler Study 06/28/18 02:04 CONCLUSION: Superficial and deep venous thrombosis involving the right arm Lumbar Spine CT 06/28/18 02:31 CONCLUSION: Discitis and osteomyelitis at the lumbosacral junction. Physical Exam: GENERAL: awake and alert, not in respiratory distress. SKIN: Cool and dry. No generalized rash. Has track saxena in both UE. EYES: [place] conjunctiva. No petechia or hemorrhage. No scleral icterus. No injection or drainage. EARS, NOSE AND THROAT: Mucous membranes pink and moist. No oral lesions noted. No exudate. No oral thrush. NECK: Trachea midline. Supple and not tender, no meningeal signs CARDIOVASCULAR: Regular rate and rhythm. No murmurs, rubs or gallops heard RESPIRATORY: Clear to auscultation. Breath sounds equal bilaterally. No rales , wheezing or rhonchi ABDOMEN: Soft, non-tender, nondistended. Bowel sounds present and normoactive. Has scar from abdominoplasty EXTREMITIES: No clubbing, cyanosis, or edema. No joint effusion, has good ROM. No calf tenderness. Well perfused and warm. BACK: No swelling or redness noted NEUROLOGICAL: Non-focal PSYCHIATRIC: calm and cooperative. LINE: No evidence of infection Assessment and Plan - Plan Impression Discitis/Osteomyelitis lumbosacral junction - no epidural abscess seen Suspicious for endocarditis Active IVDU DVT RUE Recommendation Continue IV Rocephin Stop Vanco Await C/S results from [facility] Await echo report Follow cultures Will need course of IV Abx for her discitis
[2018-06-30 16:14] LABS: Hematocrit 27.9 % (35.0-46.0); Hemoglobin 9.2 gm/dL (11.6-15.3); Mean Corpuscular HGB Conc 33.1 % (32.0-36.0); Mean Corpuscular Hemoglobin 27.7 pg (27.0-34.0); Mean Corpuscular Volume 83.6 fL (80.0-100.0); Mean Platelet Volume 6.9 fL (7.0-11.0); Platelet Count 147 th/mm3 (150-450); Red Blood Count 3.34 mil/mm3 (4.00-5.30); Red Cell Distribution Width 15.3 % (11.6-17.2); White Blood Count 5.3 th/mm3 (4.0-11.0)
[2018-07-01] MEDS: Sod Chloride 0.9% Inj 1,000 ML IV.CONT SCH ×4 (01:02→22:09)
[2018-07-01 05:55] LABS: Baso % (Auto) 0.6 % (0.0-2.0); Eos # (Auto) 0.1 th/mm3 (0.0-0.4); Eos % (Auto) 1.2 % (0.0-4.0); Hemoglobin 9.7 gm/dL (11.6-15.3); Lymph # (Auto) 2.5 th/mm3 (1.0-4.8); Lymph % (Auto) 43.6 % (9.0-44.0); Mean Corpuscular HGB Conc 33.3 % (32.0-36.0); Mean Corpuscular Hemoglobin 27.7 pg (27.0-34.0); Mean Corpuscular Volume 83.1 fL (80.0-100.0); Mean Platelet Volume 6.8 fL (7.0-11.0); Mono # (Auto) 0.6 th/mm3 (0.0-0.9); Neut # (Auto) 2.6 th/mm3 (1.8-7.7); Neut % (Auto) 44.6 % (16.0-70.0); Platelet Count 156 th/mm3 (150-450); Red Blood Count 3.48 mil/mm3 (4.00-5.30); Red Cell Distribution Width 15.2 % (11.6-17.2); White Blood Count 5.8 th/mm3 (4.0-11.0)
[2018-07-01 06:12] LABS: Anion Gap 7 meq/L (5-15); Blood Urea Nitrogen 7 mg/dL (7-18); Calcium 8.2 mg/dL (8.5-10.1); Chloride 108 meq/L (98-107); Glomerular Filtration Rate Greater Than 89 mL/min (>89); Glucose,Random 111 mg/dL (74-106); Potassium 3.3 meq/L (3.5-5.1); Sodium 144 meq/L (136-145)
[2018-07-01] MEDS: Heparin Drip 25,000 UNIT/250 ML BAG IV.CONT PRN ×2 (08:44→22:07)
[2018-07-01] MEDS: Sodium Chloride 0.9% 2 ML Flush BID IV.FLUSH SCH ×2 (13:13→20:50)
--- NOTE | 2018-07-01 14:56 | P.PN ---
Subjective Interval history: Patient is sleepy however abusable. She complaints of pain and is asking for more pain meds. Patient is threatening that she will leave AMA tomorrow She appears in nad. No n/v/d/c. Eating well. Physical Exam Vital signs: Vital Signs 06/30/18 16:00 06/30/18 20:00 07/01/18 00:00 Temperature 97.7 F 97.9 F 97.9 F Pulse Rate 66 66 74 Respiratory Rate 16 17 17 Blood Pressure 123/65 139/74 112/65 Pulse Oximetry 99 97 97 07/01/18 08:00 07/01/18 12:00 Temperature 98.2 F 98.3 F Pulse Rate 53 L 57 L Respiratory Rate 18 18 Blood Pressure 127/75 107/66 Pulse Oximetry 99 98 Intake & Output 06/30/18 07/01/18 07/01/18 18:59 06:59 18:59 Intake Total 2182.5 / 2182.5 1733 / 1733 1350 / 1350 Output Total 900 / 900 1100 / 1100 Balance 1282.5 / 1282.5 633 / 633 1350 / 1350 Weight 71.4 kg 68 kg Intake: IV 1362.5 / 1362.5 1250 / 1250 1350 / 1350 Heparin/D5W 25,000 U/250 mL 25, 250 / 250 250 / 250 000 unit In 250 ml @ Per Protocol IV.CONT TITRATE PRN Rx #:[id number] NS Inj 1,000 ML @ 100 mls/hr IV 1000 / 1000 1000 / 1000 1000 / 1000 .CONT .Q10H [facility] Rx#:[id number] Vancomycin Inj 1,250 MG In NS 262.5 / 262.5 Inj 250 ML @ 250 mls/hr IV.SIG Q12H [facility] Rx#:[id number] Rocephin Inj 2,000 MG In NS Inj 100 / 100 100 / 100 100 ML @ 200 mls/hr IV.SIG Q24H [facility] Rx#:[id number] Oral 820 / 820 480 / 480 Oral Supplement 3 / 3 Output: Urine 900 / 900 1100 / 1100 Other: Date of Last Bowel Movement 06/30/18 # Bowel Movements 1 0 Narrative: GENERAL: Well-nourished, well-developed adult female in no obvious distress. SKIN: Warm and dry. Multiple track saxena CARDIOVASCULAR: Regular rate and rhythm. RESPIRATORY: No accessory muscle use. Clear to auscultation. Breath sounds equal bilaterally. GASTROINTESTINAL: Abdomen soft, non-tender, non-distended. Positive bowel sounds. MUSCULOSKELETAL: Right upper arm erythemic and tender along medial aspect. all other extremities without clubbing, cyanosis, or edema. No obvious deformities. NEUROLOGICAL: Awake and alert. No obvious cranial nerve deficits. Motor grossly within normal limits. Normal speech. PSYCHIATRIC: Anxious Results - Labs CBC & Chem 7: 07/01/18 05:32 07/01/18 05:32 Laboratory Results - last 24 hr 06/30/18 06/30/18 06/30/18 16:02 16:02 21:46 WBC 5.3 RBC 3.34 L Hgb 9.2 L Hct 27.9 L MCV 83.6 MCH 27.7 MCHC 33.1 RDW 15.3 Plt Count 147 L MPV 6.9 L Neut % (Auto) Lymph % (Auto) [place] % (Auto) Eos % (Auto) Baso % (Auto) Neut # (Auto) Lymph # (Auto) [place] # (Auto) Eos # (Auto) Baso # (Auto) WBC Differential Differential Comment APTT 50.0 H D 38.1 H D Sodium Potassium Chloride Carbon Dioxide Anion Gap BUN Creatinine Estimated GFR Random Glucose Calcium 07/01/18 07/01/18 07/01/18 05:32 05:32 05:32 WBC 5.8 RBC 3.48 L Hgb 9.7 L Hct 29.0 L MCV 83.1 MCH 27.7 MCHC 33.3 RDW 15.2 Plt Count 156 MPV 6.8 L Neut % (Auto) 44.6 Lymph % (Auto) 43.6 [place] % (Auto) 10.0 H Eos % (Auto) 1.2 Baso % (Auto) 0.6 Neut # (Auto) 2.6 Lymph # (Auto) 2.5 [place] # (Auto) 0.6 Eos # (Auto) 0.1 Baso # (Auto) 0.0 WBC Differential . Differential Comment Auto diff final APTT 63.0 H D Sodium 144 Potassium 3.3 L Chloride 108 H Carbon Dioxide 29.0 Anion Gap 7 BUN 7 Creatinine 0.66 Estimated GFR Greater than 89 Random Glucose 111 H Calcium 8.2 L 07/01/18 12:44 WBC RBC Hgb Hct MCV MCH MCHC RDW Plt Count MPV Neut % (Auto) Lymph % (Auto) [place] % (Auto) Eos % (Auto) Baso % (Auto) Neut # (Auto) Lymph # (Auto) [place] # (Auto) Eos # (Auto) Baso # (Auto) WBC Differential Differential Comment APTT 75.5 H Sodium Potassium Chloride Carbon Dioxide Anion Gap BUN Creatinine Estimated GFR Random Glucose Calcium Microbiology 06/28/18 01:20 Blood - Peripheral Aerobic Blood Culture - Preliminary No growth in 3 days 06/28/18 01:20 Blood - Peripheral Anaerobic Blood Culture - Preliminary No growth in 3 days 06/28/18 01:25 Blood - Peripheral Aerobic Blood Culture - Preliminary No growth in 3 days 06/28/18 01:25 Blood - Peripheral Anaerobic Blood Culture - Preliminary No growth in 3 days Assessment and Plan - Assessment (1) Discitis Code(s): M46.40 - Discitis, unspecified, site unspecified Status: Acute (2) Osteomyelitis Code(s): M86.9 - Osteomyelitis, unspecified Status: Acute (3) Arm DVT (deep venous thromboembolism), acute Code(s): I82.629 - Acute embolism and thrombosis of deep veins of unspecified upper extremity Status: Acute - Plan 48-year-old female with history of IV drug abuse; frequent abscess and progression of osteo/discitis at L5/S1 s/p CT guided biopsy initially identified in early May which was being treated with IV antibiotics. Patient reports experiencing swelling at the PICC line site which was removed after which she left AMA. Subsequently presented at [facility] ED with complaint of spinal and arm pain. Found to have DVT in arm in the ED. Acute lumbosacral discitis/osteomyelitis -Suspected secondary to IV drug use. Drug screen positive for cocaine and opiates. Avoid IV pain medication; keep all narcotics to minimum and wean as soon as possible. -Status post workup and treatment at [facility]. Awaiting records -Left lower extremity weakness which patient says is unchanged since last month. -ID consulted -neurosurgery consult appreciated - Stop vanco per ID recommendations. continue Rocephin Suspicion of endocarditis -Echo pending Right upper extremity DVT. As seen on ultrasound. -Likely secondary to recent PICC line which was removed 2 days prior to admission at [facility]. - -continue with Heparin drip for now. Tachycardia on admission. -Resolved; likely secondary to crack cocaine use Hypokalemia -replaced; monitor. DVT prophylaxis: On heparin drip Discharge planning: Likely home
[2018-07-01] MEDS ORDERED: Potassium Bicarbonate 25 MEQ Effervescent Tablet PO ONE (15:03)
[2018-07-01] MEDS ORDERED: Pharmacy Ordered Lab Info OTHER ONE (16:45)
--- NOTE | 2018-07-02 09:58 | P.PN ---
Subjective Interval history: Patient seen bed she is sleepy but arousable. No complaints at this time. No fever or chills. No nausea or vomiting she is eating well. Physical Exam Vital signs: Vital Signs 07/01/18 12:00 07/01/18 16:00 07/01/18 20:00 Temperature 98.3 F 98.7 F 97.9 F Pulse Rate 57 L 87 79 Respiratory Rate 18 Blood Pressure 107/66 129/81 147/68 H Pulse Oximetry 98 100 100 07/02/18 00:00 07/02/18 04:00 07/02/18 08:00 Temperature 97.9 F 98.2 F 98 F Pulse Rate 73 71 58 L Respiratory Rate 18 Blood Pressure 118/72 119/72 104/59 L Pulse Oximetry 100 98 98 Intake & Output 07/01/18 07/02/18 07/02/18 18:59 06:59 18:59 Intake Total 2550 / 2550 2090 / 2090 1000 / 1000 Output Total 1500 / 1500 5 / 5 200 / 200 Balance 1050 / 1050 2085 / 2085 800 / 800 Weight 73.3 kg Intake: IV 1350 / 1350 1250 / 1250 1000 / 1000 Heparin/D5W 25,000 U/250 mL 25, 250 / 250 250 / 250 000 unit In 250 ml @ Per Protocol IV.CONT TITRATE PRN Rx #:[id number] NS Inj 1,000 ML @ 100 mls/hr IV 1000 / 1000 1000 / 1000 1000 / 1000 .CONT .Q10H [facility] Rx#:[id number] Rocephin Inj 2,000 MG In NS Inj 100 / 100 100 ML @ 200 mls/hr IV.SIG Q24H [facility] Rx#:[id number] Oral 1200 / 1200 840 / 840 Output: Urine 1500 / 1500 5 / 5 200 / 200 Other: # Voids 3 Date of Last Bowel Movement 06/30/18 # Bowel Movements 1 Narrative: GENERAL: Well-nourished, well-developed adult female in no obvious distress. SKIN: Warm and dry. Multiple track saxena CARDIOVASCULAR: Regular rate and rhythm. RESPIRATORY: No accessory muscle use. Clear to auscultation. Breath sounds equal bilaterally. GASTROINTESTINAL: Abdomen soft, non-tender, non-distended. Positive bowel sounds. MUSCULOSKELETAL: Right upper arm erythemic and tender along medial aspect. all other extremities without clubbing, cyanosis, or edema. No obvious deformities. NEUROLOGICAL: Awake and alert. No obvious cranial nerve deficits. Motor grossly within normal limits. Normal speech. PSYCHIATRIC: Anxious Results - Labs CBC & Chem 7: 07/01/18 05:32 07/02/18 04:42 Laboratory Results - last 24 hr 07/01/18 07/01/18 07/02/18 12:44 19:49 04:42 APTT 75.5 H 65.8 H Creatinine 0.72 Estimated GFR 87 L 07/02/18 04:42 APTT 50.6 H D Creatinine Estimated GFR Microbiology 06/28/18 01:20 Blood - Peripheral Aerobic Blood Culture - Preliminary No growth in 3 days 06/28/18 01:20 Blood - Peripheral Anaerobic Blood Culture - Preliminary No growth in 3 days 06/28/18 01:25 Blood - Peripheral Aerobic Blood Culture - Preliminary No growth in 3 days 06/28/18 01:25 Blood - Peripheral Anaerobic Blood Culture - Preliminary No growth in 3 days Assessment and Plan - Assessment (1) Discitis Code(s): M46.40 - Discitis, unspecified, site unspecified Status: Acute (2) Osteomyelitis Code(s): M86.9 - Osteomyelitis, unspecified Status: Acute (3) Arm DVT (deep venous thromboembolism), acute Code(s): I82.629 - Acute embolism and thrombosis of deep veins of unspecified upper extremity Status: Acute - Plan 48-year-old female with history of IV drug abuse; frequent abscess and progression of osteo/discitis at L5/S1 s/p CT guided biopsy initially identified in early May which was being treated with IV antibiotics. Patient reports experiencing swelling at the PICC line site which was removed after which she left AMA. Subsequently presented at [place] ED with complaint of spinal and arm pain. Found to have DVT in arm in the ED. Acute lumbosacral discitis/osteomyelitis -Suspected secondary to IV drug use. Drug screen positive for cocaine and opiates. Avoid IV pain medication; keep all narcotics to minimum and wean as soon as possible. -Status post workup and treatment at [facility]. Awaiting records -Left lower extremity weakness which patient says is unchanged since last month. -ID consulted -neurosurgery consult appreciated - Stop vanco per ID recommendations. continue Rocephin Suspicion of endocarditis -Echo pending Right upper extremity DVT. As seen on ultrasound. -Likely secondary to recent PICC line which was removed 2 days prior to admission at [facility]. - -continue with Heparin drip for now. Tachycardia on admission. -Resolved; likely secondary to crack cocaine use Hypokalemia -replaced; monitor. DVT prophylaxis: On heparin drip Discharge planning: Likely home. Echo is pending. Needs ID clearance for discharge patient with discitis/osteomyelitis and IVDU, expect long-term antibiotic
[2018-07-02] MEDS: Sod Chloride 0.9% Inj 1,000 ML IV.CONT SCH ×2 (13:23→20:31)
[2018-07-02] MEDS: Sodium Chloride 0.9% 2 ML Flush BID IV.FLUSH SCH ×2 (13:24→23:15)
[2018-07-02] MEDS: Heparin Drip 25,000 UNIT/250 ML BAG IV.CONT PRN (13:24)
[2018-07-03] MEDS: Heparin Drip 25,000 UNIT/250 ML BAG IV.CONT PRN ×2 (04:01→18:25)
[2018-07-03] MEDS: Sod Chloride 0.9% Inj 1,000 ML IV.CONT SCH ×3 (05:37→18:19)
[2018-07-03] MEDS: Sodium Chloride 0.9% 2 ML Flush BID IV.FLUSH SCH ×2 (08:21→20:43)
--- NOTE | 2018-07-03 09:50 | P.PN ---
Subjective Interval history: The patient is in bed she appears in not acute distress however she is complaining of left leg pain and swelling. No fever or chills. No nausea or vomiting no diarrhea constipation. Physical Exam Vital signs: Vital Signs 07/02/18 12:00 07/02/18 16:00 07/02/18 20:00 Temperature 98.3 F 98.3 F 97.9 F Pulse Rate 61 56 L 67 Respiratory Rate 18 18 20 Blood Pressure 111/60 116/73 133/79 Pulse Oximetry 98 99 100 07/03/18 00:00 07/03/18 04:00 Temperature 98.9 F 98.4 F Pulse Rate 86 81 Respiratory Rate 20 20 Blood Pressure 127/75 107/57 L Pulse Oximetry 98 97 Intake & Output 07/02/18 07/03/18 07/03/18 18:59 06:59 18:59 Intake Total 2750 / 2750 2370 / 2370 300 / 300 Output Total 1600 / 1600 1200 / 1200 Balance 1150 / 1150 1170 / 1170 300 / 300 Weight 73.9 kg Intake: IV 1350 / 1350 1950 / 1950 300 / 300 Heparin/D5W 25,000 U/250 mL 25, 250 / 250 250 / 250 000 unit In 250 ml @ Per Protocol IV.CONT TITRATE PRN Rx #:[id number] NS Inj 1,000 ML @ 100 mls/hr IV 1000 / 1000 1700 / 1700 300 / 300 .CONT .Q10H SELINA Rx#:[id number] Rocephin Inj 2,000 MG In NS Inj 100 / 100 100 ML @ 200 mls/hr IV.SIG Q24H SELINA Rx#:[id number] Oral 1400 / 1400 420 / 420 Output: Urine 1600 / 1600 1200 / 1200 Other: Date of Last Bowel Movement 06/30/18 # Bowel Movements 2 Narrative: GENERAL: Well-nourished, well-developed adult female in no obvious distress. SKIN: Warm and dry. Multiple track saxena CARDIOVASCULAR: Regular rate and rhythm. RESPIRATORY: No accessory muscle use. Clear to auscultation. Breath sounds equal bilaterally. GASTROINTESTINAL: Abdomen soft, non-tender, non-distended. Positive bowel sounds. MUSCULOSKELETAL: Right upper arm erythemic and tender along medial aspect. Left ankle edema and pain. All other extremities without clubbing, cyanosis, or edema. No obvious deformities. NEUROLOGICAL: Awake and alert. No obvious cranial nerve deficits. Motor grossly within normal limits. Normal speech. PSYCHIATRIC: Anxious Results - Labs CBC & Chem 7: 07/01/18 05:32 07/02/18 04:42 Microbiology 06/28/18 01:20 Blood - Peripheral Aerobic Blood Culture - Preliminary No growth in 4 days 06/28/18 01:20 Blood - Peripheral Anaerobic Blood Culture - Preliminary No growth in 4 days 06/28/18 01:25 Blood - Peripheral Aerobic Blood Culture - Preliminary No growth in 4 days 06/28/18 01:25 Blood - Peripheral Anaerobic Blood Culture - Preliminary No growth in 4 days Assessment and Plan - Assessment (1) Discitis Code(s): M46.40 - Discitis, unspecified, site unspecified Status: Acute (2) Osteomyelitis Code(s): M86.9 - Osteomyelitis, unspecified Status: Acute (3) Arm DVT (deep venous thromboembolism), acute Code(s): I82.629 - Acute embolism and thrombosis of deep veins of unspecified upper extremity Status: Acute - Plan 48-year-old female with history of IV drug abuse; frequent abscess and progression of osteo/discitis at L5/S1 s/p CT guided biopsy initially identified in early May which was being treated with IV antibiotics. Patient reports experiencing swelling at the PICC line site which was removed after which she left AMA. Subsequently presented at [place] ED with complaint of spinal and arm pain. Found to have DVT in arm in the ED. Acute lumbosacral discitis/osteomyelitis -Suspected secondary to IV drug use. Drug screen positive for cocaine and opiates. Avoid IV pain medication; keep all narcotics to minimum and wean as soon as possible. -Status post workup and treatment at [facility]. Awaiting records -Left lower extremity weakness which patient says is unchanged since last month. -ID consulted -neurosurgery consult appreciated - Stop vanco per ID recommendations. continue Rocephin Suspicion of endocarditis -Echo pending Right upper extremity DVT. As seen on ultrasound. -Likely secondary to recent PICC line which was removed 2 days prior to admission at [facility]. - -continue with Heparin drip for now. Left leg edema and pain , will do US of the left leg and X ray Tachycardia on admission. -Resolved; likely secondary to crack cocaine use Hypokalemia -replaced; monitor. DVT prophylaxis: On heparin drip Discharge planning: Likely home. Echo is pending. Needs ID clearance for discharge patient with discitis/osteomyelitis and IVDU, expect long-term antibiotic
--- NOTE | 2018-07-03 15:17 | US ---
EXAM DATE: 07/03/2018 3:14 PM EST AGE/SEX: 48 years / Female INDICATIONS: Right leg swelling and pain. CLINICAL DATA: This is the patient's initial encounter. Patient reports that signs and symptoms have been present for 1 day and indicates a pain score of 8/10. MEDICAL/SURGICAL HISTORY: Deep venous thrombosis. Spinal abscess. Osteomyelitis. Substance abus e. . Back surgery. Abdominoplasty. COMPARISON: No prior exams available for comparison. TECHNIQUE: Venous ultrasound of both lower extremities was performed from the inguinal ligament to t he proximal calf. Real-time, color Doppler and spectral tracing, compression and augmentation techni ques were used. FINDINGS: Right Leg: Normal compression of the deep venous system from the inguinal region to the proximal rebeca f. No echogenic clot is seen. Normal response of the venous system to augmentation and respiration. Left Leg: Normal compression of the deep venous system from the inguinal region to the proximal calf . No echogenic clot is seen. Normal response of the venous system to augmentation and respiration. Other: None. CONCLUSION: 1. No DVT identified within either lower extremity. Electronically signed by: Francisco Cason MD 07/03/2018 3:16 PM EST
--- NOTE | 2018-07-03 16:40 | XR ---
EXAM DATE: 07/03/2018 4:12 PM EST AGE/SEX: 48 years / Female INDICATIONS: Pain in right ankle, and swelling. CLINICAL DATA: This is the patient's subsequent encounter. Patient reports that signs and symptoms h ave been present for 1 week and indicates a pain score of 0/10. MEDICAL/SURGICAL HISTORY: Hypertension. Tonsillectomy. COMPARISON: No prior exams available for comparison. FINDINGS: Minimal degenerative changes tip of the lateral malleolus. Mild soft tissue swelling. Anatomic alignm ent. No fracture. CONCLUSION: Soft tissue swelling with mild degenerative changes. No fracture. Electronically signed by: Maikol Cason MD 07/03/2018 4:39 PM EST
[2018-07-04] MEDS: Sod Chloride 0.9% Inj 1,000 ML IV.CONT SCH ×3 (00:09→20:14)
[2018-07-04 06:23] LABS: Baso # (Auto) 0.1 th/mm3 (0.0-0.2); Baso % (Auto) 0.8 % (0.0-2.0); Eos % (Auto) 0.5 % (0.0-4.0); Hematocrit 28.8 % (35.0-46.0); Hemoglobin 9.8 gm/dL (11.6-15.3); Lymph # (Auto) 1.8 th/mm3 (1.0-4.8); Lymph % (Auto) 24.1 % (9.0-44.0); Mean Corpuscular HGB Conc 34.1 % (32.0-36.0); Mean Corpuscular Hemoglobin 28.2 pg (27.0-34.0); Mean Corpuscular Volume 82.7 fL (80.0-100.0); Mean Platelet Volume 7.1 fL (7.0-11.0); Mono # (Auto) 0.6 th/mm3 (0.0-0.9); Neut % (Auto) 66.6 % (16.0-70.0); Platelet Count 164 th/mm3 (150-450); Red Blood Count 3.49 mil/mm3 (4.00-5.30); Red Cell Distribution Width 15.9 % (11.6-17.2); White Blood Count 7.5 th/mm3 (4.0-11.0)
[2018-07-04 06:54] LABS: Calcium 8.2 mg/dL (8.5-10.1); Carbon Dioxide 29.2 meq/L (21.0-32.0); Potassium 3.3 meq/L (3.5-5.1)
[2018-07-04] MEDS: Sodium Chloride 0.9% 2 ML Flush BID IV.FLUSH SCH ×2 (08:02→20:09)
[2018-07-04] MEDS: Heparin Drip 25,000 UNIT/250 ML BAG IV.CONT PRN (10:13)
--- NOTE | 2018-07-04 13:01 | OTSOAPIP ---
RECEIVED OCCUPATIONAL THERAPY ORDERS. ATTEMPTED TO SEE PATIENT, HOWEVER PATIENT REFUSED EVALUATION DUE TO JUST WAKING UP AND PAIN. WANTS THERAPIST TO RETURN LATER ON IN THE DAY. WILL REATTEMPT IF TIME PERMITS, OTHERWISE WILL REATTEMPT TOMORROW. INTERDISCIPLINARY COMMUNICATION: REVIEWED ELECTRONIC MEDICAL RECORD, SPOKE WITH RN AND PHYSICAL THERAPY Therapist: Lauren Villa OTR/L Signature on file
--- NOTE | 2018-07-04 15:59 | P.PN ---
Subjective Interval history: She is in bed she is sleepy appears in not acute distress. No chest pain or shortness of breath. No fever or chills. Physical Exam Vital signs: Vital Signs 07/03/18 16:00 07/03/18 20:00 07/03/18 23:21 Temperature 98.0 F 98.8 F 100.3 F H Pulse Rate 77 84 82 Respiratory Rate 20 18 20 Blood Pressure 120/74 120/77 127/80 Pulse Oximetry 96 99 100 07/04/18 04:00 07/04/18 08:00 07/04/18 12:00 Temperature 98.3 F 98.1 F 98.1 F Pulse Rate 90 74 74 Respiratory Rate 16 18 16 Blood Pressure 111/68 106/55 L 106/59 L Pulse Oximetry 98 95 98 Intake & Output 07/03/18 07/04/18 07/04/18 18:59 06:59 18:59 Intake Total 1953 / 1953 1219 / 1219 631 / 631 Output Total 1200 / 1200 Balance 753 / 753 1219 / 1219 631 / 631 Weight 74.1 kg Intake: IV 1050 / 1050 1219 / 1219 631 / 631 Heparin/D5W 25,000 U/250 mL 25, 250 / 250 250 / 250 000 unit In 250 ml @ Per Protocol IV.CONT TITRATE PRN Rx #:[id number] NS Inj 1,000 ML @ 100 mls/hr IV 700 / 700 1219 / 1219 381 / 381 .CONT .Q10H SELINA Rx#:[id number] Rocephin Inj 2,000 MG In NS Inj 100 / 100 100 ML @ 200 mls/hr IV.SIG Q24H SELINA Rx#:[id number] Oral 900 / 900 Oral Supplement 3 / Output: Urine 1200 / 1200 Other: # Voids 4 Date of Last Bowel Movement 06/30/18 06/30/18 # Bowel Movements 1 Narrative: GENERAL: Well-nourished, well-developed adult female in no obvious distress. SKIN: Warm and dry. Multiple track saxena CARDIOVASCULAR: Regular rate and rhythm. RESPIRATORY: No accessory muscle use. Clear to auscultation. Breath sounds equal bilaterally. GASTROINTESTINAL: Abdomen soft, non-tender, non-distended. Positive bowel sounds. MUSCULOSKELETAL: Right upper arm erythemic and tender along medial aspect. Right ankle edema and pain. All other extremities without clubbing, cyanosis, or edema. No obvious deformities. NEUROLOGICAL: Awake and alert. No obvious cranial nerve deficits. Motor grossly within normal limits. Normal speech. PSYCHIATRIC: Anxious Results - Labs CBC & Chem 7: 07/04/18 05:19 07/04/18 05:19 Laboratory Results - last 24 hr 07/04/18 07/04/18 07/04/18 05:19 05:19 05:19 WBC 7.5 RBC 3.49 L Hgb 9.8 L Hct 28.8 L MCV 82.7 MCH 28.2 MCHC 34.1 RDW 15.9 Plt Count 164 MPV 7.1 Neut % (Auto) 66.6 Lymph % (Auto) 24.1 Newton % (Auto) 8.0 Eos % (Auto) 0.5 Baso % (Auto) 0.8 Neut # (Auto) 5.0 Lymph # (Auto) 1.8 Newton # (Auto) 0.6 Eos # (Auto) 0.0 Baso # (Auto) 0.1 WBC Differential . Differential Comment Auto diff final APTT 41.1 H Sodium 139 Potassium 3.3 L Chloride 103 Carbon Dioxide 29.2 Anion Gap 7 BUN 7 Creatinine 0.72 Estimated GFR 87 L Random Glucose 96 Calcium 8.2 L Microbiology 06/28/18 01:20 Blood - Peripheral Aerobic Blood Culture - Final No growth in 5 days 06/28/18 01:20 Blood - Peripheral Anaerobic Blood Culture - Final No growth in 5 days 06/28/18 01:25 Blood - Peripheral Aerobic Blood Culture - Final No growth in 5 days 06/28/18 01:25 Blood - Peripheral Anaerobic Blood Culture - Final No growth in 5 days - Imaging Impressions Ankle X-Ray 07/03/18 00:00 CONCLUSION: Soft tissue swelling with mild degenerative changes. No fracture. Assessment and Plan - Assessment (1) Discitis Code(s): M46.40 - Discitis, unspecified, site unspecified Status: Acute (2) Osteomyelitis Code(s): M86.9 - Osteomyelitis, unspecified Status: Acute (3) Arm DVT (deep venous thromboembolism), acute Code(s): I82.629 - Acute embolism and thrombosis of deep veins of unspecified upper extremity Status: Acute - Plan 48-year-old female with history of IV drug abuse; frequent abscess and progression of osteo/discitis at L5/S1 s/p CT guided biopsy initially identified in early May which was being treated with IV antibiotics. Patient reports experiencing swelling at the PICC line site which was removed after which she left AMA. Subsequently presented at [place] ED with complaint of spinal and arm pain. Found to have DVT in arm in the ED. Acute lumbosacral discitis/osteomyelitis -Suspected secondary to IV drug use. Drug screen positive for cocaine and opiates. Avoid IV pain medication; keep all narcotics to minimum and wean as soon as possible. -Status post workup and treatment at [facility]. Awaiting records -Left lower extremity weakness which patient says is unchanged since last month. -ID consulted -neurosurgery consult appreciated - Stop vanco per ID recommendations. continue Rocephin Suspicion of endocarditis -Echo pending Right upper extremity DVT. As seen on ultrasound. -Likely secondary to recent PICC line which was removed 2 days prior to admission at [facility]. - -continue with Heparin drip for now. Left leg edema and pain , Doppler US of the right leg reviewed and negative for DVT, X ray right leg reviewed no fracture Tachycardia on admission. -Resolved; likely secondary to crack cocaine use Hypokalemia -replaced; monitor. DVT prophylaxis: On heparin drip Discharge planning: Likely home. Echo is pending. Needs ID clearance for discharge patient with discitis/osteomyelitis and IVDU, expect long-term antibiotic
[2018-07-05] MEDS: Heparin Drip 25,000 UNIT/250 ML BAG IV.CONT PRN ×2 (00:03→15:49)
[2018-07-05] MEDS: Sod Chloride 0.9% Inj 1,000 ML IV.CONT SCH ×2 (06:25→17:40)
[2018-07-05] MEDS: Sodium Chloride 0.9% 2 ML Flush BID IV.FLUSH SCH ×2 (08:47→20:06)
--- NOTE | 2018-07-05 12:28 | P.PN ---
Subjective Interval history: Says she is hungry all the time and she does not get enough food. Order extra food. Patient denies any chest pain at this time and she does not appear in acute distress. However she still complains of pain and is asking for more pain medications. No fever or chills. Also wants a nicotine patch Physical Exam Vital signs: Vital Signs 07/04/18 16:00 07/05/18 00:00 07/05/18 01:01 Temperature 98.1 F 97.8 F Pulse Rate 66 70 Respiratory Rate 18 18 17 Blood Pressure 136/58 L 122/60 Pulse Oximetry 99 97 07/05/18 04:00 07/05/18 08:00 Temperature 98.5 F 98.4 F Pulse Rate 79 66 Respiratory Rate 18 18 Blood Pressure 113/67 107/62 Pulse Oximetry 100 98 Intake & Output 07/04/18 07/05/18 07/05/18 18:59 06:59 18:59 Intake Total 1931 / 1931 2250 / 2250 Output Total 3000 / 3000 Balance -1069 / -1069 2250 / 2250 Weight 74.3 kg Intake: IV 731 / 731 2250 / 2250 Heparin/D5W 25,000 U/250 mL 25, 250 / 250 250 / 250 000 unit In 250 ml @ Per Protocol IV.CONT TITRATE PRN Rx #:[id number] NS Inj 1,000 ML @ 100 mls/hr IV 381 / 381 1999 / 1999 .CONT .Q10H SELINA Rx#:[id number] Rocephin Inj 2,000 MG In NS Inj 100 / 100 100 ML @ 200 mls/hr IV.SIG Q24H SELINA Rx#:[id number] Oral 1200 / 1200 Output: Urine 3000 / 3000 Other: # Voids 4 Date of Last Bowel Movement 06/30/18 07/04/18 07/04/18 # Bowel Movements 1 Narrative: GENERAL: Well-nourished, well-developed adult female in no obvious distress. SKIN: Warm and dry. Multiple track saxena CARDIOVASCULAR: Regular rate and rhythm. RESPIRATORY: No accessory muscle use. Clear to auscultation. Breath sounds equal bilaterally. GASTROINTESTINAL: Abdomen soft, non-tender, non-distended. Positive bowel sounds. MUSCULOSKELETAL: Right upper arm erythemic and tender along medial aspect. Right ankle edema and pain. All other extremities without clubbing, cyanosis, or edema. No obvious deformities. NEUROLOGICAL: Awake and alert. No obvious cranial nerve deficits. Motor grossly within normal limits. Normal speech. PSYCHIATRIC: Anxious Results - Labs CBC & Chem 7: 07/04/18 05:19 07/04/18 05:19 Assessment and Plan - Assessment (1) Discitis Code(s): M46.40 - Discitis, unspecified, site unspecified Status: Acute (2) Osteomyelitis Code(s): M86.9 - Osteomyelitis, unspecified Status: Acute (3) Arm DVT (deep venous thromboembolism), acute Code(s): I82.629 - Acute embolism and thrombosis of deep veins of unspecified upper extremity Status: Acute - Plan 48-year-old female with history of IV drug abuse; frequent abscess and progression of osteo/discitis at L5/S1 s/p CT guided biopsy initially identified in early May which was being treated with IV antibiotics. Patient reports experiencing swelling at the PICC line site which was removed after which she left AMA. Subsequently presented at [place] ED with complaint of spinal and arm pain. Found to have DVT in arm in the ED. Acute lumbosacral discitis/osteomyelitis -Suspected secondary to IV drug use. Drug screen positive for cocaine and opiates. Avoid IV pain medication; keep all narcotics to minimum and wean as soon as possible. -Status post workup and treatment at [facility] ([place], [place]). Awaiting records -Left lower extremity weakness which patient says is unchanged since last month. -ID consulted -neurosurgery consult appreciated - Stop vanco per ID recommendations. continue Rocephin Suspicion of endocarditis -Echo pending Right upper extremity DVT. As seen on ultrasound. -Likely secondary to recent PICC line which was removed 2 days prior to admission at [facility]. - -continue with Heparin drip for now. Left leg edema and pain , Doppler US of the right leg reviewed and negative for DVT, X ray right leg reviewed no fracture Tachycardia on admission. -Resolved; likely secondary to crack cocaine use Hypokalemia -replaced; monitor. Tobaccoism. Nicotine patch. Counselled DVT prophylaxis: On heparin drip Discharge planning: Likely home. Echo is pending. Needs ID clearance for discharge patient with discitis/osteomyelitis and IVDU, expect long-term antibiotic
[2018-07-05] MEDS ORDERED: Aspirin 325 MG Tablet PO ONE (19:45)
[2018-07-06] MEDS: Sod Chloride 0.9% Inj 1,000 ML IV.CONT SCH ×3 (06:06→12:38)
[2018-07-06] MEDS: Heparin Drip 25,000 UNIT/250 ML BAG IV.CONT PRN ×2 (08:14→22:41)
[2018-07-06] MEDS: Sodium Chloride 0.9% 2 ML Flush BID IV.FLUSH SCH ×2 (09:30→23:33)
--- NOTE | 2018-07-06 14:39 | P.PN ---
Subjective Interval history: The patient is in bed she appears sleepy. Patient complained of chest pain last night and was asking for more pain medications. Troponin was negative. Patient says she did. At this time. However says she wants another doctor. Patient is constantly asking for pain medications, she is refusing labs are enough. Per nurse also family/friends are visiting and requests to sleep overnight in the patient room. Physical Exam Vital signs: Vital Signs 07/05/18 16:00 07/05/18 18:47 07/05/18 19:50 Temperature 97.7 F 98 F Pulse Rate 54 L 70 65 Respiratory Rate 18 16 20 Blood Pressure 118/74 121/76 127/84 Pulse Oximetry 100 100 100 07/05/18 23:13 07/06/18 04:00 07/06/18 08:00 Temperature 98.0 F 97.8 F 97.3 F L Pulse Rate 72 50 L 57 L Respiratory Rate 18 17 16 Blood Pressure 122/77 117/77 135/87 Pulse Oximetry 99 98 99 07/06/18 12:00 Temperature 96.5 F L Pulse Rate 57 L Respiratory Rate 17 Blood Pressure 114/71 Pulse Oximetry 100 Intake & Output 07/05/18 07/06/18 07/06/18 18:59 06:59 18:59 Intake Total 1350 / 1350 2230 / 2230 320 / 320 Output Total 2400 / 2400 Balance 1350 / 1350 -170 / -170 320 / 320 Weight 68 kg Intake: IV 1350 / 1350 1030 / 1030 320 / 320 Heparin/D5W 25,000 U/250 mL 25, 250 / 250 230 / 230 20 / 20 000 unit In 250 ml @ Per Protocol IV.CONT TITRATE PRN Rx #:[id number] NS Inj 1,000 ML @ 100 mls/hr IV 1000 / 1000 800 / 800 200 / 200 .CONT .Q10H SELINA Rx#:[id number] Rocephin Inj 2,000 MG In NS Inj 100 / 100 100 / 100 100 ML @ 200 mls/hr IV.SIG Q24H SELINA Rx#:[id number] Oral 1200 / 1200 Output: Urine 2400 / 2400 Other: Date of Last Bowel Movement 07/04/18 07/04/18 Narrative: GENERAL: Well-nourished, well-developed adult female in no obvious distress. SKIN: Warm and dry. Multiple track saxena CARDIOVASCULAR: Regular rate and rhythm. RESPIRATORY: No accessory muscle use. Clear to auscultation. Breath sounds equal bilaterally. GASTROINTESTINAL: Abdomen soft, non-tender, non-distended. Positive bowel sounds. MUSCULOSKELETAL: Right upper arm erythemic and tender along medial aspect. Right ankle edema and pain. All other extremities without clubbing, cyanosis, or edema. No obvious deformities. NEUROLOGICAL: Awake and alert. No obvious cranial nerve deficits. Motor grossly within normal limits. Normal speech. PSYCHIATRIC: Anxious Results - Labs CBC & Chem 7: 07/04/18 05:19 07/04/18 05:19 Laboratory Results - last 24 hr 07/05/18 21:17 Troponin I Less than 0.02 L Assessment and Plan - Assessment (1) Discitis Code(s): M46.40 - Discitis, unspecified, site unspecified Status: Acute (2) Osteomyelitis Code(s): M86.9 - Osteomyelitis, unspecified Status: Acute (3) Arm DVT (deep venous thromboembolism), acute Code(s): I82.629 - Acute embolism and thrombosis of deep veins of unspecified upper extremity Status: Acute - Plan 48-year-old female with history of IV drug abuse; frequent abscess and progression of osteo/discitis at L5/S1 s/p CT guided biopsy initially identified in early May which was being treated with IV antibiotics. Patient reports experiencing swelling at the PICC line site which was removed after which she left AMA. Subsequently presented at [place] ED with complaint of spinal and arm pain. Found to have DVT in arm in the ED. Acute lumbosacral discitis/osteomyelitis -Suspected secondary to IV drug use. Drug screen positive for cocaine and opiates. Avoid IV pain medication; keep all narcotics to minimum and wean as soon as possible. -Status post workup and treatment at [facility]. Awaiting records -Left lower extremity weakness which patient says is unchanged since last month. -ID consulted -neurosurgery consult appreciated - Stop vanco per ID recommendations. continue Rocephin Suspicion of endocarditis -Echo pending Right upper extremity DVT. As seen on ultrasound. -Likely secondary to recent PICC line which was removed 2 days prior to admission at [facility]. - -continue with Heparin drip for now. Pain medication seeking behavior Left leg edema and pain , Doppler US of the right leg reviewed and negative for DVT, X ray right leg reviewed no fracture Tachycardia on admission. -Resolved; likely secondary to crack cocaine use Hypokalemia -replaced; monitor. Tobaccoism. Nicotine patch. Counselled DVT prophylaxis: On heparin drip Discharge planning: Likely home. Echo is pending. Needs ID clearance for discharge patient with discitis/osteomyelitis and IVDU, expect long-term antibiotic
--- NOTE | 2018-07-06 21:09 | ECG ---
Date Performed: 07/05/2018 Time Performed: 19:25:44 PTAGE: 48 years EKG: --- Warning: Data quality may affect interpretation --- Sinus rhythm . Prolonged QT interval rSr'(V1) - probable normal variant Anteroseptal T wave changes may be due to myocardial ischemia Compared to previous tracing, sinus rate is slower Abnormal ECG PREVIOUS TRACING : 06/28/2018 00.51 DOCTOR: Say Vitale Interpretating Date/Time 07/06/2018 21:08:02
[2018-07-07] MEDS: Sod Chloride 0.9% Inj 1,000 ML IV.CONT SCH ×4 (00:08→22:18)
[2018-07-07] MEDS: Sodium Chloride 0.9% 2 ML Flush BID IV.FLUSH SCH ×2 (09:17→22:07)
--- NOTE | 2018-07-07 09:35 | P.PNID ---
Subjective Remarks: Patient is a 48-year-old female, with history of IV drug use, presented initially to [facility] back in April. At that time she was found to have infection in her lumbar spine, and she had aspiration of the fluid in her back and reportedly grew Serratia. She was on Rocephin and Cipro, and repeat scans during that hospitalization showed progression of her infection, so she was transferred to [facility] for neurosurgical evaluation. Patient had repeat sampling of the fluid in her back and I do not have the results of those tests. She apparently had a midline put in her right upper extremity, and plans were being discussed regarding discharge for her to go to a prison. Patient stated that since the midline was placed she has had problem with swelling pain and some redness in her right upper arm. The line was eventually removed on June 25, and patient signed out AGAINST MEDICAL ADVICE. She went home, and apparently smoked some crack cocaine, and presented back here at [facility] for further evaluation and treatment. Patient was found to have a superficial and deep vein thrombosis in her right upper extremity. She has not had any fevers here. Her WBC is normal. Repeat blood cultures here are pending so far. Patient had lumbar CT which did show evidence of discitis and osteomyelitis of the lumbosacral junction. Neurosurgery was consulted, and an MRI was ordered, but the patient refused to have the MRI because of the back pain. Her urine drug screen is positive for opiates and cocaine. Infectious disease consultation has been requested to assist with evaluation and treatment. Notes reviewed D/W Dr King Main issue with her is pain control Afebrile She has been on IV Abx at least 6 weeks - was at [facility] Apr to May, then at [facility] , signed out AMA, was out prob 1-2 days and presented her at [facility] with DVT RUE Antibiotics: Rocephin Lines: PIV Past Medical History: reviewed Allergies/Adverse Reactions: Allergies aspirin Allergy (Severe, Verified 06/28/18 07:43) Anaphylaxis rofecoxib Allergy (Mild, Verified 06/28/18 07:43) Rash Sulfa (Sulfonamide Antibiotics) Allergy (Mild, Verified 06/28/18 07:43) Rash tramadol Allergy (Mild, Verified 06/28/18 07:43) Rash mrsa Adverse Reaction (Uncoded 06/28/18 07:44) Irritation Objective Vital Signs 07/06/18 12:00 07/06/18 16:00 07/06/18 20:00 Temperature 96.5 F L 97.7 F 97.2 F L Pulse Rate 57 L 80 106 H Respiratory Rate 17 17 20 Blood Pressure 114/71 145/94 H 125/81 Pulse Oximetry 100 100 97 07/07/18 00:00 07/07/18 03:56 Temperature 97.9 F 97.9 F Pulse Rate 85 89 Respiratory Rate 20 18 Blood Pressure 126/85 131/96 H Pulse Oximetry 100 97 Intake & Output 07/06/18 07/07/18 07/07/18 18:59 06:59 18:59 Intake Total 780 / 780 2450 / 2450 Output Total 800 / 800 Balance 780 / 780 1650 / 1650 Weight 71.8 kg Intake: IV 320 / 320 1250 / 1250 Heparin/D5W 25,000 U/250 mL 25, 20 / 20 250 / 250 000 unit In 250 ml @ Per Protocol IV.CONT TITRATE PRN Rx #:[id number] NS Inj 1,000 ML @ 100 mls/hr IV 200 / 200 1000 / 1000 .CONT .Q10H SELINA Rx#:[id number] Rocephin Inj 2,000 MG In NS Inj 100 / 100 100 ML @ 200 mls/hr IV.SIG Q24H SELINA Rx#:[id number] Oral 460 / 460 1200 / 1200 Output: Urine 800 / 800 Other: # Voids 3 Date of Last Bowel Movement 07/04/18 07/07/18 # Bowel Movements 1 Lab - Chemistry Results 07/05/18 07/07/18 21:17 08:01 Creatinine 0.72 Estimated GFR 87 L Troponin I Less than 0.02 L Imaging: ITS Impressions Lumbar Spine MRI 06/28/18 00:00 CONCLUSION: 1. MRI exam confirms L5-S1 discitis and osteomyelitis with mild associated prevertebral phlegmon and anterior epidural enhancement without definite epidural abscess at this time. Chest X-Ray 06/28/18 01:17 CONCLUSION: Negative examination. Lumbar Spine CT 06/28/18 02:31 CONCLUSION: Discitis and osteomyelitis at the lumbosacral junction. Ankle X-Ray 07/03/18 00:00 CONCLUSION: Soft tissue swelling with mild degenerative changes. No fracture. Venous Doppler Study 07/03/18 00:00 CONCLUSION: 1. No DVT identified within either lower extremity. Physical Exam: GENERAL: awake and alert, not in respiratory distress. SKIN: Cool and dry. No generalized rash. Has track saxena in both UE. EYES: [place] conjunctiva. No petechia or hemorrhage. No scleral icterus. No injection or drainage. EARS, NOSE AND THROAT: Mucous membranes pink and moist. No oral lesions noted. No exudate. No oral thrush. NECK: Trachea midline. Supple and not tender, no meningeal signs CARDIOVASCULAR: Regular rate and rhythm. No murmurs, rubs or gallops heard RESPIRATORY: Clear to auscultation. Breath sounds equal bilaterally. No rales , wheezing or rhonchi ABDOMEN: Soft, non-tender, nondistended. Bowel sounds present and normoactive. Has scar from abdominoplasty EXTREMITIES: No clubbing, cyanosis, or edema. No joint effusion, has good ROM. No calf tenderness. Well perfused and warm. BACK: No swelling or redness noted NEUROLOGICAL: Non-focal PSYCHIATRIC: calm and cooperative. LINE: No evidence of infection Assessment and Plan - Plan Impression Discitis/Osteomyelitis lumbosacral junction - no epidural abscess seen Suspicious for endocarditis Active IVDU DVT RUE Recommendation Continue IV Rocephin Will give Abx till end on June (would give her about 8 weeks Rx for her osteo/discitis) - then po Cipro 1-2 months Try to taper pain medicine Labs weekly while on IV Rocephin: CBC, creat and LFT D/W Dr King
--- NOTE | 2018-07-07 09:44 | P.PNIM ---
Subjective Interval history: f/u; discitis in no acute distress. pain seems to be fairly controlled. no fever. Physical Exam Vital signs: Vital Signs 07/06/18 12:00 07/06/18 16:00 07/06/18 20:00 Temperature 96.5 F L 97.7 F 97.2 F L Pulse Rate 57 L 80 106 H Respiratory Rate 17 17 20 Blood Pressure 114/71 145/94 H 125/81 Pulse Oximetry 100 100 97 07/07/18 00:00 07/07/18 03:56 07/07/18 08:00 Temperature 97.9 F 97.9 F 98.0 F Pulse Rate 85 89 83 Respiratory Rate 20 18 20 Blood Pressure 126/85 131/96 H 125/75 Pulse Oximetry 100 97 95 Intake & Output 07/06/18 07/07/18 07/07/18 18:59 06:59 18:59 Intake Total 780 / 780 2450 / 2450 Output Total 800 / 800 Balance 780 / 780 1650 / 1650 Weight 71.8 kg Intake: IV 320 / 320 1250 / 1250 Heparin/D5W 25,000 U/250 mL 25, 20 / 20 250 / 250 000 unit In 250 ml @ Per Protocol IV.CONT TITRATE PRN Rx #:[id number] NS Inj 1,000 ML @ 100 mls/hr IV 200 / 200 1000 / 1000 .CONT .Q10H SELINA Rx#:[id number] Rocephin Inj 2,000 MG In NS Inj 100 / 100 100 ML @ 200 mls/hr IV.SIG Q24H SELINA Rx#:[id number] Oral 460 / 460 1200 / 1200 Output: Urine 800 / 800 Other: # Voids 3 Date of Last Bowel Movement 07/04/18 07/07/18 # Bowel Movements 1 - Constitutional no acute distress - Routine Respiratory Exam Present: CTA bilaterally - Routine Cardiovascular Exam Present: RRR - Routine Abdominal Exam Present: soft - Routine Extremities Exam Comments: no pedal edema. swelling of the right arm has improved. - Routine Neurological Exam Present: alert, oriented X3 Results - Labs CBC & Chem 7: 07/04/18 05:19 07/07/18 08:01 Laboratory Results - last 24 hr 07/07/18 08:01 Creatinine 0.72 Estimated GFR 87 L Assessment and Plan - Assessment (1) Discitis Code(s): M46.40 - Discitis, unspecified, site unspecified Status: Acute (2) Osteomyelitis Code(s): M86.9 - Osteomyelitis, unspecified Status: Acute (3) Arm DVT (deep venous thromboembolism), acute Code(s): I82.629 - Acute embolism and thrombosis of deep veins of unspecified upper extremity Status: Acute - Plan Acute lumbosacral discitis/osteomyelitis -Suspected secondary to IV drug use. Drug screen positive for cocaine and opiates. Avoid IV pain medication; keep all narcotics to minimum and wean as soon as possible. -ID consulted -neurosurgery consult appreciated - Stop vanco per ID recommendations. continue Rocephin Right upper extremity DVT. As seen on ultrasound. -Likely secondary to recent PICC line which was removed 2 days prior to admission at [facility]. - -continue with Heparin drip for now. Pain medication seeking behavior Left leg edema and pain , Doppler US of the right leg reviewed and negative for DVT, X ray right leg reviewed no fracture Tachycardia on admission. -Resolved; likely secondary to crack cocaine use Hypokalemia -replaced; monitor. Tobaccoism. Nicotine patch. Counselled DVT prophylaxis: On heparin drip Discussed Condition With: . Discharge Planning: after the IV antibiotics has been completed.
[2018-07-07] MEDS: Heparin Drip 25,000 UNIT/250 ML BAG IV.CONT PRN (17:08)
[2018-07-08] MEDS: Sod Chloride 0.9% Inj 1,000 ML IV.CONT SCH ×3 (06:26→17:44)
[2018-07-08] MEDS: Heparin Drip 25,000 UNIT/250 ML BAG IV.CONT PRN (06:50)
--- NOTE | 2018-07-08 08:55 | P.PNIM ---
Subjective Interval history: f/u; discitis in no acute distress. no fever. no new complaints. Physical Exam Vital signs: Vital Signs 07/07/18 12:00 07/07/18 16:00 07/07/18 20:00 Temperature 98.1 F 98.0 F 98.7 F Pulse Rate 87 85 95 H Respiratory Rate 18 18 17 Blood Pressure 133/83 178/92 H 150/66 H Pulse Oximetry 99 99 97 07/08/18 00:00 07/08/18 03:38 Temperature 98.6 F 98.1 F Pulse Rate 83 85 Respiratory Rate 19 18 Blood Pressure 150/74 H 128/57 L Pulse Oximetry 99 97 Intake & Output 07/07/18 07/08/18 07/08/18 18:59 06:59 18:59 Intake Total 350 / 350 4050 / 4050 Output Total 2500 / 2500 Balance 350 / 350 1550 / 1550 Weight 69.9 kg Intake: IV 350 / 350 2250 / 2250 Heparin/D5W 25,000 U/250 mL 25, 250 / 250 250 / 250 000 unit In 250 ml @ Per Protocol IV.CONT TITRATE PRN Rx #:[id number] NS Inj 1,000 ML @ 100 mls/hr IV 2000 / 2000 .CONT .Q10H SELINA Rx#:[id number] Rocephin Inj 2,000 MG In NS Inj 100 / 100 100 ML @ 200 mls/hr IV.SIG Q24H SELINA Rx#:[id number] Oral 1800 / 1800 Output: Urine 2500 / 2500 Other: # Voids 7 Date of Last Bowel Movement 07/07/18 - Constitutional no acute distress - Routine Respiratory Exam Present: CTA bilaterally - Routine Cardiovascular Exam Present: RRR - Routine Abdominal Exam Present: soft - Routine Extremities Exam Comments: no pedal edema. - Routine Neurological Exam Present: alert, oriented X3 Results - Labs CBC & Chem 7: 07/04/18 05:19 07/07/18 08:01 Laboratory Results - last 24 hr 07/07/18 07/07/18 07/07/18 08:01 15:49 23:35 APTT 33.3 H 40.4 H D Creatinine 0.72 Estimated GFR 87 L Assessment and Plan - Assessment (1) Discitis Code(s): M46.40 - Discitis, unspecified, site unspecified Status: Acute (2) Osteomyelitis Code(s): M86.9 - Osteomyelitis, unspecified Status: Acute (3) Arm DVT (deep venous thromboembolism), acute Code(s): I82.629 - Acute embolism and thrombosis of deep veins of unspecified upper extremity Status: Acute - Plan Acute lumbosacral discitis/osteomyelitis -Suspected secondary to IV drug use. Drug screen positive for cocaine and opiates. Avoid IV pain medication; keep all narcotics to minimum and wean as soon as possible. -ID consulted -neurosurgery consult appreciated - continue Rocephin Right upper extremity DVT. As seen on ultrasound. -Likely secondary to recent PICC line which was removed 2 days prior to admission at [facility]. - -switch Heparin drip to Xarelto. Pain medication seeking behavior Left leg edema and pain , Doppler US of the right leg reviewed and negative for DVT, X ray right leg reviewed no fracture Tachycardia on admission. -Resolved; likely secondary to crack cocaine use Hypokalemia -replaced; monitor. Tobaccoism. Nicotine patch. Counselled DVT prophylaxis: On heparin drip Discharge Planning: after the IV antibiotics has been completed.
[2018-07-08] MEDS: Rivaroxaban 15 MG Tablet PO SCH ×2 (10:29→20:47)
[2018-07-08] MEDS: Sodium Chloride 0.9% 2 ML Flush BID IV.FLUSH SCH ×2 (10:30→20:47)
[2018-07-09] MEDS: Sod Chloride 0.9% Inj 1,000 ML IV.CONT SCH ×2 (04:00→14:50)
[2018-07-09] MEDS: Rivaroxaban 15 MG Tablet PO SCH ×2 (08:56→21:24)
--- NOTE | 2018-07-09 10:36 | P.PNIM ---
Subjective Interval history: f/u; discitis in no acute distress. looks comfortable. no fever. d/w the RN. Physical Exam Vital signs: Vital Signs 07/08/18 12:00 07/08/18 16:00 07/08/18 20:00 Temperature 99.0 F 100.2 F H 97.9 F Pulse Rate 87 118 H 74 Respiratory Rate 18 18 17 Blood Pressure 126/57 L 127/71 118/56 L Pulse Oximetry 91 L 93 L 99 07/09/18 00:00 07/09/18 04:00 07/09/18 08:00 Temperature 97.0 F L 99.1 F 97.3 F L Pulse Rate 70 87 56 L Respiratory Rate 16 18 18 Blood Pressure 121/54 L 117/79 131/62 Pulse Oximetry 95 97 96 Intake & Output 07/08/18 07/09/18 07/09/18 18:59 06:59 18:59 Intake Total 1861 / 1861 2850 / 2850 Output Total 6000 / 6000 Balance 1861 / 1861 -3150 / -3150 Weight 70.9 kg Intake: IV 1141 / 1141 1000 / 1000 Heparin/D5W 25,000 U/250 mL 25, 41 / 41 000 unit In 250 ml @ Per Protocol IV.CONT TITRATE PRN Rx #:[id number] NS Inj 1,000 ML @ 100 mls/hr IV 1000 / 1000 1000 / 1000 .CONT .Q10H SELINA Rx#:[id number] Rocephin Inj 2,000 MG In NS Inj 100 / 100 100 ML @ 200 mls/hr IV.SIG Q24H SELINA Rx#:[id number] Oral 720 / 720 1850 / 1850 Output: Urine 6000 / 6000 Other: # Voids 4 Date of Last Bowel Movement 07/08/18 # Bowel Movements 2 - Constitutional no acute distress - Routine Respiratory Exam Present: CTA bilaterally - Routine Cardiovascular Exam Present: RRR - Routine Abdominal Exam Present: soft - Routine Extremities Exam Comments: no pedal edema. - Routine Neurological Exam Present: alert, oriented X3 Results - Labs CBC & Chem 7: 07/04/18 05:19 07/08/18 09:09 Laboratory Results - last 24 hr 07/08/18 09:09 Creatinine 0.94 Estimated GFR 64 L Assessment and Plan - Assessment (1) Discitis Code(s): M46.40 - Discitis, unspecified, site unspecified Status: Acute (2) Osteomyelitis Code(s): M86.9 - Osteomyelitis, unspecified Status: Acute (3) Arm DVT (deep venous thromboembolism), acute Code(s): I82.629 - Acute embolism and thrombosis of deep veins of unspecified upper extremity Status: Acute - Plan Acute lumbosacral discitis/osteomyelitis -Suspected secondary to IV drug use. Drug screen positive for cocaine and opiates. Avoid IV pain medication; keep all narcotics to minimum and wean as soon as possible. -ID consulted -neurosurgery consult appreciated - continue Rocephin Right upper extremity DVT. As seen on ultrasound. -Likely secondary to recent PICC line which was removed 2 days prior to admission at [facility]. - -switched Heparin drip to Xarelto. Pain medication seeking behavior Left leg edema and pain , Doppler US of the right leg reviewed and negative for DVT, X ray right leg reviewed no fracture Tachycardia on admission. -Resolved; likely secondary to crack cocaine use Hypokalemia -replaced; monitor. Tobaccoism. Nicotine patch. Counselled DVT prophylaxis: on Xarelto Discharge Planning: after the IV antibiotics has been completed.
[2018-07-09] MEDS: Sodium Chloride 0.9% 2 ML Flush BID IV.FLUSH SCH ×2 (12:55→21:24)
[2018-07-10] MEDS: Sod Chloride 0.9% Inj 1,000 ML IV.CONT SCH (01:16)
[2018-07-10 05:28] VITALS: PULSE 72
[2018-07-10 09:21] VITALS: BP 143/90; RESP 18; TEMP 97.9; O2SAT 92
[2018-07-10] MEDS: Rivaroxaban 15 MG Tablet PO SCH (10:00)
[2018-07-10] MEDS: Sodium Chloride 0.9% 2 ML Flush BID IV.FLUSH SCH (10:04)
--- NOTE | 2018-07-10 10:44 | P.PNIM ---
Subjective Interval history: f/u; discitis/DVT in no acute distress. pain is fairly controlled. no fever. Physical Exam Vital signs: Vital Signs 07/09/18 12:00 07/09/18 16:00 07/10/18 00:00 Temperature 97.3 F L 97.5 F L 97.4 F L Pulse Rate 59 L 65 63 Respiratory Rate 18 18 16 Blood Pressure 162/70 H 140/62 146/81 H Pulse Oximetry 98 98 97 07/10/18 04:00 07/10/18 08:00 Temperature 98.3 F 97.9 F Pulse Rate 72 Respiratory Rate 16 18 Blood Pressure 140/61 143/90 H Pulse Oximetry 98 92 L Intake & Output 07/09/18 07/10/18 07/10/18 18:59 06:59 18:59 Intake Total 1820 / 1820 1000 / 1000 Output Total 650 / 650 600 / 600 Balance 1170 / 1170 400 / 400 Weight 73 kg Intake: IV 1100 / 1100 1000 / 1000 NS Inj 1,000 ML @ 100 mls/hr IV 1000 / 1000 1000 / 1000 .CONT .Q10H SELINA Rx#:[id number] Rocephin Inj 2,000 MG In NS Inj 100 / 100 100 ML @ 200 mls/hr IV.SIG Q24H SELINA Rx#:[id number] Oral 720 / 720 Output: Urine 650 / 650 600 / 600 Other: Date of Last Bowel Movement 07/08/18 07/09/18 - Constitutional no acute distress - Routine Respiratory Exam Present: CTA bilaterally - Routine Cardiovascular Exam Present: RRR - Routine Abdominal Exam Present: soft - Routine Extremities Exam Comments: no pedal edema. - Routine Neurological Exam Present: alert, oriented X3 Results - Labs CBC & Chem 7: 07/04/18 05:19 07/08/18 09:09 Assessment and Plan - Assessment (1) Discitis Code(s): M46.40 - Discitis, unspecified, site unspecified Status: Acute (2) Osteomyelitis Code(s): M86.9 - Osteomyelitis, unspecified Status: Acute (3) Arm DVT (deep venous thromboembolism), acute Code(s): I82.629 - Acute embolism and thrombosis of deep veins of unspecified upper extremity Status: Acute - Plan Acute lumbosacral discitis/osteomyelitis -Suspected secondary to IV drug use. Drug screen positive for cocaine and opiates. Avoid IV pain medication; keep all narcotics to minimum and wean as soon as possible. -ID consulted -neurosurgery consult appreciated - continue Rocephin Right upper extremity DVT. As seen on ultrasound. -Likely secondary to recent PICC line which was removed 2 days prior to admission at [facility]. - -switched Heparin drip to Xarelto. Pain medication seeking behavior Left leg edema and pain , Doppler US of the right leg reviewed and negative for DVT, X ray right leg reviewed no fracture Tachycardia on admission. -Resolved; likely secondary to crack cocaine use Hypokalemia -replaced; monitor. Tobaccoism. Nicotine patch. Counselled DVT prophylaxis: on Xarelto Discharge Planning: after the IV antibiotics has been completed.
== END 2018-07-10 11:51 | disposition left against medical advice (07) ==
LOC: NEPC 00:29 → NEDA 04:46 → NEDH 11:23 → NEPHCDU 15:26 → N04 06-30 13:21
PROVIDERS: ADMIT Internal Medicine; ATTEND Internal Medicine